=== PATIENT | male | born 1980 | race American Indian/Alaskan Native ===

== ENCOUNTER 2016-07-22 09:22 | Outpatient (CLI) | payer MEDICARE ==
[2016-07-22 11:03] LABS: Hematocrit 40.4 % (35.5-45.6); Hemoglobin 12.9 gm/dl (11.8-15.2); Mean Corpuscular HGB Conc 32 % (32-34); Mean Corpuscular Volume 80 fl (84-94); Platelet Count 317 K/mm3 (140-440); Red Blood Count 5.02 M/mm3 (3.65-5.03); Red Cell Distribution Width 14.5 % (13.2-15.2); White Blood Count 6.4 K/mm3 (4.5-11.0)
[2016-07-22 11:06] LABS: Mean Corpuscular Hemoglobin 26 pg (28-32)
[2016-07-22 11:24] LABS: Alanine Aminotransferase 27 units/L (7-56); Albumin 3.8 g/dL (3.9-5); Alkaline Phosphatase 92 units/L (35-129); Anion Gap 16 mmol/L; Bilirubin,Total 0.3 mg/dL (0.1-1.2); Blood Urea Nitrogen 14 mg/dL (9-20); Calcium 8.9 mg/dL (8.4-10.2); Carbon Dioxide 25 mmol/L (22-30); Chloride 98.5 mmol/L (98-107); Glucose 94 mg/dL (75-100); Potassium 4.3 mmol/L (3.6-5.0); Sodium 135 mmol/L (137-145); Total Protein 7.7 g/dL (6.3-8.2)
== END 2016-07-22 09:23 | disposition home or self-care (01) ==
LOC: LAB 09:22
PROVIDERS: ATTEND Nurse Practitioner Psychiatric/Mental Health
DX: B20 Human immunodeficiency virus [HIV] disease (principal); F33.9 Major depressive disorder, recurrent, unspecified
CPT/HCPCS: 36415; 80053; 84443; 85027

== ENCOUNTER 2016-07-30 06:44 | Emergency (ER) | payer MEDICARE | END 2016-07-30 07:10 | disposition left against medical advice (07) | LOC: ED 06:44 | DX: R00.2 Palpitations (principal); Z53.21 Procedure and treatment not carried out due to patient leaving prior to being seen by health care provider ==

== ENCOUNTER 2016-08-13 19:22 | Inpatient (IN) | payer MEDICARE ==
--- NOTE | 2016-08-13 19:54 | Emergency Department Report ---
ED Altered Mental Status HPI - General Stated Complaint: POSS OD Time Seen by Provider: 08/13/16 19:38 Source: EMS, old records reviewed ([facility]) Mode of arrival: Stretcher Limitations: Altered Mental Status, Physical Limitation - History of Present Illness Initial Comments: 36-year-old male with a past medical history of HIV and avascular necrosis of the hip presents to the hospital with altered mental status. EMS reports they received a call from the god sister who found patient unresponsive. Per patient was a normal mental status. He apparently use her phone to google a medication. Patient's phone and she does not know the medications that he looked up on line. She left then returned to find her unresponsive and gurgling. Patient had Narcan 2 mg prior to arrival without improvement. Patient has a history of meth abuse. Patient also has an empty bottle of amitriptyline 50mg 30 tabs prescribed Jul 11. Daylin reports that bottle was full before she stepped out and when she returned it was empty. Per mother pt was at [facility] earlier and sounded normal. Patient is currently altered and unable to provide any history of present illness at this time. Mother states to her knowledge his HIV is "in remission" - Related Data Home Medications Medication Instructions Recorded Confirmed Last Taken Emtricitabin/Tenofovir [TRUVADA 1 tab PO QDAY 04/11/13 04/25/13 04/25/13 08:00 200-300 mg] Lopinavir/Ritonavir [Kaletra 1 each PO QDAY 04/11/13 04/25/13 04/25/13 08:00 200-50 mg Tablet] Dronabinol [Marinol] 5 mg PO PRN 04/25/13 04/25/13 04/25/13 11:00 Promethazine [Phenergan] 25 mg PO PRN 04/25/13 04/25/13 04/24/13 20:00 Ritonavir [Norvir] 400 mg PO QDAY 04/25/13 04/25/13 04/25/13 08:00 Previous Rx's Medication Instructions Recorded Last Taken Type Emmett Childress [Chapin Childress] 75 mg PO Q12H #30 tablet 04/25/13 Unknown Rx Hydrocodone Bit/Acetaminophen 1 tab PO Q6H PRN #20 tablet 04/25/13 Unknown Rx [Lortab 10-500 mg] Allergies Allergy/AdvReac Type Severity Reaction Status Date / Time No Known Allergies Allergy Verified 04/25/13 12:08 ED Review of Systems ROS: Stated complaint: POSS OD Other details as noted in HPI Comment: Unobtainable due to pts medical conditions ED Past Medical Hx - Past Medical History Hx HIV: Yes Additional medical history: avascular necrosis left hip, peripheral neuropathy, HIV+ - Surgical History Additional Surgical History: right hip replacement - Social History Smoking Status: Current Every Day Smoker Substance Use Type: Alcohol, Marijuana, Prescribed - Medications Home Medications: Home Medications Medication Instructions Recorded Confirmed Last Taken Type Emtricitabin/Tenofovir [TRUVADA 1 tab PO QDAY 04/11/13 04/25/13 04/25/13 08:00 History 200-300 mg] Lopinavir/Ritonavir [Kaletra 1 each PO QDAY 04/11/13 04/25/13 04/25/13 08:00 History 200-50 mg Tablet] Diclofenac Dr [Voltaren Dr] 75 mg PO Q12H #30 tablet 04/25/13 Unknown Rx Dronabinol [Marinol] 5 mg PO PRN 04/25/13 04/25/13 04/25/13 11:00 History Hydrocodone Bit/Acetaminophen 1 tab PO Q6H PRN #20 tablet 04/25/13 Unknown Rx [Lortab 10-500 mg] Promethazine [Phenergan] 25 mg PO PRN 04/25/13 04/25/13 04/24/13 20:00 History Ritonavir [Norvir] 400 mg PO QDAY 04/25/13 04/25/13 04/25/13 08:00 History ED Physical Exam - General Limitations: Altered Mental Status, Physical Limitation - Other Other exam information: General: No limitations Head exam: Atraumatic, normocephalic Eyes exam: Normal appearance ENT: Moist mucous membrane Neck exam: Normal inspection, full range of motion Respiratory exam: Clear to auscultation bilateral, no wheezes, rales, crackles Cardiovascular: Normal rate and rhythm, normal heart sounds Abdomen: Soft, nondistended, and nontender, with normal bowel sounds, no rebound, or guarding Extremity: Full range of motion normal inspection no deformity : ulcer to penile head Back: Normal Inspection, full range of motion, no tenderness Neurologic: Unresponsive, localizes times, will not open eyes spontaneously over spine to voice. Moves all extremities spontaneously but prefers to have his upper extremities flexed Psychiatric: normal affect, normal mood Skin: Warm, dry, intact ED Course Vital Signs 08/13/16 08/13/16 19:30 19:39 Temperature 96.3 F L 97.4 F L Pulse Rate 92 H 102 H Respiratory 16 20 Rate Blood Pressure 137/87 Blood Pressure 142/92 [Left] O2 Sat by Pulse 100 100 Oximetry - Consultations Consultation #1: 08/13/16 20:30 Case is discussed with Alena with poison control. With TCA antidepressive overdose expect anticholinergic symptoms such as tachycardia, hypotension, seizures, coma, respiratory depression. QRS is greater 100 patient may need a bicarbonate drip. Ativan as needed for agitation and seizures. Recommend to avoid Haldol and Geodon - Lab Data Result diagrams: 08/13/16 20:09 08/13/16 20:09 Lab Results 08/13/16 08/13/16 08/13/16 Range/Units 19:35 19:40 20:09 WBC 7.2 (4.5-11.0) K/mm3 RBC 4.61 (3.65-5.03) M/mm3 Hgb 11.6 L (11.8-15.2) gm/dl Hct 36.5 (35.5-45.6) % MCV 79 L (84-94) fl MCH 25 L (28-32) pg MCHC 32 (32-34) % RDW 15.5 H (13.2-15.2) % Plt Count 291 (140-440) K/mm3 Lymph % (Auto) 13.6 (13.4-35.0) % [place] % (Auto) 10.0 H (0.0-7.3) % Eos % (Auto) 1.8 (0.0-4.3) % Baso % (Auto) 0.6 (0.0-1.8) % Lymph # 1.0 L (1.2-5.4) K/mm3 [place] # 0.7 (0.0-0.8) K/mm3 Eos # 0.1 (0.0-0.4) K/mm3 Baso # 0.0 (0.0-0.1) K/mm3 Seg Neutrophils % 74.0 H (40.0-70.0) % Seg Neutrophils # 5.3 (1.8-7.7) K/mm3 PT (12.2-14.9) Sec. INR (0.87-1.13) APTT (24.2-36.6) Sec. POC ABG pH (7.35-7.45) POC ABG pCO2 (35-45) POC ABG pO2 (80-105) POC ABG HCO3 POC ABG Total CO2 POC ABG O2 Sat POC ABG Base Excess FiO2 % Sodium (137-145) mmol/L Potassium (3.6-5.0) mmol/L Chloride (98-107) mmol/L Carbon Dioxide (22-30) mmol/L Anion Gap mmol/L BUN (9-20) mg/dL Creatinine (0.8-1.5) mg/dL Estimated GFR ml/min BUN/Creatinine Ratio % Glucose (75-100) mg/dL Lactic Acid (0.7-2.0) mmol/L Calcium (8.4-10.2) mg/dL Magnesium (1.7-2.3) mg/dL Total Bilirubin (0.1-1.2) mg/dL AST (5-40) units/L ALT (7-56) units/L Alkaline Phosphatase (35-129) units/L Ammonia (25-60) umol/L Total Creatine Kinase (55-170) units/L CK-MB (CK-2) (0.0-4.0) ng/mL CK-MB (CK-2) Rel Index (0-4) Troponin T (0.00-0.029) ng/mL Total Protein (6.3-8.2) g/dL Albumin (3.9-5) g/dL Albumin/Globulin Ratio % TSH (0.270-4.200) mlU/mL Urine Color Lib[place] (Yellow) Urine Turbidity Clear (Clear) Urine pH 6.0 (5.0-7.0) Ur Specific Howell 1.027 (1.003-1.030) Urine Protein 100 mg/dl (Negative) mg/dL Urine Glucose (UA) Neg (Negative) mg/dL Urine Ketones Tr (Negative) mg/dL Urine Blood Neg (Negative) Urine Nitrite Pos (Negative) Urine Bilirubin Neg (Negative) Urine Urobilinogen 4.0 (<2.0) mg/dL Ur Leukocyte Esterase Tr (Negative) Urine WBC (Auto) 1.0 (0.0-6.0) /HPF Urine RBC (Auto) 3.0 (0.0-6.0) /HPF Urine Bacteria (Auto) 3+ (Negative) /HPF Urine Mucus 3+ /HPF Salicylates (2.8-20.0) mg/dL Urine Opiates Screen Presumptive negative Urine Methadone Screen Presumptive negative Acetaminophen (10.0-30.0) ug/mL Ur Barbiturates Screen Presumptive negative Ur Phencyclidine Scrn Presumptive negative Ur Amphetamines Screen Presumptive positive U Benzodiazepines Scrn Presumptive negative Urine Cocaine Screen Presumptive negative U Marijuana (THC) Screen Presumptive positive Drugs of Abuse Note Disclamer Plasma/Serum Alcohol (0-0.07) gm% 08/13/16 08/13/16 08/13/16 Range/Units 20:09 20:09 20:09 WBC (4.5-11.0) K/mm3 RBC (3.65-5.03) M/mm3 Hgb (11.8-15.2) gm/dl Hct (35.5-45.6) % MCV (84-94) fl MCH (28-32) pg MCHC (32-34) % RDW (13.2-15.2) % Plt Count (140-440) K/mm3 Lymph % (Auto) (13.4-35.0) % [place] % (Auto) (0.0-7.3) % Eos % (Auto) (0.0-4.3) % Baso % (Auto) (0.0-1.8) % Lymph # (1.2-5.4) K/mm3 [place] # (0.0-0.8) K/mm3 Eos # (0.0-0.4) K/mm3 Baso # (0.0-0.1) K/mm3 Seg Neutrophils % (40.0-70.0) % Seg Neutrophils # (1.8-7.7) K/mm3 PT 13.4 (12.2-14.9) Sec. INR 1.03 (0.87-1.13) APTT 25.4 (24.2-36.6) Sec. POC ABG pH (7.35-7.45) POC ABG pCO2 (35-45) POC ABG pO2 (80-105) POC ABG HCO3 POC ABG Total CO2 POC ABG O2 Sat POC ABG Base Excess FiO2 % Sodium 138 (137-145) mmol/L Potassium 3.6 (3.6-5.0) mmol/L Chloride 99.1 (98-107) mmol/L Carbon Dioxide 28 (22-30) mmol/L Anion Gap 15 mmol/L BUN 17 (9-20) mg/dL Creatinine 0.7 L (0.8-1.5) mg/dL Estimated GFR > 60 ml/min BUN/Creatinine Ratio 24.28 % Glucose 80 (75-100) mg/dL Lactic Acid 1.0 (0.7-2.0) mmol/L Calcium 8.0 L (8.4-10.2) mg/dL Magnesium (1.7-2.3) mg/dL Total Bilirubin 0.8 (0.1-1.2) mg/dL AST 33 (5-40) units/L ALT 38 (7-56) units/L Alkaline Phosphatase 74 (35-129) units/L Ammonia (25-60) umol/L Total Creatine Kinase (55-170) units/L CK-MB (CK-2) (0.0-4.0) ng/mL CK-MB (CK-2) Rel Index (0-4) Troponin T < 0.010 (0.00-0.029) ng/mL Total Protein 6.9 (6.3-8.2) g/dL Albumin 3.5 L (3.9-5) g/dL Albumin/Globulin Ratio 1.0 % TSH (0.270-4.200) mlU/mL Urine Color (Yellow) Urine Turbidity (Clear) Urine pH (5.0-7.0) Ur Specific Howell (1.003-1.030) Urine Protein (Negative) mg/dL Urine Glucose (UA) (Negative) mg/dL Urine Ketones (Negative) mg/dL Urine Blood (Negative) Urine Nitrite (Negative) Urine Bilirubin (Negative) Urine Urobilinogen (<2.0) mg/dL Ur Leukocyte Esterase (Negative) Urine WBC (Auto) (0.0-6.0) /HPF Urine RBC (Auto) (0.0-6.0) /HPF Urine Bacteria (Auto) (Negative) /HPF Urine Mucus /HPF Salicylates (2.8-20.0) mg/dL Urine Opiates Screen Urine Methadone Screen Acetaminophen (10.0-30.0) ug/mL Ur Barbiturates Screen Ur Phencyclidine Scrn Ur Amphetamines Screen U Benzodiazepines Scrn Urine Cocaine Screen U Marijuana (THC) Screen Drugs of Abuse Note Plasma/Serum Alcohol (0-0.07) gm% 08/13/16 08/13/16 08/13/16 Range/Units 20:09 20:09 20:09 WBC (4.5-11.0) K/mm3 RBC (3.65-5.03) M/mm3 Hgb (11.8-15.2) gm/dl Hct (35.5-45.6) % MCV (84-94) fl MCH (28-32) pg MCHC (32-34) % RDW (13.2-15.2) % Plt Count (140-440) K/mm3 Lymph % (Auto) (13.4-35.0) % [place] % (Auto) (0.0-7.3) % Eos % (Auto) (0.0-4.3) % Baso % (Auto) (0.0-1.8) % Lymph # (1.2-5.4) K/mm3 [place] # (0.0-0.8) K/mm3 Eos # (0.0-0.4) K/mm3 Baso # (0.0-0.1) K/mm3 Seg Neutrophils % (40.0-70.0) % Seg Neutrophils # (1.8-7.7) K/mm3 PT (12.2-14.9) Sec. INR (0.87-1.13) APTT (24.2-36.6) Sec. POC ABG pH (7.35-7.45) POC ABG pCO2 (35-45) POC ABG pO2 (80-105) POC ABG HCO3 POC ABG Total CO2 POC ABG O2 Sat POC ABG Base Excess FiO2 % Sodium (137-145) mmol/L Potassium (3.6-5.0) mmol/L Chloride (98-107) mmol/L Carbon Dioxide (22-30) mmol/L Anion Gap mmol/L BUN (9-20) mg/dL Creatinine (0.8-1.5) mg/dL Estimated GFR ml/min BUN/Creatinine Ratio % Glucose (75-100) mg/dL Lactic Acid (0.7-2.0) mmol/L Calcium (8.4-10.2) mg/dL Magnesium (1.7-2.3) mg/dL Total Bilirubin (0.1-1.2) mg/dL AST (5-40) units/L ALT (7-56) units/L Alkaline Phosphatase (35-129) units/L Ammonia 44.0 (25-60) umol/L Total Creatine Kinase (55-170) units/L CK-MB (CK-2) (0.0-4.0) ng/mL CK-MB (CK-2) Rel Index (0-4) Troponin T (0.00-0.029) ng/mL Total Protein (6.3-8.2) g/dL Albumin (3.9-5) g/dL Albumin/Globulin Ratio % TSH 0.451 (0.270-4.200) mlU/mL Urine Color (Yellow) Urine Turbidity (Clear) Urine pH (5.0-7.0) Ur Specific [place] (1.003-1.030) Urine Protein (Negative) mg/dL Urine Glucose (UA) (Negative) mg/dL Urine Ketones (Negative) mg/dL Urine Blood (Negative) Urine Nitrite (Negative) Urine Bilirubin (Negative) Urine Urobilinogen (<2.0) mg/dL Ur Leukocyte Esterase (Negative) Urine WBC (Auto) (0.0-6.0) /HPF Urine RBC (Auto) (0.0-6.0) /HPF Urine Bacteria (Auto) (Negative) /HPF Urine Mucus /HPF Salicylates < 0.3 L (2.8-20.0) mg/dL Urine Opiates Screen Urine Methadone Screen Acetaminophen (10.0-30.0) ug/mL Ur Barbiturates Screen Ur Phencyclidine Scrn Ur Amphetamines Screen U Benzodiazepines Scrn Urine Cocaine Screen U Marijuana (THC) Screen Drugs of Abuse Note Plasma/Serum Alcohol (0-0.07) gm% 08/13/16 08/13/16 08/13/16 Range/Units 20:09 20:09 20:09 WBC (4.5-11.0) K/mm3 RBC (3.65-5.03) M/mm3 Hgb (11.8-15.2) gm/dl Hct (35.5-45.6) % MCV (84-94) fl MCH (28-32) pg MCHC (32-34) % RDW (13.2-15.2) % Plt Count (140-440) K/mm3 Lymph % (Auto) (13.4-35.0) % [place] % (Auto) (0.0-7.3) % Eos % (Auto) (0.0-4.3) % Baso % (Auto) (0.0-1.8) % Lymph # (1.2-5.4) K/mm3 [place] # (0.0-0.8) K/mm3 Eos # (0.0-0.4) K/mm3 Baso # (0.0-0.1) K/mm3 Seg Neutrophils % (40.0-70.0) % Seg Neutrophils # (1.8-7.7) K/mm3 PT (12.2-14.9) Sec. INR (0.87-1.13) APTT (24.2-36.6) Sec. POC ABG pH (7.35-7.45) POC ABG pCO2 (35-45) POC ABG pO2 (80-105) POC ABG HCO3 POC ABG Total CO2 POC ABG O2 Sat POC ABG Base Excess FiO2 % Sodium (137-145) mmol/L Potassium (3.6-5.0) mmol/L Chloride (98-107) mmol/L Carbon Dioxide (22-30) mmol/L Anion Gap mmol/L BUN (9-20) mg/dL Creatinine (0.8-1.5) mg/dL Estimated GFR ml/min BUN/Creatinine Ratio % Glucose (75-100) mg/dL Lactic Acid (0.7-2.0) mmol/L Calcium (8.4-10.2) mg/dL Magnesium (1.7-2.3) mg/dL Total Bilirubin (0.1-1.2) mg/dL AST (5-40) units/L ALT (7-56) units/L Alkaline Phosphatase (35-129) units/L Ammonia (25-60) umol/L Total Creatine Kinase 600 H (55-170) units/L CK-MB (CK-2) 5.9 H (0.0-4.0) ng/mL CK-MB (CK-2) Rel Index 0.9 (0-4) Troponin T (0.00-0.029) ng/mL Total Protein (6.3-8.2) g/dL Albumin (3.9-5) g/dL Albumin/Globulin Ratio % TSH (0.270-4.200) mlU/mL Urine Color (Yellow) Urine Turbidity (Clear) Urine pH (5.0-7.0) Ur Specific [place] (1.003-1.030) Urine Protein (Negative) mg/dL Urine Glucose (UA) (Negative) mg/dL Urine Ketones (Negative) mg/dL Urine Blood (Negative) Urine Nitrite (Negative) Urine Bilirubin (Negative) Urine Urobilinogen (<2.0) mg/dL Ur Leukocyte Esterase (Negative) Urine WBC (Auto) (0.0-6.0) /HPF Urine RBC (Auto) (0.0-6.0) /HPF Urine Bacteria (Auto) (Negative) /HPF Urine Mucus /HPF Salicylates (2.8-20.0) mg/dL Urine Opiates Screen Urine Methadone Screen Acetaminophen < 15.0 (10.0-30.0) ug/mL Ur Barbiturates Screen Ur Phencyclidine Scrn Ur Amphetamines Screen U Benzodiazepines Scrn Urine Cocaine Screen U Marijuana (THC) Screen Drugs of Abuse Note Plasma/Serum Alcohol < 0.01 (0-0.07) gm% 08/13/16 08/13/16 Range/Units 20:09 21:05 WBC (4.5-11.0) K/mm3 RBC (3.65-5.03) M/mm3 Hgb (11.8-15.2) gm/dl Hct (35.5-45.6) % MCV (84-94) fl MCH (28-32) pg MCHC (32-34) % RDW (13.2-15.2) % Plt Count (140-440) K/mm3 Lymph % (Auto) (13.4-35.0) % [place] % (Auto) (0.0-7.3) % Eos % (Auto) (0.0-4.3) % Baso % (Auto) (0.0-1.8) % Lymph # (1.2-5.4) K/mm3 [place] # (0.0-0.8) K/mm3 Eos # (0.0-0.4) K/mm3 Baso # (0.0-0.1) K/mm3 Seg Neutrophils % (40.0-70.0) % Seg Neutrophils # (1.8-7.7) K/mm3 PT (12.2-14.9) Sec. INR (0.87-1.13) APTT (24.2-36.6) Sec. POC ABG pH 7.350 (7.35-7.45) POC ABG pCO2 52.3 H (35-45) POC ABG pO2 175 H (80-105) POC ABG HCO3 28.9 POC ABG Total CO2 30 POC ABG O2 Sat 99 POC ABG Base Excess 3 FiO2 28 % Sodium (137-145) mmol/L Potassium (3.6-5.0) mmol/L Chloride (98-107) mmol/L Carbon Dioxide (22-30) mmol/L Anion Gap mmol/L BUN (9-20) mg/dL Creatinine (0.8-1.5) mg/dL Estimated GFR ml/min BUN/Creatinine Ratio % Glucose (75-100) mg/dL Lactic Acid (0.7-2.0) mmol/L Calcium (8.4-10.2) mg/dL Magnesium 1.9 (1.7-2.3) mg/dL Total Bilirubin (0.1-1.2) mg/dL AST (5-40) units/L ALT (7-56) units/L Alkaline Phosphatase (35-129) units/L Ammonia (25-60) umol/L Total Creatine Kinase (55-170) units/L CK-MB (CK-2) (0.0-4.0) ng/mL CK-MB (CK-2) Rel Index (0-4) Troponin T (0.00-0.029) ng/mL Total Protein (6.3-8.2) g/dL Albumin (3.9-5) g/dL Albumin/Globulin Ratio % TSH (0.270-4.200) mlU/mL Urine Color (Yellow) Urine Turbidity (Clear) Urine pH (5.0-7.0) Ur Specific [place]ell (1.003-1.030) Urine Protein (Negative) mg/dL Urine Glucose (UA) (Negative) mg/dL Urine Ketones (Negative) mg/dL Urine Blood (Negative) Urine Nitrite (Negative) Urine Bilirubin (Negative) Urine Urobilinogen (<2.0) mg/dL Ur Leukocyte Esterase (Negative) Urine WBC (Auto) (0.0-6.0) /HPF Urine RBC (Auto) (0.0-6.0) /HPF Urine Bacteria (Auto) (Negative) /HPF Urine Mucus /HPF Salicylates (2.8-20.0) mg/dL Urine Opiates Screen Urine Methadone Screen Acetaminophen (10.0-30.0) ug/mL Ur Barbiturates Screen Ur Phencyclidine Scrn Ur Amphetamines Screen U Benzodiazepines Scrn Urine Cocaine Screen U Marijuana (THC) Screen Drugs of Abuse Note Plasma/Serum Alcohol (0-0.07) gm% - EKG Data -: EKG Interpreted by Me (sinus 106, early repol QRS 98, QTC 475) - Radiology Data Radiology results: report reviewed (CT head: No acute findings mild paranasal sinus disease) - Medical Decision Making Plan to admit patient to the hospital for probable overdose as well as history of polysubstance abuse. Patient will require further monitoring and treatment of symptoms - Differential Diagnosis drug overdose, infection, hemorrhage, encephalopathy Critical Care Time: No Critical care attestation.: If time is entered above; I have spent that time in minutes in the direct care of this critically ill patient, excluding procedure time. ED Disposition Clinical Impression: Altered mental status, TCA (tricyclic antidepressant) overdose of undetermined intent, HIV (human immunodeficiency virus infection), Elevated CK Disposition: OP ADMITTED IP TO THIS HOSP Is pt being admited?: Yes Condition: Stable Time of Disposition: 21:54 (Dr Arias/hosp)
[2016-08-13 20:04] LABS: Bacteria,Urine 3+ /HPF (Negative); Bilirubin,Urine NEG (Negative); Blood,Urine NEG (Negative); Ketones,Urine TR mg/dL (Negative); Leukocyte Esterase,Urine TR (Negative); Mucus,Urine 3+ /HPF; Nitrite,Urine POS (Negative)
--- NOTE | 2016-08-13 20:13 | Cat Scan Report ---
FINAL REPORT PROCEDURE: CT HEAD/BRAIN WO CON TECHNIQUE: Computerized tomography of the head was performed without contrast material. HISTORY: Altered Mental Status COMPARISON: No prior studies are available for comparison. FINDINGS: Brain: Brain density appears normal. No evidence of intracranial hemorrhage. No parenchymal hemorrhage, mass lesions or mass effect are seen. No abnormal extraxial fluid collects or masses are seen. Ventricles: Ventricles are normal size and are midline. Bone Windows: No evidence of skull fracture. Paranasal sinuses: There is opacification of 1 of the ethmoid air cells on the right. There is scattered mild mucosal thickening. There is mild mucosal thickening anteriorly in both maxillary sinuses and small nodular density posteriorly in the right maxillary sinus. Mastoid air cells: Clear IMPRESSION: Negative unenhanced CT of the brain. If symptoms persist or worsen consider follow-up exam or MRI for further evaluation. Mild paranasal sinus disease as described.
--- NOTE | 2016-08-13 20:16 | Admit Criteria Form ---
Admission Criteria Documentation: MENTAL STATUS CHANGE Clinical Indications for Inpatient Care (Place 'X' for any and all applicable criteria): Ongoing inpatient care may be needed for ANY ONE of the following(1)(2)(3)(5)(6) : [ ]I. Suspected serious etiology (eg, medical disorder, TOY MAKER event) of mental status change [X]II. Danger to self or others not manageable at lower level of care [ ]III. Grave disability (eg, inability to perform self care necessary at lower level of care) [ ]IV. Agitation or inappropriate behavior interfering with care for primary condition (eg, attempting to discontinue lines or drains prematurely, unable to cooperate with respiratory care) [ ]V. Delirium [A] [D][E] as described by ANY ONE of the following(26): [ ]a) Delirium due to alcohol or sedative [F] withdrawal [ ]b) Delirium of uncertain etiology that has not responded to appropriate empiric treatment [ ]c) Delirium that prevents performance of a life-sustaining function (eg, feeding or hydrating oneself) [ ]. General contraindications and/or Inappropriate clinical situations for Observational Care in patients with Mental Status Change, when ANY ONE of the following is required: [ ]a) Prediction of prolongation of LOS based on ANY ONE of the following may be considered as a contraindication for observational care 2, 3, 4, 5, 6, 7, 8, 9, 10, 11 [ ]i) Age > 65 yrs. [ ]ii) Patient arriving by ambulance [ ]iii) Patient with high acuity [ ]iv) Patient requiring vital sign monitoring [ ]v) Patient on IV medication [ ]b) Systolic blood pressures 180mmHg 3,12 [ ]c) Patient with altered mental status including delirium and other alteration of consciousness, (3) [ ]d) Patient whose discharge disposition will be to a halfway home or rehabilitation home should not be managed in Emergency Department Observation Unit. CMS rule requires 3 days hospital stay before such placement.3,13 [ ]e) Patient with failure to thrive due to broad array of etiologies 3,16,17 [ ]f) Inability to ambulate 3,14 Extended stay beyond goal length of stay for the primary condition may be needed until ALL of the following are present(3)(5): [ ]a) Underlying medical etiology of mental status change is absent, or has been established and adequately treated [ ]b) Danger to self or others is absent or manageable at lower level of care. [ ]c) Behavior crisis management, including physical or chemical restraints, is not required or available at lower level of car [ ]d) Substance or alcohol withdrawal is absent or manageable at lower level of care. [ ]e) Behavioral symptoms (eg, agitation, somnolence, inappropriate behavior) are absent, or are manageable at lower level of care. The original [facility] content created by [facility] has been revised. The portions of the content which have been revised are identified through the use of italic text or in bold, and [facility] has neither reviewed nor approved the modified material. All other unmodified content is copyright [facility]. Please see references footnoted in the original [facility] edition 2016 Admission Criteria Met: Yes
[2016-08-13 20:24] LABS: Urine Drugs of Abuse Note Disclamer
[2016-08-13] MEDS ORDERED: ATIVAN IV ONE (20:36)
[2016-08-13 21:07] LABS: Alanine Aminotransferase 38 units/L (7-56); Albumin 3.5 g/dL (3.9-5); Alkaline Phosphatase 74 units/L (35-129); Anion Gap 15 mmol/L; BUN/Creatinine Ratio 24.28; Bilirubin,Total 0.8 mg/dL (0.1-1.2); Blood Urea Nitrogen 17 mg/dL (9-20); Carbon Dioxide 28 mmol/L (22-30); Chloride 99.1 mmol/L (98-107); Glucose 80 mg/dL (75-100); Potassium 3.6 mmol/L (3.6-5.0); Sodium 138 mmol/L (137-145); Total Protein 6.9 g/dL (6.3-8.2)
[2016-08-13 21:13] LABS: ISTAT Base Excess 3; ISTAT HCO3 28.9; ISTAT PCO2 52.3 (35-45); ISTAT PO2 175 (80-105); ISTAT SO2 99; ISTAT TCO2 30
[2016-08-13 21:14] LABS: Basophils % (Auto) 0.6 % (0.0-1.8); Creatine Kinase MB 5.9 ng/mL (0.0-4.0); Eosinophils % (Auto) 1.8 % (0.0-4.3); Hematocrit 36.5 % (35.5-45.6); Hemoglobin 11.6 gm/dl (11.8-15.2); Mean Corpuscular HGB Conc 32 % (32-34); Mean Corpuscular Volume 79 fl (84-94); Platelet Count 291 K/mm3 (140-440); Red Blood Count 4.61 M/mm3 (3.65-5.03); Red Cell Distribution Width 15.5 % (13.2-15.2); White Blood Count 7.2 K/mm3 (4.5-11.0)
[2016-08-13 21:15] LABS: Mean Corpuscular Hemoglobin 25 pg (28-32)
[2016-08-13 21:26] LABS: INR 1.03 (0.87-1.13); Partial Thromboplastin Time 25.4 Sec. (24.2-36.6)
[2016-08-13] MEDS ORDERED: TYLENOL PR PRN (23:33)
[2016-08-13] MEDS ORDERED: ZOFRAN IV PRN (23:33)
[2016-08-13] MEDS ORDERED: TYLENOL PO PRN (23:33)
--- NOTE | 2016-08-13 23:44 | History and Physical Report ---
History of Present Illness Date of examination: 08/13/16 History of present illness: 36-year-old man with HIV,substance abuse was brought to the emergency room for unresponsiveness. Unable to reach family, the patient is unable to give a history. Per the emergency room physician family reports that he took amitriptyline, unclear how many. The patient was given Narcan and brought to the hospital without any significant effect. His urine is positive for cocaine , amphetamines and marijuana. Review of system is unobtainable PAST SURGICAL HISTORY: Unknown SOCIAL HISTORY unknown: FAMILY HISTORY: Unknown Medications and Allergies Allergies Allergy/AdvReac Type Severity Reaction Status Date / Time No Known Allergies Allergy Verified 04/25/13 12:08 Home Medications Medication Instructions Recorded Confirmed Last Taken Type Emtricitabin/Tenofovir [TRUVADA 1 tab PO QDAY 04/11/13 04/25/13 04/25/13 08:00 History 200-300 mg] Lopinavir/Ritonavir [Kaletra 1 each PO QDAY 04/11/13 04/25/13 04/25/13 08:00 History 200-50 mg Tablet] Diclofenac Dr [Voltaren Dr] 75 mg PO Q12H #30 tablet 04/25/13 Unknown Rx Dronabinol [Marinol] 5 mg PO PRN 04/25/13 04/25/13 04/25/13 11:00 History Hydrocodone Bit/Acetaminophen 1 tab PO Q6H PRN #20 tablet 04/25/13 Unknown Rx [Lortab 10-500 mg] Promethazine [Phenergan] 25 mg PO PRN 04/25/13 04/25/13 04/24/13 20:00 History Ritonavir [Norvir] 400 mg PO QDAY 04/25/13 04/25/13 04/25/13 08:00 History Active Meds: Active Medications Acetaminophen (Tylenol) 650 mg PO Q4H PRN PRN Reason: Pain MILD(1-3)/Fever >100.5/GOLDMAN Acetaminophen (Tylenol) 650 mg [place] Q4H PRN PRN Reason: Pain MILD(1-3)/Fever >100.5/GOLDMAN Enoxaparin Sodium (Lovenox) 30 mg SUB-Q QDAY FARAZ Sodium Chloride (Nacl 0.9% 1000 Ml) 1,000 mls @ 150 mls/hr IV DIRECT FARAZ Ondansetron HCl (Zofran) 4 mg IV Q8H PRN PRN Reason: N/V unrelieved by Reglan Exam - Physical Exam Narrative exam: Gen. appearance: Patient lying in bed, no apparent distress HEENT: Normocephalic, atraumatic, pupils equally round and reactive to light, unable to do extraocular movement, and no sclericterus,. No JVD or thyromegaly or nodule,neck supple, no carotid bruit ,mucous membranes moist, unable to examine oral cavity Heart: S1, S2, regular rate and rhythm Lungs: Clear to auscultation bilaterally, breathing comfortable Abdomen: Positive bowel sounds, nontender, nondistended, no organomegaly Extremity: No edema, cyanosis, clubbing Skin: No rash, nodules, warm, dry Neuro: LETHARGIC - Constitutional Vitals: Temp Pulse Resp BP Pulse Ox 97.4 F L 102 H 20 137/87 100 08/13/16 19:39 08/13/16 19:39 08/13/16 19:39 08/13/16 19:39 08/13/16 19:39 Results - Labs CBC & Chem 7: 08/14/16 07:42 08/14/16 07:42 Labs: Abnormal lab results 08/13/16 08/13/16 08/13/16 Range/Units 20:09 20:09 20:09 Hgb 11.6 L (11.8-15.2) gm/dl MCV 79 L (84-94) fl MCH 25 L (28-32) pg RDW 15.5 H (13.2-15.2) % [place] % (Auto) 10.0 H (0.0-7.3) % Lymph # 1.0 L (1.2-5.4) K/mm3 Seg Neutrophils % 74.0 H (40.0-70.0) % POC ABG pCO2 (35-45) POC ABG pO2 (80-105) Creatinine 0.7 L (0.8-1.5) mg/dL Calcium 8.0 L (8.4-10.2) mg/dL Total Creatine Kinase (55-170) units/L CK-MB (CK-2) (0.0-4.0) ng/mL Albumin 3.5 L (3.9-5) g/dL Salicylates < 0.3 L (2.8-20.0) mg/dL 08/13/16 08/13/16 Range/Units 20:09 21:05 Hgb (11.8-15.2) gm/dl MCV (84-94) fl MCH (28-32) pg RDW (13.2-15.2) % [place] % (Auto) (0.0-7.3) % Lymph # (1.2-5.4) K/mm3 Seg Neutrophils % (40.0-70.0) % POC ABG pCO2 52.3 H (35-45) POC ABG pO2 175 H (80-105) Creatinine (0.8-1.5) mg/dL Calcium (8.4-10.2) mg/dL Total Creatine Kinase 600 H (55-170) units/L CK-MB (CK-2) 5.9 H (0.0-4.0) ng/mL Albumin (3.9-5) g/dL Salicylates (2.8-20.0) mg/dL - Imaging and Cardiology CT Scan - head: report reviewed Assessment and Plan Altered mental status most like secondary to drug use Possible overdose Possible suicide attempt Rhabdomyolysis Substance abuse HIV Admits medicine Start bicarbonate drip, monitor EKG Place with a sitter, start DVT prophylaxis
[2016-08-13] MEDS ORDERED: NACL 0.9% 1000 ML 1,000 ML IV SCH (23:45)
[2016-08-14] MEDS: NACL 0.45% 1000 ML 1,000 ML with SODIUM BICARBONATE 50 MEQ IV SCH ×3 (01:36→17:22)
[2016-08-14 08:06] LABS: Basophils % (Auto) 0.9 % (0.0-1.8); Hematocrit 36.9 % (35.5-45.6); Hemoglobin 11.8 gm/dl (11.8-15.2); Mean Corpuscular HGB Conc 32 % (32-34); Mean Corpuscular Hemoglobin 25 pg (28-32); Mean Corpuscular Volume 79 fl (84-94); Platelet Count 272 K/mm3 (140-440); Red Blood Count 4.66 M/mm3 (3.65-5.03); Red Cell Distribution Width 15.3 % (13.2-15.2); White Blood Count 5.1 K/mm3 (4.5-11.0)
[2016-08-14 08:21] LABS: Anion Gap 17 mmol/L; Blood Urea Nitrogen 14 mg/dL (9-20); Calcium 8.1 mg/dL (8.4-10.2); Carbon Dioxide 27 mmol/L (22-30); Chloride 101.1 mmol/L (98-107); Glucose 79 mg/dL (75-100); Potassium 3.8 mmol/L (3.6-5.0); Sodium 141 mmol/L (137-145)
[2016-08-14] MEDS ORDERED: LOVENOX SUB-Q SCH (10:00)
[2016-08-14] MEDS: LOVENOX SUB-Q SCH (10:21)
--- NOTE | 2016-08-14 15:50 | Progress Note ---
Assessment and Plan Assessment and plan: Acute toxic encephalopathy secondary to drug Possible Suicide attempt Rhabdomyolysis Substance abuse History of HIV Plan: Continue to monitor him clinically Continue bicarbonate drip, monitor EKG Placed with a sitter, consult psychiatry Continue DVT prophylaxis, resume diet Trend CPK History Interval history: Patient seen and examined. Medical records and medication list reviewed. No acute event overnight noted by the RN. Patient denies any chest pain or difficulty breathing. Patient still express suicidal ideation, he states that he tried to overdose as an suicidal attempt Discussed plan of care at bedside with patient. Hospitalist Physical - Physical exam Narrative exam: GENERAL: well-developed and well-nourished -[place] male lying on bed appeared to be in no discomfort. HEENT: Normocephalic. Atraumatic. No conjunctival congestion or icterus. Patient has moist mucous membranes. NECK: Supple. Trachea midline. CHEST/LUNGS: Clear to auscultated bilaterally, breathing nonlabored. No wheezes crackles or rhonchi. HEART/CARDIOVASCULAR: Regular in rate and rhythm. S1 and S2 positive. ABDOMEN: Abdomen is soft, nontender. Patient has normal bowel sounds. SKIN: There is no rash. Warm and dry. NEURO: No focal motor deficit. Follows command. MUSCULOSKELETAL: No joint effusion or tenderness. EXTRIMITY: No edema, no cyanosis or clubbing. PSYCH: Cooperative. - Constitutional Vitals: Temp Pulse Resp BP Pulse Ox 98.0 F 78 20 126/82 99 08/14/16 07:38 08/14/16 09:00 08/14/16 07:38 08/14/16 07:38 08/14/16 10:14 Results - Labs CBC & Chem 7: 08/14/16 07:42 08/14/16 07:42 Labs: Laboratory Last Values WBC 5.1 K/mm3 (4.5-11.0) 08/14/16 07:42 RBC 4.66 M/mm3 (3.65-5.03) 08/14/16 07:42 Hgb 11.8 gm/dl (11.8-15.2) 08/14/16 07:42 Hct 36.9 % (35.5-45.6) 08/14/16 07:42 MCV 79 fl (84-94) L 08/14/16 07:42 MCH 25 pg (28-32) L 08/14/16 07:42 MCHC 32 % (32-34) 08/14/16 07:42 RDW 15.3 % (13.2-15.2) H 08/14/16 07:42 Plt Count 272 K/mm3 (140-440) 08/14/16 07:42 Lymph % (Auto) 24.0 % (13.4-35.0) 08/14/16 07:42 [place] % (Auto) 11.8 % (0.0-7.3) H 08/14/16 07:42 Eos % (Auto) 4.0 % (0.0-4.3) 08/14/16 07:42 Baso % (Auto) 0.9 % (0.0-1.8) 08/14/16 07:42 Lymph # 1.2 K/mm3 (1.2-5.4) 08/14/16 07:42 [place] # 0.6 K/mm3 (0.0-0.8) 08/14/16 07:42 Eos # 0.2 K/mm3 (0.0-0.4) 08/14/16 07:42 Baso # 0.0 K/mm3 (0.0-0.1) 08/14/16 07:42 Seg Neutrophils % 59.3 % (40.0-70.0) 08/14/16 07:42 Seg Neutrophils # 3.0 K/mm3 (1.8-7.7) 08/14/16 07:42 PT 13.4 Sec. (12.2-14.9) 08/13/16 20:09 INR 1.03 (0.87-1.13) 08/13/16 20:09 APTT 25.4 Sec. (24.2-36.6) 08/13/16 20:09 POC ABG pH 7.350 (7.35-7.45) 08/13/16 21:05 POC ABG pCO2 52.3 (35-45) H 08/13/16 21:05 POC ABG pO2 175 (80-105) H 08/13/16 21:05 POC ABG HCO3 28.9 08/13/16 21:05 POC ABG Total CO2 30 08/13/16 21:05 POC ABG O2 Sat 99 08/13/16 21:05 POC ABG Base Excess 3 08/13/16 21:05 FiO2 28 % 08/13/16 21:05 Sodium 141 mmol/L (137-145) 08/14/16 07:42 Potassium 3.8 mmol/L (3.6-5.0) 08/14/16 07:42 Chloride 101.1 mmol/L (98-107) 08/14/16 07:42 Carbon Dioxide 27 mmol/L (22-30) 08/14/16 07:42 Anion Gap 17 mmol/L 08/14/16 07:42 BUN 14 mg/dL (9-20) 08/14/16 07:42 Creatinine 0.7 mg/dL (0.8-1.5) L 08/14/16 07:42 Estimated GFR > 60 ml/min 08/14/16 07:42 BUN/Creatinine Ratio 20.00 % 08/14/16 07:42 Glucose 79 mg/dL (75-100) 08/14/16 07:42 Lactic Acid 1.0 mmol/L (0.7-2.0) 08/13/16 20:09 Calcium 8.1 mg/dL (8.4-10.2) L 08/14/16 07:42 Magnesium 1.9 mg/dL (1.7-2.3) 08/13/16 20:09 Total Bilirubin 0.8 mg/dL (0.1-1.2) 08/13/16 20:09 AST 33 units/L (5-40) 08/13/16 20:09 ALT 38 units/L (7-56) 08/13/16 20:09 Alkaline Phosphatase 74 units/L (35-129) 08/13/16 20:09 Ammonia 44.0 umol/L (25-60) 08/13/16 20:09 Total Creatine Kinase 600 units/L (55-170) H 08/13/16 20:09 CK-MB (CK-2) 5.9 ng/mL (0.0-4.0) H 08/13/16 20:09 CK-MB (CK-2) Rel Index 0.9 (0-4) 08/13/16 20:09 Troponin T < 0.010 ng/mL (0.00-0.029) 08/13/16 20:09 Total Protein 6.9 g/dL (6.3-8.2) 08/13/16 20:09 Albumin 3.5 g/dL (3.9-5) L 08/13/16 20:09 Albumin/Globulin Ratio 1.0 % 08/13/16 20:09 TSH 0.451 mlU/mL (0.270-4.200) 08/13/16 20:09 Urine Color [place] (Yellow) 08/13/16 19:35 Urine Turbidity Clear (Clear) 08/13/16 19:35 Urine pH 6.0 (5.0-7.0) 08/13/16 19:35 Ur Specific [place] 1.027 (1.003-1.030) 08/13/16 19:35 Urine Protein 100 mg/dl mg/dL (Negative) 08/13/16 19:35 Urine Glucose (UA) Neg mg/dL (Negative) 08/13/16 19:35 Urine Ketones Tr mg/dL (Negative) 08/13/16 19:35 Urine Blood Neg (Negative) 08/13/16 19:35 Urine Nitrite Pos (Negative) 08/13/16 19:35 Urine Bilirubin Neg (Negative) 08/13/16 19:35 Urine Urobilinogen 4.0 mg/dL (<2.0) 08/13/16 19:35 Ur Leukocyte Esterase Tr (Negative) 08/13/16 19:35 Urine WBC (Auto) 1.0 /HPF (0.0-6.0) 08/13/16 19:35 Urine RBC (Auto) 3.0 /HPF (0.0-6.0) 08/13/16 19:35 Urine Bacteria (Auto) 3+ /HPF (Negative) 08/13/16 19:35 Urine Mucus 3+ /HPF 08/13/16 19:35 Salicylates < 0.3 mg/dL (2.8-20.0) L 08/13/16 20:09 Urine Opiates Screen Presumptive negative 08/13/16 19:40 Urine Methadone Screen Presumptive negative 08/13/16 19:40 Acetaminophen < 15.0 ug/mL (10.0-30.0) 08/13/16 20:09 Ur Barbiturates Screen Presumptive negative 08/13/16 19:40 Ur Phencyclidine Scrn Presumptive negative 08/13/16 19:40 Ur Amphetamines Screen Presumptive positive 08/13/16 19:40 U Benzodiazepines Scrn Presumptive negative 08/13/16 19:40 Urine Cocaine Screen Presumptive negative 08/13/16 19:40 U Marijuana (THC) Screen Presumptive positive 08/13/16 19:40 Drugs of Abuse Note Disclamer 08/13/16 19:40 Plasma/Serum Alcohol < 0.01 gm% (0-0.07) 08/13/16 20:09
[2016-08-15] MEDS: NACL 0.45% 1000 ML 1,000 ML with SODIUM BICARBONATE 50 MEQ IV SCH (00:30)
[2016-08-15] MEDS: LOVENOX SUB-Q SCH (09:31)
[2016-08-15] MEDS ORDERED: FLUARIX QUAD 2016-2017(36 MOS+) IM ONE (12:00)
--- NOTE | 2016-08-15 15:45 | Progress Note ---
Assessment and Plan Assessment and plan: Acute toxic encephalopathy secondary to drug Possible Suicide attempt Rhabdomyolysis, CPK trended down Substance abuse History of HIV Plan: Continue to monitor him clinically Continue bicarbonate drip, monitor EKG Placed with a sitter, psychiatry consult pending d/c bicarbonate drip Continue DVT prophylaxis, regular diet wait for psychiatry recommendation History Interval history: Patient seen and examined. Medical records and medication list reviewed. No acute event overnight noted by the RN. Patient denies any chest pain or difficulty breathing. Patient still express suicidal ideation, he states that he tried to overdose as an suicidal attempt psych eval pending Discussed plan of care at bedside with patient. Hospitalist Physical - Physical exam Narrative exam: GENERAL: well-developed and well-nourished -[place] male lying on bed appeared to be in no discomfort. HEENT: Normocephalic. Atraumatic. No conjunctival congestion or icterus. Patient has moist mucous membranes. NECK: Supple. Trachea midline. CHEST/LUNGS: Clear to auscultated bilaterally, breathing nonlabored. No wheezes crackles or rhonchi. HEART/CARDIOVASCULAR: Regular in rate and rhythm. S1 and S2 positive. ABDOMEN: Abdomen is soft, nontender. Patient has normal bowel sounds. SKIN: There is no rash. Warm and dry. NEURO: No focal motor deficit. Follows command. MUSCULOSKELETAL: No joint effusion or tenderness. EXTRIMITY: No edema, no cyanosis or clubbing. PSYCH: Cooperative. - Constitutional Vitals: Temp Pulse Resp BP Pulse Ox 98.0 F 75 18 124/76 100 08/15/16 07:00 08/15/16 07:00 08/15/16 07:00 08/15/16 07:00 08/15/16 07:17 Results - Labs CBC & Chem 7: 08/14/16 07:42 08/14/16 07:42 Labs: Laboratory Last Values WBC 5.1 K/mm3 (4.5-11.0) 08/14/16 07:42 RBC 4.66 M/mm3 (3.65-5.03) 08/14/16 07:42 Hgb 11.8 gm/dl (11.8-15.2) 08/14/16 07:42 Hct 36.9 % (35.5-45.6) 08/14/16 07:42 MCV 79 fl (84-94) L 08/14/16 07:42 MCH 25 pg (28-32) L 08/14/16 07:42 MCHC 32 % (32-34) 08/14/16 07:42 RDW 15.3 % (13.2-15.2) H 08/14/16 07:42 Plt Count 272 K/mm3 (140-440) 08/14/16 07:42 Lymph % (Auto) 24.0 % (13.4-35.0) 08/14/16 07:42 [place] % (Auto) 11.8 % (0.0-7.3) H 08/14/16 07:42 Eos % (Auto) 4.0 % (0.0-4.3) 08/14/16 07:42 Baso % (Auto) 0.9 % (0.0-1.8) 08/14/16 07:42 Lymph # 1.2 K/mm3 (1.2-5.4) 08/14/16 07:42 [place] # 0.6 K/mm3 (0.0-0.8) 08/14/16 07:42 Eos # 0.2 K/mm3 (0.0-0.4) 08/14/16 07:42 Baso # 0.0 K/mm3 (0.0-0.1) 08/14/16 07:42 Seg Neutrophils % 59.3 % (40.0-70.0) 08/14/16 07:42 Seg Neutrophils # 3.0 K/mm3 (1.8-7.7) 08/14/16 07:42 PT 13.4 Sec. (12.2-14.9) 08/13/16 20:09 INR 1.03 (0.87-1.13) 08/13/16 20:09 APTT 25.4 Sec. (24.2-36.6) 08/13/16 20:09 POC ABG pH 7.350 (7.35-7.45) 08/13/16 21:05 POC ABG pCO2 52.3 (35-45) H 08/13/16 21:05 POC ABG pO2 175 (80-105) H 08/13/16 21:05 POC ABG HCO3 28.9 08/13/16 21:05 POC ABG Total CO2 30 08/13/16 21:05 POC ABG O2 Sat 99 08/13/16 21:05 POC ABG Base Excess 3 08/13/16 21:05 FiO2 28 % 08/13/16 21:05 Sodium 141 mmol/L (137-145) 08/14/16 07:42 Potassium 3.8 mmol/L (3.6-5.0) 08/14/16 07:42 Chloride 101.1 mmol/L (98-107) 08/14/16 07:42 Carbon Dioxide 27 mmol/L (22-30) 08/14/16 07:42 Anion Gap 17 mmol/L 08/14/16 07:42 BUN 14 mg/dL (9-20) 08/14/16 07:42 Creatinine 0.7 mg/dL (0.8-1.5) L 08/14/16 07:42 Estimated GFR > 60 ml/min 08/14/16 07:42 BUN/Creatinine Ratio 20.00 % 08/14/16 07:42 Glucose 79 mg/dL (75-100) 08/14/16 07:42 Lactic Acid 1.0 mmol/L (0.7-2.0) 08/13/16 20:09 Calcium 8.1 mg/dL (8.4-10.2) L 08/14/16 07:42 Magnesium 1.9 mg/dL (1.7-2.3) 08/13/16 20:09 Total Bilirubin 0.8 mg/dL (0.1-1.2) 08/13/16 20:09 AST 33 units/L (5-40) 08/13/16 20:09 ALT 38 units/L (7-56) 08/13/16 20:09 Alkaline Phosphatase 74 units/L (35-129) 08/13/16 20:09 Ammonia 44.0 umol/L (25-60) 08/13/16 20:09 Total Creatine Kinase 264 units/L (55-170) H 08/15/16 08:27 CK-MB (CK-2) 5.9 ng/mL (0.0-4.0) H 08/13/16 20:09 CK-MB (CK-2) Rel Index 0.9 (0-4) 08/13/16 20:09 Troponin T < 0.010 ng/mL (0.00-0.029) 08/13/16 20:09 Total Protein 6.9 g/dL (6.3-8.2) 08/13/16 20:09 Albumin 3.5 g/dL (3.9-5) L 08/13/16 20:09 Albumin/Globulin Ratio 1.0 % 08/13/16 20:09 TSH 0.451 mlU/mL (0.270-4.200) 08/13/16 20:09 Urine Color [place] (Yellow) 08/13/16 19:35 Urine Turbidity Clear (Clear) 08/13/16 19:35 Urine pH 6.0 (5.0-7.0) 08/13/16 19:35 Ur Specific [place] 1.027 (1.003-1.030) 08/13/16 19:35 Urine Protein 100 mg/dl mg/dL (Negative) 08/13/16 19:35 Urine Glucose (UA) Neg mg/dL (Negative) 08/13/16 19:35 Urine Ketones Tr mg/dL (Negative) 08/13/16 19:35 Urine Blood Neg (Negative) 08/13/16 19:35 Urine Nitrite Pos (Negative) 08/13/16 19:35 Urine Bilirubin Neg (Negative) 08/13/16 19:35 Urine Urobilinogen 4.0 mg/dL (<2.0) 08/13/16 19:35 Ur Leukocyte Esterase Tr (Negative) 08/13/16 19:35 Urine WBC (Auto) 1.0 /HPF (0.0-6.0) 08/13/16 19:35 Urine RBC (Auto) 3.0 /HPF (0.0-6.0) 08/13/16 19:35 Urine Bacteria (Auto) 3+ /HPF (Negative) 08/13/16 19:35 Urine Mucus 3+ /HPF 08/13/16 19:35 Salicylates < 0.3 mg/dL (2.8-20.0) L 08/13/16 20:09 Urine Opiates Screen Presumptive negative 08/13/16 19:40 Urine Methadone Screen Presumptive negative 08/13/16 19:40 Acetaminophen < 15.0 ug/mL (10.0-30.0) 08/13/16 20:09 Ur Barbiturates Screen Presumptive negative 08/13/16 19:40 Ur Phencyclidine Scrn Presumptive negative 08/13/16 19:40 Ur Amphetamines Screen Presumptive positive 08/13/16 19:40 U Benzodiazepines Scrn Presumptive negative 08/13/16 19:40 Urine Cocaine Screen Presumptive negative 08/13/16 19:40 U Marijuana (THC) Screen Presumptive positive 08/13/16 19:40 Drugs of Abuse Note Disclamer 08/13/16 19:40 Plasma/Serum Alcohol < 0.01 gm% (0-0.07) 08/13/16 20:09
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
[2016-08-16] MEDS: LOVENOX SUB-Q SCH (10:39)
--- NOTE | 2016-08-16 16:10 | Progress Note ---
Assessment and Plan Assessment and plan: Acute toxic encephalopathy secondary to drug Possible Suicide attempt Rhabdomyolysis, CPK trended down Substance abuse History of HIV Plan: Continue to monitor him clinically Placed with a sitter, psychiatry following d/tulio bicarbonate drip Continue DVT prophylaxis, regular diet he is medically stable for inpt psych History Interval history: Patient seen and examined. Medical records and medication list reviewed. No acute event overnight noted by the RN. Patient denies any chest pain or difficulty breathing. Patient still express suicidal ideation, he states that he tried to overdose as an suicidal attempt psych eval pending Discussed plan of care at bedside with patient. Hospitalist Physical - Physical exam Narrative exam: GENERAL: well-developed and well-nourished -[place]ian male lying on bed appeared to be in no discomfort. HEENT: Normocephalic. Atraumatic. No conjunctival congestion or icterus. Patient has moist mucous membranes. NECK: Supple. Trachea midline. CHEST/LUNGS: Clear to auscultated bilaterally, breathing nonlabored. No wheezes crackles or rhonchi. HEART/CARDIOVASCULAR: Regular in rate and rhythm. S1 and S2 positive. ABDOMEN: Abdomen is soft, nontender. Patient has normal bowel sounds. SKIN: There is no rash. Warm and dry. NEURO: No focal motor deficit. Follows command. MUSCULOSKELETAL: No joint effusion or tenderness. EXTRIMITY: No edema, no cyanosis or clubbing. PSYCH: Cooperative. - Constitutional Vitals: Temp Pulse Resp BP Pulse Ox 98.6 F 84 18 120/76 100 08/16/16 15:17 08/16/16 15:17 08/16/16 15:17 08/16/16 15:17 08/16/16 15:17 Results - Labs CBC & Chem 7: 08/14/16 07:42 08/14/16 07:42 Labs: Laboratory Last Values WBC 5.1 K/mm3 (4.5-11.0) 08/14/16 07:42 RBC 4.66 M/mm3 (3.65-5.03) 08/14/16 07:42 Hgb 11.8 gm/dl (11.8-15.2) 08/14/16 07:42 Hct 36.9 % (35.5-45.6) 08/14/16 07:42 MCV 79 fl (84-94) L 08/14/16 07:42 MCH 25 pg (28-32) L 08/14/16 07:42 MCHC 32 % (32-34) 08/14/16 07:42 RDW 15.3 % (13.2-15.2) H 08/14/16 07:42 Plt Count 272 K/mm3 (140-440) 08/14/16 07:42 Lymph % (Auto) 24.0 % (13.4-35.0) 08/14/16 07:42 [place] % (Auto) 11.8 % (0.0-7.3) H 08/14/16 07:42 Eos % (Auto) 4.0 % (0.0-4.3) 08/14/16 07:42 Baso % (Auto) 0.9 % (0.0-1.8) 08/14/16 07:42 Lymph # 1.2 K/mm3 (1.2-5.4) 08/14/16 07:42 [place] # 0.6 K/mm3 (0.0-0.8) 08/14/16 07:42 Eos # 0.2 K/mm3 (0.0-0.4) 08/14/16 07:42 Baso # 0.0 K/mm3 (0.0-0.1) 08/14/16 07:42 Seg Neutrophils % 59.3 % (40.0-70.0) 08/14/16 07:42 Seg Neutrophils # 3.0 K/mm3 (1.8-7.7) 08/14/16 07:42 PT 13.4 Sec. (12.2-14.9) 08/13/16 20:09 INR 1.03 (0.87-1.13) 08/13/16 20:09 APTT 25.4 Sec. (24.2-36.6) 08/13/16 20:09 POC ABG pH 7.350 (7.35-7.45) 08/13/16 21:05 POC ABG pCO2 52.3 (35-45) H 08/13/16 21:05 POC ABG pO2 175 (80-105) H 08/13/16 21:05 POC ABG HCO3 28.9 08/13/16 21:05 POC ABG Total CO2 30 08/13/16 21:05 POC ABG O2 Sat 99 08/13/16 21:05 POC ABG Base Excess 3 08/13/16 21:05 FiO2 28 % 08/13/16 21:05 Sodium 141 mmol/L (137-145) 08/14/16 07:42 Potassium 3.8 mmol/L (3.6-5.0) 08/14/16 07:42 Chloride 101.1 mmol/L (98-107) 08/14/16 07:42 Carbon Dioxide 27 mmol/L (22-30) 08/14/16 07:42 Anion Gap 17 mmol/L 08/14/16 07:42 BUN 14 mg/dL (9-20) 08/14/16 07:42 Creatinine 0.7 mg/dL (0.8-1.5) L 08/14/16 07:42 Estimated GFR > 60 ml/min 08/14/16 07:42 BUN/Creatinine Ratio 20.00 % 08/14/16 07:42 Glucose 79 mg/dL (75-100) 08/14/16 07:42 Lactic Acid 1.0 mmol/L (0.7-2.0) 08/13/16 20:09 Calcium 8.1 mg/dL (8.4-10.2) L 08/14/16 07:42 Magnesium 1.9 mg/dL (1.7-2.3) 08/13/16 20:09 Total Bilirubin 0.8 mg/dL (0.1-1.2) 08/13/16 20:09 AST 33 units/L (5-40) 08/13/16 20:09 ALT 38 units/L (7-56) 08/13/16 20:09 Alkaline Phosphatase 74 units/L (35-129) 08/13/16 20:09 Ammonia 44.0 umol/L (25-60) 08/13/16 20:09 Total Creatine Kinase 264 units/L (55-170) H 08/15/16 08:27 CK-MB (CK-2) 5.9 ng/mL (0.0-4.0) H 08/13/16 20:09 CK-MB (CK-2) Rel Index 0.9 (0-4) 08/13/16 20:09 Troponin T < 0.010 ng/mL (0.00-0.029) 08/13/16 20:09 Total Protein 6.9 g/dL (6.3-8.2) 08/13/16 20:09 Albumin 3.5 g/dL (3.9-5) L 08/13/16 20:09 Albumin/Globulin Ratio 1.0 % 08/13/16 20:09 TSH 0.451 mlU/mL (0.270-4.200) 08/13/16 20:09 Urine Color Libby (Yellow) 08/13/16 19:35 Urine Turbidity Clear (Clear) 08/13/16 19:35 Urine pH 6.0 (5.0-7.0) 08/13/16 19:35 Ur Specific Kendall 1.027 (1.003-1.030) 08/13/16 19:35 Urine Protein 100 mg/dl mg/dL (Negative) 08/13/16 19:35 Urine Glucose (UA) Neg mg/dL (Negative) 08/13/16 19:35 Urine Ketones Tr mg/dL (Negative) 08/13/16 19:35 Urine Blood Neg (Negative) 08/13/16 19:35 Urine Nitrite Pos (Negative) 08/13/16 19:35 Urine Bilirubin Neg (Negative) 08/13/16 19:35 Urine Urobilinogen 4.0 mg/dL (<2.0) 08/13/16 19:35 Ur Leukocyte Esterase Tr (Negative) 08/13/16 19:35 Urine WBC (Auto) 1.0 /HPF (0.0-6.0) 08/13/16 19:35 Urine RBC (Auto) 3.0 /HPF (0.0-6.0) 08/13/16 19:35 Urine Bacteria (Auto) 3+ /HPF (Negative) 08/13/16 19:35 Urine Mucus 3+ /HPF 08/13/16 19:35 Salicylates < 0.3 mg/dL (2.8-20.0) L 08/13/16 20:09 Urine Opiates Screen Presumptive negative 08/13/16 19:40 Urine Methadone Screen Presumptive negative 08/13/16 19:40 Acetaminophen < 15.0 ug/mL (10.0-30.0) 08/13/16 20:09 Ur Barbiturates Screen Presumptive negative 08/13/16 19:40 Ur Phencyclidine Scrn Presumptive negative 08/13/16 19:40 Ur Amphetamines Screen Presumptive positive 08/13/16 19:40 U Benzodiazepines Scrn Presumptive negative 08/13/16 19:40 Urine Cocaine Screen Presumptive negative 08/13/16 19:40 U Marijuana (THC) Screen Presumptive positive 08/13/16 19:40 Drugs of Abuse Note Disclamer 08/13/16 19:40 Plasma/Serum Alcohol < 0.01 gm% (0-0.07) 08/13/16 20:09
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
--- NOTE | 2016-08-16 16:37 | Discharge Summary ---
Providers - Providers Date of Admission: 08/13/16 23:33 Date of discharge: 08/16/16 Attending physician: JESSICA SEWELL 08/14/16 15:49 Consult to Mental Health [CONS] Routine Reason For Exam: suicidal attempt Place consult to:: mental health Notified:: tommie Phone number called:: [phone] Was contact made?: Yes If yes, spoke with:: tommie Time called:: 16:02 08/16/16 08:48 Consult to Case Management [CONS] Routine Services Needed at Discharge: Other Notified:: Joanna-Case management Phone number called:: [phone] Was contact made?: Yes Time called:: 11:30 Additional Physician Instructions: inpt psych Primary care physician: SUPPLY CHAIN ASSISTANT Hospitalization Condition: Stable Hospital course: 36-year-old man with HIV, substance abuse was brought to the emergency room for unresponsiveness. The ER he was given Narcan and he did respond to it. His UDS was positive for amphetamine and marijuana. He was admitted to the hospital and continued with supportive care and clinical monitoring. Psych was consulted. He admitted that he was trying to make an suicidal attempt. Patient also noted to have elevated CPK which trended down with IV fluid hydration. Psychiatry recommended to transfer him to inpatient psych. Patient was medically optimized and discharged to inpatient psych facility. Discharge diagnosis: Acute toxic encephalopathy secondary to drug Suicide attempt with drug abuse Bipolar disorder 1 Rhabdomyolysis, CPK trended down Substance abuse History of HIV Disposition: DC/TX ANOTHER TYPE HEALTHCARE Time spent for discharge: 32 minutes Core Measure Documentation - Palliative Care Palliative Care/ Comfort Measures: Not Applicable - Core Measures Any of the following diagnoses?: none Exam - Physical Exam Narrative exam: GENERAL: well-developed and well-nourished -Greek male lying on bed appeared to be in no discomfort. HEENT: Normocephalic. Atraumatic. No conjunctival congestion or icterus. Patient has moist mucous membranes. NECK: Supple. Trachea midline. CHEST/LUNGS: Clear to auscultated bilaterally, breathing nonlabored. No wheezes crackles or rhonchi. HEART/CARDIOVASCULAR: Regular in rate and rhythm. S1 and S2 positive. ABDOMEN: Abdomen is soft, nontender. Patient has normal bowel sounds. SKIN: There is no rash. Warm and dry. NEURO: No focal motor deficit. Follows command. MUSCULOSKELETAL: No joint effusion or tenderness. EXTRIMITY: No edema, no cyanosis or clubbing. PSYCH: Cooperative. - Constitutional Vitals: Temp Pulse Resp BP Pulse Ox 98.6 F 84 18 120/76 100 08/16/16 15:17 08/16/16 15:17 08/16/16 15:17 08/16/16 15:17 08/16/16 15:17 Plan Activity: advance as tolerated Weight Bearing Status: Non-Weight Bearing Diet: regular Follow up with: PRIMARY CAREMD [Primary Care Provider] - 7 Days
[2016-08-17 01:07] VITALS: BP 113/53
== END 2016-08-17 01:09 | DRG 917 ==
LOC: ED 19:22 → 4A 23:33
PROVIDERS: ADMIT Internal Medicine; ATTEND Internal Medicine
PROC: 4A033R1 Measurement of Arterial Saturation, Peripheral, Percutaneous Approach (ICD-10-PCS; principal; 2016-08-13)
DX: T43.012A Poisoning by tricyclic antidepressants, intentional self-harm, initial encounter (principal); G92 Toxic encephalopathy; M62.82 Rhabdomyolysis; F17.200 Nicotine dependence, unspecified, uncomplicated; F12.90 Cannabis use, unspecified, uncomplicated; F19.10 Other psychoactive substance abuse, uncomplicated; F31.9 Bipolar disorder, unspecified; Z21 Asymptomatic human immunodeficiency virus [HIV] infection status; F43.10 Post-traumatic stress disorder, unspecified; Y92.89 Other specified places as the place of occurrence of the external cause
CPT/HCPCS: 36415; 51701; 70450; 80048; 80053; 80307; 80320; 81001; 82140; 82550; 82553; 82803; 83735; 84443; 84484; 85025; 85610; 85730; 87040; 90686; 93005; 93010; 94760; G0480; J1650

== ENCOUNTER 2017-04-02 15:45 | Emergency (ER) | payer MEDICARE ==
[2017-04-02] MEDS ORDERED: NACL 0.9% 1000 ML 1,000 ML IV ONE ×2 (16:03→23:48)
[2017-04-02 17:22] LABS: Basophils % (Auto) 0.7 % (0.0-1.8); Eosinophils % (Auto) 13.4 % (0.0-4.3); Hematocrit 38.4 % (35.5-45.6); Hemoglobin 12.3 gm/dl (11.8-15.2); Mean Corpuscular HGB Conc 32 % (32-34); Mean Corpuscular Hemoglobin 27 pg (28-32); Mean Corpuscular Volume 84 fl (84-94); Red Blood Count 4.58 M/mm3 (3.65-5.03); Red Cell Distribution Width 14.7 % (13.2-15.2); White Blood Count 9.4 K/mm3 (4.5-11.0)
[2017-04-02 17:26] LABS: Platelet Count 365 K/mm3 (140-440)
[2017-04-02 17:35] LABS: INR 0.94 (0.87-1.13)
[2017-04-02 17:36] LABS: Partial Thromboplastin Time < 20.0 Sec. (24.2-36.6)
[2017-04-02 18:04] LABS: Alanine Aminotransferase 34 units/L (7-56); Albumin 4.4 g/dL (3.9-5); Albumin/Globulin Ratio 1.5 %; Alkaline Phosphatase 67 units/L (35-129); Anion Gap 18 mmol/L; BUN/Creatinine Ratio 23; Blood Urea Nitrogen 16 mg/dL (9-20); Calcium 9.6 mg/dL (8.4-10.2); Carbon Dioxide 23 mmol/L (22-30); Chloride 102.8 mmol/L (98-107); Glucose 108 mg/dL (75-100); Lipase 34 units/L (13-60); Potassium 4.6 mmol/L (3.6-5.0); Sodium 139 mmol/L (137-145); Total Protein 7.3 g/dL (6.3-8.2)
[2017-04-02] MEDS ORDERED: TYLENOL ONE (18:52)
--- NOTE | 2017-04-02 23:49 | Emergency Department Report ---
ED GI Bleed HPI - General Chief complaint: GI Bleed Stated complaint: RECTAL BLEEDING, COUGHING UP BLOOD Time Seen by Provider: 04/02/17 23:26 Source: patient Mode of arrival: Ambulatory Limitations: No Limitations - History of Present Illness Initial comments: A 36-year-old male with history of HIV, bipolar disorder, substance abuse. Presents here complaining of vomiting blood. Patient claims he vomited blood in the ER. No report indicating that this happened. Patient says he is having suicidal ideation and wanting to kill himself. MD complaint: other (bloody emesis, mixed with food debris ) -: Gradual Radiation: none Improves with: none Worsens with: none Associated Symptoms: nausea, vomiting, other bleeding (he informed me that he has had rectal bleeding in the past). denies: abdominal pain, epistaxis, fever/ chills, headaches, loss of appetite, malaise, easy bruising, rash - Related Data Home Medications Medication Instructions Recorded Confirmed Last Taken Emtricitabin/Tenofovir [TRUVADA 1 tab PO QDAY 04/11/13 08/15/16 04/25/13 08:00 200-300 mg] Lopinavir/Ritonavir [Kaletra 1 each PO QDAY 04/11/13 08/15/16 04/25/13 08:00 200-50 mg Tablet] Dronabinol [Marinol] 5 mg PO BID PRN 04/25/13 08/15/16 04/25/13 11:00 Promethazine [Phenergan TAB] 25 mg PO Q6H PRN 04/25/13 08/15/16 04/24/13 20:00 Ritonavir [Norvir] 400 mg PO QDAY 04/25/13 08/15/16 04/25/13 08:00 Previous Rx's Medication Instructions Recorded Last Taken Type Diclofenac Dr [[place]in Childress] 75 mg PO Q12H #30 tablet 04/25/13 Unknown Rx Allergies Allergy/AdvReac Type Severity Reaction Status Date / Time oxcarbazepine Allergy Swelling Verified 04/02/17 15:56 [From Trileptal] ED Review of Systems ROS: Stated complaint: RECTAL BLEEDING, COUGHING UP BLOOD Other details as noted in HPI Comment: All other systems reviewed and negative Constitutional: denies: chills, diaphoresis, fever, malaise, weakness Eyes: denies: eye pain, eye discharge, vision change ENT: denies: throat pain, dental pain, hearing loss, epistaxis Respiratory: denies: cough, shortness of breath, SOB with exertion Cardiovascular: denies: chest pain, palpitations, dyspnea on exertion, edema, syncope, paroxysmal nocturnal dyspnea Endocrine: no symptoms reported Gastrointestinal: nausea, vomiting, hematemesis, hematochezia. denies: diarrhea , constipation Genitourinary: denies: urgency, dysuria, frequency, hematuria, discharge Skin: denies: lesions, change in color, change in hair/nails, pruritus Neurological: weakness. denies: numbness, paresthesias, confusion Psychiatric: as per HPI, depression, suicidal thoughts (patient has plans of overdosing on his lithium medication). denies: auditory hallucinations, visual hallucinations ED Past Medical Hx - Past Medical History Hx HIV: Yes (HIV+) Additional medical history: avascular necrosis left hip, peripheral neuropathy, HIV+ - Surgical History Additional Surgical History: right hip replacement - Social History Smoking Status: Current Every Day Smoker - Medications Home Medications: Home Medications Medication Instructions Recorded Confirmed Last Taken Type Emtricitabin/Tenofovir [TRUVADA 1 tab PO QDAY 04/11/13 08/15/16 04/25/13 08:00 History 200-300 mg] Lopinavir/Ritonavir [Kaletra 1 each PO QDAY 04/11/13 08/15/16 04/25/13 08:00 History 200-50 mg Tablet] Diclofenac Dr [Voltaren Dr] 75 mg PO Q12H #30 tablet 04/25/13 08/15/16 Unknown Rx Dronabinol [Marinol] 5 mg PO BID PRN 04/25/13 08/15/16 04/25/13 11:00 History Promethazine [Phenergan TAB] 25 mg PO Q6H PRN 04/25/13 08/15/16 04/24/13 20:00 History Ritonavir [Norvir] 400 mg PO QDAY 04/25/13 08/15/16 04/25/13 08:00 History ED Physical Exam - General Limitations: No Limitations General appearance: anxious, other (patient appears to be ruminating) - Head Head exam: Present: atraumatic, normocephalic - Eye Eye exam: Present: normal appearance, PERRL, EOMI. Absent: scleral icterus, conjunctival injection, nystagmus - ENT ENT exam: Present: normal exam, normal orophraynx, mucous membranes moist - Neck Neck exam: Present: normal inspection, full ROM. Absent: tenderness, meningismus, lymphadenopathy - Respiratory Respiratory exam: Present: normal lung sounds bilaterally. Absent: respiratory distress, wheezes, rales, rhonchi, stridor, chest wall tenderness, accessory muscle use, decreased breath sounds, prolonged expiratory - Cardiovascular Cardiovascular Exam: Present: regular rate, normal rhythm, normal heart sounds. Absent: bradycardia, tachycardia, irregular rhythm, systolic murmur, diastolic murmur - GI/Abdominal GI/Abdominal exam: Present: soft, normal bowel sounds. Absent: tenderness, guarding, rebound, hyperactive bowel sounds, hypoactive bowel sounds, organomegaly, mass, bruit, pulsatile mass - Extremities Exam Extremities exam: Present: normal inspection, full ROM, normal capillary refill. Absent: tenderness, pedal edema - Back Exam Back exam: Present: normal inspection, full ROM. Absent: tenderness, CVA tenderness (L), muscle spasm, paraspinal tenderness - Neurological Exam Neurological exam: Present: alert, oriented X3, CN II-XII intact, motor sensory deficit - Psychiatric Psychiatric exam: Present: anxious, suicidal ideation. Absent: normal mood, agitated, flat affect, manic, homicidal ideation ED Course Vital Signs 04/02/17 15:58 Temperature 98.9 F Pulse Rate 94 H Respiratory 18 Rate Blood Pressure 124/79 O2 Sat by Pulse 100 Oximetry - Reevaluation(s) Reevaluation #1: 04/03/17 07:01 Patient is medically cleared for psych Placement ED Medical Decision Making - Lab Data Result diagrams: 04/02/17 16:03 04/02/17 17:05 Critical Care Time: No Critical care attestation.: If time is entered above; I have spent that time in minutes in the direct care of this critically ill patient, excluding procedure time. ED Disposition Clinical Impression: Suicidal ideation Disposition: DC/TX-65 PSY HOSP/PSY UNIT Is pt being admited?: No Does the pt Need Aspirin: No Condition: Stable Referrals: PRIMARY CARE, [Primary Care Provider] - 3-5 Days Forms: Accompanied Note Time of Disposition: 07:03
[2017-04-03 00:18] LABS: INR 1.03 (0.87-1.13); Partial Thromboplastin Time 29.7 Sec. (24.2-36.6)
[2017-04-03 14:05] LABS: Urine Drugs of Abuse Note Disclamer
[2017-04-03 14:23] LABS: Bilirubin,Urine NEG (Negative); Blood,Urine NEG (Negative); Ketones,Urine NEG (Negative); Leukocyte Esterase,Urine NEG (Negative); Mucus,Urine 1+ /HPF; Nitrite,Urine NEG (Negative); Protein,Urine <15 mg/dL mg/dL (Negative)
--- NOTE | 2017-04-03 22:42 | Consultation ---
History of Present Illness - Reason for Consult Reason for consult: SI due to chronic illness Medications and Allergies Allergies Allergy/AdvReac Type Severity Reaction Status Date / Time oxcarbazepine Allergy Swelling Verified 04/02/17 15:56 [From Trileptal] Home Medications Medication Instructions Recorded Confirmed Last Taken Type Emtricitabin/Tenofovir [TRUVADA 1 tab PO QDAY 04/11/13 04/03/17 04/25/13 08:00 History 200-300 mg] Lopinavir/Ritonavir [Kaletra 1 each PO QDAY 04/11/13 04/03/17 04/25/13 08:00 History 200-50 mg Tablet] Diclofenac Dr [Voltaren Dr] 75 mg PO Q12H #30 tablet 04/25/13 04/03/17 Unknown Rx Dronabinol [Marinol] 5 mg PO BID PRN 04/25/13 04/03/17 04/25/13 11:00 History Promethazine [Phenergan TAB] 25 mg PO Q6H PRN 04/25/13 04/03/17 04/24/13 20:00 History Ritonavir [Norvir] 400 mg PO QDAY 04/25/13 04/03/17 04/25/13 08:00 History Mental Status Exam - Vital signs Last Vital Signs Temp 98.7 F 04/03/17 10:02 Pulse 91 H 04/03/17 10:02 Resp 18 04/03/17 14:57 BP 128/68 04/03/17 10:02 Pulse Ox 100 04/03/17 14:57 Results Result Diagrams: 04/02/17 16:03 04/02/17 17:05 Abnormal lab results 04/02/17 04/02/17 04/02/17 Range/Units 16:03 16:03 17:05 MCH 27 L (28-32) pg Eos % (Auto) 13.4 H (0.0-4.3) % Eos # 1.3 H (0.0-0.4) K/mm3 APTT < 20.0 L (24.2-36.6) Sec. Creatinine 0.7 L (0.8-1.5) mg/dL Glucose 108 H (75-100) mg/dL All other labs normal. Assessment and Plan Assessment and plan: CHIEF COMPLAINT IN PATIENTS WORDS: HISTORY OF PRESENT ILLNESS: This is a 36-year-old male with a formal PPH of Bipolar disorder and PMH of HIV who now presents secondary to recent expression of SI. Patient has recent bloody emesis and consequently became increasingly concerned about his illness and associated chronic pain syndrome. Once he expressed SI, his therapist at the [facility] referred him to the ER. PSYCHIATRIC REVIEW OF SYSTEMS: Substance: UDS - Detoxification/Withdrawal: none noted Depression: Withdrawn, isolated, low moods. Jessica: no labile moods, not hyperverbal, no flight of ideas Psychosis: no AV, no VH, no paranoia, no grandiosity/erotomania Anxiety/ OCD/ PTSD: +anxiety Suicidality: current SI Other Self-Injurious Behavior: none currently, no recent SIB noted Violent/ Aggressive Behavior: none noted CURRENT MEDICATIONS: Praesel, Depakote, Wellbutrin, Ativan, Zyprexa ALLERGIES: oxcarbazepine PAST PSYCHIATRIC HISTORY: Inpatient: multiple Outpatient: in the [facility] Prior Suicide Attempts: previous SA noted Prior Self-Injurious Behaviors: denies PAST PSYCHIATRIC MEDICATION TRIALS: MEDICAL HISTORY: HIV + MENTAL STATUS EXAM: General Appearance: Dressed in hospital gown, in acute distress, malnourished/ cachectic Sensorium/Consciousness: alert and responding to external stimuli Eye Contact: limited Attitude / Behavior: cooperative, but guarded Psychomotor & Musculoskeletal Activity: WNL Mood: anxious Affect: constricted Speech / Language: normal Thought Processes: organized Thought Content: passive SI, no HI Perception: no AV, no VH Orientation: person, place, time, situation Judgment What would you do if you smelled smoke in a crowded movie theater?: fair Insight: fair Intelligence Vocabulary, general fund of knowledge, educational level: Average Capacity of ADLs: Independent STRENGTHS: PSYCHOSOCIAL AND ENVIRONMENTAL STRESSORS: ASSESSMENT: Bipolar Disorder HIV+ Chronic Pain Syndrome PLAN OF CARE: Reconcile psychotropic medication by contacting the [facility] Refer to inpatient hospitalization for further care
[2017-04-03 23:11] VITALS: BP 115/70
== END 2017-04-04 07:56 ==
LOC: EEVIPCON 15:45 → ED 15:45
DX: R45.851 Suicidal ideations (principal); R04.2 Hemoptysis; F17.210 Nicotine dependence, cigarettes, uncomplicated; G62.9 Polyneuropathy, unspecified; R11.2 Nausea with vomiting, unspecified; Z88.8 Allergy status to other drugs, medicaments and biological substances
CPT/HCPCS: 36415; 80053; 80178; 80307; 81001; 83690; 85025; 85610; 85730; 86850; 86900; 86901; 93005; 93010; 96360; 96361; 99285; J7030

== ENCOUNTER 2017-05-21 19:34 | Emergency (ER) | payer MEDICARE ==
[2017-05-21 20:50] VITALS: BP 151/95
== END 2017-05-21 21:17 | disposition left against medical advice (07) ==
LOC: ED 19:34
DX: Z53.21 Procedure and treatment not carried out due to patient leaving prior to being seen by health care provider (principal)

== ENCOUNTER 2017-05-22 00:03 | Emergency (ER) | payer MEDICARE ==
[2017-05-22 01:08] VITALS: BP 124/78
== END 2017-05-22 01:08 | disposition left against medical advice (07) ==
LOC: ED 00:03 → EEVIPCON 00:03 → ED 01:08
DX: R44.1 Visual hallucinations (principal); Z53.21 Procedure and treatment not carried out due to patient leaving prior to being seen by health care provider

== ENCOUNTER 2018-01-09 09:12 | Inpatient (IN) | payer MEDICARE ==
[2018-01-09] MEDS ORDERED: NACL 0.9% 1000 ML 1,000 ML IV ONE ×2 (09:22→12:04)
--- NOTE | 2018-01-09 09:41 | Emergency Department Report ---
ED GI Bleed HPI - General Chief complaint: GI Bleed Stated complaint: BLOOD IN RECTUM Time Seen by Provider: 01/09/18 09:40 Source: patient Mode of arrival: Wheelchair Limitations: No Limitations - History of Present Illness MD complaint: gross hematochezia -: Sudden, This morning Radiation: none Severity scale (0 -10): 5 Quality: painless Consistency: constant Improves with: none Worsens with: none Context: other (Anal Herpes) Associated Symptoms: denies other symptoms Treatments Prior to Arrival: none - Related Data Home Medications Medication Instructions Recorded Confirmed Last Taken Emtricitabin/Tenofovir [TRUVADA 1 tab PO QDAY 04/11/13 04/03/17 04/25/13 08:00 200-300 mg] Lopinavir/Ritonavir [Kaletra 1 each PO QDAY 04/11/13 04/03/17 04/25/13 08:00 200-50 mg Tablet] Dronabinol [Marinol] 5 mg PO BID PRN 04/25/13 04/03/17 04/25/13 11:00 Promethazine [Phenergan TAB] 25 mg PO Q6H PRN 04/25/13 04/03/17 04/24/13 20:00 Ritonavir [Norvir] 400 mg PO QDAY 04/25/13 04/03/17 04/25/13 08:00 [place] Carbonate 300 mg PO BID 04/03/17 04/03/17 Unknown Previous Rx's Medication Instructions Recorded Last Taken Type Diclofenac Dr [Voltaren Dr] 75 mg PO Q12H #30 tablet 04/25/13 Unknown Rx Allergies Allergy/AdvReac Type Severity Reaction Status Date / Time oxcarbazepine Allergy Swelling Verified 04/02/17 15:56 [From Trileptal] ED Review of Systems ROS: Stated complaint: BLOOD IN RECTUM Other details as noted in HPI Comment: All other systems reviewed and negative Constitutional: denies: chills, fever Eyes: denies: eye pain ENT: denies: ear pain Respiratory: no symptoms reported Cardiovascular: denies: chest pain, palpitations Endocrine: no symptoms reported Gastrointestinal: hematochezia. denies: abdominal pain, nausea, vomiting, diarrhea Genitourinary: denies: urgency, dysuria Musculoskeletal: denies: back pain Skin: denies: rash, lesions Neurological: denies: headache, weakness, numbness Psychiatric: denies: anxiety, depression Hematological/Lymphatic: denies: easy bleeding, easy bruising ED Past Medical Hx - Past Medical History Hx HIV: Yes (HIV+) Additional medical history: avascular necrosis left hip, peripheral neuropathy, HIV+,muscle weakness. Hep C - Surgical History Past Surgical History?: Yes Additional Surgical History: right hip replacement - Social History Smoking Status: Current Every Day Smoker Substance Use Type: Methamphetamines - Medications Home Medications: Home Medications Medication Instructions Recorded Confirmed Last Taken Type Emtricitabin/Tenofovir [TRUVADA 1 tab PO QDAY 04/11/13 04/03/17 04/25/13 08:00 History 200-300 mg] Lopinavir/Ritonavir [Kaletra 1 each PO QDAY 04/11/13 04/03/17 04/25/13 08:00 History 200-50 mg Tablet] Diclofenac Dr [Voltaren Dr] 75 mg PO Q12H #30 tablet 04/25/13 04/03/17 Unknown Rx Dronabinol [Marinol] 5 mg PO BID PRN 04/25/13 04/03/17 04/25/13 11:00 History Promethazine [Phenergan TAB] 25 mg PO Q6H PRN 04/25/13 04/03/17 04/24/13 20:00 History Ritonavir [Norvir] 400 mg PO QDAY 04/25/13 04/03/17 04/25/13 08:00 History [place] Carbonate 300 mg PO BID 04/03/17 04/03/17 Unknown History ED Physical Exam - General Limitations: No Limitations General appearance: alert, in no apparent distress - Head Head exam: Present: atraumatic, normocephalic, normal inspection - Eye Eye exam: Present: normal appearance, PERRL, EOMI Pupils: Present: normal accommodation - ENT ENT exam: Present: normal exam, normal orophraynx, mucous membranes moist - Neck Neck exam: Present: normal inspection, full ROM. Absent: tenderness - Respiratory Respiratory exam: Present: normal lung sounds bilaterally. Absent: respiratory distress, wheezes, rales, rhonchi - Cardiovascular Cardiovascular Exam: Present: normal rhythm, tachycardia, normal heart sounds - GI/Abdominal GI/Abdominal exam: Present: soft, normal bowel sounds. Absent: distended, tenderness, guarding, rebound - Rectal Rectal exam: Present: heme (+) stool, bloody stool, tenderness, other ( [place] was Ms. Wendy RN.) - Extremities Exam Extremities exam: Present: normal inspection, full ROM, normal capillary refill. Absent: tenderness - Back Exam Back exam: Present: normal inspection, full ROM. Absent: tenderness - Neurological Exam Neurological exam: Present: alert, oriented X3, CN II-XII intact - Psychiatric Psychiatric exam: Present: normal affect, normal mood - Skin Skin exam: Present: warm, dry, intact, normal color. Absent: rash ED Course Vital Signs 01/09/18 09:15 Temperature 99.6 F Pulse Rate 118 H Respiratory 18 Rate Blood Pressure 156/87 O2 Sat by Pulse 97 Oximetry - Reevaluation(s) Reevaluation #1: 01/09/18 11:33 I consulted the [employer] disease education specialist Dr. Gaurav Valdez. He recommended admitting the patient to the hospitalist and he will consult on the patient later. Patient care was discussed with the hospitalist on-call doctor. He will admit patient to the hospital for further evaluation and management. ED Medical Decision Making - Lab Data Result diagrams: 01/09/18 09:29 01/09/18 09:29 - Radiology Data Radiology results: report reviewed, image reviewed - Medical Decision Making Lower gastrointestinal bleeding. Critical Care Time: Yes Critical care time in (mins) excluding proc time.: 45 Critical care attestation.: If time is entered above; I have spent that time in minutes in the direct care of this critically ill patient, excluding procedure time. ED Disposition Clinical Impression: Rectal bleeding, Lower gastrointestinal bleeding Disposition: OP ADMIT IP TO THIS HOSP Is pt being admited?: Yes Does the pt Need Aspirin: No Condition: Stable Referrals: PRIMARY CARE, [Primary Care Provider] - 3-5 Days Forms: Accompanied Note Time of Disposition: 11:33
[2018-01-09 09:52] LABS: Basophils # (Auto) 0.1 K/mm3 (0.0-0.1); Basophils % (Auto) 1.2 % (0.0-1.8); Eosinophils % (Auto) 0.2 % (0.0-4.3); Hematocrit 37.8 % (35.5-45.6); Hemoglobin 13.2 gm/dl (11.8-15.2); Lymphocytes # (Auto) 1.4 K/mm3 (1.2-5.4); Lymphocytes % (Auto) 17.7 % (13.4-35.0); Mean Corpuscular HGB Conc 35 % (32-34); Mean Corpuscular Hemoglobin 28 pg (28-32); Mean Corpuscular Volume 79 fl (84-94); Monocytes # (Auto) 0.9 K/mm3 (0.0-0.8); Monocytes % (Auto) 11.2 % (0.0-7.3); Platelet Count 368 K/mm3 (140-440); Red Blood Count 4.76 M/mm3 (3.65-5.03); Red Cell Distribution Width 16.9 % (13.2-15.2)
[2018-01-09 10:06] LABS: INR 0.95 (0.87-1.13)
[2018-01-09 10:07] LABS: Partial Thromboplastin Time 26.4 Sec. (24.2-36.6)
[2018-01-09 10:15] LABS: Alanine Aminotransferase 29 units/L (7-56); Albumin 4.2 g/dL (3.9-5); BUN/Creatinine Ratio 17; Blood Urea Nitrogen 10 mg/dL (9-20); Calcium 8.9 mg/dL (8.4-10.2); Hemolysis Index 8; Lipase 23 units/L (13-60)
[2018-01-09] MEDS ORDERED: K-DUR PO ONE (10:24)
[2018-01-09 11:24] LABS: Amorphous Crystals,Urine Few; Bacteria,Urine 1+ /HPF (Negative); Bilirubin,Urine NEG (Negative); Blood,Urine NEG (Negative); Color,Urine Yellow (Yellow); Hyaline Casts,Urine 1 /LPF; Mucus,Urine 2+ /HPF; Protein,Urine <15 mg/dL mg/dL (Negative); Urobilinogen,Urine < 2.0 mg/dL (<2.0)
[2018-01-09 11:44] LABS: Benzodiazepines Screen,Urine PRESUMPTIVE NEGATIVE; Cocaine Screen,Urine PRESUMPTIVE NEGATIVE; Methadone Screen,Urine PRESUMPTIVE NEGATIVE; Opiate Screen,Urine PRESUMPTIVE NEGATIVE
[2018-01-09 12:03] LABS: Amphetamine Screen,Urine PRESUMPTIVE POSITIVE; Cannabinoid Screen,Urine PRESUMPTIVE POSITIVE
[2018-01-09] MEDS ORDERED: ZOFRAN IV PRN (12:12)
[2018-01-09] MEDS ORDERED: PROVENTIL IH PRN (12:12)
[2018-01-09] MEDS ORDERED: SODIUM CHLORIDE FLUSH SYRINGE 10 ML IV PRN (12:12)
[2018-01-09] MEDS ORDERED: TYLENOL PO PRN (12:12)
--- NOTE | 2018-01-09 12:14 | History and Physical Report ---
History of Present Illness Chief complaint: I woke up lying in a pool of blood History of present illness: 37 YO Male resident at [facility] currently undergoing treatment for Substance Abuse with HIV, PSA, Suicide Attempt, PTSD, Depression, Bipolar Disorder, Nicotine Dependence presents to ED for evaluation. Pt states that he awoke from sleep this morning and discovered that he was lying in a "pool of blood" that came from his rectum. Pt denies Abdominal pain, Trauma, NVD, ingestion of food/water from new or different sources, skin rash, use of blood thinners, herbal medication, OTC supplements. Pt instructed to seek further care at [facility]. Pt transported to [facility]. Pt seen and evaluated in ED and found to have evidence of GI Bleed. No active bleeding at time of exam. Pt admitted to medical floor. GI consulted in ED. Past History Past Medical History: hepatitis, HIV/AIDS, other (PSA, Suicide Attempt, PTSD, Depression, ) Past Surgical History: No surgical history (reviewed) Social history: smoking Family history: no significant family history (reviewed) Medications and Allergies Allergies Allergy/AdvReac Type Severity Reaction Status Date / Time oxcarbazepine Allergy Swelling Verified 04/02/17 15:56 [From Trileptal] Home Medications Medication Instructions Recorded Confirmed Last Taken Type Emtricitabin/Tenofovir [TRUVADA 1 tab PO QDAY 04/11/13 04/03/17 04/25/13 08:00 History 200-300 mg] Lopinavir/Ritonavir [Kaletra 1 each PO QDAY 04/11/13 04/03/17 04/25/13 08:00 History 200-50 mg Tablet] Emmett Childress [Chapin Childress] 75 mg PO Q12H #30 tablet 04/25/13 04/03/17 Unknown Rx Dronabinol [Marinol] 5 mg PO BID PRN 04/25/13 04/03/17 04/25/13 11:00 History Promethazine [Phenergan TAB] 25 mg PO Q6H PRN 04/25/13 04/03/17 04/24/13 20:00 History Ritonavir [Norvir] 400 mg PO QDAY 04/25/13 04/03/17 04/25/13 08:00 History [place] Carbonate 300 mg PO BID 04/03/17 04/03/17 Unknown History Active Meds: Active Medications Acetaminophen (Tylenol) 650 mg PO Q4H PRN PRN Reason: Pain MILD(1-3)/Fever >100.5/GOLDMAN Albuterol (Proventil) 2.5 mg IH Q4HRT PRN PRN Reason: Shortness Of Breath Sodium Chloride (Nacl 0.9% 1000 Ml) 1,000 mls @ 250 mls/hr IV ONCE ONE Stop: 01/09/18 13:21 Sodium Chloride (Nacl 0.9% 1000 Ml) 1,000 mls @ 999 mls/hr IV BOLUS ONE Stop: 01/09/18 13:04 Sodium Chloride (Nacl 0.45% 1000 Ml) 1,000 mls @ 75 mls/hr IV DIRECT FARAZ Ondansetron HCl (Zofran) 4 mg IV Q8H PRN PRN Reason: Nausea And Vomiting Pantoprazole Sodium (Protonix) 40 mg IV BID FARAZ Sodium Chloride (Sodium Chloride Flush Syringe 10 Ml) 10 ml IV BID FARAZ Sodium Chloride (Sodium Chloride Flush Syringe 10 Ml) 10 ml IV PRN PRN PRN Reason: LINE FLUSH Review of Systems Constitutional: no weight loss, no weight gain, no fever, no chills Ears, nose, mouth and throat: no ear pain, no ear discharge, no tinnitis, no decreased hearing, no nose pain, no nasal congestion, no nasal discharge Cardiovascular: no chest pain, no orthopnea, no palpitations, no rapid/ irregular heart beat, no edema, no syncope, no lightheadedness, no shortness of breath Respiratory: no cough, no cough with sputum, no excessive sputum, no hemoptysis , no shortness of breath, no dyspnea on exertion Gastrointestinal: BRBPR, no abdominal pain, no nausea, no vomiting, no diarrhea , no constipation, no change in bowel habits, no melena, no hematochezia, no indigestion, no excessive gas Genitourinary Male: no hematuria, no flank pain, no discharge, no urinary frequency, no urinary hesitancy Rectal: bleeding, no pain, no incontinence, no itching, no flatulence Musculoskeletal: no neck stiffness, no neck pain, no shooting arm pain, no arm numbness/tingling, no low back pain, no shooting leg pain Integumentary: no rash, no pruritis, no redness, no sores, no wounds Neurological: no head injury, no transient paralysis, no paralysis, no weakness , no parathesias, no numbness, no tingling Psychiatric: no anxiety, no memory loss, no change in sleep habits, no sleep disturbances, no insomnia, no hypersomnia, no change in appetite, no change in libido Endocrine: no cold intolerance, no heat intolerance, no polyphagia, no excessive thirst, no polydipsia, no polyuria, no nocturia, no excessive sweating , no flushing, no weight change Hematologic/Lymphatic: no easy bruising, no easy bleeding, no lymphadenopathy, no lymphedema Allergic/Immunologic: no urticaria, no allergic rhinitis, no wheezing, no persistent infections, no anaphylaxis, no angioedema Exam - Constitutional Vitals: Temp Pulse Resp BP Pulse Ox 99.6 F 118 H 18 156/87 97 01/09/18 09:15 01/09/18 09:15 01/09/18 09:15 01/09/18 09:15 01/09/18 09:15 General appearance: Present: mild distress - EENT Eyes: Present: PERRL ENT: hearing intact, clear oral mucosa - Neck Neck: Present: supple, normal ROM - Respiratory Respiratory effort: normal Respiratory: bilateral: CTA - Cardiovascular Heart Sounds: Present: S1 & S2. Absent: rub, click - Extremities Extremities: pulses symmetrical, No edema Peripheral Pulses: within normal limits - Abdominal General gastrointestinal: Present: soft, non-tender, non-distended, normal bowel sounds Male genitourinary: Present: normal - Integumentary Integumentary: Present: clear, warm, dry - Musculoskeletal Musculoskeletal: gait normal, strength equal bilaterally - Psychiatric Psychiatric: appropriate mood/affect, intact judgment & insight - Neurologic Neurologic: CNII-XII intact, moves all extremities Results - Labs CBC & Chem 7: 01/09/18 09:29 01/09/18 09:29 Labs: Abnormal lab results 01/09/18 01/09/18 01/09/18 Range/Units 09:29 09:29 11:04 MCV 79 L (84-94) fl MCHC 35 H (32-34) % RDW 16.9 H (13.2-15.2) % [place] % (Auto) 11.2 H (0.0-7.3) % [place] # 0.9 H (0.0-0.8) K/mm3 Potassium 3.3 L (3.6-5.0) mmol/L Creatinine 0.6 L (0.8-1.5) mg/dL Urine pH 8.0 H (5.0-7.0) Assessment and Plan - Patient Problems (1) Lower gastrointestinal bleeding Current Visit: Yes Status: Acute Plan to address problem: PPI therapy, CTA Abdomen/Pelvis, GI consulted in ED, serial abdominal exam, CBC (2) Bipolar 1 disorder Current Visit: No Status: Acute Plan to address problem: Continue current therapy, psychiatry consulted. (3) HIV (human immunodeficiency virus infection) Current Visit: No Status: Acute Plan to address problem: continue Antiretroviral therapy, outpatient ID f/u care (4) Nicotine dependence with withdrawal Current Visit: Yes Status: Acute Qualifiers: Nicotine product type: cigarettes Qualified Code(s): F17.213 - Nicotine dependence, cigarettes, with withdrawal Plan to address problem: smoking cessation counseling, supportive care. (5) DVT prophylaxis Current Visit: Yes Status: Acute Plan to address problem: SCD to BLE while in bed.
[2018-01-09] MEDS ORDERED: NACL 0.45% 1000 ML 1,000 ML IV SCH (13:00)
[2018-01-09] MEDS ORDERED: GOLYTELY PO ONE (17:00)
[2018-01-09] MEDS: PROTONIX IV SCH ×2 (21:53→23:39)
[2018-01-09] MEDS ORDERED: SODIUM CHLORIDE FLUSH SYRINGE 10 ML IV SCH (22:00)
[2018-01-09 23:14] VITALS: BP 148/85
[2018-01-10] MEDS ORDERED: FLEET MINERAL OIL PR ONE (06:37)
[2018-01-10] MEDS ORDERED: NACL 0.9% 1000 ML 1,000 ML IV SCH (09:00)
[2018-01-10] MEDS ORDERED: WATER FOR IRRIG STERILE ONE (09:02)
[2018-01-10] MEDS ORDERED: WATER FOR IRRIG STERILE IR ONE (09:02)
[2018-01-10] MEDS ORDERED: NACL 0.9% 1000 ML 0 ML ONE (09:05)
--- NOTE | 2018-01-10 09:37 | Event Note ---
Date: 01/10/18 - pt seen and examine, chart reviewed - pt refuses any GI eval including scope - ok to /dc, will sign off
--- NOTE | 2018-01-10 13:58 | Discharge Summary ---
Providers - Providers Date of Admission: 01/09/18 12:12 Date of discharge: 01/10/18 Attending physician: ANG MACIAS MD 01/09/18 11:34 Consult to Physician [CONS] Urgent Comment: Consulting Provider: YOGESH ROWELL Physician Instructions: Reason For Exam: Rectal bleeding, Lower G.I. Bleeding 01/09/18 13:20 Consult to Physician [CONS] Routine Comment: Consulting Provider: ALEJANDRO HOPKINS Physician Instructions: Reason For Exam: bipolar/Depression Primary care physician: EVENT DESIGNER Hospitalization Reason for admission: rectal bleeding Condition: Stable Hospital course: 37-year-old -[place] Citizen male was presented to the emergency department with complaints of rectal bleeding. Patient H&H was stable. GI was consulted and recommended colonoscopy which the patient refused. Patient said he had anal sex and that is the cause of the bleeding. patient left AMA. He was alert and oriented risk benefits were explained to him. Disposition: DC-07 LEFT AGAINST MED ADVICE Time spent for discharge: 32 minutes - Discharge Diagnoses (1) HIV (human immunodeficiency virus infection) Status: Acute (2) Lower gastrointestinal bleeding Status: Acute (3) Rectal bleeding Status: Acute Core Measure Documentation - Palliative Care Palliative Care/ Comfort Measures: Not Applicable - Core Measures Any of the following diagnoses?: none Exam - Physical Exam Narrative exam: Physical exam was not done because the patient refused. - Constitutional Vitals: Temp Pulse Resp BP Pulse Ox 99.1 F 89 18 148/85 96 01/09/18 22:22 01/09/18 22:22 01/09/18 22:22 01/09/18 22:22 01/09/18 22:22 Plan Activity: no restrictions Weight Bearing Status: Full Weight Bearing Diet: advance as tolerated Additional Instructions: Follow at [facility] in 1-2 weeks. Follow up with: LENNY CALDERÓN MD [Primary Care Provider] - 3-5 Days Forms: AMA Form, Accompanied Note
== END 2018-01-10 11:10 | disposition left against medical advice (07) | DRG 377 ==
LOC: ED 09:12 → 3A 12:12
PROVIDERS: ADMIT Internal Medicine; ATTEND Internal Medicine
DX: K92.2 Gastrointestinal hemorrhage, unspecified (principal); B20 Human immunodeficiency virus [HIV] disease; F17.213 Nicotine dependence, cigarettes, with withdrawal; F31.9 Bipolar disorder, unspecified; Z96.641 Presence of right artificial hip joint; F15.90 Other stimulant use, unspecified, uncomplicated; K75.9 Inflammatory liver disease, unspecified; F43.10 Post-traumatic stress disorder, unspecified; Z53.29 Procedure and treatment not carried out because of patient's decision for other reasons; Z79.899 Other long term (current) drug therapy; Z71.6 Tobacco abuse counseling
CPT/HCPCS: 36415; 80053; 80307; 81001; 83690; 85025; 85610; 85730; 86850; 86900; 86901; 93005; 93010; 96360; 99291; 99406; C9113; J7030

== ENCOUNTER 2018-01-10 13:32 | Emergency (ER) | payer MEDICARE ==
[2018-01-10 13:42] VITALS: BP 103/52
--- NOTE | 2018-01-10 21:11 | Consultation ---
Referring Physician: Chung Nelson MD INDICATION: Rectal bleeding. HISTORY OF PRESENT ILLNESS: The patient is a 37-year-old black male with a history of substance abuse, HIV, PTSD, depression, bipolar disorder, and nicotine dependence. The patient reports recent rectal bleeding with pools of blood and came to the Emergency Room. The patient does report that he has been having anal sex. He reports no nausea, vomiting. Denies any other lower GI symptoms. The patient was subsequently admitted and GI consulted. PAST MEDICAL HISTORY: 1. Hepatitis. 2. HIV/AIDS. 3. PTSD. 4. Depression. MEDICATIONS: 1. Truvada. 2. Kaletra. 3. Marinol. ALLERGIES: TRILEPTAL. SOCIAL HISTORY: Denies alcohol. FAMILY HISTORY: Negative for colon cancer. REVIEW OF SYSTEMS: GENERAL: Reports weakness. HEENT: No visual complaints. PULMONARY: No short of breath. No cough. No chest pain. GASTROINTESTINAL: Reports rectal bleeding. All points of the 13-point review of systems is otherwise negative. PHYSICAL EXAMINATION: VITAL SIGNS: Temperature of 99.1, pulse 89, respirations 18, blood pressure 148/85. GENERAL: Fairly thin black male, very anxious, in no acute distress. HEENT: Pupils equal, round, reactive. PULMONARY: No rhonchi. CARDIOVASCULAR: Regular rhythm. Normal S1, S2. ABDOMEN: Soft. SKIN: No obvious rashes. LABORATORY DATA: Pertinent for white count of 8, hemoglobin and hematocrit of 13.2 and 37.8, platelet count of 368. Coags are within normal limits. Chem-7 is within normal limits. LFTs are within normal limits. ASSESSMENT: A 37-year-old HIV positive black male who presents with rectal bleeding. The patient does report anal sex. Possibility of hemorrhoids versus other anal fissure versus ulcers or other pathology. I have discussed the patient's options at length. The patient, at this time, refuses any GI for further evaluation. MANAGEMENT PLAN: 1. The patient defers colonoscopy or any GI intervention. The patient even refuses an IV at this time. 2. Follow hematocrit. 3. No further GI intervention. PLAN: We will sign off, call if needed. JOB# [id number] [facility]
== END 2018-01-10 16:46 | disposition left against medical advice (07) ==
LOC: ED 13:32
DX: Z00.00 Encounter for general adult medical examination without abnormal findings (principal); Z53.21 Procedure and treatment not carried out due to patient leaving prior to being seen by health care provider

== ENCOUNTER 2018-01-11 20:20 | Emergency (ER) | payer MEDICARE | END 2018-01-11 20:21 | disposition left against medical advice (07) | LOC: ED 20:20 | DX: Z00.8 Encounter for other general examination (principal); Z53.21 Procedure and treatment not carried out due to patient leaving prior to being seen by health care provider ==

== ENCOUNTER 2018-06-26 13:21 | Emergency (ER) | payer MEDICARE ==
[2018-06-26 14:14] LABS: Basophils # (Auto) 0.1 K/mm3 (0.0-0.1); Basophils % (Auto) 0.7 % (0.0-1.8); Eosinophils % (Auto) 0.4 % (0.0-4.3); Hematocrit 38.8 % (35.5-45.6); Hemoglobin 12.7 gm/dl (11.8-15.2); Lymphocytes # (Auto) 1.4 K/mm3 (1.2-5.4); Lymphocytes % (Auto) 13.8 % (13.4-35.0); Mean Corpuscular HGB Conc 33 % (32-34); Mean Corpuscular Volume 86 fl (84-94); Monocytes # (Auto) 0.6 K/mm3 (0.0-0.8); Monocytes % (Auto) 6.1 % (0.0-7.3); Platelet Count 382 K/mm3 (140-440); Red Blood Count 4.53 M/mm3 (3.65-5.03); Red Cell Distribution Width 14.8 % (13.2-15.2)
[2018-06-26 14:23] LABS: BUN/Creatinine Ratio 23; Blood Urea Nitrogen 16 mg/dL (9-20); Calcium 8.9 mg/dL (8.4-10.2); Hemolysis Index 2
--- NOTE | 2018-06-26 15:06 | Emergency Department Report ---
HPI - General Chief Complaint: Psych Time Seen by Provider: 06/26/18 14:49 - HPI HPI: Room 14 The patient is a 38-year-old male presented with a chief complaint of suicidal ideation. The patient states he has a history of bipolar disorder but his medication has not been helping. The patient states over the past 2 days he's had suicidal ideation. The patient states his plan was to overdose on medication but he has not made any attempts. The patient admits to a suicide attempt in the past (2016) when he overdosed on medication. Location: Mental state Duration: 2 days Quality: Suicidal Severity: Severe Modifying factors: [see above] Context: [see above] Mode of transportation: [not driving] ED Past Medical Hx - Past Medical History Hx HIV: Yes Additional medical history: avascular necrosis left hip, peripheral neuropathy. Hep C - Surgical History Additional Surgical History: right hip replacement - Family History Family history: no significant - Social History Smoking Status: Current Every Day Smoker (1/3 pack per day) Substance Use Type: None (denies illicit drug use) - Medications Home Medications: Home Medications Medication Instructions Recorded Confirmed Last Taken Type Promethazine [Phenergan TAB] 25 mg PO Q6H PRN 04/25/13 06/26/18 04/24/13 20:00 History Abacavir/Dolutegravir/Lamivudi 1 each PO DAILY 06/26/18 06/26/18 1 Day Ago History [Triumeq Tablet] ~06/25/18 Gabapentin [Neurontin] 300 mg PO TID 06/26/18 06/26/18 Unknown History OLANZapine [Zyprexa] 20 mg PO QHS 06/26/18 06/26/18 Unknown History Sertraline HCl [Zoloft] 50 mg PO DAILY 06/26/18 06/26/18 Unknown History hydrOXYzine PAMOATE [Vistaril] 50 mg PO TID PRN 06/26/18 06/26/18 Unknown History oxyCODONE [Roxicodone] 10 mg PO TID 06/26/18 06/26/18 Unknown History traMADol [Ultram] 50 mg PO BID PRN 06/26/18 06/26/18 Unknown History traZODone [Desyrel] 150 mg PO QHS 06/26/18 06/26/18 Unknown History ED Review of Systems ROS: Stated complaint: MENTAL HEALTH Other details as noted in HPI Constitutional: no symptoms reported Eyes: denies: eye pain ENT: denies: throat pain Respiratory: no symptoms reported Cardiovascular: denies: chest pain Endocrine: no symptoms reported Gastrointestinal: denies: abdominal pain Genitourinary: denies: dysuria Musculoskeletal: denies: back pain Neurological: denies: headache Psychiatric: suicidal thoughts Physical Exam - Physical Exam Vital Signs: Vital Signs 06/26/18 13:25 Temperature 97.7 F Pulse Rate 93 H Respiratory 18 Rate Blood Pressure 159/94 O2 Sat by Pulse 99 Oximetry Physical Exam: GENERAL: The patient is well-developed well-nourished male lying on stretcher not appearing to be in acute distress. [] HEENT: Normocephalic. Atraumatic. Extraocular motions are intact. Patient has moist mucous membranes. NECK: Supple. Trachea midline CHEST/LUNGS: Clear to auscultation. There is no respiratory distress noted. HEART/CARDIOVASCULAR: Regular. There is no tachycardia. There is no gallop rub or murmur. ABDOMEN: Abdomen is soft, nontender. Patient has normal bowel sounds. There is no abdominal distention. SKIN: There is no rash. There is no edema. There is no diaphoresis. NEURO: The patient is awake, alert, and oriented. The patient is cooperative. The patient has normal speech MUSCULOSKELETAL: There is no evidence of acute injury. ED Course Vital Signs 06/26/18 13:25 Temperature 97.7 F Pulse Rate 93 H Respiratory 18 Rate Blood Pressure 159/94 O2 Sat by Pulse 99 Oximetry ED Medical Decision Making - Lab Data Result diagrams: 06/26/18 13:55 06/26/18 13:55 Laboratory Tests 06/26/18 06/26/18 06/26/18 13:55 13:55 13:55 WBC RBC Hgb Hct MCV MCH MCHC RDW Plt Count Lymph % (Auto) [place] % (Auto) Eos % (Auto) Baso % (Auto) Lymph # Mower # Eos # Baso # Seg Neutrophils % Seg Neutrophils # Sodium 139 Potassium 4.3 Chloride 101.2 Carbon Dioxide 27 Anion Gap 15 BUN 16 Creatinine 0.7 L Estimated GFR > 60 BUN/Creatinine Ratio 23 Glucose 138 H Calcium 8.9 Urine Color Urine Turbidity Urine pH Ur Specific [place] Urine Protein Urine Glucose (UA) Urine Ketones Urine Blood Urine Nitrite Urine Bilirubin Urine Urobilinogen Ur Leukocyte Esterase Urine WBC (Auto) Urine RBC (Auto) Salicylates < 0.3 L Urine Opiates Screen Urine Methadone Screen Acetaminophen < 5.0 L Ur Barbiturates Screen Ur Phencyclidine Scrn Ur Amphetamines Screen U Benzodiazepines Scrn Urine Cocaine Screen U Marijuana (THC) Screen Drugs of Abuse Note Plasma/Serum Alcohol 06/26/18 06/26/18 06/26/18 13:55 13:55 14:59 WBC 9.8 RBC 4.53 Hgb 12.7 Hct 38.8 MCV 86 MCH 28 MCHC 33 RDW 14.8 Plt Count 382 Lymph % (Auto) 13.8 [place] % (Auto) 6.1 Eos % (Auto) 0.4 Baso % (Auto) 0.7 Lymph # 1.4 [place] # 0.6 Eos # 0.0 Baso # 0.1 Seg Neutrophils % 79.0 H Seg Neutrophils # 7.7 Sodium Potassium Chloride Carbon Dioxide Anion Gap BUN Creatinine Estimated GFR BUN/Creatinine Ratio Glucose Calcium Urine Color Yellow Urine Turbidity Clear Urine pH 7.0 Ur Specific [place] 1.013 Urine Protein <15 mg/dl Urine Glucose (UA) Neg Urine Ketones Neg Urine Blood Neg Urine Nitrite Neg Urine Bilirubin Neg Urine Urobilinogen < 2.0 Ur Leukocyte Esterase Neg Urine WBC (Auto) < 1.0 Urine RBC (Auto) 1.0 Salicylates Urine Opiates Screen Urine Methadone Screen Acetaminophen Ur Barbiturates Screen Ur Phencyclidine Scrn Ur Amphetamines Screen U Benzodiazepines Scrn Urine Cocaine Screen U Marijuana (THC) Screen Drugs of Abuse Note Plasma/Serum Alcohol < 0.01 06/26/18 14:59 WBC RBC Hgb Hct MCV MCH MCHC RDW Plt Count Lymph % (Auto) [place] % (Auto) Eos % (Auto) Baso % (Auto) Lymph # [place]ower # Eos # Baso # Seg Neutrophils % Seg Neutrophils # Sodium Potassium Chloride Carbon Dioxide Anion Gap BUN Creatinine Estimated GFR BUN/Creatinine Ratio Glucose Calcium Urine Color Urine Turbidity Urine pH Ur Specific [place] Urine Protein Urine Glucose (UA) Urine Ketones Urine Blood Urine Nitrite Urine Bilirubin Urine Urobilinogen Ur Leukocyte Esterase Urine WBC (Auto) Urine RBC (Auto) Salicylates Urine Opiates Screen Presumptive negative Urine Methadone Screen Presumptive negative Acetaminophen Ur Barbiturates Screen Presumptive negative Ur Phencyclidine Scrn Presumptive negative Ur Amphetamines Screen Presumptive negative U Benzodiazepines Scrn Presumptive negative Urine Cocaine Screen Presumptive negative U Marijuana (THC) Screen Presumptive negative Drugs of Abuse Note Disclamer Plasma/Serum Alcohol - Differential Diagnosis suicidal ideation Critical care attestation.: If time is entered above; I have spent that time in minutes in the direct care of this critically ill patient, excluding procedure time. ED Disposition Clinical Impression: Suicidal ideation Disposition: DC/TX-65 PSY HOSP/PSY UNIT Is pt being admited?: No Does the pt Need Aspirin: No Condition: Serious Time of Disposition: 15:07 (awaiting acceptance)
[2018-06-26 15:13] LABS: Bilirubin,Urine NEG (Negative); Blood,Urine NEG (Negative); Color,Urine Yellow (Yellow); Protein,Urine <15 mg/dL mg/dL (Negative); Urobilinogen,Urine < 2.0 mg/dL (<2.0); WBC,Urine < 1.0 /HPF (0.0-6.0)
[2018-06-26] MEDS ORDERED: PHENERGAN PO PRN (15:23)
[2018-06-26] MEDS ORDERED: VISTARIL PO PRN (15:23)
[2018-06-26 15:25] LABS: Amphetamine Screen,Urine PRESUMPTIVE NEGATIVE; Benzodiazepines Screen,Urine PRESUMPTIVE NEGATIVE; Cannabinoid Screen,Urine PRESUMPTIVE NEGATIVE; Cocaine Screen,Urine PRESUMPTIVE NEGATIVE; Methadone Screen,Urine PRESUMPTIVE NEGATIVE; Opiate Screen,Urine PRESUMPTIVE NEGATIVE
[2018-06-26] MEDS: ROXICODONE PO PRN (17:13)
[2018-06-26] MEDS ORDERED: NON-FORMULARY (Olanzapine [Zyprexa] 20 MG) PO SCH (22:00)
[2018-06-26] MEDS ORDERED: VISTARIL ONE (22:15)
[2018-06-27] MEDS ORDERED: ZOLOFT PO SCH (10:00)
[2018-06-27] MEDS: NON-FORMULARY (Abacavir/Dolutegravir/Lamivudi [Triumeq 600-50-300 Mg Tablet] 1 EACH) PO SCH (10:40)
[2018-06-27] MEDS: ROXICODONE PO PRN ×2 (11:50→17:03)
--- NOTE | 2018-06-27 17:35 | Consultation ---
History of Present Illness - Reason for Consult Consult date: 06/27/18 Reason for consult: Initial Psychiatric Evaluation - Chief Complaint Chief complaint: " I'm having suicidal ideations" - History of Present Psychiatric Illness Patient is a 38-year-old male who presents to [facility] with a plan to overdose on prescription medication. The patient states his plan was to overdose on medication but he has not made any attempts. Patient has a PPHx of Bipolar Disorder II. Patient is known to provider. Currently, patient medication is ineffective. Patient was at [facility] program when he continued to have suicidal ideations, therefore he presented to the [facility] emergency room. Patient reports worsening depressive symptoms related to the year anniversary of being diagnosed with HIV. Today the patient is calm and cooperative during the assessment. He reports poor energy and appetite but excessive sleep with Trazodone. Patient denies HI's and VH's. He endorses AH's " mumbling" and paranoid delusions. Patient believes that his previous drug regimen was more effective. Per patient he was taking [place], Wellbutrin, and Zyprexa. Current Psychiatric Medications: Zoloft 50mg po QAM, Zyprexa 20mg po QHS , and Vistaril 50mg po TID PRN Past Psychiatric History: Bipolar II ( 2014); Approximately 8 inpatient psychiatric hospitalizations; [facility]- outpatient psychiatrist/ REFUGIO Dhillon; 5 previous suicide attempts ( overdosing and cutting). Past Psychiatric Medication Trials: [place], Wellbutrin, Depakote. " I can't remember the others" Drug/Alcohol Abuse History: Last used methamphetamine in . UDS negative. Social History: High School Diploma; lives with mother in [facility]; limited support system; income- $ 997.00; no children. Family History of Psychiatric Illness/Substance Abuse: Patient denies. Medications and Allergies Allergies Allergy/AdvReac Type Severity Reaction Status Date / Time oxcarbazepine Allergy Swelling Verified 06/26/18 13:25 [From Trileptal] Home Medications Medication Instructions Recorded Confirmed Last Taken Type Promethazine [Phenergan TAB] 25 mg PO Q6H PRN 04/25/13 06/26/18 04/24/13 20:00 History Abacavir/Dolutegravir/Lamivudi 1 each PO DAILY 06/26/18 06/26/18 1 Day Ago History [Triumeq Tablet] ~06/25/18 Gabapentin [Neurontin] 300 mg PO TID 06/26/18 06/26/18 Unknown History OLANZapine [Zyprexa] 20 mg PO QHS 06/26/18 06/26/18 Unknown History Sertraline HCl [Zoloft] 50 mg PO DAILY 06/26/18 06/26/18 Unknown History hydrOXYzine PAMOATE [Vistaril] 50 mg PO TID PRN 06/26/18 06/26/18 Unknown History oxyCODONE [Roxicodone] 10 mg PO TID 06/26/18 06/26/18 Unknown History traMADol [Ultram] 50 mg PO BID PRN 06/26/18 06/26/18 Unknown History traZODone [Desyrel] 150 mg PO QHS 06/26/18 06/26/18 Unknown History Active Meds: Active Medications Hydroxyzine Pamoate (Vistaril) 50 mg PO TID PRN PRN Reason: Anxiety Miscellaneous Medication (Abacavir/Dolutegravir/Lamivudi [Triumeq 600-50-300 Mg Tablet]) 1 each PO DAILY [facility] Last Admin: 06/27/18 10:40 Dose: Not Given Documented by: Olanzapine (Zyprexa) 20 mg PO QHS [facility] Last Admin: 06/26/18 22:01 Dose: 20 mg Documented by: Oxycodone HCl (Roxicodone) 10 mg PO TID PRN PRN Reason: Pain , Severe (7-10) Last Admin: 06/27/18 17:03 Dose: 10 mg Documented by: Promethazine HCl (Phenergan) 25 mg PO Q6H PRN PRN Reason: Nausea Sertraline HCl (Zoloft) 50 mg PO DAILY [facility] Last Admin: 06/27/18 10:00 Dose: 50 mg Documented by: Mental Status Exam - Vital signs Last Vital Signs Temp 98.4 F 06/27/18 13:47 Pulse 74 06/27/18 13:47 Resp 18 06/27/18 00:00 BP 126/68 06/27/18 13:47 Pulse Ox 99 06/27/18 13:47 - Exam Narrative exam: Mental Status Exam: Appearance: in a hospital gown; poorly groomed Behavior: regular eye contact Speech: regular rate and tone Mood: "sad"; depressed/anxious/hopeless Affect: congruent to mood Thought Process: circumstantial Thought Content: +suicidal ideation with plan to overdose on prescription pills ; denies HI's/ VH's; + AH's " mumbling" Motor Activity: sitting up in bed Cognition: A/O x 3 Insight: poor Judgment: poor Results Result Diagrams: 06/26/18 13:55 06/26/18 13:55 All other labs normal. Assessment and Plan Assessment and plan: Impression: PPHx Bipolar Disorder II. Mood Disorder Unspecified. Today the patient is calm and cooperative during the assessment. He endorses SI's with plan to overdose. UDS negative. Recommendation/Plan: 1. Continue 1013. 2. Gather collateral information. 3. Increase Zoloft 100 mg PO daily for depression. Discussed possible sam cidality/medication induced sagar with the patient reference Zoloft. 4. Continue Zyprexa 20mg po QHS mood/psychosis and Vistaril 50mg po TID PRN anxiety. Discussed metabolic side effects. Disposition: Patient referred to medicaid facilities. Will staff with Dr. Angelito Castro.
[2018-06-27] MEDS ORDERED: ZOLOFT PO ONE (22:00)
[2018-06-28] MEDS ORDERED: VISTARIL ONE (09:46)
[2018-06-28] MEDS ORDERED: ZOLOFT PO SCH (10:00)
[2018-06-28] MEDS: ROXICODONE PO PRN ×2 (10:24→16:38)
--- NOTE | 2018-06-28 11:11 | Progress Note ---
Subjective - Reason for Consult Consult date: 06/28/18 Reason for consult: Psychiatry Follow-up - Chief Complaint Chief complaint: "Life isn't good" 8-year-old male who presents to [facility] with a plan to overdose on prescription medication. Today the patient calm and cooperative during the assessment. He continues to endorse SI's with a plan to overdose on pills. He stated that his life is "messed up." He stated that he is dealing with a lot right now. He denies HI's AVH's. He denies any side effects of his medications. Mental Status Exam - Vital signs Last Vital Signs Temp 98.8 F 06/28/18 03:27 Pulse 87 06/28/18 07:38 Resp 18 06/28/18 03:27 BP 114/81 06/28/18 07:38 Pulse Ox 97 06/28/18 07:38 - Exam Narrative exam: MSE: Appearance: calm, cooperative Behavior: regular eye contact Speech: regular rate and tone Mood: withdrawn Affect: flat Thought Process: circumstantial Thought Content: denies HI's and AVH's Motor Activity: lying in bed Cognition: A/O x3 Insight: variable Judgment: poor Assessment and Plan Impression: Unspecified Mood DO. Today the patient is calm and cooperative during the assessment. UDS negative. The patient still endorsing SI's with a plan to overdose. DDx: Bipolar Do, R/O MDD Recommendation/Plan: Continue 1013 and home medicatuons Zoloft 100 mg PO daily, Zyprexa 20 mg PO HS for mood, and Vistaril 50 mg PO TID PRN. Discussed possible suicidality/medication induced sagar with the patient reference Zoloft. Di scussed possible metabolic side effects of Zyprexa with the patient. Dispo: The patient was referred to inpatient psy services. Will staff with Dr. Angelito Castro.
[2018-06-28] MEDS: NON-FORMULARY (Abacavir/Dolutegravir/Lamivudi [Triumeq 600-50-300 Mg Tablet] 1 EACH) PO SCH (15:10)
[2018-06-29 01:59] VITALS: BP 98/58
[2018-06-29] MEDS: ROXICODONE PO PRN (02:05)
[2018-06-29] MEDS ORDERED: ZIAGEN PO SCH (10:00)
[2018-06-29] MEDS ORDERED: EPIVIR PO SCH (10:00)
[2018-06-29] MEDS ORDERED: TIVICAY PO SCH (10:00)
== END 2018-06-29 04:06 ==
LOC: ED 13:21 → EEVIPCON 13:21 → ED 06-29 04:06
DX: F31.9 Bipolar disorder, unspecified (principal); G62.9 Polyneuropathy, unspecified; F17.210 Nicotine dependence, cigarettes, uncomplicated; Z88.8 Allergy status to other drugs, medicaments and biological substances
CPT/HCPCS: 36415; 80048; 80307; 81001; 85025; 99285; G0480; 80320; Q0169; Q0177

== ENCOUNTER 2018-08-24 14:29 | Emergency (ER) | payer MEDICARE ==
[2018-08-24] MEDS ORDERED: ATIVAN IM PRN (15:51)
[2018-08-24] MEDS ORDERED: HALDOL IM PRN (15:51)
[2018-08-24] MEDS ORDERED: DILAUDID IM ONE (15:51)
--- NOTE | 2018-08-24 15:52 | Emergency Department Report ---
ED General Adult HPI - General Chief complaint: Urogenital-Male Stated complaint: GROIN PAIN/POSSIBLE PSYCH Time Seen by Provider: 08/24/18 15:39 Source: patient, RN notes reviewed, old records reviewed Mode of arrival: Ambulatory Limitations: No Limitations - History of Present Illness Initial comments: This is a 38-year-old gentleman. The patient comes to the emergency room after recreational methamphetamine ingestion. He reports no homicidality or suicidality. He reports the ingestion was last night and this morning. He denies headache, neck pain, chest pain, abdominal pain, shortness of breath. He denies irritative, obstructive urinary symptoms. He also endorses left groin, left testicular pain. This is present for one day. The pain is sharp, increases with palpation, decreases with rest, and does not radiate anywhere. He denies urinary symptoms. -: Gradual Location: genitals Radiation: non-radiation Quality: aching Consistency: constant Improves with: rest Worsens with: movement - Related Data Home Medications Medication Instructions Recorded Confirmed Last Taken Promethazine [Phenergan TAB] 25 mg PO Q6H PRN 04/25/13 08/25/18 04/24/13 20:00 Gabapentin [Neurontin] 300 mg PO TID 06/26/18 08/25/18 Unknown OLANZapine [Zyprexa] 20 mg PO QHS 06/26/18 08/25/18 Unknown oxyCODONE [Roxicodone] 10 mg PO TID 06/26/18 08/25/18 Unknown traZODone [Desyrel] 150 mg PO QHS 06/26/18 08/25/18 Unknown Allergies Allergy/AdvReac Type Severity Reaction Status Date / Time oxcarbazepine Allergy Swelling Verified 08/24/18 14:43 [From Trileptal] ED Review of Systems ROS: Stated complaint: GROIN PAIN/POSSIBLE PSYCH Other details as noted in HPI Constitutional: weakness. denies: fever, malaise Eyes: denies: eye discharge ENT: denies: epistaxis Respiratory: denies: cough Cardiovascular: denies: chest pain Gastrointestinal: denies: abdominal pain Genitourinary: testicular pain. denies: urgency, dysuria Musculoskeletal: denies: back pain, arthralgia, myalgia Skin: denies: lesions Neurological: denies: weakness Psychiatric: anxiety. denies: visual hallucinations, homicidal thoughts, suicidal thoughts ED Past Medical Hx - Past Medical History Hx HIV: Yes Additional medical history: avascular necrosis left hip, peripheral neuropathy. Hep C - Surgical History Additional Surgical History: right hip replacement - Social History Smoking Status: Current Every Day Smoker Substance Use Type: Alcohol, Methamphetamines - Medications Home Medications: Home Medications Medication Instructions Recorded Confirmed Last Taken Type Promethazine [Phenergan TAB] 25 mg PO Q6H PRN 04/25/13 08/25/18 04/24/13 20:00 History Gabapentin [Neurontin] 300 mg PO TID 06/26/18 08/25/18 Unknown History OLANZapine [Zyprexa] 20 mg PO QHS 06/26/18 08/25/18 Unknown History oxyCODONE [Roxicodone] 10 mg PO TID 06/26/18 08/25/18 Unknown History traZODone [Desyrel] 150 mg PO QHS 06/26/18 08/25/18 Unknown History ED Physical Exam - General Limitations: Other (patient agitated, appears to be responding to internal stimuli, anxious, fidgeting) General appearance: alert, in no apparent distress, appears intoxicated, anxious - Head Head exam: Present: atraumatic, normocephalic - Eye Eye exam: Present: normal appearance, EOMI, other (visual acuity intact to finger counting, color perception, reading at a close distance). Absent: nystagmus - ENT ENT exam: Present: normal exam, normal orophraynx, mucous membranes moist, normal external ear exam - Neck Neck exam: Present: normal inspection, full ROM. Absent: tenderness, meningismus - Respiratory Respiratory exam: Present: normal lung sounds bilaterally. Absent: respiratory distress - Cardiovascular Cardiovascular Exam: Present: regular rate, normal rhythm, normal heart sounds. Absent: bradycardia, tachycardia, irregular rhythm, systolic murmur, diastolic murmur, rubs, gallop - GI/Abdominal GI/Abdominal exam: Present: soft. Absent: distended, tenderness, guarding, rebound, rigid, pulsatile mass - Rectal Rectal exam: Present: deferred - exam: Present: normal inspection, testicular tenderness (his left-sided testicular tenderness.), other (cremasteric reflex intact to the bilateral testicles) External exam: Present: normal external exam - Extremities Exam Extremities exam: Present: normal inspection, full ROM, other (2+ pulses noted in the bilateral upper, lower extremities. Compartments soft. No long bony tenderness. The pelvis is stable.). Absent: pedal edema, joint swelling, calf tenderness - Back Exam Back exam: Present: normal inspection, full ROM. Absent: paraspinal tenderness, vertebral tenderness - Neurological Exam Neurological exam: Present: alert, other (Extraocular movements intact. Tongue midline. No facial droop. Facial sensation intact to light touch in the V1, V2, V3 distribution bilaterally. 5 and 5 strength in 4 extremities.. Sensation is intact to light touch in 4 extremities.). Absent: motor sensory deficit - Psychiatric Psychiatric exam: Present: agitated, anxious. Absent: homicidal ideation, suicidal ideation - Skin Skin exam: Present: warm, dry, intact, normal color. Absent: rash ED Course Vital Signs 08/24/18 08/24/18 08/24/18 14:43 15:00 20:00 Temperature 99.3 F 97.5 F L Pulse Rate 72 112 H 116 H Respiratory 18 18 18 Rate Blood Pressure 163/99 128/111 Blood Pressure 107/81 [Left] O2 Sat by Pulse 100 98 100 Oximetry 08/25/18 08/25/18 02:00 07:30 Temperature 98.4 F 97.3 F L Pulse Rate 98 H 117 H Respiratory 18 18 Rate Blood Pressure Blood Pressure 108/71 103/69 [Left] O2 Sat by Pulse 100 100 Oximetry - Reevaluation(s) Reevaluation #1: 08/24/18 19:27 Differential diagnosis, including not limited to: Methamphetamine intoxication, mood disorder, suicidality, orchitis, epididymitis, testicular torsion Assessment and plan: 38-year-old gentleman with 2 complaints. His first complaint is methamphetamine intoxication. He is clearly under the influence of methamphetamines, twitchy, hyperverbal, and agitated. All he is not homicidal or suicidal, he does not have decision-making capacity, and he does not demonstrate the ability to demonstrate rational decisions. He is initially placed on the 2013 for methamphetamine intoxication. Screening laboratory studies were recommended, in addition to an ultrasound of his testicle to exclude testicular torsion. Patient then declined and refused all these studies, without appropriate understanding or insight as to the importance of the studies. The patient was then placed on a 1013 for methamphetamine intoxication, inability to care for self, and inability to demonstrate rational decision making thought process. Screening laboratory studies were unremarkable with the exception of elevated creatinine kinase at 900, with normal renal function, does not meet the definition criteria for rhabdomyolysis. This will decrease on its own with oral hydration, and with his young age and soft muscular compartments, does not represent rhabdomyolysis, and will decrease on its own, and does not require IV fluids or an additional check at this point in time. Complaint #2 is testicular pain. Ultrasound was reviewed, the mechanical engineering technologist felt that she thought that the ultrasound demonstrated epididymal hyperemia, and appropriate arterial flow to the scrotum, testicle. We are currently awaiting formal ultrasound interpretation. 08/24/18 19:42 08/24/18 19:53 ultrasound is interpreted as negative for torsion. No comment is made about epididymitis. However, we will cover the patient empirically for presumed epididymitis clinically. EKG is pending at this time. Reevaluation #2: 08/25/18 12:22 Patient is reassessed by me today. He is alert and oriented 3, clinically sober, walks with a steady gait, his methamphetamine intoxication appears to have resolved, and he now exhibits decision-making capacity, and the ability to care for himself. He was seen by psychiatry mental health liaison, . Herman Hoang, who also indicated that the patient did not be 1013 criteria at this time. The patient's 1013 will be discontinued. The patient reports no testicular pain at this time. He denies physical complaints at this time. He is medically and psychiatrically suitable for discharge at this point in time. ED Medical Decision Making - Lab Data Result diagrams: 08/24/18 17:32 08/24/18 17:32 Vital Signs 08/24/18 08/24/18 14:43 15:00 Temperature 99.3 F Pulse Rate 72 112 H Respiratory 18 18 Rate Blood Pressure 163/99 128/111 O2 Sat by Pulse 100 98 Oximetry Lab Results 08/24/18 08/24/18 08/24/18 Range/Units 17:32 17:32 17:32 WBC 6.4 (4.5-11.0) K/mm3 RBC 4.72 (3.65-5.03) M/mm3 Hgb 12.5 (11.8-15.2) gm/dl Hct 38.5 (35.5-45.6) % MCV 82 L (84-94) fl MCH 26 L (28-32) pg MCHC 32 (32-34) % RDW 16.6 H (13.2-15.2) % Plt Count 413 (140-440) K/mm3 Sodium 139 (137-145) mmol/L Potassium 3.9 (3.6-5.0) mmol/L Chloride 97.2 L (98-107) mmol/L Carbon Dioxide 29 (22-30) mmol/L Anion Gap 17 mmol/L BUN 24 H (9-20) mg/dL Creatinine 1.3 (0.8-1.5) mg/dL Estimated GFR > 60 ml/min BUN/Creatinine Ratio 18 % Glucose 107 H (75-100) mg/dL Calcium 8.9 (8.4-10.2) mg/dL Magnesium 2.10 (1.7-2.3) mg/dL Total Bilirubin 0.70 (0.1-1.2) mg/dL AST 58 H (5-40) units/L ALT 56 (7-56) units/L Alkaline Phosphatase 80 (35-129) units/L Total Creatine Kinase 985 H (55-170) units/L Total Protein 8.1 (6.3-8.2) g/dL Albumin 4.5 (3.9-5) g/dL Albumin/Globulin Ratio 1.3 % Urine Color (Yellow) Urine Turbidity (Clear) Urine pH (5.0-7.0) Ur Specific [place] (1.003-1.030) Urine Protein (Negative) mg/dL Urine Glucose (UA) (Negative) mg/dL Urine Ketones (Negative) mg/dL Urine Blood (Negative) Urine Nitrite (Negative) Urine Bilirubin (Negative) Urine Urobilinogen (<2.0) mg/dL Ur Leukocyte Esterase (Negative) Urine WBC (Auto) (0.0-6.0) /HPF Urine RBC (Auto) (0.0-6.0) /HPF Urine Mucus /HPF Salicylates < 0.3 L (2.8-20.0) mg/dL Urine Opiates Screen Urine Methadone Screen Acetaminophen (10.0-30.0) ug/mL Ur Barbiturates Screen Ur Phencyclidine Scrn Ur Amphetamines Screen U Benzodiazepines Scrn Urine Cocaine Screen U Marijuana (THC) Screen Drugs of Abuse Note Plasma/Serum Alcohol (0-0.07) % 08/24/18 08/24/18 08/24/18 Range/Units 17:32 17:32 17:34 WBC (4.5-11.0) K/mm3 RBC (3.65-5.03) M/mm3 Hgb (11.8-15.2) gm/dl Hct (35.5-45.6) % MCV (84-94) fl MCH (28-32) pg MCHC (32-34) % RDW (13.2-15.2) % Plt Count (140-440) K/mm3 Sodium (137-145) mmol/L Potassium (3.6-5.0) mmol/L Chloride (98-107) mmol/L Carbon Dioxide (22-30) mmol/L Anion Gap mmol/L BUN (9-20) mg/dL Creatinine (0.8-1.5) mg/dL Estimated GFR ml/min BUN/Creatinine Ratio % Glucose (75-100) mg/dL Calcium (8.4-10.2) mg/dL Magnesium (1.7-2.3) mg/dL Total Bilirubin (0.1-1.2) mg/dL AST (5-40) units/L ALT (7-56) units/L Alkaline Phosphatase (35-129) units/L Total Creatine Kinase (55-170) units/L Total Protein (6.3-8.2) g/dL Albumin (3.9-5) g/dL Albumin/Globulin Ratio % Urine Color [place] (Yellow) Urine Turbidity Clear (Clear) Urine pH 5.0 (5.0-7.0) Ur Specific [place] 1.033 H (1.003-1.030) Urine Protein 100 mg/dl (Negative) mg/dL Urine Glucose (UA) Neg (Negative) mg/dL Urine Ketones Neg (Negative) mg/dL Urine Blood Neg (Negative) Urine Nitrite Neg (Negative) Urine Bilirubin Neg (Negative) Urine Urobilinogen < 2.0 (<2.0) mg/dL Ur Leukocyte Esterase Neg (Negative) Urine WBC (Auto) 1.0 (0.0-6.0) /HPF Urine RBC (Auto) 1.0 (0.0-6.0) /HPF Urine Mucus 2+ /HPF Salicylates (2.8-20.0) mg/dL Urine Opiates Screen Urine Methadone Screen Acetaminophen < 5.0 L (10.0-30.0) ug/mL Ur Barbiturates Screen Ur Phencyclidine Scrn Ur Amphetamines Screen U Benzodiazepines Scrn Urine Cocaine Screen U Marijuana (THC) Screen Drugs of Abuse Note Plasma/Serum Alcohol 0.03 (0-0.07) % 08/24/18 Range/Units 17:34 WBC (4.5-11.0) K/mm3 RBC (3.65-5.03) M/mm3 Hgb (11.8-15.2) gm/dl Hct (35.5-45.6) % MCV (84-94) fl MCH (28-32) pg MCHC (32-34) % RDW (13.2-15.2) % Plt Count (140-440) K/mm3 Sodium (137-145) mmol/L Potassium (3.6-5.0) mmol/L Chloride (98-107) mmol/L Carbon Dioxide (22-30) mmol/L Anion Gap mmol/L BUN (9-20) mg/dL Creatinine (0.8-1.5) mg/dL Estimated GFR ml/min BUN/Creatinine Ratio % Glucose (75-100) mg/dL Calcium (8.4-10.2) mg/dL Magnesium (1.7-2.3) mg/dL Total Bilirubin (0.1-1.2) mg/dL AST (5-40) units/L ALT (7-56) units/L Alkaline Phosphatase (35-129) units/L Total Creatine Kinase (55-170) units/L Total Protein (6.3-8.2) g/dL Albumin (3.9-5) g/dL Albumin/Globulin Ratio % Urine Color (Yellow) Urine Turbidity (Clear) Urine pH (5.0-7.0) Ur Specific [place] (1.003-1.030) Urine Protein (Negative) mg/dL Urine Glucose (UA) (Negative) mg/dL Urine Ketones (Negative) mg/dL Urine Blood (Negative) Urine Nitrite (Negative) Urine Bilirubin (Negative) Urine Urobilinogen (<2.0) mg/dL Ur Leukocyte Esterase (Negative) Urine WBC (Auto) (0.0-6.0) /HPF Urine RBC (Auto) (0.0-6.0) /HPF Urine Mucus /HPF Salicylates (2.8-20.0) mg/dL Urine Opiates Screen Presumptive negative Urine Methadone Screen Presumptive negative Acetaminophen (10.0-30.0) ug/mL Ur Barbiturates Screen Presumptive negative Ur Phencyclidine Scrn Presumptive negative Ur Amphetamines Screen Presumptive positive U Benzodiazepines Scrn Presumptive negative Urine Cocaine Screen Presumptive negative U Marijuana (THC) Screen Presumptive negative Drugs of Abuse Note Disclamer Plasma/Serum Alcohol (0-0.07) % - EKG Data -: EKG Interpreted by Me EKG shows normal: sinus rhythm Rate: normal - EKG Data 08/24/18 19:57 Sinus, 98 bpm, normal axis, QTC prolonged, motion artifact, high left ventricular voltage, abnormal EKG, not having chest pain, unchanged from prior EKG from January 2018, not consistent with ST elevation myocardial infarction. - Radiology Data Radiology results: pending, report reviewed, image reviewed Critical care attestation.: If time is entered above; I have spent that time in minutes in the direct care of this critically ill patient, excluding procedure time. ED Disposition Clinical Impression: Testicular pain, Methamphetamine abuse Disposition: - TO HOME OR SELFCARE Is pt being admited?: No Does the pt Need Aspirin: No Condition: Good Instructions: Testicle Pain (ED), Epididymitis (ED), Methamphetamine Abuse (ED) Additional Instructions: Cultures were sent today, and results will be available next 3-5 days. Please have your primary care doctor call the medical records department to obtain your culture results. Take the nausea medication and pain medication as directed. I recommend outpatient testing for sexually transmitted diseases, including hepatitis, syphilis and HIV. I also recommend that you abstain from sexual activity until you have completed your antibiotic therapy, a physician states that it is safe for you to resume sexual activity, and any partners that you have been sexually active with have been tested/treated/evaluated for sexual transmitted diseases. Please refrain from methamphetamine consumption in the future. Long-term consumption of methamphetamine may cause addiction, disability, , loss of quality of life. Please follow up with the primary care doctor or urology specialist for testicular pain within the next 7-10 days. I recommend that you return to the ER right away with worsening pain, migration of pain, intractable nausea/vomiting, inability tolerate liquid feeds. Referrals: [facility] [Provider Group] - 7-10 days [facility] [Provider Group] - 7-10 days
[2018-08-24] MEDS ORDERED: GEODON IM ONE (17:01)
[2018-08-24] MEDS ORDERED: WATER FOR INJ (PF) ONE (17:06)
[2018-08-24 17:59] LABS: Hematocrit 38.5 % (35.5-45.6); Hemoglobin 12.5 gm/dl (11.8-15.2); Mean Corpuscular HGB Conc 32 % (32-34); Mean Corpuscular Volume 82 fl (84-94); Platelet Count 413 K/mm3 (140-440); Red Blood Count 4.72 M/mm3 (3.65-5.03); Red Cell Distribution Width 16.6 % (13.2-15.2)
[2018-08-24 18:18] LABS: Alanine Aminotransferase 56 units/L (7-56); Albumin 4.5 g/dL (3.9-5); BUN/Creatinine Ratio 18; Blood Urea Nitrogen 24 mg/dL (9-20); Calcium 8.9 mg/dL (8.4-10.2); Hemolysis Index 1
[2018-08-24 18:54] LABS: Bilirubin,Urine NEG (Negative); Blood,Urine NEG (Negative); Color,Urine Amber (Yellow); Mucus,Urine 2+ /HPF; Urobilinogen,Urine < 2.0 mg/dL (<2.0)
[2018-08-24 19:00] LABS: Benzodiazepines Screen,Urine PRESUMPTIVE NEGATIVE; Cannabinoid Screen,Urine PRESUMPTIVE NEGATIVE; Cocaine Screen,Urine PRESUMPTIVE NEGATIVE; Methadone Screen,Urine PRESUMPTIVE NEGATIVE; Opiate Screen,Urine PRESUMPTIVE NEGATIVE
[2018-08-24 19:20] LABS: Amphetamine Screen,Urine PRESUMPTIVE POSITIVE
--- NOTE | 2018-08-24 19:44 | Ultrasound Report ---
PROCEDURE: US TESTICULAR DOPPLER COMP TECHNIQUE: 2-D imaging of the testicles was obtained as well as pulsed and color flow Doppler imaging . HISTORY: SCROTAL PAIN COMPARISONS: None FINDINGS: The signal intensity from the testicles is homogeneous and normal in appearance. No masses are seen. No hydroceles are visualized. Epididymis bilaterally are unremarkable. Right testicle measures 3.1 x 1.4 x 2.4 cm. The left testicle measures 2.9 x 1.6 x 2.5 cm. Arterial and venous flow visualized with in the right and left testicle. No evidence of varicocele. IMPRESSION: Negative exam.. This document is electronically signed by Nasir Mitchell MD., August 24 2018 07:42:06 PM ET
[2018-08-24] MEDS ORDERED: ZITHROMAX PO ONE (19:51)
[2018-08-24] MEDS ORDERED: ROCEPHIN IM ONE (19:52)
[2018-08-24] MEDS ORDERED: XYLOCAINE 1% MPF 5 mL INFILTRATI ONE (19:52)
[2018-08-25 07:57] VITALS: BP 103/69
== END 2018-08-25 13:30 | disposition home or self-care (01) ==
LOC: EEVIPCON 14:29 → ED 14:29
DX: N50.819 Testicular pain, unspecified (principal); F15.129 Other stimulant abuse with intoxication, unspecified; F17.200 Nicotine dependence, unspecified, uncomplicated
CPT/HCPCS: 36415; 80053; 80307; 81001; 82550; 83735; 85027; 87086; 93005; 93010; 93975; 96372; 99284; G0480; J0696; J1630; J2060; J3486; 80320

== ENCOUNTER 2018-10-02 06:49 | Emergency (ER) | payer MEDICARE ==
[2018-10-02 07:02] VITALS: BP 118/70
[2018-10-02 07:33] LABS: Basophils # (Auto) 0.1 K/mm3 (0.0-0.1); Basophils % (Auto) 1.7 % (0.0-1.8); Eosinophils # (Auto) 0.2 K/mm3 (0.0-0.4); Eosinophils % (Auto) 4.7 % (0.0-4.3); Hematocrit 39.1 % (35.5-45.6); Hemoglobin 12.3 gm/dl (11.8-15.2); Lymphocytes # (Auto) 1.8 K/mm3 (1.2-5.4); Lymphocytes % (Auto) 38.7 % (13.4-35.0); Mean Corpuscular HGB Conc 32 % (32-34); Mean Corpuscular Volume 85 fl (84-94); Monocytes # (Auto) 0.7 K/mm3 (0.0-0.8); Monocytes % (Auto) 14.4 % (0.0-7.3); Platelet Count 400 K/mm3 (140-440); Red Blood Count 4.58 M/mm3 (3.65-5.03)
--- NOTE | 2018-10-02 07:37 | Emergency Department Report ---
ED General Adult HPI - General Chief complaint: Psych Stated complaint: MAJOR DEPRESSION Time Seen by Provider: 10/02/18 07:32 Source: patient Mode of arrival: Ambulatory Limitations: No Limitations - History of Present Illness Initial comments: Shaheed is a 38-year-old male who states that he is depressed but not yet suicidal. He states this is because he wanted to "get that bad". He admits homelessness. He admits noncompliance with his HIV medicine. He admits his last methamphetamine use was yesterday and that he is eventually user. States that he needs to get back on his psychiatric medication and be stabilized. He is requesting placement in a psychiatric facility. -: Gradual, week(s), month(s) Associated Symptoms: denies other symptoms - Related Data Home Medications Medication Instructions Recorded Confirmed Last Taken Promethazine [Phenergan] 25 mg PO Q6H PRN 04/25/13 08/25/18 04/24/13 20:00 Gabapentin [Neurontin] 300 mg PO TID 06/26/18 08/25/18 Unknown OLANZapine [Zyprexa] 20 mg PO QHS 06/26/18 08/25/18 Unknown oxyCODONE [Roxicodone] 10 mg PO TID 06/26/18 08/25/18 Unknown traZODone [Desyrel] 150 mg PO QHS 06/26/18 08/25/18 Unknown Allergies Allergy/AdvReac Type Severity Reaction Status Date / Time oxcarbazepine Allergy Swelling Verified 08/24/18 14:43 [From Trileptal] ED Review of Systems ROS: Stated complaint: MAJOR DEPRESSION Other details as noted in HPI Constitutional: denies: chills, fever Eyes: denies: eye pain, eye discharge, vision change ENT: denies: ear pain, throat pain Respiratory: denies: cough, shortness of breath, wheezing Cardiovascular: denies: chest pain, palpitations Endocrine: no symptoms reported Gastrointestinal: denies: abdominal pain, nausea, diarrhea Genitourinary: denies: urgency, dysuria Musculoskeletal: denies: back pain, joint swelling, arthralgia Skin: denies: rash, lesions Neurological: denies: headache, weakness, paresthesias Psychiatric: depression. denies: anxiety, auditory hallucinations, visual luke ucinations, homicidal thoughts, suicidal thoughts Hematological/Lymphatic: denies: easy bleeding, easy bruising ED Past Medical Hx - Past Medical History Hx HIV: Yes Additional medical history: avascular necrosis left hip, peripheral neuropathy. Hep C. HIV+ - Surgical History Additional Surgical History: right hip replacement - Social History Smoking Status: Current Every Day Smoker Substance Use Type: Methamphetamines - Medications Home Medications: Home Medications Medication Instructions Recorded Confirmed Last Taken Type Promethazine [Phenergan] 25 mg PO Q6H PRN 04/25/13 08/25/18 04/24/13 20:00 History Gabapentin [Neurontin] 300 mg PO TID 06/26/18 08/25/18 Unknown History OLANZapine [Zyprexa] 20 mg PO QHS 06/26/18 08/25/18 Unknown History oxyCODONE [Roxicodone] 10 mg PO TID 06/26/18 08/25/18 Unknown History traZODone [Desyrel] 150 mg PO QHS 06/26/18 08/25/18 Unknown History ED Physical Exam - General Limitations: No Limitations General appearance: alert, in no apparent distress - Head Head exam: Present: atraumatic, normocephalic - Eye Eye exam: Present: normal appearance. Absent: scleral icterus - ENT ENT exam: Present: mucous membranes moist - Neck Neck exam: Present: normal inspection - Respiratory Respiratory exam: Present: normal lung sounds bilaterally. Absent: respiratory distress - Cardiovascular Cardiovascular Exam: Present: regular rate, normal rhythm. Absent: systolic murmur, diastolic murmur, rubs, gallop - GI/Abdominal GI/Abdominal exam: Present: soft, normal bowel sounds. Absent: distended, tenderness, guarding, rebound, rigid - Rectal Rectal exam: Present: deferred - Extremities Exam Extremities exam: Present: normal inspection - Back Exam Back exam: Present: normal inspection - Neurological Exam Neurological exam: Present: alert, oriented X3, CN II-XII intact, normal gait. Absent: motor sensory deficit - Psychiatric Psychiatric exam: Present: flat affect, other (figidty) - Skin Skin exam: Present: warm, dry, intact, normal color. Absent: rash ED Course Vital Signs 10/02/18 07:01 Temperature 98.2 F Pulse Rate 64 Respiratory 16 Rate Blood Pressure 118/70 O2 Sat by Pulse 96 Oximetry - Reevaluation(s) Reevaluation #1: Patient was evaluated by Herman [facility]ellan mental health counselor. He told me that he was ineligible for involuntary confinement placement. Stated that he would attempt placement of this patient in the [facility]. Otherwise he may be discharged to outpatient services. 10/02/18 09:29 ED Medical Decision Making - Lab Data Result diagrams: 10/02/18 07:18 10/02/18 07:18 Laboratory Results - last 24 hr 10/02/18 10/02/18 10/02/18 07:18 07:18 07:18 WBC RBC Hgb Hct MCV MCH MCHC RDW Plt Count Lymph % (Auto) [place] % (Auto) Eos % (Auto) Baso % (Auto) Lymph # [place] # Eos # Baso # Seg Neutrophils % Seg Neutrophils # Sodium 137 Potassium 3.5 L Chloride 102.1 Carbon Dioxide 23 Anion Gap 15 BUN 14 Creatinine 0.8 Estimated GFR > 60 BUN/Creatinine Ratio 18 Glucose 136 H Calcium 8.5 Magnesium Total Bilirubin Direct Bilirubin Indirect Bilirubin AST ALT Alkaline Phosphatase Total Creatine Kinase CK-MB (CK-2) CK-MB (CK-2) Rel Index Total Protein Albumin Albumin/Globulin Ratio Salicylates < 0.3 L Acetaminophen < 5.0 L Maury Plasma/Serum Alcohol 10/02/18 10/02/18 10/02/18 07:18 07:18 07:32 WBC 4.6 RBC 4.58 Hgb 12.3 Hct 39.1 MCV 85 MCH 27 L MCHC 32 RDW 17.0 H Plt Count 400 Lymph % (Auto) 38.7 H [place] % (Auto) 14.4 H Eos % (Auto) 4.7 H Baso % (Auto) 1.7 Lymph # 1.8 [place] # 0.7 Eos # 0.2 Baso # 0.1 Seg Neutrophils % 40.5 Seg Neutrophils # 1.9 Sodium Potassium Chloride Carbon Dioxide Anion Gap BUN Creatinine Estimated GFR BUN/Creatinine Ratio Glucose Calcium Magnesium 1.90 Total Bilirubin 0.60 Direct Bilirubin < 0.2 Indirect Bilirubin 0.4 AST 39 ALT 40 Alkaline Phosphatase 58 Total Creatine Kinase 413 H CK-MB (CK-2) 4.6 H CK-MB (CK-2) Rel Index 1.1 Total Protein 6.7 Albumin 3.9 Albumin/Globulin Ratio 1.4 Salicylates Acetaminophen Maury Plasma/Serum Alcohol < 0.01 10/02/18 07:33 WBC RBC Hgb Hct MCV MCH MCHC RDW Plt Count Lymph % (Auto) [place] % (Auto) Eos % (Auto) Baso % (Auto) Lymph # [place] # Eos # Baso # Seg Neutrophils % Seg Neutrophils # Sodium Potassium Chloride Carbon Dioxide Anion Gap BUN Creatinine Estimated GFR BUN/Creatinine Ratio Glucose Calcium Magnesium Total Bilirubin Direct Bilirubin Indirect Bilirubin AST ALT Alkaline Phosphatase Total Creatine Kinase CK-MB (CK-2) CK-MB (CK-2) Rel Index Total Protein Albumin Albumin/Globulin Ratio Salicylates Acetaminophen Maury 0.1 Plasma/Serum Alcohol Critical care attestation.: If time is entered above; I have spent that time in minutes in the direct care of this critically ill patient, excluding procedure time. ED Disposition Clinical Impression: Methamphetamine abuse, HIV positive, Noncompliance with medication regimen Depression Qualifiers: Depression Type: other depression Qualified Code(s): F32.89 - Other specified depressive episodes Disposition: DC- TO HOME OR SELFCARE Is pt being admited?: No Does the pt Need Aspirin: No Condition: Stable Instructions: Suicide Prevention for Adults (ED), Depression (ED) Referrals: [facility] [Provider Group] - 3-5 Days [facility] [Outside] - 3-5 Days Time of Disposition: 09:32
[2018-10-02 07:51] LABS: BUN/Creatinine Ratio 18; Blood Urea Nitrogen 14 mg/dL (9-20); Calcium 8.5 mg/dL (8.4-10.2); Hemolysis Index 8
[2018-10-02 08:14] LABS: Alanine Aminotransferase 40 units/L (7-56); Albumin 3.9 g/dL (3.9-5)
[2018-10-02 08:28] LABS: Bilirubin,Direct < 0.2 mg/dL (0-0.2)
[2018-10-02 08:55] LABS: Creatine Kinase MB 4.6 ng/mL (0.0-4.0)
== END 2018-10-02 12:53 | disposition home or self-care (01) ==
LOC: ED 06:49
DX: F32.9 Major depressive disorder, single episode, unspecified (principal); F15.10 Other stimulant abuse, uncomplicated; F17.200 Nicotine dependence, unspecified, uncomplicated; G62.9 Polyneuropathy, unspecified; Z79.899 Other long term (current) drug therapy; Z88.8 Allergy status to other drugs, medicaments and biological substances
CPT/HCPCS: 36415; 80048; 80076; 80178; 82550; 82553; 83735; 85025; 99283; G0480; 80320

== ENCOUNTER 2019-01-09 16:38 | Emergency (ER) | payer MEDICARE ==
--- NOTE | 2019-01-09 16:46 | Event Note ---
ED Screening Note Date of service: 01/09/19 Time: 16:42 ED Screening Note: This is a 38 y.o. M. that presents to the ER for detox. Patient states he is going to the [facility] tomorrow. He reports a drug binge on methamphetamines. PMH of Hepatitis C, HIV, and polysubstance abuse This initial assessment/diagnostic orders/clinical plan/treatment(s) is/are subject to change based on patients health status, clinical progression and re- assessment by fellow clinical providers in the ED. Further treatment and workup at subsequent clinical providers discretion. Patient/guardian urged not to elope from the ED as their condition may be serious if not clinically assessed and managed. Initial orders include: Labs
[2019-01-09 17:27] LABS: BUN/Creatinine Ratio 23; Blood Urea Nitrogen 18 mg/dL (9-20); Calcium 9.3 mg/dL (8.4-10.2); Hemolysis Index 25
[2019-01-09 18:00] LABS: Hematocrit 43.9 % (35.5-45.6); Hemoglobin 14.6 gm/dl (11.8-15.2); Mean Corpuscular HGB Conc 33 % (32-34); Mean Corpuscular Volume 82 fl (84-94); Platelet Count 377 K/mm3 (140-440); Red Blood Count 5.33 M/mm3 (3.65-5.03); Red Cell Distribution Width 15.2 % (13.2-15.2)
[2019-01-09 18:40] LABS: Total Cells Counted 100
[2019-01-09 18:41] LABS: Ovalocytes Few; Platelet Estimate Consistent w Auto
--- NOTE | 2019-01-09 19:08 | Emergency Department Report ---
ED Medical Clearance HPI - General Chief complaint: Overdose Stated complaint: OVERDOSE Time Seen by Provider: 01/09/19 16:41 Source: patient Mode of arrival: Ambulatory - History of Present Illness Initial comments: Patient is 38 years old male with history of HIV, right hip replacement secondary to avascular necrosis and chronic drug abuse. Patient presented to the ER asking for medical clearance. Patient stated that he worried that he took too much methamphetamine last night and this morning. Patient denied any chest pain or shortness of breath. Patient also denied suicidal or homicidal ideation. No visual or detail the sedation. MD Complaint: medical clearance request Reason for Medical Clearance: intoxication Traumatic Symptoms: denies traumatic injury Home medications: Home Medications Medication Instructions Recorded Confirmed Last Taken Promethazine [Phenergan] 25 mg PO Q6H PRN 04/25/13 08/25/18 04/24/13 20:00 Gabapentin [Neurontin] 300 mg PO TID 06/26/18 08/25/18 Unknown OLANZapine [Zyprexa] 20 mg PO QHS 06/26/18 08/25/18 Unknown oxyCODONE [Roxicodone] 10 mg PO TID 06/26/18 08/25/18 Unknown traZODone [Desyrel] 150 mg PO QHS 06/26/18 08/25/18 Unknown Allergies/Adverse reactions: Allergies Allergy/AdvReac Type Severity Reaction Status Date / Time oxcarbazepine Allergy Swelling Verified 08/24/18 14:43 [From Trileptal] ED Review of Systems ROS: Stated complaint: OVERDOSE Other details as noted in HPI Comment: All other systems reviewed and negative Constitutional: denies: chills, fever Respiratory: denies: cough, orthopnea, shortness of breath, SOB with exertion, SOB at rest, wheezing Cardiovascular: denies: chest pain, palpitations, dyspnea on exertion Gastrointestinal: denies: abdominal pain, nausea, vomiting, diarrhea, constipation, hematemesis, melena, hematochezia Genitourinary: denies: urgency, dysuria, frequency, hematuria, discharge Musculoskeletal: denies: back pain Neurological: denies: headache, weakness, numbness, paresthesias, confusion, abnormal gait Psychiatric: anxiety. denies: depression, auditory hallucinations, visual hallucinations, homicidal thoughts, suicidal thoughts ED Past Medical Hx - Past Medical History Hx HIV: Yes (anti-virals) Additional medical history: avascular necrosis left hip, peripheral neuropathy. Hep C-? HIV+ - Surgical History Additional Surgical History: right hip replacement - Social History Smoking Status: Never Smoker Substance Use Type: None - Medications Home Medications: Home Medications Medication Instructions Recorded Confirmed Last Taken Type Promethazine [Phenergan] 25 mg PO Q6H PRN 04/25/13 08/25/18 04/24/13 20:00 History Gabapentin [Neurontin] 300 mg PO TID 06/26/18 08/25/18 Unknown History OLANZapine [Zyprexa] 20 mg PO QHS 06/26/18 08/25/18 Unknown History oxyCODONE [Roxicodone] 10 mg PO TID 06/26/18 08/25/18 Unknown History traZODone [Desyrel] 150 mg PO QHS 06/26/18 08/25/18 Unknown History ED Physical Exam - General Limitations: No Limitations General appearance: alert, in no apparent distress, anxious - Head Head exam: Present: atraumatic, normocephalic, normal inspection - Eye Eye exam: Present: normal appearance, PERRL - ENT ENT exam: Present: normal exam, normal orophraynx, mucous membranes moist - Neck Neck exam: Present: normal inspection. Absent: tenderness, meningismus, lymphadenopathy, thyromegaly - Respiratory Respiratory exam: Present: normal lung sounds bilaterally - Cardiovascular Cardiovascular Exam: Present: tachycardia. Absent: systolic murmur, diastolic murmur - GI/Abdominal GI/Abdominal exam: Present: soft, normal bowel sounds. Absent: distended, tenderness, guarding, rebound, rigid, organomegaly, mass, bruit, pulsatile mass, hernia - Extremities Exam Extremities exam: Present: normal inspection, full ROM, normal capillary refill. Absent: tenderness, pedal edema, calf tenderness - Back Exam Back exam: Present: normal inspection, full ROM. Absent: CVA tenderness (R), CVA tenderness (L), muscle spasm, paraspinal tenderness, vertebral tenderness - Neurological Exam Neurological exam: Present: alert, oriented X3, CN II-XII intact - Psychiatric Psychiatric exam: Present: normal mood, anxious. Absent: depressed, agitated, flat affect, manic, homicidal ideation, suicidal ideation - Skin Skin exam: Present: warm, intact, normal color ED Course Vital Signs 01/09/19 01/09/19 01/09/19 16:44 18:54 19:03 Temperature 98 F Pulse Rate 112 H Respiratory 18 Rate Blood Pressure 158/94 Blood Pressure [Right] O2 Sat by Pulse 98 90 100 Oximetry 01/09/19 01/09/19 01/09/19 19:15 19:31 19:45 Temperature Pulse Rate 102 H 110 H 105 H Respiratory 23 25 H 19 Rate Blood Pressure Blood Pressure [Right] O2 Sat by Pulse 100 97 100 Oximetry 01/09/19 01/09/19 01/09/19 20:01 20:15 20:30 Temperature Pulse Rate 104 H 107 H 107 H Respiratory 23 21 24 Rate Blood Pressure 160/88 152/95 Blood Pressure [Right] O2 Sat by Pulse 97 100 96 Oximetry 01/09/19 01/09/19 01/09/19 20:45 21:00 23:00 Temperature 98.3 F Pulse Rate 100 H 108 H 111 H Respiratory 23 22 19 Rate Blood Pressure 152/96 141/93 Blood Pressure 142/82 [Right] O2 Sat by Pulse 97 100 Oximetry 01/09/19 01/09/19 01/09/19 23:28 23:30 23:43 Temperature Pulse Rate 107 H 110 H 111 H Respiratory 16 24 17 Rate Blood Pressure 144/84 133/91 133/91 Blood Pressure [Right] O2 Sat by Pulse Oximetry 01/10/19 01/10/19 01/10/19 00:00 00:15 00:30 Temperature Pulse Rate 104 H 106 H 113 H Respiratory 18 21 13 Rate Blood Pressure 137/96 136/89 144/91 Blood Pressure [Right] O2 Sat by Pulse Oximetry - Reevaluation(s) Reevaluation #1: 01/10/19 01:18 Patient stated that he went to leave AGAINST MEDICAL ADVICE. Patient is alert, oriented 3 in no acute distress. Patient has a capacity to make a sound decision. Patient signed AGAINST MEDICAL ADVICE form. I explained to the patient regarding the need to finish his treatment and get evaluated by mental health, he still wanted to leave. Patient advised to return to the ER or go to another ER if not feeling better. ED Medical Decision Making - Lab Data Result diagrams: 01/09/19 16:53 01/09/19 16:53 - Medical Decision Making Patient is 38 years old male with history of HIV, right hip replacement secondary to avascular necrosis and chronic drug abuse. Patient presented to the ER asking for medical clearance. Patient stated that he worried that he took too much methamphetamine last night and this morning. Patient denied any chest pain or shortness of breath. Patient also denied suicidal or homicidal ideation. No visual or detail the sedation. Patient is waiting for mental health assessment. ED Disposition Clinical Impression: Methamphetamine abuse Disposition: DC-07 LEFT AGAINST MED ADVICE Is pt being admited?: No Condition: Stable Referrals: PRIMARY CARE, [Primary Care Provider] - 3-5 Days
[2019-01-09 19:31] LABS: Bilirubin,Urine NEG (Negative); Blood,Urine NEG (Negative); Color,Urine Amber (Yellow); Mucus,Urine FEW /HPF
[2019-01-09 19:44] LABS: Benzodiazepines Screen,Urine PRESUMPTIVE NEGATIVE; Cannabinoid Screen,Urine PRESUMPTIVE NEGATIVE; Cocaine Screen,Urine PRESUMPTIVE NEGATIVE; Methadone Screen,Urine PRESUMPTIVE NEGATIVE; Opiate Screen,Urine PRESUMPTIVE NEGATIVE
[2019-01-09 19:59] LABS: Amphetamine Screen,Urine PRESUMPTIVE POSITIVE
[2019-01-10 01:08] VITALS: BP 144/91
== END 2019-01-10 01:26 | disposition left against medical advice (07) ==
LOC: ED 16:38
DX: F15.10 Other stimulant abuse, uncomplicated (principal); G62.9 Polyneuropathy, unspecified; Z21 Asymptomatic human immunodeficiency virus [HIV] infection status; Z96.641 Presence of right artificial hip joint; Z79.899 Other long term (current) drug therapy; Z88.8 Allergy status to other drugs, medicaments and biological substances
CPT/HCPCS: 36415; 80048; 80307; 80320; 81001; 85007; 85025; G0480

== ENCOUNTER 2019-02-18 14:43 | Emergency (ER) | payer MEDICARE ==
--- NOTE | 2019-02-18 14:51 | Event Note ---
ED Screening Note Date of service: 02/18/19 Time: 14:49 ED Screening Note: This is a 38 y.o. M. that presents to the ER with SI/HI. Patient states he is hearing voices that are telling him to harm others. This initial assessment/diagnostic orders/clinical plan/treatment(s) is/are subject to change based on patients health status, clinical progression and re- assessment by fellow clinical providers in the ED. Further treatment and workup at subsequent clinical providers discretion. Patient/guardian urged not to elope from the ED as their condition may be serious if not clinically assessed and managed. Initial orders include: Labs
[2019-02-18 15:17] LABS: Basophils # (Auto) 0.2 K/mm3 (0.0-0.1); Basophils % (Auto) 2.1 % (0.0-1.8); Eosinophils # (Auto) 0.5 K/mm3 (0.0-0.4); Eosinophils % (Auto) 5.1 % (0.0-4.3); Hematocrit 43.7 % (35.5-45.6); Hemoglobin 14.1 gm/dl (11.8-15.2); Lymphocytes # (Auto) 2.3 K/mm3 (1.2-5.4); Lymphocytes % (Auto) 25.5 % (13.4-35.0); Mean Corpuscular HGB Conc 32 % (32-34); Mean Corpuscular Volume 85 fl (84-94); Monocytes # (Auto) 0.8 K/mm3 (0.0-0.8); Monocytes % (Auto) 8.3 % (0.0-7.3); Platelet Count 465 K/mm3 (140-440); Red Blood Count 5.13 M/mm3 (3.65-5.03)
--- NOTE | 2019-02-18 15:17 | Emergency Department Report ---
HPI - General Chief Complaint: Psych Time Seen by Provider: 02/18/19 14:49 - HPI HPI: 38-year-old -[place] male presents to the emergency department for a mental health evaluation. The patient has been hearing some voices over the past 2 days that are telling him to harm himself and other people. He says that he has the plan that he would stab someone. He has a past medical history of schizophrenia and bipolar disorder, as well as HIV. The patient has not been compliant with his medications recently secondary to being unable to afford the m. He recently started seeing a psychiatrist at [facility] and he says that he called them regarding his hallucinations, suicidal and homicidal ideations, and was told to come to the emergency department. ED Past Medical Hx - Past Medical History Previous Medical History?: Yes Hx Psychiatric Treatment: Yes (schizophrenia, bipolar) Hx HIV: Yes (anti-virals) Additional medical history: avascular necrosis left hip, peripheral neuropathy. Hep C-? HIV+ - Surgical History Past Surgical History?: Yes Additional Surgical History: right hip replacement - Social History Smoking Status: Current Every Day Smoker Substance Use Type: None - Medications Home Medications: Home Medications Medication Instructions Recorded Confirmed Last Taken Type OLANZapine [Zyprexa] 10 mg PO QHS 06/26/18 02/18/19 Unknown History traZODone [Desyrel] 200 mg PO QHS 06/26/18 02/18/19 Unknown History Abacavir/Dolutegravir/Lamivudi 1 each PO QAM 02/18/19 02/18/19 Unknown History [Triumeq 600-50-300 mg Tablet] Pregabalin [Lyrica] 200 mg PO DAILY 02/18/19 02/18/19 Unknown History diphenhydrAMINE [Benadryl CAP] 50 mg PO Q6HR PRN 02/18/19 02/18/19 Unknown History ED Review of Systems ROS: Stated complaint: HEARING VOICES Other details as noted in HPI Comment: All other systems reviewed and negative Constitutional: denies: chills, fever Eyes: denies: eye pain, vision change ENT: denies: ear pain, throat pain Respiratory: denies: cough, shortness of breath Cardiovascular: denies: chest pain, palpitations Gastrointestinal: denies: abdominal pain, vomiting Genitourinary: denies: dysuria, discharge Musculoskeletal: denies: back pain, arthralgia Neurological: denies: headache, weakness Psychiatric: auditory hallucinations, homicidal thoughts, suicidal thoughts Physical Exam - Physical Exam Vital Signs: Vital Signs 02/18/19 14:49 Temperature 98.2 F Pulse Rate 87 Respiratory 16 Rate Blood Pressure 132/85 O2 Sat by Pulse 99 Oximetry Physical Exam: GENERAL: The patient is well-developed well-nourished. HENT: Normocephalic. Atraumatic. Patient has moist mucous membranes. EYES: Extraocular motions are intact. NECK: Supple. Trachea is midline. CHEST/LUNGS: Clear to auscultation. There is no respiratory distress noted. HEART/CARDIOVASCULAR: Regular. There is no tachycardia. There is no murmur. ABDOMEN: Abdomen is soft, nontender. Patient has normal bowel sounds. There is no abdominal distention. SKIN: Skin is warm and dry. NEURO: The patient is awake, alert, and oriented. The patient is cooperative. The patient has no focal neurologic deficits. Normal speech. MUSCULOSKELETAL: There is no tenderness or deformity. There is no evidence of acute injury. ED Course Vital Signs 02/18/19 14:49 Temperature 98.2 F Pulse Rate 87 Respiratory 16 Rate Blood Pressure 132/85 O2 Sat by Pulse 99 Oximetry ED Medical Decision Making - Lab Data Result diagrams: 02/18/19 14:56 02/18/19 14:56 - Medical Decision Making This patient, with a history of schizophrenia and medication noncompliance, presents with the complaint of auditory hallucinations causing him to have suicidal and homicidal ideations. He does have the plan that he would stab someone and possibly himself. For these reasons, the patient has been made a 1013. Patient's labs are mostly unremarkable except for positive for amphetamines on urine drug screen. Vital signs stable throughout his ED course. He appears medically cleared for psychiatric placement. - Differential Diagnosis Schizophrenia, Bipolar Disorder, Schizoaffective, Substance abuse. Critical Care Time: No Critical care attestation.: If time is entered above; I have spent that time in minutes in the direct care of this critically ill patient, excluding procedure time. ED Disposition Clinical Impression: Auditory hallucinations, Suicidal ideations, Homicidal ideations Disposition: DC/TX-65 PSY HOSP/PSY UNIT Is pt being admited?: No Condition: Stable Referrals: [facility], [place] [Primary Care Provider] - 3-5 Days Time of Disposition: 17:25
[2019-02-18 15:34] LABS: BUN/Creatinine Ratio 28; Blood Urea Nitrogen 28 mg/dL (9-20); Calcium 9.1 mg/dL (8.4-10.2); Hemolysis Index 14
[2019-02-18 15:42] LABS: Bilirubin,Urine NEG (Negative); Blood,Urine NEG (Negative); Color,Urine Yellow (Yellow); Mucus,Urine FEW /HPF; Protein,Urine <15 mg/dL mg/dL (Negative)
[2019-02-18 15:53] LABS: Benzodiazepines Screen,Urine PRESUMPTIVE NEGATIVE; Cannabinoid Screen,Urine PRESUMPTIVE NEGATIVE; Cocaine Screen,Urine PRESUMPTIVE NEGATIVE; Methadone Screen,Urine PRESUMPTIVE NEGATIVE; Opiate Screen,Urine PRESUMPTIVE NEGATIVE
[2019-02-18 16:16] LABS: Amphetamine Screen,Urine PRESUMPTIVE POSITIVE
--- NOTE | 2019-02-19 10:29 | Consultation ---
History of Present Illness - Reason for Consult Consult date: 02/19/19 Reason for consult: Mental Health Evaluation Requesting physician: ESTEFANÍA FONSECA - Chief Complaint Chief complaint: "I'm all over the place" - History of Present Psychiatric Illness 38 y.o. AA male who presented to the ER for SI's and AH's. Today the patient was calm during the assessment. He stated that he is hearing voices telling him to hurt people and kill himself. He was asked several times about possible triggers that's causing his crisis, he could not elaborate. He was fidgety throughout the assessment. He stated that he haven't been compliant with his psy medication which he named several. He stated that he have attempted suicide by overdosing on pills in the past. He stated that the voices he hear are "very active." He denies HI's and VH's. He denies erratic sleep and a poor appetite. He denies recreation drug use and alcohol consumption (etoh). The patient was positive for amphetamines, he stated that he was prescribed Adderall by a physician. Medications and Allergies Allergies Allergy/AdvReac Type Severity Reaction Status Date / Time oxcarbazepine Allergy Swelling Verified 08/24/18 14:43 [From Trileptal] Home Medications Medication Instructions Recorded Confirmed Last Taken Type OLANZapine [Zyprexa] 10 mg PO QHS 06/26/18 02/18/19 Unknown History traZODone [Desyrel] 200 mg PO QHS 06/26/18 02/18/19 Unknown History Abacavir/Dolutegravir/Lamivudi 1 each PO QAM 02/18/19 02/18/19 Unknown History [Triumeq 600-50-300 mg Tablet] Pregabalin [Lyrica] 200 mg PO DAILY 02/18/19 02/18/19 Unknown History diphenhydrAMINE [Benadryl CAP] 50 mg PO Q6HR PRN 02/18/19 02/18/19 Unknown History Past psychiatric history - Past Medical History Past Medical History: HIV/AIDS Past Surgical History: No surgical history - past Psychiatric treatment and history psychiatric treatment history: Hx of mood do per the patient. Denies a fam psy hx. - Social History Social history: other (Reside at a hotel) Mental Status Exam - Vital signs Last Vital Signs Temp 98.6 F 02/19/19 09:32 Pulse 73 02/19/19 09:32 Resp 16 02/19/19 01:00 BP 119/56 02/19/19 09:32 Pulse Ox 99 02/19/19 09:32 - Exam Narrative exam: MSE: Appearance: calm Behavior: regular eye contact Speech: regular rate and tone Mood: "depressed" Affect: congruent to mood Thought Process: circumstantial Thought Content: denies HI's and VH's Motor Activity: laying in bed Cognition: A/O x3 Insight: variable Judgment: poor Results Result Diagrams: 02/18/19 14:56 02/18/19 14:56 Abnormal lab results 02/18/19 02/18/19 02/18/19 Range/Units 14:56 14:56 14:56 RBC (3.65-5.03) M/mm3 MCH (28-32) pg RDW (13.2-15.2) % Plt Count (140-440) K/mm3 [place] % (Auto) (0.0-7.3) % Eos % (Auto) (0.0-4.3) % Baso % (Auto) (0.0-1.8) % Eos # (0.0-0.4) K/mm3 Baso # (0.0-0.1) K/mm3 BUN 28 H (9-20) mg/dL Ur Specific [place] (1.003-1.030) Salicylates < 0.3 L (2.8-20.0) mg/dL Acetaminophen < 5.0 L (10.0-30.0) ug/mL 02/18/19 02/18/19 Range/Units 14:56 15:10 RBC 5.13 H (3.65-5.03) M/mm3 MCH 27 L (28-32) pg RDW 16.0 H (13.2-15.2) % Plt Count 465 H (140-440) K/mm3 [place] % (Auto) 8.3 H (0.0-7.3) % Eos % (Auto) 5.1 H (0.0-4.3) % Baso % (Auto) 2.1 H (0.0-1.8) % Eos # 0.5 H (0.0-0.4) K/mm3 Baso # 0.2 H (0.0-0.1) K/mm3 BUN (9-20) mg/dL Ur Specific [place] 1.031 H (1.003-1.030) Salicylates (2.8-20.0) mg/dL Acetaminophen (10.0-30.0) ug/mL All other labs normal. Assessment and Plan Assessment and plan: Impression: Unspecified Mood DO with psy features. Today the patient was calm during the assessment. The patient was positive for amphetamines. DDx: MDD with psychosis, Bipolar DO with psychosis, SCAD, Substance Induced Psychosis/Mood DO Recommendation/Plan: Continue 1013 and start Seroquel 100 mg PO HS for mood/psychosis. Discussed possible metabolic side effects of Seroquel with the patient, he verbalized understanding. Baseline A1c/Lipid Panel ordered for the AM. Dispo: The patient was referred to inpatient psy services. Will staff with Dr Angelito Castro.
[2019-02-20 05:54] LABS: Chol/HDL Ratio 3.38 %
--- NOTE | 2019-02-20 09:01 | Progress Note ---
Subjective - Reason for Consult Consult date: 02/20/19 Reason for consult: Psychiatry Follow-up - Chief Complaint Chief complaint: "I'm not good" 38 y.o. AA male who presented to the ER for SI's and AH's. Today the patient was calm, but guarded during the assessment. He stated that the voices are still active at this time. He would not confirm or deny AH's and SI's. Overall, the patient was vague with his answers. No indications of side effects from his medication. Mental Status Exam - Vital signs Last Vital Signs Temp 97.8 F 02/20/19 08:18 Pulse 80 02/20/19 08:18 Resp 18 02/20/19 08:18 BP 107/73 02/20/19 08:18 Pulse Ox 100 02/20/19 08:18 - Exam Narrative exam: MSE: Appearance: calm Behavior: regular eye contact Speech: regular rate and tone Mood: guarded Affect: congruent to mood Thought Process: circumstantial Thought Content: denies HI's and VH's Motor Activity: laying in bed Cognition: A/O x3 Insight: variable Judgment: poor Assessment and Plan Impression: Unspecified Mood DO with psy features. Today the patient was calm, but guarded during the assessment. The patient was positive for amphetamines. DDx: MDD with psychosis, Bipolar DO with psychosis, SCAD, Substance Induced Psychosis/Mood DO Recommendation/Plan: Continue 1013 and and increase Seroquel to 200 mg PO HS for mood/psychosis. Discussed possible metabolic side effects of Seroquel with the patient, he verbalized understanding. Dispo: The patient was referred to inpatient psy services. Will staff with Dr Angelito Castro.
[2019-02-21] MEDS ORDERED: NON-FORMULARY (Pregabalin [Lyrica] 200 MG) PO SCH (13:15)
[2019-02-21] MEDS ORDERED: PREGABALIN ONE ×3 (13:47)
[2019-02-21] MEDS: PREGABALIN PO SCH ×2 (14:07)
--- NOTE | 2019-02-22 07:52 | Progress Note ---
Subjective - Reason for Consult Consult date: 02/22/19 Reason for consult: Psychiatry Follow-up - Chief Complaint Chief complaint: "Alonso want to " 38 y.o. AA male who presented to the ER for SI's and AH's. Today the patient was calm during the assessment. He stated that he still want to kill himself, but denies a suicide plan. He denies HI's and AVH's. No indications of side effects from his medication. Mental Status Exam - Vital signs Last Vital Signs Temp 98.8 F 02/22/19 02:48 Pulse 82 02/22/19 02:48 Resp 18 02/22/19 02:48 BP 102/62 02/22/19 02:48 Pulse Ox 100 02/22/19 02:48 - Exam Narrative exam: MSE: Appearance: calm Behavior: regular eye contact Speech: regular rate and tone Mood: "depressed" Affect: congruent to mood Thought Process: circumstantial Thought Content: denies HI's and AVH's Motor Activity: laying in bed Cognition: A/O x3 Insight: variable Judgment: poor Assessment and Plan Impression: Unspecified Mood DO with psy features. Today the patient was calm during the assessment. The patient was positive for amphetamines. DDx: MDD with psychosis, Bipolar DO with psychosis, SCAD, Substance Induced Psychosis/Mood DO Recommendation/Plan: Continue 1013 and Seroquel 200 mg PO HS for mood/psychosis. Discussed possible metabolic side effects of Seroquel with the patient, he verbalized understanding. Dispo: The patient was referred to inpatient psy services. Will staff with Dr Angelito Castro.
[2019-02-22] MEDS ORDERED: EPIVIR PO SCH (10:00)
[2019-02-22] MEDS ORDERED: TIVICAY PO SCH (10:00)
[2019-02-22] MEDS ORDERED: ZIAGEN PO SCH (10:00)
[2019-02-22] MEDS ORDERED: NON-FORMULARY (Abacavir/Dolutegravir/Lamivudi [Triumeq 600-50-300 Mg Tablet] 1 EACH) PO SCH (10:00)
[2019-02-22] MEDS: PREGABALIN PO SCH ×2 (11:33)
[2019-02-22 16:05] VITALS: BP 110/65
== END 2019-02-22 20:01 ==
LOC: EEVIPCON 14:43 → ED 14:43
DX: F39 Unspecified mood [affective] disorder (principal); F17.200 Nicotine dependence, unspecified, uncomplicated; F31.9 Bipolar disorder, unspecified; F20.9 Schizophrenia, unspecified; Z79.899 Other long term (current) drug therapy; Z88.8 Allergy status to other drugs, medicaments and biological substances; Z98.890 Other specified postprocedural states
CPT/HCPCS: 36415; 80048; 80061; 80307; 80320; 81001; 83036; 85025; G0480

== ENCOUNTER 2019-03-18 21:36 | Emergency (ER) | payer MEDICARE ==
[2019-03-18 23:20] VITALS: BP 140/86
--- NOTE | 2019-03-19 00:37 | Event Note ---
Date: 03/19/19 Patient reportedly eloped prior to my personal evaluation. Nursing team to contact local police department. Vital Signs 03/18/19 23:13 Temperature 98.4 F Pulse Rate 122 H Respiratory 16 Rate Blood Pressure 140/86 O2 Sat by Pulse 100 Oximetry
== END 2019-03-19 01:00 | disposition left against medical advice (07) ==
LOC: ED 21:36
DX: R45.851 Suicidal ideations (principal); Z53.21 Procedure and treatment not carried out due to patient leaving prior to being seen by health care provider

== ENCOUNTER 2019-03-20 22:34 | Emergency (ER) | payer MEDICARE ==
[2019-03-21 00:06] LABS: Basophils # (Auto) 0.1 K/mm3 (0.0-0.1); Basophils % (Auto) 1.3 % (0.0-1.8); Eosinophils # (Auto) 0.3 K/mm3 (0.0-0.4); Eosinophils % (Auto) 6.2 % (0.0-4.3); Hemoglobin 13.9 gm/dl (11.8-15.2); Lymphocytes # (Auto) 1.5 K/mm3 (1.2-5.4); Lymphocytes % (Auto) 29.3 % (13.4-35.0); Mean Corpuscular HGB Conc 33 % (32-34); Mean Corpuscular Volume 84 fl (84-94); Monocytes # (Auto) 0.7 K/mm3 (0.0-0.8); Monocytes % (Auto) 14.9 % (0.0-7.3); Platelet Count 353 K/mm3 (140-440); Red Blood Count 5.01 M/mm3 (3.65-5.03); Red Cell Distribution Width 15.6 % (13.2-15.2)
[2019-03-21 00:18] LABS: BUN/Creatinine Ratio 27; Blood Urea Nitrogen 19 mg/dL (9-20); Calcium 9.7 mg/dL (8.4-10.2); Hemolysis Index 13
[2019-03-21 01:22] LABS: Bilirubin,Urine NEG (Negative); Blood,Urine NEG (Negative); Color,Urine Amber (Yellow); Mucus,Urine 1+ /HPF; WBC,Urine < 1.0 /HPF (0.0-6.0)
[2019-03-21 01:26] LABS: Albumin 4.6 g/dL (3.9-5); Bilirubin,Direct 0.2 mg/dL (0-0.2)
[2019-03-21 01:30] LABS: Benzodiazepines Screen,Urine PRESUMPTIVE NEGATIVE; Cannabinoid Screen,Urine PRESUMPTIVE NEGATIVE; Cocaine Screen,Urine PRESUMPTIVE NEGATIVE; Methadone Screen,Urine PRESUMPTIVE NEGATIVE; Opiate Screen,Urine PRESUMPTIVE NEGATIVE
[2019-03-21 01:42] LABS: Amphetamine Screen,Urine PRESUMPTIVE POSITIVE
--- NOTE | 2019-03-21 02:03 | Emergency Department Report ---
ED Psych HPI - General Chief Complaint: Psych Stated Complaint: HOMICIDAL/RT SIDE WEAKNESS Source: patient Mode of arrival: Wheelchair - History of Present Illness Initial Comments: Patient is a 28-year-old -[place] male with a history of chronic schizophrenia, bipolar disorder, anxiety and depression and was noncompliant with his medications and who presents to the ED with persistent suicidal and homicidal ideation and hallucinations for the last 3 days. Patient states that he is supposed to be on medications but does not take any medications because in his words "my mother who has my money refuses to buy the medications". Patient states that the voices have been louder in the last 2 days telling him to jump over the bridge oriented atrophic and I or take a knife and kill people and site. Patient denies chest pain, shortness of breath, cough, fever, abdominal pain, nausea and vomiting, diarrhea, dysuria, testicular pain, dizziness or headache, traumatic injury or change in vision. MD Complaint: suicidal ideation, feels depressed, other (hearing voices telling him to kill himself) -: Sudden, days(s) (3) Associated Psychiatric Symptoms: depression, suicidal ideation, homicidal ideation, racing thoughts, auditory hallucinations, delusions History of same: Yes (chronic schizophrenia, Bipolar d/o and depression) Quality: constant Improves With: none Worsens With: none Context: recent alcohol abuse, recent drug abuse, not taking psychiatric Associated Symptoms: denies other symptoms. denies: confusion, headache, shortness of breath, nausea, vomiting, syncope, insomnia Treatments Prior to Arrival: none If Self Harm: admits thoughts of, has plan - Related Data Home Medications Medication Instructions Recorded Confirmed Last Taken OLANZapine [Zyprexa] 10 mg PO QHS 06/26/18 02/18/19 Unknown traZODone [Desyrel] 200 mg PO QHS 06/26/18 02/18/19 Unknown Abacavir/Dolutegravir/Lamivudi 1 each PO QAM 02/18/19 02/18/19 Unknown [Triumeq 600-50-300 mg Tablet] Pregabalin [Lyrica] 200 mg PO DAILY 02/18/19 02/18/19 Unknown diphenhydrAMINE [Benadryl CAP] 50 mg PO Q6HR PRN 02/18/19 02/18/19 Unknown Allergies Allergy/AdvReac Type Severity Reaction Status Date / Time oxcarbazepine Allergy Swelling Verified 08/24/18 14:43 [From Trileptal] ED Review of Systems ROS: Stated complaint: HOMICIDAL/RT SIDE WEAKNESS Other details as noted in HPI Constitutional: denies: chills, fever Eyes: denies: eye pain, eye discharge, vision change ENT: denies: ear pain, throat pain Respiratory: denies: cough, shortness of breath, wheezing Cardiovascular: denies: chest pain, palpitations Endocrine: no symptoms reported Gastrointestinal: denies: abdominal pain, nausea, vomiting, diarrhea Genitourinary: denies: urgency, dysuria Musculoskeletal: denies: back pain, joint swelling, arthralgia Skin: denies: rash, lesions Neurological: denies: headache, weakness, paresthesias Psychiatric: anxiety, depression, auditory hallucinations, homicidal thoughts, suicidal thoughts Hematological/Lymphatic: denies: easy bleeding, easy bruising ED Past Medical Hx - Past Medical History Previous Medical History?: Yes Hx Psychiatric Treatment: Yes (schizophrenia, bipolar) Hx HIV: Yes (anti-virals) Additional medical history: avascular necrosis left hip, peripheral neuropathy. Hep C-? HIV+ - Surgical History Past Surgical History?: Yes Additional Surgical History: right hip replacement - Social History Smoking Status: Current Every Day Smoker Substance Use Type: None - Medications Home Medications: Home Medications Medication Instructions Recorded Confirmed Last Taken Type OLANZapine [Zyprexa] 10 mg PO QHS 06/26/18 02/18/19 Unknown History traZODone [Desyrel] 200 mg PO QHS 06/26/18 02/18/19 Unknown History Abacavir/Dolutegravir/Lamivudi 1 each PO QAM 02/18/19 02/18/19 Unknown History [Triumeq 600-50-300 mg Tablet] Pregabalin [Lyrica] 200 mg PO DAILY 02/18/19 02/18/19 Unknown History diphenhydrAMINE [Benadryl CAP] 50 mg PO Q6HR PRN 02/18/19 02/18/19 Unknown History ED Physical Exam - General Limitations: No Limitations General appearance: alert, in no apparent distress, anxious - Head Head exam: Present: atraumatic, normocephalic, normal inspection - Eye Eye exam: Present: normal appearance, PERRL, EOMI Pupils: Present: normal accommodation - ENT ENT exam: Present: normal exam, normal orophraynx, mucous membranes moist, TM's normal bilaterally, normal external ear exam - Neck Neck exam: Present: normal inspection, full ROM - Respiratory Respiratory exam: Present: normal lung sounds bilaterally. Absent: respiratory distress, wheezes, chest wall tenderness, accessory muscle use, decreased breath sounds - Cardiovascular Cardiovascular Exam: Present: regular rate, normal rhythm, normal heart sounds. Absent: systolic murmur, diastolic murmur, rubs, gallop - GI/Abdominal GI/Abdominal exam: Present: soft, normal bowel sounds. Absent: tenderness, hyperactive bowel sounds - Extremities Exam Extremities exam: Present: normal inspection, full ROM, normal capillary refill - Back Exam Back exam: Present: normal inspection, full ROM - Neurological Exam Neurological exam: Present: alert, oriented X3, CN II-XII intact, normal gait, reflexes normal - Psychiatric Psychiatric exam: Present: depressed, anxious, flat affect, homicidal ideation, suicidal ideation - Skin Skin exam: Present: warm, dry, intact, normal color. Absent: rash ED Course Vital Signs 03/20/19 03/21/19 03/21/19 22:37 00:00 01:00 Temperature 98.6 F 98.6 F Pulse Rate 96 H 90 Respiratory 18 20 20 Rate Blood Pressure 130/87 Blood Pressure 128/77 [Left] O2 Sat by Pulse 97 98 97 Oximetry - Reevaluation(s) Reevaluation #1: 03/21/19 02:05 This is a 38-year-old male with a history of chronic schizophrenia, bipolar disorder presented to the ED with suicidal and homicidal ideation with auditory hallucinations for the last 3 days. Patient admittedly is noncompliant with his psychiatric medications and states that the last time he took his medication was more than a month ago. In the ED, patient is alert and oriented 3, appears anxious with suicidal and homicidal ideations but in no acute distress. Patient very cooperative during the physical exam. Lab test results were reviewed and are all nonactionable. Patient placed on 1013 orders. Patient medically cleared for psychiatric evaluation and possible transfer to a ychiatric facility. Reevaluation #2: 03/21/19 03:47 Patient has been evaluated by mental health and is currently awaiting transfer to psychiatric facility. Patient is currently resting comfortably in the room in no distress. ED Medical Decision Making - Lab Data Result diagrams: 03/20/19 23:43 03/20/19 23:43 - Medical Decision Making This is a 38-year-old male with a history of chronic schizophrenia, bipolar disorder presented to the ED with suicidal and homicidal ideation with auditory hallucinations for the last 3 days. Patient admittedly is noncompliant with his psychiatric medications and states that the last time he took his medication was more than a month ago. In the ED, patient is alert and oriented 3, appears anxious with suicidal and homicidal ideations but in no acute distress. Patient very cooperative during the physical exam. Lab test results were reviewed and are all nonactionable. Patient placed on 1013 orders. Patient medically cleared for psychiatric evaluation and possible transfer to a psychiatric facility. - Differential Diagnosis suicidal and homicidal ideations; Chronic schizophrenia, hallucinations Critical care attestation.: If time is entered above; I have spent that time in minutes in the direct care of this critically ill patient, excluding procedure time. ED Disposition Clinical Impression: Chronic schizophrenia, Suicidal ideations, Homicidal ideations Disposition: [id number]/TX-70 ANOTHER TYPE HLTHCARE Is pt being admited?: No Does the pt Need Aspirin: No Condition: Stable Instructions: Schizophrenia (ED), Suicide Prevention for Adults (ED) Referrals: PRIMARY CARE, [Primary Care Provider] - 3-5 Days Time of Disposition: 02:11 (Awaiting acceptance by psychiatric facility) Print Language: SAMI
--- NOTE | 2019-03-21 08:59 | Consultation ---
History of Present Illness - Reason for Consult Consult date: 03/21/19 Reason for consult: Mental Health Evaluation Requesting physician: JAEL MCKNIGHT - Chief Complaint Chief complaint: "I don't like my life" - History of Present Psychiatric Illness 28 y.o. AA male who presented to the ER for mental health eval. This patient is known to me. Today the patient was anxious and somewhat disorganized during the assessment. He stated that he is hearing voices, but cannot make out what they are saying. Throughout the interview, the patient had to be redirected to keep him on topic. He would not confirm or deny SI's. he denies HI's and VH's. Overall, the patient's insight is vague. The patient was recently transferred to a inpatient psy facility from [facility]. Medications and Allergies Allergies Allergy/AdvReac Type Severity Reaction Status Date / Time oxcarbazepine Allergy Swelling Verified 08/24/18 14:43 [From Trileptal] Home Medications Medication Instructions Recorded Confirmed Last Taken Type OLANZapine [Zyprexa] 10 mg PO QHS 06/26/18 03/21/19 Unknown History traZODone [Desyrel] 200 mg PO QHS 06/26/18 03/21/19 Unknown History Abacavir/Dolutegravir/Lamivudi 1 each PO QAM 02/18/19 03/21/19 Unknown History [Triumeq 600-50-300 mg Tablet] Pregabalin [Lyrica] 200 mg PO DAILY 02/18/19 03/21/19 Unknown History diphenhydrAMINE [Benadryl CAP] 50 mg PO Q6HR PRN 02/18/19 03/21/19 Unknown History Past psychiatric history - Past Medical History Past Medical History: HIV/AIDS Past Surgical History: No surgical history - past Psychiatric treatment and history psychiatric treatment history: Several inpatient psy settings/. Denies a fam psy hx. - Social History Social history: other (Homeless) Mental Status Exam - Vital signs Last Vital Signs Temp 98.0 F 03/21/19 03:58 Pulse 69 03/21/19 03:58 Resp 16 03/21/19 03:58 BP 99/55 03/21/19 03:58 Pulse Ox 100 03/21/19 03:58 - Exam Narrative exam: MSE: Appearance: disheveled, malodorous Behavior: poor eye contact Speech: regular rate and tone Mood: anxious Affect: congruent to mood Thought Process somewhat disorganized Thought Content: denies HI's and VH's Motor Activity: fidgety Cognition: A/O x3 Insight: poor Judgment: poor Results Result Diagrams: 03/20/19 23:43 03/20/19 23:43 Abnormal lab results 03/20/19 03/20/19 03/20/19 Range/Units 23:43 23:43 23:43 RDW (13.2-15.2) % Ray % (Auto) (0.0-7.3) % Eos % (Auto) (0.0-4.3) % Creatinine 0.7 L (0.8-1.5) mg/dL Glucose 131 H (75-100) mg/dL Ur Specific [place] (1.003-1.030) Salicylates < 0.3 L (2.8-20.0) mg/dL Acetaminophen < 5.0 L (10.0-30.0) ug/mL 03/20/19 03/21/19 Range/Units 23:43 00:52 RDW 15.6 H (13.2-15.2) % Ray % (Auto) 14.9 H (0.0-7.3) % Eos % (Auto) 6.2 H (0.0-4.3) % Creatinine (0.8-1.5) mg/dL Glucose (75-100) mg/dL Ur Specific [place] 1.033 H (1.003-1.030) Salicylates (2.8-20.0) mg/dL Acetaminophen (10.0-30.0) ug/mL All other labs normal. Assessment and Plan Assessment and plan: Impression: Unspecified Mood DO with psy features. Substance Use Do (amphetamines). Today the patient was calm, but somewhat disorganized during the assessment. DDx: MDD with psychosis, Bipolar DO with psychosis, SCAD, Substance Induced Psychosis/Mood DO Recommendation/Plan: Continue 1013 and start Seroquel 200 mg PO HS for mood/psychosis and Buspar 7.5 mg PO BID for anxiety. Discussed possible metabolic side effects of Seroquel with the patient, he verbalized understanding. Dispo: The patient was referred to inpatient psy services. Will staff with Dr Angelito Castro.
[2019-03-21] MEDS ORDERED: BUSPAR PO SCH (10:00)
[2019-03-21 15:35] VITALS: BP 134/70
== END 2019-03-21 15:41 | disposition other institution (70) ==
LOC: ED 22:34 → EEVIPCON 22:34 → ED 03-21 15:41
DX: F39 Unspecified mood [affective] disorder (principal); F15.10 Other stimulant abuse, uncomplicated; F20.9 Schizophrenia, unspecified; F31.9 Bipolar disorder, unspecified; F17.200 Nicotine dependence, unspecified, uncomplicated; Z98.890 Other specified postprocedural states; Z79.899 Other long term (current) drug therapy; Z88.8 Allergy status to other drugs, medicaments and biological substances
CPT/HCPCS: 36415; 80048; 80076; 80307; 80320; 81001; 85025; G0480

== ENCOUNTER 2020-03-18 13:08 | Emergency (ER) | payer MEDICARE ==
--- NOTE | 2020-03-18 13:09 | Emergency Department Report ---
Blank Doc - Documentation Documentation: This is a 39-year-old male that presents with SI. This initial assessment/diagnostic orders/clinical plan/treatment(s) is/are subject to change based on patient's health status, clinical progression and re- assessment by fellow clinical providers in the ED. Further treatment and workup at subsequent clinical providers discretion. Patient/guardians urged not to elope from the ED as their condition may be serious if not clinically assessed and managed. Initial orders include: 1- Patient sent to MAIN ED for further evaluation and treatment 2- collections analyst was notified to have patient be brought back Y[facility]. 3- RN was notified to keep patient as close range and observation until room available 4- Patient presents with substantial risk of imminent harm to self, appears to be so unable to care for his/her own physical health and safety as to create an imminently life-endangering crisis, and has committed/expressed life endangering crisis to self. Due to this and other complaints, patient is put on psych hold.
--- NOTE | 2020-03-18 13:56 | Emergency Department Report ---
HPI - General Chief Complaint: Psych Time Seen by Provider: 03/18/20 13:09 - HPI HPI: Room 11 The patient is a 39-year-old male present with a chief complaint of suicidal ideation. Patient states he has a history of schizophrenia and bipolar disorder and since last week he has had suicidal ideation. Patient states he attempted to overdose on his Biktarvy last week but he threw the medications up. Patient states for the past 4 days he has had auditory hallucinations telling him to harm other people ED Past Medical Hx - Past Medical History Previous Medical History?: Yes Hx Psychiatric Treatment: Yes (schizophrenia, bipolar) Hx HIV: Yes (anti-virals) Additional medical history: avascular necrosis left hip, peripheral neuropathy. Hep C-? HIV+ - Surgical History Past Surgical History?: Yes Additional Surgical History: right hip replacement - Family History Family history: no significant - Social History Smoking Status: Former Smoker (None x6 months) Substance Use Type: None (Denies illicit drug use), Prescribed - Medications Home Medications: Home Medications Medication Instructions Recorded Confirmed Last Taken Type OLANZapine [Zyprexa] 10 mg PO QHS 06/26/18 03/18/20 1 Day Ago History ~03/17/20 traZODone [Desyrel] 200 mg PO QHS 06/26/18 03/18/20 1 Day Ago History ~03/17/20 Abacavir/Dolutegravir/Lamivudi 1 each PO QAM 02/18/19 03/18/20 1 Day Ago History [Triumeq 600-50-300 mg Tablet] ~03/17/20 Pregabalin [Lyrica] 200 mg PO DAILY 02/18/19 03/18/20 Unknown History diphenhydrAMINE [Benadryl CAP] 50 mg PO Q6HR PRN 02/18/19 03/18/20 Unknown Histo ry ED Review of Systems ROS: Stated complaint: SI Other details as noted in HPI Constitutional: no symptoms reported Respiratory: no symptoms reported Endocrine: no symptoms reported Skin: lesions Psychiatric: auditory hallucinations, suicidal thoughts Physical Exam - Physical Exam Vital Signs: Vital Signs 03/18/20 13:10 Temperature 98.6 F Pulse Rate 117 H Respiratory 16 Rate Blood Pressure 122/71 O2 Sat by Pulse 99 Oximetry Physical Exam: GENERAL: The patient is well-developed well-nourished male lying on stretcher not appearing to be in acute distress. [] HEENT: Normocephalic. Atraumatic. Extraocular motions are intact. Patient has moist mucous membranes. NECK: Supple. Trachea midline CHEST/LUNGS: Clear to auscultation. There is no respiratory distress noted. HEART/CARDIOVASCULAR: Regular. There is no tachycardia. There is no gallop rub or murmur. ABDOMEN: Abdomen is soft, nontender. Patient has normal bowel sounds. There is no abdominal distention. SKIN: There is a chronic appearing sore in the gluteal cleft. No active drainage seen. There is no diaphoresis. NEURO: The patient is awake, alert, and oriented. The patient is cooperative. The patient has normal speech MUSCULOSKELETAL: There is no evidence of acute injury. ED Course Vital Signs 03/18/20 13:10 Temperature 98.6 F Pulse Rate 117 H Respiratory 16 Rate Blood Pressure 122/71 O2 Sat by Pulse 99 Oximetry ED Medical Decision Making - Lab Data Result diagrams: 03/18/20 13:45 03/18/20 13:45 Laboratory Tests 03/18/20 03/18/20 03/18/20 13:36 13:36 13:45 WBC 9.1 RBC 4.59 Hgb 12.8 Hct 39.7 MCV 86 MCH 28 MCHC 32 RDW 15.8 H Plt Count 445 H Lymph % (Auto) 16.6 [place] % (Auto) 5.9 Eos % (Auto) 4.3 Baso % (Auto) 1.3 Lymph # (Auto) 1.5 [place] # (Auto) 0.5 Eos # (Auto) 0.4 Baso # (Auto) 0.1 Seg Neutrophils % 71.9 H Seg Neutrophils # 6.6 Sodium Potassium Chloride Carbon Dioxide Anion Gap BUN Creatinine Estimated GFR BUN/Creatinine Ratio Glucose Calcium Urine Color Yellow Urine Turbidity Clear Urine pH 5.0 Ur Specific [place] 1.024 Urine Protein <15 mg/dl Urine Glucose (UA) Neg Urine Ketones Neg Urine Blood Neg Urine Nitrite Neg Urine Bilirubin Neg Urine Urobilinogen < 2.0 Ur Leukocyte Esterase Neg Urine WBC (Auto) 1.0 Urine RBC (Auto) 3.0 U Epithel Cells (Auto) 1.0 Hyaline Casts 1 Salicylates Urine Opiates Screen Negative Urine Methadone Screen Negative Acetaminophen Ur Barbiturates Screen Negative Ur Phencyclidine Scrn Negative Ur Amphetamines Screen Positive U Benzodiazepines Scrn Negative Urine Cocaine Screen Negative U Marijuana (THC) Screen Negative Drugs of Abuse Note Disclamer Plasma/Serum Alcohol 03/18/20 03/18/20 03/18/20 13:45 13:45 13:45 WBC RBC Hgb Hct MCV MCH MCHC RDW Plt Count Lymph % (Auto) [place] % (Auto) Eos % (Auto) Baso % (Auto) Lymph # (Auto) [place] # (Auto) Eos # (Auto) Baso # (Auto) Seg Neutrophils % Seg Neutrophils # Sodium 138 Potassium 4.4 Chloride 103.2 Carbon Dioxide 21 L Anion Gap 18 BUN 31 H Creatinine 1.0 Estimated GFR > 60 BUN/Creatinine Ratio 31 Glucose 97 Calcium 9.3 Urine Color Urine Turbidity Urine pH Ur Specific [place] Urine Protein Urine Glucose (UA) Urine Ketones Urine Blood Urine Nitrite Urine Bilirubin Urine Urobilinogen Ur Leukocyte Esterase Urine WBC (Auto) Urine RBC (Auto) U Epithel Cells (Auto) Hyaline Casts Salicylates < 0.3 L Urine Opiates Screen Urine Methadone Screen Acetaminophen 5.0 L Ur Barbiturates Screen Ur Phencyclidine Scrn Ur Amphetamines Screen U Benzodiazepines Scrn Urine Cocaine Screen U Marijuana (THC) Screen Drugs of Abuse Note Plasma/Serum Alcohol 03/18/20 13:45 WBC RBC Hgb Hct MCV MCH MCHC RDW Plt Count Lymph % (Auto) [place] % (Auto) Eos % (Auto) Baso % (Auto) Lymph # (Auto) [place] # (Auto) Eos # (Auto) Baso # (Auto) Seg Neutrophils % Seg Neutrophils # Sodium Potassium Chloride Carbon Dioxide Anion Gap BUN Creatinine Estimated GFR BUN/Creatinine Ratio Glucose Calcium Urine Color Urine Turbidity Urine pH Ur Specific [place] Urine Protein Urine Glucose (UA) Urine Ketones Urine Blood Urine Nitrite Urine Bilirubin Urine Urobilinogen Ur Leukocyte Esterase Urine WBC (Auto) Urine RBC (Auto) U Epithel Cells (Auto) Hyaline Casts Salicylates Urine Opiates Screen Urine Methadone Screen Acetaminophen Ur Barbiturates Screen Ur Phencyclidine Scrn Ur Amphetamines Screen U Benzodiazepines Scrn Urine Cocaine Screen U Marijuana (THC) Screen Drugs of Abuse Note Plasma/Serum Alcohol < 0.01 - Differential Diagnosis Suicidal ideation, schizophrenia Critical care attestation.: If time is entered above; I have spent that time in minutes in the direct care of this critically ill patient, excluding procedure time. ED Disposition Clinical Impression: Suicidal ideation Disposition: [id number]/TX-[id number] PSY HOSP/PSY UNIT Is pt being admited?: No Does the pt Need Aspirin: No Condition: Stable Time of Disposition: 19:01 (Awaiting acceptance)
[2020-03-18 14:05] LABS: Benzodiazepines Screen,Urine Negative; Cannabinoid Screen,Urine Negative; Cocaine Screen,Urine Negative; Methadone Screen,Urine Negative; Opiate Screen,Urine Negative
[2020-03-18 14:10] LABS: Bilirubin,Urine NEG (Negative); Blood,Urine NEG (Negative); Color,Urine Yellow (Yellow); Hyaline Casts,Urine 1 /LPF; Protein,Urine <15 mg/dL mg/dL (Negative); Urobilinogen,Urine < 2.0 mg/dL (<2.0)
[2020-03-18 14:22] LABS: BUN/Creatinine Ratio 31; Blood Urea Nitrogen 31 mg/dL (9-20); Calcium 9.3 mg/dL (8.4-10.2); Hemolysis Index 14
[2020-03-18 14:27] LABS: Basophils # (Auto) 0.1 K/mm3 (0.0-0.1); Basophils % (Auto) 1.3 % (0.0-1.8); Eosinophils # (Auto) 0.4 K/mm3 (0.0-0.4); Eosinophils % (Auto) 4.3 % (0.0-4.3); Hematocrit 39.7 % (35.5-45.6); Hemoglobin 12.8 gm/dl (11.8-15.2); Lymphocytes # (Auto) 1.5 K/mm3 (1.2-5.4); Lymphocytes % (Auto) 16.6 % (13.4-35.0); Mean Corpuscular HGB Conc 32 % (32-34); Mean Corpuscular Volume 86 fl (84-94); Monocytes # (Auto) 0.5 K/mm3 (0.0-0.8); Monocytes % (Auto) 5.9 % (0.0-7.3); Platelet Count 445 K/mm3 (140-440); Red Blood Count 4.59 M/mm3 (3.65-5.03); Red Cell Distribution Width 15.8 % (13.2-15.2)
[2020-03-18 14:31] LABS: Amphetamine Screen,Urine Positive
[2020-03-18] MEDS ORDERED: BACITRACIN/POLYMYXIN B OINT 28.35 GM TP ONE (16:22)
[2020-03-19] MEDS ORDERED: ACETAMINOPHEN 325 MG TAB ONE (02:38)
[2020-03-19] MEDS ORDERED: ACETAMINOPHEN 325 MG TAB PO ONE (02:40)
--- NOTE | 2020-03-19 09:48 | Consultation ---
History of Present Illness - Reason for Consult Consult date: 03/19/20 Reason for consult: suicidal with plan - History of Present Psychiatric Illness The patient's medical record was reviewed and the patient's progress was discussed with the nursing staff. The nurse note states the patient claims SI by overdosing himself, HI to family, denies h/v Juan Caldwell is a 39y/o male patient who presented to the ER with suicidal thoughts and auditory hallucinations. During my interview with the patient today, he is lying down. He is taken to a place to speak with him privately. The patient is a/o x 3. He makes fair eye contact. He appears anxious. He is fidgety and squirming around. He says he is hearing voices telling him to "hurt myself." The patient says he feels suicidal and plans to "overdose of my HIV medication." The patient denies any illicit drug use, although he was positive for methamphetamines. He says he has a history of "schizophrenia and bipolar." PAST PSYCHIATRIC HISTORY Diagnoses: schizophrenia and bipolar Suicide attempts or Self-harm behavior: "five" Prior psychiatric hospitalizations: "yes" Substance Abuse history: Denies, + for meth Previous psychiatric medications tried: seroquel, trazodone, latuda Outpatient treatment: yes PAST MEDICAL HISTORY: HIV Family Psychiatric History: None reported or documented SOCIAL HISTORY Marital Status: Single Living Arrangements: with mom Employment Status: Disabled Access to guns/weapons: Denies Education: high school grad History of Abuse: Denies Legal History: Denies EVIEW OF SYSTEMS Constitutional: Negative for weight loss ENT: Negative for stridor Respiratory: Negative for cough or hemoptysis All other systems reviewed and are negative MENTAL STATUS EXAMINATION General Appearance and Behavior: Age appropriate, wearing appropriate clothes, malodorous, fidgety, squirming Mood: "depressed" Affect and affective range: congruent with mood Thought Process: logical Thought Content: hallucinations Speech: Normal volume, Regular rate and rhythm Suicidal Ideation: Yes Homicidal Ideation: Denies Homicidal Hallucinations: Auditory Delusions: None elicited Impulse Control: fidgety, squirming Insight and Judgment: Limited Memory/Cognition: Normal Attention: Normal Orientation: Alert, oriented Assessment (1) Schizoaffective Disorder, Bipolar Type (2) Methamphetamine Use Disorder (2) Substance Induced Mood Disorder Plan Start Depemani WHITLEY 125mg po BID Restart Olanzapine 10mg po daily Restart Trazodone 200mg po qhs Sitter: Defer to primary Medical: Per primary Disposition: Recommend acute inpatient treatment Will follow. Thank you for this consult. Medications and Allergies Allergies Allergy/AdvReac Type Severity Reaction Status Date / Time oxcarbazepine Allergy Swelling Verified 08/24/18 14:43 [From Trileptal] Home Medications Medication Instructions Recorded Confirmed Last Taken Type OLANZapine [Zyprexa] 10 mg PO QHS 06/26/18 03/18/20 1 Day Ago History ~03/17/20 traZODone [Desyrel] 200 mg PO QHS 06/26/18 03/18/20 1 Day Ago History ~03/17/20 Abacavir/Dolutegravir/Lamivudi 1 each PO QAM 02/18/19 03/18/20 1 Day Ago History [Triumeq 600-50-300 mg Tablet] ~03/17/20 Pregabalin [Lyrica] 200 mg PO DAILY 02/18/19 03/18/20 Unknown History diphenhydrAMINE [Benadryl CAP] 50 mg PO Q6HR PRN 02/18/19 03/18/20 Unknown History Mental Status Exam - Vital signs Last Vital Signs Temp 97.5 F L 03/19/20 08:34 Pulse 96 H 03/19/20 08:34 Resp 18 03/19/20 08:34 BP 117/77 03/19/20 08:34 Pulse Ox 98 03/19/20 08:34 Results Result Diagrams: 03/18/20 13:45 03/18/20 13:45 Abnormal lab results 03/18/20 03/18/20 03/18/20 Range/Units 13:45 13:45 13:45 RDW 15.8 H (13.2-15.2) % Plt Count 445 H (140-440) K/mm3 Seg Neutrophils % 71.9 H (40.0-70.0) % Carbon Dioxide 21 L (22-30) mmol/L BUN 31 H (9-20) mg/dL Salicylates < 0.3 L (2.8-20.0) mg/dL Acetaminophen (10.0-30.0) ug/mL 03/18/20 Range/Units 13:45 RDW (13.2-15.2) % Plt Count (140-440) K/mm3 Seg Neutrophils % (40.0-70.0) % Carbon Dioxide (22-30) mmol/L BUN (9-20) mg/dL Salicylates (2.8-20.0) mg/dL Acetaminophen 5.0 L (10.0-30.0) ug/mL All other labs normal.
[2020-03-19] MEDS: DIVALPROEX DR 125 MG TAB PO SCH ×2 (12:16→21:57)
[2020-03-19] MEDS: traZODone 100 MG TAB PO SCH (21:57)
[2020-03-19] MEDS ORDERED: OLANZAPINE 10 MG PO SCH (22:00)
--- NOTE | 2020-03-20 09:22 | Progress Note ---
Subjective - Reason for Consult Consult date: 03/20/20 Reason for consult: SI - Chief Complaint Chief complaint: During my interview with the patient, he is lying down awake. The patient states he feels "depressed." He verbalizes "still hearing voices that I can't make out." The patient also expresses suicidal thoughts. He denies having a plan. REVIEW OF SYSTEMS Constitutional: Negative for weight loss ENT: Negative for stridor Respiratory: Negative for cough or hemoptysis All other systems reviewed and are negative MENTAL STATUS EXAMINATION General Appearance and Behavior: Age appropriate, wearing appropriate clothes, malodorous, fidgety, squirming Mood: "depressed" Affect and affective range: congruent with mood Thought Process: logical Thought Content: hallucinations Speech: Normal volume, Regular rate and rhythm Suicidal Ideation: Yes Homicidal Ideation: Denies Homicidal Hallucinations: Auditory Delusions: None elicited Impulse Control: fidgety, squirming Insight and Judgment: Limited Memory/Cognition: Normal Attention: Normal Orientation: Alert, oriented Assessment (1) Schizoaffective Disorder, Bipolar Type (2) Methamphetamine Use Disorder (2) Substance Induced Mood Disorder Plan Increased Depakote DR 250mg po BID Increased Olanzapine 15mg po daily Sitter: Defer to primary Medical: Per primary Disposition: Recommend acute inpatient treatment Will follow. Thank you for this consult. Mental Status Exam - Vital signs Last Vital Signs Temp 98.1 F 03/20/20 02:31 Pulse 111 H 03/20/20 02:31 Resp 16 03/20/20 02:31 BP 135/82 03/20/20 02:31 Pulse Ox 100 03/20/20 02:31
[2020-03-20] MEDS: DIVALPROEX DR 250 MG TAB PO SCH ×2 (11:11→21:38)
[2020-03-20] MEDS: traZODone 100 MG TAB PO SCH (21:38)
[2020-03-21] MEDS: DIVALPROEX DR 250 MG TAB PO SCH (10:30)
--- NOTE | 2020-03-21 14:09 | Progress Note ---
Subjective - Reason for Consult Consult date: 03/21/20 Reason for consult: suicidal - Chief Complaint Chief complaint: During my interview with the patient, he is lying down awake. He is a/o x 3. The patient is calm and cooperative. He denies depression today, but states "I feel okay, but I get worried about my mom." The patient says "I see a therapist and a counselor but sometimes it still feels like I don't have anybody to talk to." He denies SI/HI when asked, stating, "not really, but I get worried about my mom a lot. She's in the hospital." The patient denies hallucinations of any kind. He also denies any fear of endangerment. REVIEW OF SYSTEMS Constitutional: Negative for weight loss ENT: Negative for stridor Respiratory: Negative for cough or hemoptysis All other systems reviewed and are negative MENTAL STATUS EXAMINATION General Appearance and Behavior: Age appropriate, wearing appropriate clothes, malodorous, fidgety, squirming Mood: "okay" Affect and affective range: congruent with mood Thought Process: logical Thought Content: None Speech: Normal volume, Regular rate and rhythm Suicidal Ideation: Denies Homicidal Ideation: Denies Homicidal Hallucinations: Denies Delusions: None elicited Impulse Control: Normal Insight and Judgment: Limited Memory/Cognition: Normal Attention: Normal Orientation: Alert, oriented Assessment (1) Schizoaffective Disorder, Bipolar Type (2) Methamphetamine Use Disorder (2) Substance Induced Mood Disorder Plan D/c [address] 250mg po BID Olanzapine 15mg po daily Trazodone 200mg po qhs Sitter: Defer to primary Medical: Per primary Disposition: Do not Recommend acute inpatient treatment. The patient understands that if suicide thoughts or tendencies are to arise she is to seek immediate assistance, including but not limited to the crisis hotline, 911/ER The patient is to abstain from all illicit drug use. The nursing project coordinator is to further discuss safety plan, give resources for outpatient psych, cognitive behavioral therapy, and drug rehabilitation programs. Will sign off. Thank you for this consult. Mental Status Exam - Vital signs Last Vital Signs Temp 98.7 F 03/21/20 02:00 Pulse 98 H 03/21/20 02:00 Resp 14 03/21/20 02:00 BP 129/64 03/21/20 02:00 Pulse Ox 98 03/21/20 02:00
[2020-03-21 17:12] VITALS: BP 118/88
== END 2020-03-21 17:10 | disposition home or self-care (01) ==
LOC: ED 13:08
DX: R45.851 Suicidal ideations (principal); F25.0 Schizoaffective disorder, bipolar type; Z79.899 Other long term (current) drug therapy; Z88.8 Allergy status to other drugs, medicaments and biological substances; Z98.890 Other specified postprocedural states; Z87.891 Personal history of nicotine dependence; Z21 Asymptomatic human immunodeficiency virus [HIV] infection status; Z20.828 Contact with and (suspected) exposure to other viral communicable diseases
CPT/HCPCS: 36415; 80048; 80307; 81001; 85025; 99284; U0003; 80320; G0480

== ENCOUNTER 2020-03-28 13:04 | Emergency (ER) | payer MEDICARE ==
[2020-03-28 13:53] VITALS: BP 135/36
--- NOTE | 2020-03-28 15:23 | Emergency Department Report ---
- General Chief complaint: Skin/Abscess/Foreign Body Stated complaint: RECTAL PAIN Time Seen by Provider: 03/28/20 15:17 Source: patient Mode of arrival: Ambulatory Limitations: No Limitations - History of Present Illness Initial comments: Patient is a 39-year-old male presents emergency room with complaints of bumps and irritation present to the rectum and buttocks that began 4 days ago. He states he sees a small amount of clear drainage. He states occasionally whenever he wipes he sees a small amount of bright red blood but not every time. he denies any purulent drainage. He denies any heavy bleeding. He denies any hematochezia or melena. He states that he has a history of HPV and has had surgical procedures in the area in the past. He denies any history of perire ctal abscess. He denies any abdominal pain, vomiting, diarrhea, fever. He has a past medical history of HIV, neuropathy, AVN. Allergy to Toradol and Trileptal. He states his CD4 count is 935 and he is on his antivirals. He states that he has upcoming appointments with his primary care physician and with his infectious disease doctor. - Related Data Home Medications Medication Instructions Recorded Confirmed Last Taken OLANZapine [Zyprexa] 10 mg PO QHS 06/26/18 03/18/20 1 Day Ago ~03/17/20 traZODone [Desyrel] 200 mg PO QHS 06/26/18 03/18/20 1 Day Ago ~03/17/20 Abacavir/Dolutegravir/Lamivudi 1 each PO QAM 02/18/19 03/18/20 1 Day Ago [Triumeq 600-50-300 mg Tablet] ~03/17/20 Pregabalin [Lyrica] 200 mg PO DAILY 02/18/19 03/18/20 Unknown diphenhydrAMINE [Benadryl CAP] 50 mg PO Q6HR PRN 02/18/19 03/18/20 Unknown Previous Rx's Medication Instructions Recorded Last Taken Type Divalproex Dr [DepaKOTE DR] 250 mg PO BID #60 tablet 03/21/20 Unknown Rx OLANZapine [Zyprexa] 15 mg PO DAILY #30 tablet 03/21/20 Unknown Rx traZODone [Desyrel] 200 mg PO QHS #30 tablet 03/21/20 Unknown Rx Hydrocortisone 0.5% (Nf) 1 applicatio TP TID #1 tube 03/28/20 Unknown Rx [Hydrocortisone 0.5% OINT] Lidocaine [Lidocaine GEL] 1 applicatio TP BID PRN #1 03/28/20 Unknown Rx gel..gram. Neomycin/Bacitracin/Polymyxinb 1 applicatio TP BID #1 oint...g. 03/28/20 Unknown Rx [Triple Antibiotic Ointment] Sulfamethoxazole/Trimethoprim 1 each PO BID 7 Days #14 tablet 03/28/20 Unknown Rx [Bactrim DS TAB] Allergies Allergy/AdvReac Type Severity Reaction Status Date / Time oxcarbazepine Allergy Swelling Verified 08/24/18 14:43 [From Trileptal] Abscess Boil HPI - HPI Chief Complaint: Skin/Abscess/Foreign Body Stated Complaint: RECTAL PAIN Time Seen by Provider: 03/28/20 15:17 Home Medications: Home Medications Medication Instructions Recorded Confirmed Last Taken OLANZapine [Zyprexa] 10 mg PO QHS 06/26/18 03/18/20 1 Day Ago ~03/17/20 traZODone [Desyrel] 200 mg PO QHS 06/26/18 03/18/20 1 Day Ago ~03/17/20 Abacavir/Dolutegravir/Lamivudi 1 each PO QAM 02/18/19 03/18/20 1 Day Ago [Triumeq 600-50-300 mg Tablet] ~03/17/20 Pregabalin [Lyrica] 200 mg PO DAILY 02/18/19 03/18/20 Unknown diphenhydrAMINE [Benadryl CAP] 50 mg PO Q6HR PRN 02/18/19 03/18/20 Unknown Previous Rx's Medication Instructions Recorded Last Taken Type Divalproex Dr [DepaKOTE DR] 250 mg PO BID #60 tablet 03/21/20 Unknown Rx OLANZapine [Zyprexa] 15 mg PO DAILY #30 tablet 03/21/20 Unknown Rx traZODone [Desyrel] 200 mg PO QHS #30 tablet 03/21/20 Unknown Rx Hydrocortisone 0.5% (Nf) 1 applicatio TP TID #1 tube 03/28/20 Unknown Rx [Hydrocortisone 0.5% OINT] Lidocaine [Lidocaine GEL] 1 applicatio TP BID PRN #1 03/28/20 Unknown Rx gel..gram. Neomycin/Bacitracin/Polymyxinb 1 applicatio TP BID #1 oint...g. 03/28/20 Unknown Rx [Triple Antibiotic Ointment] Sulfamethoxazole/Trimethoprim 1 each PO BID 7 Days #14 tablet 03/28/20 Unknown Rx [Bactrim DS TAB] Allergies/Adverse Reactions: Allergies Allergy/AdvReac Type Severity Reaction Status Date / Time oxcarbazepine Allergy Swelling Verified 08/24/18 14:43 [From Trileptal] ED Review of Systems ROS: Stated complaint: RECTAL PAIN Other details as noted in HPI Comment: All other systems reviewed and negative ED Past Medical Hx - Past Medical History Previous Medical History?: Yes Hx Psychiatric Treatment: Yes (schizophrenia, bipolar) Hx HIV: Yes (anti-virals) Additional medical history: avascular necrosis left hip, peripheral neuropathy. Hep C-? HIV+ - Surgical History Past Surgical History?: Yes Additional Surgical History: right hip replacement - Social History Smoking Status: Former Smoker (None x6 months) Substance Use Type: None (Denies illicit drug use), Prescribed - Medications Home Medications: Home Medications Medication Instructions Recorded Confirmed Last Taken Type OLANZapine [Zyprexa] 10 mg PO QHS 06/26/18 03/18/20 1 Day Ago History ~03/17/20 traZODone [Desyrel] 200 mg PO QHS 06/26/18 03/18/20 1 Day Ago History ~03/17/20 Abacavir/Dolutegravir/Lamivudi 1 each PO QAM 02/18/19 03/18/20 1 Day Ago History [Triumeq 600-50-300 mg Tablet] ~03/17/20 Pregabalin [Lyrica] 200 mg PO DAILY 02/18/19 03/18/20 Unknown History diphenhydrAMINE [Benadryl CAP] 50 mg PO Q6HR PRN 02/18/19 03/18/20 Unknown History Divalproex [Viviane WHITLEY] 250 mg PO BID #60 tablet 03/21/20 Unknown Rx OLANZapine [Zyprexa] 15 mg PO DAILY #30 tablet 03/21/20 Unknown Rx traZODone [Desyrel] 200 mg PO QHS #30 tablet 03/21/20 Unknown Rx Hydrocortisone 0.5% (Nf) 1 applicatio TP TID #1 tube 03/28/20 Unknown Rx [Hydrocortisone 0.5% OINT] Lidocaine [Lidocaine GEL] 1 applicatio TP BID PRN #1 03/28/20 Unknown Rx gel..gram. Neomycin/Bacitracin/Polymyxinb 1 applicatio TP BID #1 oint...g. 03/28/20 Unkno wn Rx [Triple Antibiotic Ointment] Sulfamethoxazole/Trimethoprim 1 each PO BID 7 Days #14 tablet 03/28/20 Unknown Rx [Bactrim DS TAB] ED Physical Exam - General Limitations: No Limitations General appearance: alert, in no apparent distress - Head Head exam: Present: atraumatic, normocephalic - Eye Eye exam: Present: normal appearance - ENT ENT exam: Present: mucous membranes moist - Respiratory Respiratory exam: Absent: respiratory distress, accessory muscle use - GI/Abdominal GI/Abdominal exam: Present: soft. Absent: distended, tenderness, guarding, rebound, rigid - Rectal Rectal exam: Present: other (multiple areas of scar tissue and hypopigmentation present surrouding the anal opening on the buttocks, there are a few small areas of inudration but no flutuance, skin appears irritated, no drainage or bleeding, no edema in the anal region or rectum, nurse advisor: indio barboza) - Neurological Exam Neurological exam: Present: alert, oriented X3 - Psychiatric Psychiatric exam: Present: normal affect, normal mood - Skin Skin exam: Present: warm, dry ED Course Vital Signs 03/28/20 03/28/20 13:49 13:52 Temperature 98 F 98 F Pulse Rate 93 H 88 Respiratory 16 16 Rate Blood Pressure 135/36 [Right] O2 Sat by Pulse 98 98 Oximetry ED Medical Decision Making - Lab Data Vital Signs 03/28/20 03/28/20 13:49 13:52 Temperature 98 F 98 F Pulse Rate 93 H 88 Respiratory 16 16 Rate Blood Pressure 135/36 [Right] O2 Sat by Pulse 98 98 Oximetry - Medical Decision Making Patient is a 39-year-old male presents emergency room with complaints of bumps and irritation present to the rectum and buttocks that began 4 days ago. He states he sees a small amount of clear drainage. He states occasionally whenever he wipes he sees a small amount of bright red blood but not every time. he denies any purulent drainage. He denies any heavy bleeding. He denies any hematochezia or melena. He states that he has a history of HPV and has had surgical procedures in the area in the past. He denies any history of perirectal abscess. He denies any abdominal pain, vomiting, diarrhea, fever. He has a past medical history of HIV, neuropathy, AVN. Allergy to Toradol and Trileptal. He states his CD4 count is 935 and he is on his antivirals. He states that he has upcoming appointments with his primary care physician and with his infectious disease doctor. Vitals are stable. On exam: multiple areas of scar tissue and hypopigmentation present surrouding the anal opening on the buttocks, there are a few small areas of inudration but no flutuance, skin appears irritated, no drainage or bleeding, no edema in the anal region or rectum, nurse advisor: indio barboza. Examination appears consistent with mild cellulitis, no obvious area of abscess, appears to have multiple areas of scar tissue/hypopigmentation/superficial skin tears. Patient given prescription for Bactrim, triple antibiotic ointment, hydrocortisone ointment, lidocaine gel. Advised patient to please use medication as prescribed. Please have the area reexamined within the next 2 days. Discussed very strict return precautions with patient. Follow-up with a primary care doctor. Follow-up with your factious disease doctor. Return to emergency room immediately for any new or worsening symptoms including but not limited to worsening swelling, worsening pain, drainage, increased bleeding, fever, vomiting, chills, etc. Critical care attestation.: If time is entered above; I have spent that time in minutes in the direct care of this critically ill patient, excluding procedure time. ED Disposition Clinical Impression: Scar tissue Cellulitis Qualifiers: Site of cellulitis: buttock Qualified Code(s): L03.317 - Cellulitis of buttock Clinical Impression: (Ruled Out): Admission for repair of scarred tissue Disposition: - TO HOME OR SELFCARE Is pt being admited?: No Does the pt Need Aspirin: No Condition: Stable Instructions: Cellulitis (ED) Prescriptions: Sulfamethoxazole/Trimethoprim [Bactrim DS TAB] 1 each PO BID 7 Days #14 tablet Hydrocortisone 0.5% (Nf) [Hydrocortisone 0.5% OINT] 1 applicatio TP TID #1 tube Lidocaine [Lidocaine GEL] 1 applicatio TP BID PRN #1 gel..gram. PRN Reason: pain Neomycin/Bacitracin/Polymyxinb [Triple Antibiotic Ointment] 1 applicatio TP BID #1 oint...g. Referrals: your, primary care doctor [Other] - 2-3 Days your, infectious disease doctor [Other] - 2-3 Days Time of Disposition: 15:21 Print Language: KAZAKH
== END 2020-03-28 16:00 | disposition home or self-care (01) ==
LOC: ED 13:04
DX: L03.317 Cellulitis of buttock (principal); L90.5 Scar conditions and fibrosis of skin; F31.9 Bipolar disorder, unspecified; F20.9 Schizophrenia, unspecified; Z87.891 Personal history of nicotine dependence; Z98.890 Other specified postprocedural states; Z21 Asymptomatic human immunodeficiency virus [HIV] infection status; Z79.899 Other long term (current) drug therapy; Z88.8 Allergy status to other drugs, medicaments and biological substances
CPT/HCPCS: 99282

== ENCOUNTER 2020-06-22 18:00 | Emergency (ER) | payer MEDICARE ==
[2020-06-22 18:26] LABS: Basophils # (Auto) 0.1 K/mm3 (0.0-0.1); Eosinophils # (Auto) 0.3 K/mm3 (0.0-0.4); Eosinophils % (Auto) 2.8 % (0.0-4.3); Hematocrit 41.5 % (35.5-45.6); Hemoglobin 13.5 gm/dl (11.8-15.2); Lymphocytes # (Auto) 1.8 K/mm3 (1.2-5.4); Lymphocytes % (Auto) 16.5 % (13.4-35.0); Mean Corpuscular HGB Conc 33 % (32-34); Mean Corpuscular Volume 86 fl (84-94); Monocytes % (Auto) 9.5 % (0.0-7.3); Platelet Count 450 K/mm3 (140-440); Red Blood Count 4.83 M/mm3 (3.65-5.03); Red Cell Distribution Width 14.8 % (13.2-15.2)
[2020-06-22 18:46] LABS: BUN/Creatinine Ratio 23; Blood Urea Nitrogen 21 mg/dL (9-20); Calcium 9.9 mg/dL (8.4-10.2); Hemolysis Index 26
[2020-06-22 22:40] LABS: Bilirubin,Urine NEG (Negative); Blood,Urine NEG (Negative); Color,Urine Yellow (Yellow); Mucus,Urine 2+ /HPF
[2020-06-22 22:43] LABS: Benzodiazepines Screen,Urine PRESUMPTIVE NEGATIVE; Cannabinoid Screen,Urine PRESUMPTIVE NEGATIVE; Cocaine Screen,Urine PRESUMPTIVE NEGATIVE; Methadone Screen,Urine PRESUMPTIVE NEGATIVE; Opiate Screen,Urine PRESUMPTIVE NEGATIVE
[2020-06-22 23:04] LABS: Amphetamine Screen,Urine PRESUMPTIVE NEGATIVE
[2020-06-22] MEDS ORDERED: ACETAMINOPHEN 325 MG TAB PO PRN (23:57)
[2020-06-22] MEDS ORDERED: LORazepam 2 MG/ML VIAL IM PRN (23:57)
[2020-06-22] MEDS ORDERED: ONDANSETRON 4 MG ODT TAB PO PRN (23:57)
--- NOTE | 2020-06-22 23:59 | Emergency Department Report ---
ED General Adult HPI - General Chief complaint: Psych Stated complaint: RECTAL PAIN PUI?: No Time Seen by Provider: 06/22/20 23:41 Source: patient, RN notes reviewed, old records reviewed Mode of arrival: Ambulatory Limitations: No Limitations - History of Present Illness Initial comments: The patient was evaluated in the emergency department for symptoms described in the history of present illness. He/she was evaluated in the context of the global COVID-19 pandemic, which necessitated consideration that the patient might be at risk for infection with the virus that causes COVID-19. Institutional protocols and algorithms that pertain to the evaluation of patients at risk for COVID-19 are in a state of rapid change based on information released by regulatory bodies including the CDC and federal and state organizations. These policies and algorithms were followed during the patient's care in the emergency department. Please note that these policies, procedures and recommendations changed on a rapid basis. Patient is a 40-year-old gentleman. He presents to the ER today with a primary complaint of feeling suicidal. He does not have a place to live. He states he wants to overdose on his HIV medicines. He denies physical pain. He has chronic rectal/gluteal discomfort. He denies headache, neck pain, chest pain, abdominal pain, shortness of breath, loss of taste, loss of smell. He denies cough, vomiting, and urinary symptoms. He has no hallucinations, and states he is considering overdose, but has not attempted overdose. He states he is currently living on the streets, and does not have a place to go, which is a significant contributing factor to his presentation today. He is asking to eat and drink and states that he is hungry and thirsty -: Gradual Consistency: constant Improves with: none Worsens with: none Associated Symptoms: denies other symptoms, other (Gluteal lesions) - Related Data Home Medications Medication Instructions Recorded Confirmed Last Taken OLANZapine [Zyprexa] 10 mg PO QHS 06/26/18 03/18/20 1 Day Ago ~03/17/20 traZODone [Desyrel] 200 mg PO QHS 06/26/18 03/18/20 1 Day Ago ~03/17/20 Abacavir/Dolutegravir/Lamivudi 1 each PO QAM 02/18/19 03/18/20 1 Day Ago [Triumeq 600-50-300 mg Tablet] ~03/17/20 Pregabalin [Lyrica] 200 mg PO DAILY 02/18/19 03/18/20 Unknown diphenhydrAMINE [Benadryl CAP] 50 mg PO Q6HR PRN 02/18/19 03/18/20 Unknown Previous Rx's Medication Instructions Recorded Last Taken Type Divalproex Dr [DepaKOTE DR] 250 mg PO BID #60 tablet 03/21/20 Unknown Rx OLANZapine [Zyprexa] 15 mg PO DAILY #30 tablet 03/21/20 Unknown Rx traZODone [Desyrel] 200 mg PO QHS #30 tablet 03/21/20 Unknown Rx Hydrocortisone 0.5% (Nf) 1 applicatio TP TID #1 tube 03/28/20 Unknown Rx [Hydrocortisone 0.5% OINT] Lidocaine [Lidocaine GEL] 1 applicatio TP BID PRN #1 03/28/20 Unknown Rx gel..gram. Neomycin/Bacitracin/Polymyxinb 1 applicatio TP BID #1 oint...g. 03/28/20 Unknown Rx [Triple Antibiotic Ointment] Sulfamethoxazole/Trimethoprim 1 each PO BID 7 Days #14 tablet 03/28/20 Unknown Rx [Bactrim DS TAB] Allergies Allergy/AdvReac Type Severity Reaction Status Date / Time oxcarbazepine Allergy Swelling Verified 08/24/18 14:43 [From Trileptal] ED Review of Systems ROS: Stated complaint: RECTAL PAIN Other details as noted in HPI Constitutional: denies: fever Eyes: denies: eye discharge ENT: denies: congestion Respiratory: denies: cough Cardiovascular: denies: chest pain Gastrointestinal: denies: abdominal pain Genitourinary: denies: dysuria Musculoskeletal: denies: myalgia Skin: lesions Neurological: weakness Psychiatric: depression, suicidal thoughts ED Past Medical Hx - Past Medical History Hx Psychiatric Treatment: Yes (schizophrenia, bipolar) Hx HIV: Yes (anti-virals) Additional medical history: avascular necrosis left hip, peripheral neuropathy. Hep C-? HIV+ - Surgical History Additional Surgical History: right hip replacement - Social History Smoking Status: Former Smoker (None x6 months) Substance Use Type: None (Denies illicit drug use), Prescribed - Medications Home Medications: Home Medications Medication Instructions Recorded Confirmed Last Taken Type OLANZapine [Zyprexa] 10 mg PO QHS 06/26/18 03/18/20 1 Day Ago History ~03/17/20 traZODone [Desyrel] 200 mg PO QHS 06/26/18 03/18/20 1 Day Ago History ~03/17/20 Abacavir/Dolutegravir/Lamivudi 1 each PO QAM 02/18/19 03/18/20 1 Day Ago History [Triumeq 600-50-300 mg Tablet] ~03/17/20 Pregabalin [Lyrica] 200 mg PO DAILY 02/18/19 03/18/20 Unknown History diphenhydrAMINE [Benadryl CAP] 50 mg PO Q6HR PRN 02/18/19 03/18/[address] [Viviane WHITLEY] 250 mg PO BID #60 tablet 03/21/20 Unknown Rx OLANZapine [Zyprexa] 15 mg PO DAILY #30 tablet 03/21/20 Unknown Rx traZODone [Desyrel] 200 mg PO QHS #30 tablet 03/21/20 Unknown Rx Hydrocortisone 0.5% (Nf) 1 applicatio TP TID #1 tube 03/28/20 Unknown Rx [Hydrocortisone 0.5% OINT] Lidocaine [Lidocaine GEL] 1 applicatio TP BID PRN #1 03/28/20 Unknown Rx gel..gram. Neomycin/Bacitracin/Polymyxinb 1 applicatio TP BID #1 oint...g. 03/28/20 Unknown Rx [Triple Antibiotic Ointment] Sulfamethoxazole/Trimethoprim 1 each PO BID 7 Days #14 tablet 03/28/20 Unknown Rx [Bactrim DS TAB] ED Physical Exam - General Limitations: No Limitations General appearance: alert, in no apparent distress - Head Head exam: Present: atraumatic, normocephalic - Eye Eye exam: Present: normal appearance, EOMI. Absent: nystagmus - ENT ENT exam: Present: normal exam, normal orophraynx, mucous membranes moist, normal external ear exam - Neck Neck exam: Present: normal inspection, full ROM. Absent: tenderness, meningismus - Respiratory Respiratory exam: Present: normal lung sounds bilaterally. Absent: respiratory distress, wheezes, rales, rhonchi, stridor, decreased breath sounds - Cardiovascular Cardiovascular Exam: Present: regular rate, normal rhythm, normal heart sounds. Absent: bradycardia, tachycardia, irregular rhythm, systolic murmur, diastolic murmur, rubs, gallop - GI/Abdominal GI/Abdominal exam: Present: soft, normal bowel sounds. Absent: distended, tenderness, guarding, rebound, rigid, pulsatile mass - Rectal Rectal exam: Present: other (No external redness, pus or streaking. Chronic hyperpigmentation and scar tissue noted) - Extremities Exam Extremities exam: Present: normal inspection, full ROM, other (2+ pulses noted in the bilateral upper and lower extremities. There is no palpable cord. negative Homans sign. Muscular compartments are soft. The pelvis is stable.). Absent: pedal edema, calf tenderness - Back Exam Back exam: Present: normal inspection, full ROM. Absent: tenderness, CVA tenderness (R), CVA tenderness (L), paraspinal tenderness, vertebral tenderness - Neurological Exam Neurological exam: Present: alert, oriented X3, normal gait, other (No facial droop. Tongue midline. Extraocular movements intact bilaterally. Facial sensation intact to light touch in V1, V2, V3 distribution bilaterally. 5 and a 5 strength in 4 extremities. Sensation intact to light touch in 4 extremities.) - Psychiatric Psychiatric exam: Present: anxious, suicidal ideation - Skin Skin exam: Present: warm, dry, intact, normal color. Absent: rash ED Course Vital Signs 06/22/20 06/22/20 18:04 23:58 Temperature 98.9 F 98.1 F Pulse Rate 100 H 92 H Respiratory 16 19 Rate Blood Pressure 126/91 Blood Pressure 122/67 [Left] O2 Sat by Pulse 97 98 Oximetry ED Medical Decision Making - Lab Data Result diagrams: 06/22/20 18:06 06/22/20 18:06 Vital Signs 06/22/20 06/22/20 18:04 23:58 Temperature 98.9 F 98.1 F Pulse Rate 100 H 92 H Respiratory 16 19 Rate Blood Pressure 126/91 Blood Pressure 122/67 [Left] O2 Sat by Pulse 97 98 Oximetry Lab Results 06/22/20 06/22/20 06/22/20 Range/Units 18:06 18:06 18:06 WBC (4.5-11.0) K/mm3 RBC (3.65-5.03) M/mm3 Hgb (11.8-15.2) gm/dl Hct (35.5-45.6) % MCV (84-94) fl MCH (28-32) pg MCHC (32-34) % RDW (13.2-15.2) % Plt Count (140-440) K/mm3 Lymph % (Auto) (13.4-35.0) % King % (Auto) (0.0-7.3) % Eos % (Auto) (0.0-4.3) % Baso % (Auto) (0.0-1.8) % Lymph # (Auto) (1.2-5.4) K/mm3 King # (Auto) (0.0-0.8) K/mm3 Eos # (Auto) (0.0-0.4) K/mm3 Baso # (Auto) (0.0-0.1) K/mm3 Seg Neutrophils % (40.0-70.0) % Seg Neutrophils # (1.8-7.7) K/mm3 Sodium 136 L (137-145) mmol/L Potassium 4.1 (3.6-5.0) mmol/L Chloride 97.5 L (98-107) mmol/L Carbon Dioxide 23 (22-30) mmol/L Anion Gap 20 mmol/L BUN 21 H (9-20) mg/dL Creatinine 0.9 (0.8-1.3) mg/dL Estimated GFR > 60 ml/min BUN/Creatinine Ratio 23 % Glucose 70 L (75-100) mg/dL POC Glucose (70-105) mg/dL Calcium 9.9 (8.4-10.2) mg/dL Urine Color (Yellow) Urine Turbidity (Clear) Urine pH (5.0-7.0) Ur Specific [place] (1.003-1.030) Urine Protein (Negative) mg/dL Urine Glucose (UA) (Negative) mg/dL Urine Ketones (Negative) mg/dL Urine Blood (Negative) Urine Nitrite (Negative) Urine Bilirubin (Negative) Urine Urobilinogen (<2.0) mg/dL Ur Leukocyte Esterase (Negative) Urine WBC (Auto) (0.0-6.0) /HPF Urine RBC (Auto) (0.0-6.0) /HPF Urine Mucus /HPF Salicylates < 0.3 L (2.8-20.0) mg/dL Urine Opiates Screen Urine Methadone Screen Acetaminophen 5.0 L (10.0-30.0) ug/mL Ur Barbiturates Screen Ur Phencyclidine Scrn Ur Amphetamines Screen U Benzodiazepines Scrn Urine Cocaine Screen U Marijuana (THC) Screen Drugs of Abuse Note Plasma/Serum Alcohol (0-0.07) % 06/22/20 06/22/20 06/22/20 Range/Units 18:06 18:06 23:54 WBC 10.8 (4.5-11.0) K/mm3 RBC 4.83 (3.65-5.03) M/mm3 Hgb 13.5 (11.8-15.2) gm/dl Hct 41.5 (35.5-45.6) % MCV 86 (84-94) fl MCH 28 (28-32) pg MCHC 33 (32-34) % RDW 14.8 (13.2-15.2) % Plt Count 450 H (140-440) K/mm3 Lymph % (Auto) 16.5 (13.4-35.0) % King % (Auto) 9.5 H (0.0-7.3) % Eos % (Auto) 2.8 (0.0-4.3) % Baso % (Auto) 1.0 (0.0-1.8) % Lymph # (Auto) 1.8 (1.2-5.4) K/mm3 King # (Auto) 1.0 H (0.0-0.8) K/mm3 Eos # (Auto) 0.3 (0.0-0.4) K/mm3 Baso # (Auto) 0.1 (0.0-0.1) K/mm3 Seg Neutrophils % 70.2 H (40.0-70.0) % Seg Neutrophils # 7.6 (1.8-7.7) K/mm3 Sodium (137-145) mmol/L Potassium (3.6-5.0) mmol/L Chloride (98-107) mmol/L Carbon Dioxide (22-30) mmol/L Anion Gap mmol/L BUN (9-20) mg/dL Creatinine (0.8-1.3) mg/dL Estimated GFR ml/min BUN/Creatinine Ratio % Glucose (75-100) mg/dL POC Glucose 116 H (70-105) mg/dL Calcium (8.4-10.2) mg/dL Urine Color (Yellow) Urine Turbidity (Clear) Urine pH (5.0-7.0) Ur Specific [place] (1.003-1.030) Urine Protein (Negative) mg/dL Urine Glucose (UA) (Negative) mg/dL Urine Ketones (Negative) mg/dL Urine Blood (Negative) Urine Nitrite (Negative) Urine Bilirubin (Negative) Urine Urobilinogen (<2.0) mg/dL Ur Leukocyte Esterase (Negative) Urine WBC (Auto) (0.0-6.0) /HPF Urine RBC (Auto) (0.0-6.0) /HPF Urine Mucus /HPF Salicylates (2.8-20.0) mg/dL Urine Opiates Screen Urine Methadone Screen Acetaminophen (10.0-30.0) ug/mL Ur Barbiturates Screen Ur Phencyclidine Scrn Ur Amphetamines Screen U Benzodiazepines Scrn Urine Cocaine Screen U Marijuana (THC) Screen Drugs of Abuse Note Plasma/Serum Alcohol < 0.01 (0-0.07) % 06/22/20 06/22/20 Range/Units Unknown Unknown WBC (4.5-11.0) K/mm3 RBC (3.65-5.03) M/mm3 Hgb (11.8-15.2) gm/dl Hct (35.5-45.6) % MCV (84-94) fl MCH (28-32) pg MCHC (32-34) % RDW (13.2-15.2) % Plt Count (140-440) K/mm3 Lymph % (Auto) (13.4-35.0) % King % (Auto) (0.0-7.3) % Eos % (Auto) (0.0-4.3) % Baso % (Auto) (0.0-1.8) % Lymph # (Auto) (1.2-5.4) K/mm3 King # (Auto) (0.0-0.8) K/mm3 Eos # (Auto) (0.0-0.4) K/mm3 Baso # (Auto) (0.0-0.1) K/mm3 Seg Neutrophils % (40.0-70.0) % Seg Neutrophils # (1.8-7.7) K/mm3 Sodium (137-145) mmol/L Potassium (3.6-5.0) mmol/L Chloride (98-107) mmol/L Carbon Dioxide (22-30) mmol/L Anion Gap mmol/L BUN (9-20) mg/dL Creatinine (0.8-1.3) mg/dL Estimated GFR ml/min BUN/Creatinine Ratio % Glucose (75-100) mg/dL POC Glucose (70-105) mg/dL Calcium (8.4-10.2) mg/dL Urine Color Yellow (Yellow) Urine Turbidity Clear (Clear) Urine pH 5.0 (5.0-7.0) Ur Specific [place] 1.034 H (1.003-1.030) Urine Protein 30 mg/dl (Negative) mg/dL Urine Glucose (UA) Neg (Negative) mg/dL Urine Ketones 80 (Negative) mg/dL Urine Blood Neg (Negative) Urine Nitrite Neg (Negative) Urine Bilirubin Neg (Negative) Urine Urobilinogen 2.0 (<2.0) mg/dL Ur Leukocyte Esterase Neg (Negative) Urine WBC (Auto) 2.0 (0.0-6.0) /HPF Urine RBC (Auto) 4.0 (0.0-6.0) /HPF Urine Mucus 2+ /HPF Salicylates (2.8-20.0) mg/dL Urine Opiates Screen Presumptive negative Urine Methadone Screen Presumptive negative Acetaminophen (10.0-30.0) ug/mL Ur Barbiturates Screen Presumptive negative Ur Phencyclidine Scrn Presumptive negative Ur Amphetamines Screen Presumptive negative U Benzodiazepines Scrn Presumptive negative Urine Cocaine Screen Presumptive negative U Marijuana (THC) Screen Presumptive negative Drugs of Abuse Note Disclamer Plasma/Serum Alcohol (0-0.07) % - Medical Decision Making Differential diagnosis, including but not limited to: General medical exam, medical clearance for psychiatric placement, chronic skin lesion Assessment and plan: A 40-year-old gentleman, who was afebrile, with reassuring vital signs, alert to name, month, location, who was able to list all of his outpatient medications (Remeron, trazodone, Biktarvy), who reports compliance with his medications, who states he is not currently taking Depakote or valproic acid, who presented to the ER today with complaint of suicidality after being instructed to come here by his outpatient psychiatric program. He appears to be very lucid, and is minimally disorganized. I suspect that there may be a component of presenting for secondary gain, i.e. food/nursing home. Placing this patient on a 1013 may serve to reinforce maladaptive behaviors, such as presenting to the ER with psychiatric complaints, when the patient requires food and/or nursing home. However, we will place him on hold status, and obtain a formal psychiatric evaluation. I have requested that nursing team reconcile his medications. His cutaneous skin examination is unremarkable for acute pathology. Patient is eating food while I interviewed him, and his initial Accu-Chek is improved. His physical exam is otherwise unremarkable. At this point in time, he does not appear to have an immediate medical contraindication to psychiatric admission, evaluation, consultation and placement Critical care attestation.: If time is entered above; I have spent that time in minutes in the direct care of this critically ill patient, excluding procedure time. ED Disposition Clinical Impression: General medical examination, Medical clearance for psychiatric admission Disposition: [id number] PSY HOSP/PSY UNIT Is pt being admited?: No Does the pt Need Aspirin: No Condition: Good Referrals: PRIMARY CARE, [Primary Care Provider] - 3-5 Days
[2020-06-23 07:54] VITALS: BP 104/77
--- NOTE | 2020-06-23 08:27 | Consultation ---
History of Present Illness - Reason for Consult Consult date: 06/23/20 Reason for consult: SI/hallucinations - History of Present Psychiatric Illness Per ER note, "Patient is a 40-year-old gentleman. He presents to the ER today with a primary complaint of feeling suicidal. He does not have a place to live. He states he wants to overdose on his HIV medicines. He denies physical pain. He has chronic rectal/gluteal discomfort. He denies headache, neck pain, chest pain, abdominal pain, shortness of breath, loss of taste, loss of smell. He denies cough, vomiting, and urinary symptoms. He has no hallucinations, and states he is considering overdose, but has not attempted overdose. He states he is currently living on the streets, and does not have a place to go, which is a significant contributing factor to his presentation today. He is asking to eat and drink and states that he is hungry and thirsty." Juan Caldwell is a 40y/o male patient who is known to me. The patient ozuna a history of schizophrenia, bipolar and methamphetamine use. He says he's been off his medications and hearing voices. When asked why was he not taking his medications, the patient didn't really have a response. He says he's been hearing the voices for awhile, although it is noted that he denied any hallucinations upon presenting to the ER. When asking the patient about any SI/HI, the patient says "at times." The sitter caring for the patient states he has been fine with no complaints of anything. States he slept. PAST PSYCHIATRIC HISTORY Diagnoses: schizophrenia and bipolar Suicide attempts or Self-harm behavior: about 7 times Prior psychiatric hospitalizations: "yes" Substance Abuse history: meth Previous psychiatric medications tried: seroquel, trazodone, latuda Outpatient treatment: yes PAST MEDICAL HISTORY: HIV Family Psychiatric History: None reported or documented SOCIAL HISTORY Marital Status: Single Living Arrangements: homeless Employment Status: Disabled Access to guns/weapons: Denies Education: high school grad History of Abuse: Denies Legal History: Denies EVIEW OF SYSTEMS Constitutional: Negative for weight loss ENT: Negative for stridor Respiratory: Negative for cough or hemoptysis All other systems reviewed and are negative MENTAL STATUS EXAMINATION General Appearance and Behavior: Age appropriate, wearing appropriate clothes, malodorous, fidgety, squirming Mood: "not good" Affect and affective range: congruent with mood Thought Process: logical Thought Content: hallucinations Speech: Normal volume, Regular rate and rhythm Suicidal Ideation: Yes Homicidal Ideation: Denies Homicidal Hallucinations: Auditory Delusions: None elicited Impulse Control: fidgety, squirming Insight and Judgment: Limited Memory/Cognition: Normal Attention: Normal Orientation: Alert, oriented Assessment (1) Noncompliance with other medical treatments and regimen (z91.10) (2) History of Schizophrenia and Bipolar Plan Continue previously prescribed meds. Sitter: Defer to primary Medical: Per primary Disposition: Do not recommend acute inpatient treatment. The patient is noncompliant, and is looking for secondary gain. Explained to the patient that if suicidal thoughts reoccur he should seek immediate assistance including but not limited to 911/ER and the crisis hotline. The patient should comply with all medical regimens, including outpatient psychiatry, CBT, medication adherence, drug rehab, and continued cessation from all illicit drug use and alcohol. The systems tester to give the patient outpatient resources to help the patient comply with above mentioned. The systems tester is to further discuss with the patient the safety plan. Will sign off. Thank you for this consult. Case staffed with Dr. Godfrey Medications and Allergies Allergies Allergy/AdvReac Type Severity Reaction Status Date / Time oxcarbazepine Allergy Swelling Verified 08/24/18 14:43 [From Trileptal] Home Medications Medication Instructions Recorded Confirmed Last Taken Type OLANZapine [Zyprexa] 10 mg PO QHS 06/26/18 03/18/20 1 Day Ago History ~03/17/20 traZODone [Desyrel] 200 mg PO QHS 06/26/18 03/18/20 1 Day Ago History ~03/17/20 Abacavir/Dolutegravir/Lamivudi 1 each PO QAM 02/18/19 03/18/20 1 Day Ago History [Triumeq 600-50-300 mg Tablet] ~03/17/20 Pregabalin [Lyrica] 200 mg PO DAILY 02/18/19 03/18/20 Unknown History diphenhydrAMINE [Benadryl CAP] 50 mg PO Q6HR PRN 02/18/19 03/18/20 Unknown Hist austen Divalproex [DepaKOTE DR] 250 mg PO BID #60 tablet 03/21/20 Unknown Rx OLANZapine [Zyprexa] 15 mg PO DAILY #30 tablet 03/21/20 Unknown Rx traZODone [Desyrel] 200 mg PO QHS #30 tablet 03/21/20 Unknown Rx Hydrocortisone 0.5% (Nf) 1 applicatio TP TID #1 tube 03/28/20 Unknown Rx [Hydrocortisone 0.5% OINT] Lidocaine [Lidocaine GEL] 1 applicatio TP BID PRN #1 03/28/20 Unknown Rx gel..gram. Neomycin/Bacitracin/Polymyxinb 1 applicatio TP BID #1 oint...g. 03/28/20 Unkn own Rx [Triple Antibiotic Ointment] Sulfamethoxazole/Trimethoprim 1 each PO BID 7 Days #14 tablet 03/28/20 Unknown Rx [Bactrim DS TAB] Active Meds: Active Medications Acetaminophen (Acetaminophen 325 Mg Tab) 650 mg PO Q6HR PRN PRN Reason: PAIN Lorazepam (Lorazepam 2 Mg/Ml Vial) 2 mg IM Q4HR PRN PRN Reason: Agitation Ondansetron HCl (Ondansetron 4 Mg Odt Tab) 4 mg PO Q6HR PRN PRN Reason: Nausea Mental Status Exam - Vital signs Last Vital Signs Temp 98.7 F 06/23/20 07:53 Pulse 78 06/23/20 07:53 Resp 18 06/23/20 07:53 BP 104/77 06/23/20 07:53 Pulse Ox 96 06/23/20 07:53 Results Result Diagrams: 06/22/20 18:06 06/22/20 18:06 Abnormal lab results 06/22/20 06/22/20 06/22/20 Range/Units 18:06 18:06 18:06 Plt Count (140-440) K/mm3 [place] % (Auto) (0.0-7.3) % [place] # (Auto) (0.0-0.8) K/mm3 Seg Neutrophils % (40.0-70.0) % Sodium 136 L (137-145) mmol/L Chloride 97.5 L (98-107) mmol/L BUN 21 H (9-20) mg/dL Glucose 70 L (75-100) mg/dL POC Glucose (70-105) mg/dL Ur Specific [place] (1.003-1.030) Salicylates < 0.3 L (2.8-20.0) mg/dL Acetaminophen 5.0 L (10.0-30.0) ug/mL 06/22/20 06/22/20 06/22/20 Range/Units 18:06 23:54 Unknown Plt Count 450 H (140-440) K/mm3 [place] % (Auto) 9.5 H (0.0-7.3) % [place] # (Auto) 1.0 H (0.0-0.8) K/mm3 Seg Neutrophils % 70.2 H (40.0-70.0) % Sodium (137-145) mmol/L Chloride (98-107) mmol/L BUN (9-20) mg/dL Glucose (75-100) mg/dL POC Glucose 116 H (70-105) mg/dL Ur Specific [place] 1.034 H (1.003-1.030) Salicylates (2.8-20.0) mg/dL Acetaminophen (10.0-30.0) ug/mL All other labs normal.
== END 2020-06-23 13:00 | disposition home or self-care (01) ==
LOC: ED 18:00
DX: F25.0 Schizoaffective disorder, bipolar type (principal); F21 Schizotypal disorder; Z79.899 Other long term (current) drug therapy; Z98.890 Other specified postprocedural states; Z87.891 Personal history of nicotine dependence; Z88.8 Allergy status to other drugs, medicaments and biological substances
CPT/HCPCS: 36415; 80048; 80307; 80320; 81001; 82962; 85025; G0480

== ENCOUNTER 2020-06-27 00:56 | Emergency (ER) | payer MEDICARE ==
[2020-06-27 01:30] VITALS: BP 101/84
[2020-06-27 02:58] LABS: Basophils % (Auto) 0.3 % (0.0-1.8); Eosinophils # (Auto) 0.4 K/mm3 (0.0-0.4); Eosinophils % (Auto) 3.8 % (0.0-4.3); Hematocrit 42.2 % (35.5-45.6); Hemoglobin 13.6 gm/dl (11.8-15.2); Lymphocytes # (Auto) 1.9 K/mm3 (1.2-5.4); Lymphocytes % (Auto) 17.9 % (13.4-35.0); Mean Corpuscular HGB Conc 32 % (32-34); Mean Corpuscular Volume 87 fl (84-94); Monocytes # (Auto) 0.7 K/mm3 (0.0-0.8); Monocytes % (Auto) 6.7 % (0.0-7.3); Red Blood Count 4.87 M/mm3 (3.65-5.03); Red Cell Distribution Width 14.2 % (13.2-15.2)
[2020-06-27 02:59] LABS: BUN/Creatinine Ratio 28; Blood Urea Nitrogen 28 mg/dL (9-20); Calcium 9.3 mg/dL (8.4-10.2); Hemolysis Index 53
--- NOTE | 2020-06-27 03:03 | XRay Report ---
CHEST 1 VIEW 0222 INDICATION / CLINICAL INFORMATION: Medical Clearance Psych COMPARISON: 06/02/2007 FINDINGS: SUPPORT DEVICES: None HEART / MEDIASTINUM: No significant abnormality. LUNGS / PLEURA: No significant pulmonary or pleural abnormality. No pneumothorax. ADDITIONAL FINDINGS: No significant additional findings. IMPRESSION: No significant acute abnormality Signer Name: Robert Bass MD Signed: 06/27/2020 2:58 AM Workstation Name: [id number]
[2020-06-27 03:07] LABS: Platelet Count 452 K/mm3 (140-440)
--- NOTE | 2020-06-27 03:07 | Cat Scan Report ---
CT HEAD WITHOUT CONTRAST INDICATION: Medical Clearance Psych TECHNIQUE: All CT scans at this location are performed using CT dose reduction for ALARA by means of automated exposure control. COMPARISON: 08/13/2016 FINDINGS: BRAIN: No hemorrhage or mass effect are seen. No evidence of acute infarction is noted. ORBITS: Normal as visualized. SOFT TISSUES OF HEAD: Normal. CALVARIUM: Normal. VISUALIZED PARANASAL SINUSES AND MASTOID AIR CELLS: Clear. ADDITIONAL FINDINGS: None. IMPRESSION: No acute intracranial abnormality. Signer Name: Robert Bass MD Signed: 06/27/2020 3:03 AM Workstation Name: [id number]
--- NOTE | 2020-06-27 06:51 | Emergency Department Report ---
Tiki Doc - Documentation Documentation: 40-year-old -Romanian male presents emergency department complaining of needing medical clearance for admission and to [facility] program however states that he feels unusual with a balance which is more of than normal and dull headache with dizziness of an unknown etiology which is new as well. Reports no illicit drug use no head trauma no falls and been taking his medication for the most part as prescribed. Gait is jostled and unstable. (Gait is never stable due to his myopathy but states it is worse than usual) This initial assessment/diagnostic orders/clinical plan/treatment(s) is/are subject to change based on patients health status, clinical progression and re- assessment by fellow clinical providers in the ED. Further treatment and workup at subsequent clinical providers discretion. Patient/guardian urged not to elope from the ED as their condition may be serious if not clinically assessed and managed. Initial orders include: Clearance labs and CT scan of the head due to new onset dizziness and headache
--- NOTE | 2020-06-27 07:22 | Emergency Department Report ---
ED Medical Clearance HPI - General Chief complaint: Medical Clearance Stated complaint: LIGHT HEADED, DIZZY, NAUSEA AND VOMITING Time Seen by Provider: 06/27/20 01:27 Source: patient, EMS Mode of arrival: Ambulatory - History of Present Illness Initial comments: 40 yo AA male comes to ER for med clearance for [facility]. He is in tx for meth abuse. No cp no sob Has been in [facility] all night being monitored. Ambulatory to triage area. 0700 He checked in co dizziness but denied any symptoms this AM on exam. no cp no sob ambulatory -pt does have limp- chronic disability taking PO; no n/v/d VS rechecked Pt states they [facility] a bed [facility] last used meth 2 days ago Complaint: medical clearance request -: days(s) Alledged Intoxication: No Compliant with Home Medications: No Traumatic Symptoms: denies traumatic injury Treatments Prior to Arrival: none Home medications: Home Medications Medication Instructions Recorded Confirmed Last Taken OLANZapine [Zyprexa] 10 mg PO QHS 06/26/18 03/18/20 1 Day Ago ~03/17/20 traZODone [Desyrel] 200 mg PO QHS 06/26/18 03/18/20 1 Day Ago ~03/17/20 Abacavir/Dolutegravir/Lamivudi 1 each PO QAM 02/18/19 03/18/20 1 Day Ago [Triumeq 600-50-300 mg Tablet] ~03/17/20 Pregabalin [Lyrica] 200 mg PO DAILY 02/18/19 03/18/20 Unknown diphenhydrAMINE [Benadryl CAP] 50 mg PO Q6HR PRN 02/18/19 03/18/20 Unknown Previous Rx's Medication Instructions Recorded Last Taken Type Divalproex [Viviane WHITLEY] 250 mg PO BID #60 tablet 03/21/20 Unknown Rx OLANZapine [Zyprexa] 15 mg PO DAILY #30 tablet 03/21/20 Unknown Rx traZODone [Desyrel] 200 mg PO QHS #30 tablet 03/21/20 Unknown Rx Hydrocortisone 0.5% (Nf) 1 applicatio TP TID #1 tube 03/28/20 Unknown Rx [Hydrocortisone 0.5% OINT] Lidocaine [Lidocaine GEL] 1 applicatio TP BID PRN #1 03/28/20 Unknown Rx gel..gram. Neomycin/Bacitracin/Polymyxinb 1 applicatio TP BID #1 oint...g. 03/28/20 Unknown Rx [Triple Antibiotic Ointment] Sulfamethoxazole/Trimethoprim 1 each PO BID 7 Days #14 tablet 03/28/20 Unknown Rx [Bactrim DS TAB] Allergies/Adverse reactions: Allergies Allergy/AdvReac Type Severity Reaction Status Date / Time oxcarbazepine Allergy Swelling Verified 08/24/18 14:43 [From Trileptal] ED Review of Systems ROS: Stated complaint: LIGHT HEADED, DIZZY, NAUSEA AND VOMITING Other details as noted in HPI Comment: All other systems reviewed and negative ED Past Medical Hx - Past Medical History Previous Medical History?: Yes Hx Psychiatric Treatment: Yes (schizophrenia, bipolar) Hx HIV: Yes (anti-virals) Additional medical history: avascular necrosis left hip, peripheral neuropathy. Hep C-? HIV+ - Surgical History Past Surgical History?: Yes Additional Surgical History: right hip replacement - Family History Family history: no significant - Social History Smoking Status: Current Every Day Smoker Substance Use Type: Alcohol, Methamphetamines - Medications Home Medications: Home Medications Medication Instructions Recorded Confirmed Last Taken Type OLANZapine [Zyprexa] 10 mg PO QHS 06/26/18 03/18/20 1 Day Ago History ~03/17/20 traZODone [Desyrel] 200 mg PO QHS 06/26/18 03/18/20 1 Day Ago History ~03/17/20 Abacavir/Dolutegravir/Lamivudi 1 each PO QAM 02/18/19 03/18/20 1 Day Ago History [Triumeq 600-50-300 mg Tablet] ~03/17/20 Pregabalin [Lyrica] 200 mg PO DAILY 02/18/19 03/18/20 Unknown History diphenhydrAMINE [Benadryl CAP] 50 mg PO Q6HR PRN 02/18/19 03/18/20 Unknown History Divalproex [Viviane WHITLEY] 250 mg PO BID #60 tablet 03/21/20 Unknown Rx OLANZapine [Zyprexa] 15 mg PO DAILY #30 tablet 03/21/20 Unknown Rx traZODone [Desyrel] 200 mg PO QHS #30 tablet 03/21/20 Unknown Rx Hydrocortisone 0.5% (Nf) 1 applicatio TP TID #1 tube 03/28/20 Unknown Rx [Hydrocortisone 0.5% OINT] Lidocaine [Lidocaine GEL] 1 applicatio TP BID PRN #1 03/28/20 Unknown Rx gel..gram. Neomycin/Bacitracin/Polymyxinb 1 applicatio TP BID #1 oint...g. 03/28/20 Unknown Rx [Triple Antibiotic Ointment] Sulfamethoxazole/Trimethoprim 1 each PO BID 7 Days #14 tablet 03/28/20 Unknown Rx [Bactrim DS TAB] ED Physical Exam - General Limitations: Physical Limitation General appearance: alert, in no apparent distress - Head Head exam: Present: atraumatic, normocephalic - Eye Eye exam: Present: normal appearance - ENT ENT exam: Present: mucous membranes moist - Neck Neck exam: Present: normal inspection - Respiratory Respiratory exam: Present: normal lung sounds bilaterally. Absent: respiratory distress - Cardiovascular Cardiovascular Exam: Present: regular rate, normal rhythm. Absent: systolic murmur, diastolic murmur, rubs, gallop - GI/Abdominal GI/Abdominal exam: Present: soft, normal bowel sounds - Rectal Rectal exam: Present: deferred - Extremities Exam Extremities exam: Present: normal inspection - Back Exam Back exam: Present: normal inspection - Neurological Exam Neurological exam: Present: alert, oriented X3 - Psychiatric Psychiatric exam: Present: anxious - Skin Skin exam: Present: warm, dry, intact, normal color. Absent: rash ED Course Vital Signs 06/27/20 06/27/20 01:21 01:30 Temperature 98.2 F Pulse Rate 80 Respiratory 16 Rate Blood Pressure 101/84 O2 Sat by Pulse 94 Oximetry ED Medical Decision Making - Lab Data Result diagrams: 06/27/20 01:44 06/27/20 01:44 - Radiology Data Radiology results: report reviewed, image reviewed [facility] - Medical Decision Making Vital Signs 06/27/20 06/27/20 01:21 01:30 Temperature 98.2 F Pulse Rate 80 Respiratory 16 Rate Blood Pressure 101/84 O2 Sat by Pulse 94 Oximetry Lab Results 06/27/20 06/27/20 06/27/20 Range/Units 01:44 01:44 01:44 WBC 10.6 (4.5-11.0) K/mm3 RBC 4.87 (3.65-5.03) M/mm3 Hgb 13.6 (11.8-15.2) gm/dl Hct 42.2 (35.5-45.6) % MCV 87 (84-94) fl MCH 28 (28-32) pg MCHC 32 (32-34) % RDW 14.2 (13.2-15.2) % Plt Count 452 H (140-440) K/mm3 Lymph % (Auto) 17.9 (13.4-35.0) % Cataño % (Auto) 6.7 (0.0-7.3) % Eos % (Auto) 3.8 (0.0-4.3) % Baso % (Auto) 0.3 (0.0-1.8) % Lymph # (Auto) 1.9 (1.2-5.4) K/mm3 Cataño # (Auto) 0.7 (0.0-0.8) K/mm3 Eos # (Auto) 0.4 (0.0-0.4) K/mm3 Baso # (Auto) 0.0 (0.0-0.1) K/mm3 Seg Neutrophils % 71.3 H (40.0-70.0) % Seg Neutrophils # 7.6 (1.8-7.7) K/mm3 Sodium 140 (137-145) mmol/L Potassium 4.5 (3.6-5.0) mmol/L Chloride 101.8 (98-107) mmol/L Carbon Dioxide 23 (22-30) mmol/L Anion Gap 20 mmol/L BUN 28 H (9-20) mg/dL Creatinine 1.0 (0.8-1.3) mg/dL Estimated GFR > 60 ml/min BUN/Creatinine Ratio 28 % Glucose 86 (75-100) mg/dL Calcium 9.3 (8.4-10.2) mg/dL Salicylates < 0.3 L (2.8-20.0) mg/dL Acetaminophen (10.0-30.0) ug/mL 06/27/20 Range/Units 01:44 WBC (4.5-11.0) K/mm3 RBC (3.65-5.03) M/mm3 Hgb (11.8-15.2) gm/dl Hct (35.5-45.6) % MCV (84-94) fl MCH (28-32) pg MCHC (32-34) % RDW (13.2-15.2) % Plt Count (140-440) K/mm3 Lymph % (Auto) (13.4-35.0) % Cataño % (Auto) (0.0-7.3) % Eos % (Auto) (0.0-4.3) % Baso % (Auto) (0.0-1.8) % Lymph # (Auto) (1.2-5.4) K/mm3 Cataño # (Auto) (0.0-0.8) K/mm3 Eos # (Auto) (0.0-0.4) K/mm3 Baso # (Auto) (0.0-0.1) K/mm3 Seg Neutrophils % (40.0-70.0) % Seg Neutrophils # (1.8-7.7) K/mm3 Sodium (137-145) mmol/L Potassium (3.6-5.0) mmol/L Chloride (98-107) mmol/L Carbon Dioxide (22-30) mmol/L Anion Gap mmol/L BUN (9-20) mg/dL Creatinine (0.8-1.3) mg/dL Estimated GFR ml/min BUN/Creatinine Ratio % Glucose (75-100) mg/dL Calcium (8.4-10.2) mg/dL Salicylates (2.8-20.0) mg/dL Acetaminophen 5.0 L (10.0-30.0) ug/mL no HI no SI cooperative no focal neuro def VSS labs noted head CT noted chest xray noted 0700 reexam as noted in H/P tab pt being dc to [facility] for ongoing treatment of his substance abuse. - Differential Diagnosis med clearance ED Disposition Clinical Impression: Medical clearance for psychiatric admission, HIV (human immunodeficiency virus infection), Substance abuse Disposition: DC-01 TO HOME OR SELFCARE Is pt being admited?: No Does the pt Need Aspirin: No Condition: Stable Additional Instructions: follow up with your ID MD you are medically cleared for treatment at [facility] avoid drugs and alcohol Referrals: MEREDITH DUNCAN MD [Staff Physician] - 3-5 Days Time of Disposition: 07:33
== END 2020-06-27 07:49 | disposition home or self-care (01) ==
LOC: ED 00:56
DX: F19.10 Other psychoactive substance abuse, uncomplicated (principal); Z21 Asymptomatic human immunodeficiency virus [HIV] infection status; Z04.6 Encounter for general psychiatric examination, requested by authority; F25.0 Schizoaffective disorder, bipolar type; F17.200 Nicotine dependence, unspecified, uncomplicated; Z79.899 Other long term (current) drug therapy; Z98.890 Other specified postprocedural states; Z88.8 Allergy status to other drugs, medicaments and biological substances
CPT/HCPCS: 36415; 70450; 71045; 80048; 80320; 85025; G0480

== ENCOUNTER 2020-07-23 10:53 | Emergency (ER) | payer MEDICARE ==
--- NOTE | 2020-07-23 11:23 | Event Note ---
ED Screening Note Date of service: 07/23/20 Time: 11:21 ED Screening Note: 40-year-old male presents to the ER today with complaints of rectal pain and constipation for 2 weeks. He also reports rectal swelling, and bright red blood per rectum mainly when he wipes after bowel movement. He also reports discomfort with urination. He denies any hematuria. He denies any abdominal pain. He states that he did have some sort of abdominal surgery when he was an . Denies any history of bowel obstruction. He sexual preference is homosexual and he reports sexual intercourse 2 weeks ago. He denies any mucus discharge from his rectum. This initial assessment/diagnostic orders/clinical plan/treatment(s) is/are subject to change based on patients health status, clinical progression and re- assessment by fellow clinical providers in the ED. Further treatment and workup at subsequent clinical providers discretion. Patient/guardian urged not to elope from the ED as their condition may be serious if not clinically assessed and managed. Initial orders include: KUB; UA
[2020-07-23] MEDS ORDERED: LACTULOSE 20 GM/30 ML ORAL LIQD PO ONE (12:36)
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
--- NOTE | 2020-07-23 12:52 | XRay Report ---
XR abdomen 1V ap INDICATION / CLINICAL INFORMATION: constipation, rectal pain. COMPARISON: None available. FINDINGS: TUBES / LINES: None. BOWEL GAS PATTERN: Nonobstructive bowel gas pattern. FREE AIR / EXTRALUMINAL GAS: None seen. ADDITIONAL FINDINGS: No significant additional findings. IMPRESSION: 1. Large quantity of stool with nonobstructive bowel gas pattern. Signer Name: Ranjith Flood MD Signed: 07/23/2020 12:47 PM Workstation Name: [facility] Directions-[facility]
[2020-07-23] MEDS ORDERED: traMADol 50 MG TAB ONE (13:46)
[2020-07-23] MEDS ORDERED: traMADol 50 MG TAB PO ONE (13:46)
[2020-07-23 13:52] VITALS: BP 145/88
== END 2020-07-23 13:51 | disposition home or self-care (01) ==
LOC: ED 10:53
DX: K59.00 Constipation, unspecified (principal); F17.200 Nicotine dependence, unspecified, uncomplicated; Z21 Asymptomatic human immunodeficiency virus [HIV] infection status; Z98.890 Other specified postprocedural states; Z79.899 Other long term (current) drug therapy; Z88.8 Allergy status to other drugs, medicaments and biological substances
CPT/HCPCS: 74018

== ENCOUNTER 2020-09-07 13:07 | Emergency (ER) | payer MEDICARE ==
--- NOTE | 2020-09-07 14:28 | Event Note ---
ED Screening Note Date of service: 09/07/20 Time: 14:26 ED Screening Note: 40-year-old immunosuppressed male patient with history of HIV, hepatitis C, HPV, and chronic liver disease presents to the emergency department with complaints of painful rectal bleeding starting 2 days ago. Patient has noted 2 episodes of bloody stools, once yesterday and once today. No prior colonoscopies. No fever. No nausea/vomiting. No anticoagulation. Mildly tachycardic in triage. General: Awake, appropriately interactive, no acute distress. Neck: Supple. Full range of motion intact. Cardiovascular: Normal peripheral perfusion. Pulmonary: No respiratory distress. Patient is speaking normally without use of accessory muscles. Skin: No apparent rashes or lesions. Neurological: No facial asymmetry. Speech is clear. Follows commands. Patient is alert and oriented. Musculoskeletal: Moves all four extremities spontaneously with normal range of motion. Psych: Cooperative. Appropriate mood and affect. This initial assessment/diagnostic orders/clinical plan/treatment(s) is/are subject to change based on patients health status, clinical progression and re- assessment by fellow clinical providers in the ED. Further treatment and workup at subsequent clinical providers discretion. Patient/guardian urged not to elope from the ED as their condition may be serious if not clinically assessed and managed.
[2020-09-07 14:53] LABS: Basophils # (Auto) 0.1 K/mm3 (0.0-0.1); Basophils % (Auto) 1.5 % (0.0-1.8); Eosinophils # (Auto) 0.1 K/mm3 (0.0-0.4); Eosinophils % (Auto) 1.9 % (0.0-4.3); Hemoglobin 13.2 gm/dl (11.8-15.2); Lymphocytes # (Auto) 1.8 K/mm3 (1.2-5.4); Lymphocytes % (Auto) 23.3 % (13.4-35.0); Mean Corpuscular HGB Conc 33 % (32-34); Mean Corpuscular Volume 87 fl (84-94); Monocytes # (Auto) 0.5 K/mm3 (0.0-0.8); Monocytes % (Auto) 7.2 % (0.0-7.3); Platelet Count 411 K/mm3 (140-440); Red Blood Count 4.58 M/mm3 (3.65-5.03); Red Cell Distribution Width 16.4 % (13.2-15.2)
[2020-09-07 15:04] LABS: INR 0.98 (0.87-1.13)
[2020-09-07 15:05] LABS: Partial Thromboplastin Time 29.3 Sec. (24.2-36.6)
[2020-09-07 15:09] LABS: Alanine Aminotransferase 63 units/L (7-56); Albumin 4.5 g/dL (3.9-5); BUN/Creatinine Ratio 22; Blood Urea Nitrogen 20 mg/dL (9-20); Calcium 9.4 mg/dL (8.4-10.2); Hemolysis Index 22
[2020-09-07 16:30] VITALS: BP 143/84
[2020-09-07] MEDS ORDERED: ONDANSETRON 4 MG/2 ML INJ IV ONE ×2 (16:49→19:01)
[2020-09-07] MEDS ORDERED: MORPHINE 4 MG/1 ML INJ IV ONE (16:49)
--- NOTE | 2020-09-07 16:56 | Emergency Department Report ---
ED General Adult HPI - General Chief complaint: GI Bleed Stated complaint: RECTAL BLEEDING Time Seen by Provider: 09/07/20 16:30 Source: patient Mode of arrival: Ambulatory Limitations: No Limitations - History of Present Illness Initial comments: 40-year-old -[place] Citizen male patient with history of HIV, hepatitis C, chronic liver disease, and HPV presents with complaints of painful rectal bleeding x2 days. Patient has noted 2 episodes of bloody stools, once yesterday and once today. No prior colonoscopies. No fever. No nausea/vomiting. No a nticoagulation. He reports recurrent history of rectal pain and bleeding and states he is currently following with infectious disease for this. Patient also states he had an ultrasound performed of his rectum 1 week ago, however he is unsure of the results. No recent CT scans per patient. He also denies any dysuria/hematuria, penile discharge, penile/scrotal pain/swelling, or or recent anal intercourse. Patient rates his pain as a 10/10 in severity and states pain worsens with defecation. - Related Data Home Medications Medication Instructions Recorded Confirmed Last Taken OLANZapine [Zyprexa] 10 mg PO QHS 06/26/18 03/18/20 1 Day Ago ~03/17/20 traZODone [Desyrel] 200 mg PO QHS 06/26/18 03/18/20 1 Day Ago ~03/17/20 Abacavir/Dolutegravir/Lamivudi 1 each PO QAM 02/18/19 03/18/20 1 Day Ago [Triumeq 600-50-300 mg Tablet] ~03/17/20 Pregabalin [Lyrica] 200 mg PO DAILY 02/18/19 03/18/20 Unknown diphenhydrAMINE [Benadryl CAP] 50 mg PO Q6HR PRN 02/18/19 03/18/20 Unknown Previous Rx's Medication Instructions Recorded Last Taken Type Divalproex [Viviane WHITLEY] 250 mg PO BID #60 tablet 03/21/20 Unknown Rx OLANZapine [Zyprexa] 15 mg PO DAILY #30 tablet 03/21/20 Unknown Rx traZODone [Desyrel] 200 mg PO QHS #30 tablet 03/21/20 Unknown Rx Hydrocortisone 0.5% (Nf) 1 applicatio TP TID #1 tube 03/28/20 Unknown Rx [Hydrocortisone 0.5% OINT] Lidocaine [Lidocaine GEL] 1 applicatio TP BID PRN #1 03/28/20 Unknown Rx gel..gram. Neomycin/Bacitracin/Polymyxinb 1 applicatio TP BID #1 oint...g. 03/28/20 Unknown Rx [Triple Antibiotic Ointment] Sulfamethoxazole/Trimethoprim 1 each PO BID 7 Days #14 tablet 03/28/20 Unknown Rx [Bactrim DS TAB] Docusate Sodium [Colace] 100 mg PO BID PRN #60 capsule 07/23/20 Unknown Rx Lactulose [Cephulac] 20 gm PO QDAY PRN #90 ml 07/23/20 Unknown Rx Acetaminophen/Codeine [Tylenol 1 tab PO Q6H PRN #8 tab 09/07/20 Unknown Rx /Codeine # 3 tab] Valacyclovir HCl [Valacyclovir] 1,000 mg PO BID #20 tablet 09/07/20 Unknown Rx Allergies Allergy/AdvReac Type Severity Reaction Status Date / Time ketorolac [From Toradol] Allergy Hives Verified 07/23/20 11:09 oxcarbazepine Allergy Swelling Verified 07/23/20 11:09 [From Trileptal] ED Review of Systems ROS: Stated complaint: RECTAL BLEEDING Other details as noted in HPI ED Past Medical Hx - Past Medical History Previous Medical History?: Yes Hx Psychiatric Treatment: No Hx HIV: Yes (anti-virals last CD4 count 100s winter 2019) Additional medical history: avascular necrosis left hip, peripheral neuropathy. Hep C-? HIV+ - Surgical History Past Surgical History?: Yes Additional Surgical History: right hip replacement - Social History Smoking Status: Current Every Day Smoker Substance Use Type: None - Medications Home Medications: Home Medications Medication Instructions Recorded Confirmed Last Taken Type OLANZapine [Zyprexa] 10 mg PO QHS 06/26/18 03/18/20 1 Day Ago History ~03/17/20 traZODone [Desyrel] 200 mg PO QHS 06/26/18 03/18/20 1 Day Ago History ~03/17/20 Abacavir/Dolutegravir/Lamivudi 1 each PO QAM 02/18/19 03/18/20 1 Day Ago History [Triumeq 600-50-300 mg Tablet] ~03/17/20 Pregabalin [Lyrica] 200 mg PO DAILY 02/18/19 03/18/20 Unknown History diphenhydrAMINE [Benadryl CAP] 50 mg PO Q6HR PRN 02/18/19 03/18/[address] [DepaKOTE DR] 250 mg PO BID #60 tablet 03/21/20 Unknown Rx OLANZapine [Zyprexa] 15 mg PO DAILY #30 tablet 03/21/20 Unknown Rx traZODone [Desyrel] 200 mg PO QHS #30 tablet 03/21/20 Unknown Rx Hydrocortisone 0.5% (Nf) 1 applicatio TP TID #1 tube 03/28/20 Unknown Rx [Hydrocortisone 0.5% OINT] Lidocaine [Lidocaine GEL] 1 applicatio TP BID PRN #1 03/28/20 Unknown Rx gel..gram. Neomycin/Bacitracin/Polymyxinb 1 applicatio TP BID #1 oint...g. 03/28/20 Unknown Rx [Triple Antibiotic Ointment] Sulfamethoxazole/Trimethoprim 1 each PO BID 7 Days #14 tablet 03/28/20 Unknown Rx [Bactrim DS TAB] Docusate Sodium [Colace] 100 mg PO BID PRN #60 capsule 07/23/20 Unknown Rx Lactulose [Cephulac] 20 gm PO QDAY PRN #90 ml 07/23/20 Unknown Rx Acetaminophen/Codeine [Tylenol 1 tab PO Q6H PRN #8 tab 09/07/20 Unknown Rx /Codeine # 3 tab] Valacyclovir HCl [Valacyclovir] 1,000 mg PO BID #20 tablet 09/07/20 Unknown Rx ED Physical Exam - General Limitations: No Limitations General appearance: alert, in no apparent distress - Head Head exam: Present: atraumatic, normocephalic - Eye Eye exam: Present: normal appearance - ENT ENT exam: Present: normal exam - Neck Neck exam: Present: normal inspection - Respiratory Respiratory exam: Present: normal lung sounds bilaterally. Absent: respiratory distress - Cardiovascular Cardiovascular Exam: Present: regular rate, normal rhythm - GI/Abdominal GI/Abdominal exam: Present: soft, tenderness (moderate suprapubic/LLQ/RLQ pain ). Absent: distended, guarding, rebound - Rectal Rectal exam: Present: normal rectal tone, heme (+) stool, tenderness, prostate tenderness, other (Multiple open small ulcerations noted around the perianal region with a few small warts noted). Absent: fecal impaction - Extremities Exam Extremities exam: Present: full ROM - Back Exam Back exam: Present: normal inspection, full ROM - Neurological Exam Neurological exam: Present: alert, oriented X3, normal gait - Psychiatric Psychiatric exam: Present: normal affect, normal mood ED Course Vital Signs 09/07/20 09/07/20 09/07/20 13:09 16:29 18:56 Temperature 98.2 F 98.2 F Pulse Rate 105 H 84 Respiratory 18 20 18 Rate Blood Pressure 141/87 Blood Pressure 143/84 [left arm] O2 Sat by Pulse 98 100 Oximetry ED Medical Decision Making - Lab Data Result diagrams: 09/07/20 14:31 09/07/20 14:31 Lab Results 09/07/20 09/07/20 09/07/20 Range/Units 14:31 14:31 14:31 WBC 7.6 (4.5-11.0) K/mm3 RBC 4.58 (3.65-5.03) M/mm3 Hgb 13.2 (11.8-15.2) gm/dl Hct 40.0 (35.5-45.6) % MCV 87 (84-94) fl MCH 29 (28-32) pg MCHC 33 (32-34) % RDW 16.4 H (13.2-15.2) % Plt Count 411 (140-440) K/mm3 Lymph % (Auto) 23.3 (13.4-35.0) % [place] % (Auto) 7.2 (0.0-7.3) % Eos % (Auto) 1.9 (0.0-4.3) % Baso % (Auto) 1.5 (0.0-1.8) % Lymph # (Auto) 1.8 (1.2-5.4) K/mm3 [place] # (Auto) 0.5 (0.0-0.8) K/mm3 Eos # (Auto) 0.1 (0.0-0.4) K/mm3 Baso # (Auto) 0.1 (0.0-0.1) K/mm3 Seg Neutrophils % 66.1 (40.0-70.0) % Seg Neutrophils # 5.1 (1.8-7.7) K/mm3 PT 12.9 (12.2-14.9) Sec. INR 0.98 (0.87-1.13) APTT 29.3 (24.2-36.6) Sec. Sodium 137 (137-145) mmol/L Potassium 4.2 (3.6-5.0) mmol/L Chloride 100.8 (98-107) mmol/L Carbon Dioxide 26 (22-30) mmol/L Anion Gap 14 mmol/L BUN 20 (9-20) mg/dL Creatinine 0.9 (0.8-1.3) mg/dL Estimated GFR > 60 ml/min BUN/Creatinine Ratio 22 % Glucose 100 (75-100) mg/dL Calcium 9.4 (8.4-10.2) mg/dL Magnesium 1.70 (1.7-2.3) mg/dL Total Bilirubin 0.20 (0.1-1.2) mg/dL AST 37 (5-40) units/L ALT 63 H (7-56) units/L Alkaline Phosphatase 97 (35-129) units/L Total Protein 7.4 (6.3-8.2) g/dL Albumin 4.5 (3.9-5) g/dL Albumin/Globulin Ratio 1.6 % Urine Color (Yellow) Urine Turbidity (Clear) Urine pH (5.0-7.0) Ur Specific [place] (1.003-1.030) Urine Protein (Negative) mg/dL Urine Glucose (UA) (Negative) mg/dL Urine Ketones (Negative) mg/dL Urine Blood (Negative) Urine Nitrite (Negative) Urine Bilirubin (Negative) Urine Urobilinogen (<2.0) mg/dL Ur Leukocyte Esterase (Negative) Urine WBC (Auto) (0.0-6.0) /HPF Urine RBC (Auto) (0.0-6.0) /HPF Blood Type Antibody Screen 09/07/20 09/07/20 Range/Units 14:31 17:25 WBC (4.5-11.0) K/mm3 RBC (3.65-5.03) M/mm3 Hgb (11.8-15.2) gm/dl Hct (35.5-45.6) % MCV (84-94) fl MCH (28-32) pg MCHC (32-34) % RDW (13.2-15.2) % Plt Count (140-440) K/mm3 Lymph % (Auto) (13.4-35.0) % [place] % (Auto) (0.0-7.3) % Eos % (Auto) (0.0-4.3) % Baso % (Auto) (0.0-1.8) % Lymph # (Auto) (1.2-5.4) K/mm3 [place] # (Auto) (0.0-0.8) K/mm3 Eos # (Auto) (0.0-0.4) K/mm3 Baso # (Auto) (0.0-0.1) K/mm3 Seg Neutrophils % (40.0-70.0) % Seg Neutrophils # (1.8-7.7) K/mm3 PT (12.2-14.9) Sec. INR (0.87-1.13) APTT (24.2-36.6) Sec. Sodium (137-145) mmol/L Potassium (3.6-5.0) mmol/L Chloride (98-107) mmol/L Carbon Dioxide (22-30) mmol/L Anion Gap mmol/L BUN (9-20) mg/dL Creatinine (0.8-1.3) mg/dL Estimated GFR ml/min BUN/Creatinine Ratio % Glucose (75-100) mg/dL Calcium (8.4-10.2) mg/dL Magnesium (1.7-2.3) mg/dL Total Bilirubin (0.1-1.2) mg/dL AST (5-40) units/L ALT (7-56) units/L Alkaline Phosphatase (35-129) units/L Total Protein (6.3-8.2) g/dL Albumin (3.9-5) g/dL Albumin/Globulin Ratio % Urine Color Yellow (Yellow) Urine Turbidity Clear (Clear) Urine pH 7.0 (5.0-7.0) Ur Specific [place] 1.014 (1.003-1.030) Urine Protein <15 mg/dl (Negative) mg/dL Urine Glucose (UA) Neg (Negative) mg/dL Urine Ketones Neg (Negative) mg/dL Urine Blood Neg (Negative) Urine Nitrite Neg (Negative) Urine Bilirubin Neg (Negative) Urine Urobilinogen < 2.0 (<2.0) mg/dL Ur Leukocyte Esterase Neg (Negative) Urine WBC (Auto) < 1.0 (0.0-6.0) /HPF Urine RBC (Auto) 2.0 (0.0-6.0) /HPF Blood Type O POSITIVE Antibody Screen Negative - Radiology Data Radiology results: report reviewed CT ABDOMEN AND PELVIS WITH IV CONTRAST INDICATION: Lower abdominal pain and rectal bleeding. TECHNIQUE: Following the administration of intravenous contrast, multiple axial CT images of the abdomen and pelvis were acquired. Sagittal and coronal reformats were obtained. All CT performed at this facility utilize dose reduction techniques including automated exposure control, iterative reconstruction and weight based dosing when appropriate to reduce patient radiation dose to as low as reasonably achievable. COMPARISON: No relevant prior studies are available for comparison. FINDINGS: Limited imaging of the bilateral lung bases demonstrates no acute abnormality. ABDOMEN: The liver, gallbladder, spleen, pancreas, bilateral adrenal glands and bi lateral kidneys show no evidence of acute abnormality. The abdominal aorta is normal in caliber. There is no evidence of bowel obstruction or free fluid. The appendix is identified and appears normal. PELVIS: There is moderate concentric wall thickening and enhancement of the urinary jesus dder. No free fluid is identified. Evaluation of the pelvis is somewhat limited due to metallic art ifact from patient's right hip prosthesis. BONES AND SOFT TISSUES: No significant abnormality. IMPRESSION: 1. Concentric wall thickening and enhancement of the urinary bladder that is burton ggestive of cystitis. Please correlate with patient's clinical circumstances. - Medical Decision Making 40-year-old -[place] Citizen male patient with history of HIV, hepatitis C, chronic liver disease, and HPV presents with complaints of painful rectal bleeding x2 days. Patient has noted 2 episodes of bloody stools, once yesterday and once today. No prior colonoscopies. No fever. No nausea/vomiting. No anticoagulation. He reports recurrent history of rectal pain and bleeding and states he is currently following with infectious disease for this. Patient also states he had an ultrasound performed of his rectum 1 week ago, however he is unsure of the results. No recent CT scans per patient. He also denies any dysuria/hematuria, penile discharge, penile/scrotal pain/swelling, or or recent anal intercourse. Patient rates his pain as a 10/10 in severity and states pain worsens with defecation. Prostate tender on exam with positive stool guaiac. CBC and CMP are normal. Given patient's immunosuppressive state and physical exam findings, CT abdomen performed and shows concentric wall thickening of the bladder-possibly due to cystitis. UA is clean. Vitals remain normal and patient is afebrile and nontachycardic. perirectal ulcerations appear to be consistent with HSV. Recommend continued follow-up with infectious disease within 2 days. Also recommend follow-up with GI-referral provided. He is well-appearing, his vitals are normal, he is stable for discharge home. Discussed signs and symptoms that should prompt immediate return to the emergency department in detail with patient who verbalizes understanding. Critical care attestation.: If time is entered above; I have spent that time in minutes in the direct care of this critically ill patient, excluding procedure time. ED Disposition Clinical Impression: Rectal pain, Rectal bleeding Disposition: DC- TO HOME OR SELFCARE Is pt being admited?: No Condition: Stable Instructions: Rectal Bleeding Prescriptions: Acetaminophen/Codeine [Tylenol /Codeine # 3 tab] 1 tab PO Q6H PRN #8 tab PRN Reason: Pain , Severe (7-10) Valacyclovir HCl [Valacyclovir] 1,000 mg PO BID #20 tablet Referrals: PRIMARY CARE, [Primary Care Provider] - 3-5 Days Forms: Accompanied Note
[2020-09-07 17:35] LABS: Bilirubin,Urine NEG (Negative); Blood,Urine NEG (Negative); Color,Urine Yellow (Yellow); Protein,Urine <15 mg/dL mg/dL (Negative); Urobilinogen,Urine < 2.0 mg/dL (<2.0); WBC,Urine < 1.0 /HPF (0.0-6.0)
--- NOTE | 2020-09-07 19:35 | Cat Scan Report ---
CT ABDOMEN AND PELVIS WITH IV CONTRAST INDICATION: Lower abdominal pain and rectal bleeding. TECHNIQUE: Following the administration of intravenous contrast, multiple axial CT images of the abdo men and pelvis were acquired. Sagittal and coronal reformats were obtained. All CT performed at this facility utilize dose reduction techniques including automated exposure control, iterative reconstru ction and weight based dosing when appropriate to reduce patient radiation dose to as low as reasonab ly achievable. COMPARISON: No relevant prior studies are available for comparison. FINDINGS: Limited imaging of the bilateral lung bases demonstrates no acute abnormality. ABDOMEN: The liver, gallbladder, spleen, pancreas, bilateral adrenal glands and bilateral kidneys show no evid ence of acute abnormality. The abdominal aorta is normal in caliber. There is no evidence of bowel ob struction or free fluid. The appendix is identified and appears normal. PELVIS: There is moderate concentric wall thickening and enhancement of the urinary bladder. No free fluid is identified. Evaluation of the pelvis is somewhat limited due to metallic artifact from patient's rig ht hip prosthesis. BONES AND SOFT TISSUES: No significant abnormality. IMPRESSION: 1. Concentric wall thickening and enhancement of the urinary bladder that is suggestive of cystitis. Please correlate with patient's clinical circumstances. Signer Name: Megan Taylor MD Signed: 09/07/2020 7:30 PM Workstation Name: [id number]
== END 2020-09-07 19:35 | disposition left against medical advice (07) ==
LOC: ED 13:07
DX: K62.5 Hemorrhage of anus and rectum (principal); R10.30 Lower abdominal pain, unspecified; F17.200 Nicotine dependence, unspecified, uncomplicated; Z98.890 Other specified postprocedural states; Z21 Asymptomatic human immunodeficiency virus [HIV] infection status; Z79.899 Other long term (current) drug therapy; Z88.8 Allergy status to other drugs, medicaments and biological substances
CPT/HCPCS: 36415; 74177; 80053; 81001; 83735; 85025; 85610; 85730; 86850; 86900; 86901; 96374; 96375; 99284; J2270; J2405; Q9967

== ENCOUNTER 2020-09-10 19:22 | Emergency (ER) | payer MEDICARE ==
[2020-09-10 21:03] VITALS: BP 142/94
[2020-09-10 21:28] LABS: Basophils # (Auto) 0.1 K/mm3 (0.0-0.1); Eosinophils # (Auto) 0.1 K/mm3 (0.0-0.4); Eosinophils % (Auto) 1.9 % (0.0-4.3); Hematocrit 39.2 % (35.5-45.6); Lymphocytes % (Auto) 32.7 % (13.4-35.0); Mean Corpuscular HGB Conc 33 % (32-34); Mean Corpuscular Volume 87 fl (84-94); Monocytes # (Auto) 0.8 K/mm3 (0.0-0.8); Monocytes % (Auto) 12.8 % (0.0-7.3); Platelet Count 387 K/mm3 (140-440); Red Blood Count 4.52 M/mm3 (3.65-5.03); Red Cell Distribution Width 15.9 % (13.2-15.2)
[2020-09-10 21:45] LABS: BUN/Creatinine Ratio 23; Blood Urea Nitrogen 28 mg/dL (9-20); Calcium 9.9 mg/dL (8.4-10.2); Hemolysis Index 11
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
== END 2020-09-10 23:45 | disposition home or self-care (01) ==
LOC: ED 19:22
DX: K64.4 Residual hemorrhoidal skin tags (principal); F17.200 Nicotine dependence, unspecified, uncomplicated; Z98.890 Other specified postprocedural states; Z21 Asymptomatic human immunodeficiency virus [HIV] infection status; Z79.899 Other long term (current) drug therapy; Z88.8 Allergy status to other drugs, medicaments and biological substances
CPT/HCPCS: 36415; 80048; 85025; 99283

== ENCOUNTER 2020-10-10 12:00 | Emergency (ER) | payer MEDICARE ==
--- NOTE | 2020-10-10 12:18 | Event Note ---
ED Screening Note ED Screening Note: MED CLEARANCE FOR AMPHETAMINE RECOVERY AT [facility] initial assessment/diagnostic orders/clinical plan/treatment(s) is/are subject to change based on patients health status, clinical progression and re- assessment by fellow clinical providers in the ED. Further treatment and workup at subsequent clinical providers discretion. Patient/guardian urged not to elope from the ED as their condition may be serious if not clinically assessed and managed. Initial orders include: LABS UA
[2020-10-10 12:21] VITALS: BP 141/101
[2020-10-10 13:15] LABS: Basophils # (Auto) 0.1 K/mm3 (0.0-0.1); Basophils % (Auto) 0.6 % (0.0-1.8); Eosinophils % (Auto) 0.1 % (0.0-4.3); Hematocrit 43.6 % (35.5-45.6); Lymphocytes # (Auto) 2.2 K/mm3 (1.2-5.4); Lymphocytes % (Auto) 18.9 % (13.4-35.0); Mean Corpuscular HGB Conc 32 % (32-34); Mean Corpuscular Volume 85 fl (84-94); Monocytes # (Auto) 1.1 K/mm3 (0.0-0.8); Monocytes % (Auto) 9.3 % (0.0-7.3); Platelet Count 454 K/mm3 (140-440); Red Blood Count 5.14 M/mm3 (3.65-5.03); Red Cell Distribution Width 15.2 % (13.2-15.2)
[2020-10-10 13:17] LABS: Bilirubin,Urine NEG (Negative); Blood,Urine NEG (Negative); Color,Urine Yellow (Yellow); Mucus,Urine FEW /HPF; Sperm,Urine 2+ /HPF (NP); Urobilinogen,Urine < 2.0 mg/dL (<2.0)
[2020-10-10 13:21] LABS: Benzodiazepines Screen,Urine Negative; Cannabinoid Screen,Urine Negative; Cocaine Screen,Urine Negative; Methadone Screen,Urine Negative; Opiate Screen,Urine Negative
--- NOTE | 2020-10-10 13:28 | Emergency Department Report ---
ED Medical Clearance HPI - General Chief complaint: Medical Clearance Stated complaint: MEDICAL CLEARANCE Time Seen by Provider: 10/10/20 12:17 Source: patient Mode of arrival: Ambulatory - History of Present Illness Initial comments: Patient is a 40-year-old -[place] male that comes to the emergency room today requesting medical clearance. He states that he has spoke with [facility] and they are willing to take him for his amphetamine abuse provided he gets medical clearance. He is denying any physical complaints. He denies chest pain or shortness of breath. He is ambulatory nontoxic and [id number] on arrival to the ER. Complaint: medical clearance request -: Gradual Place: home Home medications: Home Medications Medication Instructions Recorded Confirmed Last Taken OLANZapine [Zyprexa] 10 mg PO QHS 06/26/18 03/18/20 1 Day Ago ~03/17/20 traZODone [Desyrel] 200 mg PO QHS 06/26/18 03/18/20 1 Day Ago ~03/17/20 Abacavir/Dolutegravir/Lamivudi 1 each PO QAM 02/18/19 03/18/20 1 Day Ago [Triumeq 600-50-300 mg Tablet] ~03/17/20 Pregabalin [Lyrica] 200 mg PO DAILY 02/18/19 03/18/20 Unknown diphenhydrAMINE [Benadryl CAP] 50 mg PO Q6HR PRN 02/18/19 03/18/20 Unknown Previous Rx's Medication Instructions Recorded Last Taken Type Divalproex Dr [DepaKOTE DR] 250 mg PO BID #60 tablet 03/21/20 Unknown Rx OLANZapine [Zyprexa] 15 mg PO DAILY #30 tablet 03/21/20 Unknown Rx traZODone [Desyrel] 200 mg PO QHS #30 tablet 03/21/20 Unknown Rx Hydrocortisone 0.5% (Nf) 1 applicatio TP TID #1 tube 03/28/20 Unknown Rx [Hydrocortisone 0.5% OINT] Lidocaine [Lidocaine GEL] 1 applicatio TP BID PRN #1 03/28/20 Unknown Rx gel..gram. Neomycin/Bacitracin/Polymyxinb 1 applicatio TP BID #1 oint...g. 03/28/20 Unknown Rx [Triple Antibiotic Ointment] Sulfamethoxazole/Trimethoprim 1 each PO BID 7 Days #14 tablet 03/28/20 Unknown Rx [Bactrim DS TAB] Docusate Sodium [Colace] 100 mg PO BID PRN #60 capsule 07/23/20 Unknown Rx Lactulose [Cephulac] 20 gm PO QDAY PRN #90 ml 07/23/20 Unknown Rx Acetaminophen/Codeine [Tylenol 1 tab PO Q6H PRN #8 tab 09/07/20 Unknown Rx /Codeine # 3 tab] Valacyclovir HCl [Valacyclovir] 1,000 mg PO BID #20 tablet 09/07/20 Unknown Rx Phenylephrine HCl/[place] Butter 1 each RC DAILY PRN #12 supp.rect 09/10/20 Unknown Rx [Preparation H Suppository] Allergies/Adverse reactions: Allergies Allergy/AdvReac Type Severity Reaction Status Date / Time pegfilgrastim-bmez AdvReac Hives Verified 10/10/20 12:20 [From Ziextenzo] ED Review of Systems ROS: Stated complaint: MEDICAL CLEARANCE Other details as noted in HPI Comment: All other systems reviewed and negative ED Past Medical Hx - Past Medical History Previous Medical History?: Yes Hx Psychiatric Treatment: No Hx HIV: Yes (anti-virals last CD4 count 100s winter 2019) Additional medical history: avascular necrosis left hip, peripheral neuropathy. Hep C-? HIV+ - Surgical History Past Surgical History?: Yes Additional Surgical History: right hip replacement - Family History Family history: no significant - Social History Smoking Status: Current Every Day Smoker Substance Use Type: Methamphetamines - Medications Home Medications: Home Medications Medication Instructions Recorded Confirmed Last Taken Type OLANZapine [Zyprexa] 10 mg PO QHS 06/26/18 03/18/20 1 Day Ago History ~03/17/20 traZODone [Desyrel] 200 mg PO QHS 06/26/18 03/18/20 1 Day Ago History ~03/17/20 Abacavir/Dolutegravir/Lamivudi 1 each PO QAM 02/18/19 03/18/20 1 Day Ago History [Triumeq 600-50-300 mg Tablet] ~03/17/20 Pregabalin [Lyrica] 200 mg PO DAILY 02/18/19 03/18/20 Unknown History diphenhydrAMINE [Benadryl CAP] 50 mg PO Q6HR PRN 02/18/19 03/18/[address] [DepaKOTE DR] 250 mg PO BID #60 tablet 03/21/20 Unknown Rx OLANZapine [Zyprexa] 15 mg PO DAILY #30 tablet 03/21/20 Unknown Rx traZODone [Desyrel] 200 mg PO QHS #30 tablet 03/21/20 Unknown Rx Hydrocortisone 0.5% (Nf) 1 applicatio TP TID #1 tube 03/28/20 Unknown Rx [Hydrocortisone 0.5% OINT] Lidocaine [Lidocaine GEL] 1 applicatio TP BID PRN #1 03/28/20 Unknown Rx gel..gram. Neomycin/Bacitracin/Polymyxinb 1 applicatio TP BID #1 oint...g. 03/28/20 Unknown Rx [Triple Antibiotic Ointment] Sulfamethoxazole/Trimethoprim 1 each PO BID 7 Days #14 tablet 03/28/20 Unknown Rx [Bactrim DS TAB] Docusate Sodium [Colace] 100 mg PO BID PRN #60 capsule 07/23/20 Unknown Rx Lactulose [Cephulac] 20 gm PO QDAY PRN #90 ml 07/23/20 Unknown Rx Acetaminophen/Codeine [Tylenol 1 tab PO Q6H PRN #8 tab 09/07/20 Unknown Rx /Codeine # 3 tab] Valacyclovir HCl [Valacyclovir] 1,000 mg PO BID #20 tablet 09/07/20 Unknown Rx Phenylephrine HCl/[place] Butter 1 each RC DAILY PRN #12 supp.rect 09/10/20 Unknown Rx [Preparation H Suppository] ED Physical Exam - General Limitations: No Limitations General appearance: alert, in no apparent distress - Head Head exam: Present: atraumatic, normocephalic - Eye Eye exam: Present: normal appearance - ENT ENT exam: Present: mucous membranes moist - Neck Neck exam: Present: normal inspection - Respiratory Respiratory exam: Present: normal lung sounds bilaterally. Absent: respiratory distress - Cardiovascular Cardiovascular Exam: Present: regular rate, normal rhythm. Absent: systolic murmur, diastolic murmur, rubs, gallop - GI/Abdominal GI/Abdominal exam: Present: soft, normal bowel sounds - Rectal Rectal exam: Present: deferred - Extremities Exam Extremities exam: Present: normal inspection - Back Exam Back exam: Present: normal inspection - Neurological Exam Neurological exam: Present: alert, oriented X3 - Psychiatric Psychiatric exam: Present: normal affect, normal mood - Skin Skin exam: Present: warm, dry, intact, normal color. Absent: rash ED Course Vital Signs 10/10/20 12:20 Temperature 99.8 F H Pulse Rate 124 H Respiratory 20 Rate Blood Pressure 141/101 O2 Sat by Pulse 97 Oximetry ED Medical Decision Making - Lab Data Result diagrams: 10/10/20 12:45 10/10/20 12:45 - EKG Data EKG shows normal: sinus rhythm Rate: tachycardia - EKG Data When compared to previous EKG there are: no significant change Interpretation: no acute changes - Medical Decision Making Patient is here for medical clearance for amphetamines. His heart rate is regular at 120 bpm. He denies any chest pain or shortness of breath. He last used amphetamines earlier today. Vital Signs 10/10/20 12:20 Temperature 99.8 F H Pulse Rate 124 H Respiratory 20 Rate Blood Pressure 141/101 O2 Sat by Pulse 97 Oximetry Blood pressure on reevaluation is 130/80. Lab Results 10/10/20 10/10/20 10/10/20 Range/Units 12:45 12:59 12:59 WBC 11.5 H (4.5-11.0) K/mm3 RBC 5.14 H (3.65-5.03) M/mm3 Hgb 14.0 (11.8-15.2) gm/dl Hct 43.6 (35.5-45.6) % MCV 85 (84-94) fl MCH 27 L (28-32) pg MCHC 32 (32-34) % RDW 15.2 (13.2-15.2) % Plt Count 454 H (140-440) K/mm3 Lymph % (Auto) 18.9 (13.4-35.0) % [place] % (Auto) 9.3 H (0.0-7.3) % Eos % (Auto) 0.1 (0.0-4.3) % Baso % (Auto) 0.6 (0.0-1.8) % Lymph # (Auto) 2.2 (1.2-5.4) K/mm3 [place] # (Auto) 1.1 H (0.0-0.8) K/mm3 Eos # (Auto) 0.0 (0.0-0.4) K/mm3 Baso # (Auto) 0.1 (0.0-0.1) K/mm3 Seg Neutrophils % 71.1 H (40.0-70.0) % Seg Neutrophils # 8.2 H (1.8-7.7) K/mm3 Urine Color Yellow (Yellow) Urine Turbidity Clear (Clear) Urine pH 7.0 (5.0-7.0) Ur Specific [place] 1.020 (1.003-1.030) Urine Protein 30 mg/dl (Negative) mg/dL Urine Glucose (UA) Neg (Negative) mg/dL Urine Ketones Neg (Negative) mg/dL Urine Blood Neg (Negative) Urine Nitrite Neg (Negative) Urine Bilirubin Neg (Negative) Urine Urobilinogen < 2.0 (<2.0) mg/dL Ur Leukocyte Esterase Neg (Negative) Urine WBC (Auto) 1.0 (0.0-6.0) /HPF Urine RBC (Auto) 5.0 (0.0-6.0) /HPF U Epithel Cells (Auto) < 1.0 (0-13.0) /HPF Urine Mucus Few /HPF Urine 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 UA noted. UDS noted to be clean. Patient being medically cleared for ongoing psychiatric care at [facility]. Patient being discharged for psychiatric care with medical clearance. He knows that he is supposed to call [facility] on discharge. Twelve-lead EKG shows no acute changes. Patient is abusing amphetamines. I believe this is why his heart rate and which are slightly elevated. He continues to deny chest pain or shortness of breath. On reexamination patient has no changes. He denies any complaints. Patient being discharged with medical clearance for psychiatric care. He verbalizes understanding of discharge plan of care and he should call [facility] on discharge for further evaluation and management of his substance abuse - Differential Diagnosis Medical clearance ED Disposition Clinical Impression: Medical clearance for psychiatric admission, Amphetamine abuse Disposition: TO HOME OR SELFCARE Is pt being admited?: No Does the pt Need Aspirin: No Condition: Stable Additional Instructions: MEDICALLY CLEARED FOR PSYCHIATRIC CARE Referrals: MEREDITH DUNCAN MD [Staff Physician] - 3-5 Days Time of Disposition: 13:26
[2020-10-10 14:30] LABS: Amphetamine Screen,Urine PRESUMPTIVE POSITIVE
[2020-10-10 14:35] LABS: Alanine Aminotransferase 49 units/L (7-56); Albumin 5.1 g/dL (3.9-5); BUN/Creatinine Ratio 22; Blood Urea Nitrogen 20 mg/dL (9-20); Calcium 9.8 mg/dL (8.4-10.2); Hemolysis Index 9
--- NOTE | 2020-10-11 17:50 | Electrocardiograph Report ---
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
== END 2020-10-10 14:10 | disposition home or self-care (01) ==
LOC: ED 12:00
DX: F15.10 Other stimulant abuse, uncomplicated (principal); Z04.6 Encounter for general psychiatric examination, requested by authority; F17.200 Nicotine dependence, unspecified, uncomplicated; Z98.890 Other specified postprocedural states; Z79.899 Other long term (current) drug therapy; Z21 Asymptomatic human immunodeficiency virus [HIV] infection status; Z88.8 Allergy status to other drugs, medicaments and biological substances
CPT/HCPCS: 36415; 80053; 80307; 81001; 85025; 93005

== ENCOUNTER 2020-10-13 08:03 | Emergency (ER) | payer MEDICARE ==
[2020-10-13 08:18] VITALS: BP 136/88
--- NOTE | 2020-10-13 08:42 | Event Note ---
ED Screening Note Date of service: 10/13/20 Time: 08:39 ED Screening Note: 40-year-old male presents with complaints of dizziness and dehydration. Patient is in no acute distress. Patient states he has been unable to take his medication as prescribed due for same circumstances. This initial assessment/diagnostic orders/clinical plan/treatment(s) is/are subject to change based on patients health status, clinical progression and re- assessment by fellow clinical providers in the ED. Further treatment and workup at subsequent clinical providers discretion. Patient/guardian urged not to elope from the ED as their condition may be serious if not clinically assessed and managed. Initial orders include: Medical clearance labs ordered
== END 2020-10-13 09:38 | disposition left against medical advice (07) ==
LOC: ED 08:03
DX: R42 Dizziness and giddiness (principal); E86.0 Dehydration; Z53.21 Procedure and treatment not carried out due to patient leaving prior to being seen by health care provider

== ENCOUNTER 2020-10-28 13:15 | Emergency (ER) | payer MEDICARE ==
--- NOTE | 2020-10-28 15:49 | Emergency Department Report ---
Blank Doc - Documentation Documentation: 40-year-old male SI and depression. 1- This initial assessment/diagnostic orders/clinical plan/ treatment(s) is/are subject to change based on pt's health status, clinical progression and re- assessment by fellow clinical providers in the ED. Further treatment and workup at subsequent clinical provers discretion. Patient/guardians urged not to elope from ED as their condition may be serious if not clinically assessed and managed. 2-psych protocol 3-RN notified to have the patient a close contact at all times due to SI and be brought back YARED.
[2020-10-28 16:59] LABS: Basophils # (Auto) 0.1 K/mm3 (0.0-0.1); Basophils % (Auto) 1.1 % (0.0-1.8); Eosinophils # (Auto) 0.5 K/mm3 (0.0-0.4); Eosinophils % (Auto) 5.9 % (0.0-4.3); Hematocrit 38.8 % (35.5-45.6); Hemoglobin 13.2 gm/dl (11.8-15.2); Lymphocytes # (Auto) 2.3 K/mm3 (1.2-5.4); Lymphocytes % (Auto) 29.9 % (13.4-35.0); Mean Corpuscular HGB Conc 34 % (32-34); Mean Corpuscular Volume 86 fl (84-94); Monocytes # (Auto) 0.8 K/mm3 (0.0-0.8); Monocytes % (Auto) 10.8 % (0.0-7.3); Platelet Count 425 K/mm3 (140-440); Red Blood Count 4.51 M/mm3 (3.65-5.03); Red Cell Distribution Width 14.5 % (13.2-15.2)
[2020-10-28 17:09] LABS: BUN/Creatinine Ratio 34; Blood Urea Nitrogen 27 mg/dL (9-20); Calcium 9.3 mg/dL (8.4-10.2); Hemolysis Index 3
[2020-10-28 20:00] LABS: Bilirubin,Urine NEG (Negative); Blood,Urine NEG (Negative); Color,Urine Yellow (Yellow); Mucus,Urine FEW /HPF; Protein,Urine <15 mg/dL mg/dL (Negative)
[2020-10-28 20:06] LABS: Benzodiazepines Screen,Urine Negative; Cannabinoid Screen,Urine Negative; Cocaine Screen,Urine Negative; Methadone Screen,Urine Negative; Opiate Screen,Urine Negative
[2020-10-28 20:17] LABS: Amphetamine Screen,Urine Positive
--- NOTE | 2020-10-29 05:00 | Emergency Department Report ---
HPI - General Chief Complaint: Psych Time Seen by Provider: 10/28/20 15:46 - HPI HPI: This is a 40-year-old male who presents to the emergency department with a complaint of depression, auditory hallucinations, suicidal and homicidal ideations. He has a psychiatric history of manic depression, schizophrenia and ADHD. He has a medical history of HIV, myopathy and neuropathy. The patient says that the depression has been going on for the past 6 months. The auditory hallucinations are sometimes just "chatter", but sometimes he hears voices that tell him to kill himself and kill other people. He says that if he was going to kill himself that he would do so by overdose. He says he has done suicide attempts in the past. The patient is a tobacco smoker. He denies any illicit drug use, but his urine drug screen has already come back positive for amphetamines. ED Past Medical Hx - Past Medical History Hx Psychiatric Treatment: No Hx HIV: Yes (anti-virals last CD4 count 100s winter 2019) Additional medical history: avascular necrosis left hip, peripheral neuropathy. Hep C-? HIV+ - Surgical History Additional Surgical History: right hip replacement - Social History Smoking Status: Current Every Day Smoker Substance Use Type: None - Medications Home Medications: Home Medications Medication Instructions Recorded Confirmed Last Taken Type OLANZapine [Zyprexa] 10 mg PO QHS 06/26/18 03/18/20 1 Day Ago History ~03/17/20 traZODone [Desyrel] 200 mg PO QHS 06/26/18 03/18/20 1 Day Ago History ~03/17/20 Abacavir/Dolutegravir/Lamivudi 1 each PO QAM 02/18/19 03/18/20 1 Day Ago History [Triumeq 600-50-300 mg Tablet] ~03/17/20 Pregabalin [Lyrica] 200 mg PO DAILY 02/18/19 03/18/20 Unknown History diphenhydrAMINE [Benadryl CAP] 50 mg PO Q6HR PRN 02/18/19 03/18/20 Unknown History Divalproex [Viviane WHITLEY] 250 mg PO BID #60 tablet 03/21/20 Unknown Rx OLANZapine [Zyprexa] 15 mg PO DAILY #30 tablet 03/21/20 Unknown Rx traZODone [Desyrel] 200 mg PO QHS #30 tablet 03/21/20 Unknown Rx Hydrocortisone 0.5% (Nf) 1 applicatio TP TID #1 tube 03/28/20 Unknown Rx [Hydrocortisone 0.5% OINT] Lidocaine [Lidocaine GEL] 1 applicatio TP BID PRN #1 03/28/20 Unknown Rx gel..gram. Neomycin/Bacitracin/Polymyxinb 1 applicatio TP BID #1 oint...g. 03/28/20 Unknown Rx [Triple Antibiotic Ointment] Sulfamethoxazole/Trimethoprim 1 each PO BID 7 Days #14 tablet 03/28/20 Unknown Rx [Bactrim DS TAB] Docusate Sodium [Colace] 100 mg PO BID PRN #60 capsule 07/23/20 Unknown Rx Lactulose [Cephulac] 20 gm PO QDAY PRN #90 ml 07/23/20 Unknown Rx Acetaminophen/Codeine [Tylenol 1 tab PO Q6H PRN #8 tab 09/07/20 Unknown Rx /Codeine # 3 tab] Valacyclovir HCl [Valacyclovir] 1,000 mg PO BID #20 tablet 09/07/20 Unknown Rx Phenylephrine HCl/[place] Butter 1 each RC DAILY PRN #12 supp.rect 09/10/20 Unknown Rx [Preparation H Suppository] ED Review of Systems ROS: Stated complaint: SI, DEPRESSION Other details as noted in HPI Comment: All other systems reviewed and negative Constitutional: denies: chills, fever Respiratory: denies: cough, shortness of breath Cardiovascular: denies: chest pain, palpitations Gastrointestinal: denies: abdominal pain, vomiting Musculoskeletal: denies: back pain, arthralgia Neurological: denies: headache, weakness Psychiatric: auditory hallucinations, homicidal thoughts, suicidal thoughts Physical Exam - Physical Exam Vital Signs: Vital Signs 10/28/20 16:19 Temperature 98.6 F Pulse Rate 86 Respiratory 20 Rate Blood Pressure 118/74 Blood Pressure 118/74 [Right] O2 Sat by Pulse 99 Oximetry Physical Exam: GENERAL: The patient is well-developed well-nourished. HENT: Normocephalic. Atraumatic. Patient has moist mucous membranes. EYES: Extraocular motions are intact. NECK: Supple. Trachea is midline. CHEST/LUNGS: Clear to auscultation. There is no respiratory distress noted. HEART/CARDIOVASCULAR: Regular. There is no tachycardia. There is no murmur. ABDOMEN: Abdomen is soft, nontender. Patient has normal bowel sounds. SKIN: Skin is warm and dry. NEURO: The patient is awake, alert, and oriented. The patient is cooperative. The patient has no focal neurologic deficits. Normal speech. MUSCULOSKELETAL: There is no tenderness or deformity. ED Course Vital Signs 10/28/20 16:19 Temperature 98.6 F Pulse Rate 86 Respiratory 20 Rate Blood Pressure 118/74 Blood Pressure 118/74 [Right] O2 Sat by Pulse 99 Oximetry ED Medical Decision Making - Lab Data Result diagrams: 10/28/20 15:56 10/28/20 15:56 Lab Results 10/28/20 10/28/20 10/28/20 Range/Units 15:56 15:56 15:56 WBC 7.7 (4.5-11.0) K/mm3 RBC 4.51 (3.65-5.03) M/mm3 Hgb 13.2 (11.8-15.2) gm/dl Hct 38.8 (35.5-45.6) % MCV 86 (84-94) fl MCH 29 (28-32) pg MCHC 34 (32-34) % RDW 14.5 (13.2-15.2) % Plt Count 425 (140-440) K/mm3 Lymph % (Auto) 29.9 (13.4-35.0) % [place] % (Auto) 10.8 H (0.0-7.3) % Eos % (Auto) 5.9 H (0.0-4.3) % Baso % (Auto) 1.1 (0.0-1.8) % Lymph # (Auto) 2.3 (1.2-5.4) K/mm3 [place] # (Auto) 0.8 (0.0-0.8) K/mm3 Eos # (Auto) 0.5 H (0.0-0.4) K/mm3 Baso # (Auto) 0.1 (0.0-0.1) K/mm3 Seg Neutrophils % 52.3 (40.0-70.0) % Seg Neutrophils # 4.0 (1.8-7.7) K/mm3 Sodium 139 (137-145) mmol/L Potassium 4.3 (3.6-5.0) mmol/L Chloride 100.7 (98-107) mmol/L Carbon Dioxide 27 (22-30) mmol/L Anion Gap 16 mmol/L BUN 27 H (9-20) mg/dL Creatinine 0.8 (0.8-1.3) mg/dL Estimated GFR > 60 ml/min BUN/Creatinine Ratio 34 % Glucose 85 (75-100) mg/dL Calcium 9.3 (8.4-10.2) mg/dL Urine Color (Yellow) Urine Turbidity (Clear) Urine pH (5.0-7.0) Ur Specific [place] (1.003-1.030) Urine Protein (Negative) mg/dL Urine Glucose (UA) (Negative) mg/dL Urine Ketones (Negative) mg/dL Urine Blood (Negative) Urine Nitrite (Negative) Urine Bilirubin (Negative) Urine Urobilinogen (<2.0) mg/dL Ur Leukocyte Esterase (Negative) Urine WBC (Auto) (0.0-6.0) /HPF Urine RBC (Auto) (0.0-6.0) /HPF Urine Mucus /HPF Salicylates < 0.3 L (2.8-20.0) mg/dL Urine Opiates Screen Urine Methadone Screen Acetaminophen (10.0-30.0) ug/mL Ur Barbiturates Screen Ur Phencyclidine Scrn Ur Amphetamines Screen U Benzodiazepines Scrn Urine Cocaine Screen U Marijuana (THC) Screen Drugs of Abuse Note Plasma/Serum Alcohol (0-0.07) % 10/28/20 10/28/20 10/28/20 Range/Units 15:56 15:56 19:48 WBC (4.5-11.0) K/mm3 RBC (3.65-5.03) M/mm3 Hgb (11.8-15.2) gm/dl Hct (35.5-45.6) % MCV (84-94) fl MCH (28-32) pg MCHC (32-34) % RDW (13.2-15.2) % Plt Count (140-440) K/mm3 Lymph % (Auto) (13.4-35.0) % [place] % (Auto) (0.0-7.3) % Eos % (Auto) (0.0-4.3) % Baso % (Auto) (0.0-1.8) % Lymph # (Auto) (1.2-5.4) K/mm3 [place] # (Auto) (0.0-0.8) K/mm3 Eos # (Auto) (0.0-0.4) K/mm3 Baso # (Auto) (0.0-0.1) K/mm3 Seg Neutrophils % (40.0-70.0) % Seg Neutrophils # (1.8-7.7) K/mm3 Sodium (137-145) mmol/L Potassium (3.6-5.0) mmol/L Chloride (98-107) mmol/L Carbon Dioxide (22-30) mmol/L Anion Gap mmol/L BUN (9-20) mg/dL Creatinine (0.8-1.3) mg/dL Estimated GFR ml/min BUN/Creatinine Ratio % Glucose (75-100) mg/dL Calcium (8.4-10.2) mg/dL Urine Color Yellow (Yellow) Urine Turbidity Clear (Clear) Urine pH 5.0 (5.0-7.0) Ur Specific [place] 1.031 H (1.003-1.030) Urine Protein <15 mg/dl (Negative) mg/dL Urine Glucose (UA) Neg (Negative) mg/dL Urine Ketones Neg (Negative) mg/dL Urine Blood Neg (Negative) Urine Nitrite Neg (Negative) Urine Bilirubin Neg (Negative) Urine Urobilinogen 2.0 (<2.0) mg/dL Ur Leukocyte Esterase Neg (Negative) Urine WBC (Auto) 1.0 (0.0-6.0) /HPF Urine RBC (Auto) 4.0 (0.0-6.0) /HPF Urine Mucus Few /HPF Salicylates (2.8-20.0) mg/dL Urine Opiates Screen Urine Methadone Screen Acetaminophen 5.0 L (10.0-30.0) ug/mL Ur Barbiturates Screen Ur Phencyclidine Scrn Ur Amphetamines Screen U Benzodiazepines Scrn Urine Cocaine Screen U Marijuana (THC) Screen Drugs of Abuse Note Plasma/Serum Alcohol < 0.01 (0-0.07) % 10/28/20 Range/Units 19:48 WBC (4.5-11.0) K/mm3 RBC (3.65-5.03) M/mm3 Hgb (11.8-15.2) gm/dl Hct (35.5-45.6) % MCV (84-94) fl MCH (28-32) pg MCHC (32-34) % RDW (13.2-15.2) % Plt Count (140-440) K/mm3 Lymph % (Auto) (13.4-35.0) % [place] % (Auto) (0.0-7.3) % Eos % (Auto) (0.0-4.3) % Baso % (Auto) (0.0-1.8) % Lymph # (Auto) (1.2-5.4) K/mm3 [place] # (Auto) (0.0-0.8) K/mm3 Eos # (Auto) (0.0-0.4) K/mm3 Baso # (Auto) (0.0-0.1) K/mm3 Seg Neutrophils % (40.0-70.0) % Seg Neutrophils # (1.8-7.7) K/mm3 Sodium (137-145) mmol/L Potassium (3.6-5.0) mmol/L Chloride (98-107) mmol/L Carbon Dioxide (22-30) mmol/L Anion Gap mmol/L BUN (9-20) mg/dL Creatinine (0.8-1.3) mg/dL Estimated GFR ml/min BUN/Creatinine Ratio % Glucose (75-100) mg/dL Calcium (8.4-10.2) mg/dL Urine Color (Yellow) Urine Turbidity (Clear) Urine pH (5.0-7.0) Ur Specific [place] (1.003-1.030) Urine Protein (Negative) mg/dL Urine Glucose (UA) (Negative) mg/dL Urine Ketones (Negative) mg/dL Urine Blood (Negative) Urine Nitrite (Negative) Urine Bilirubin (Negative) Urine Urobilinogen (<2.0) mg/dL Ur Leukocyte Esterase (Negative) Urine WBC (Auto) (0.0-6.0) /HPF Urine RBC (Auto) (0.0-6.0) /HPF Urine Mucus /HPF Salicylates (2.8-20.0) mg/dL Urine Opiates Screen Negative Urine Methadone Screen Negative Acetaminophen (10.0-30.0) ug/mL Ur Barbiturates Screen Negative Ur Phencyclidine Scrn Negative Ur Amphetamines Screen Positive U Benzodiazepines Scrn Negative Urine Cocaine Screen Negative U Marijuana (THC) Screen Negative Drugs of Abuse Note Disclamer Plasma/Serum Alcohol (0-0.07) % - Medical Decision Making This patient presents to the emergency department with the complaint of d epression, auditory hallucinations that are sometimes command hallucinations, suicidal and homicidal ideations. For this reason the patient has been made a 1013 and an ED hold. Patient's labs have been mostly unremarkable including CBC, metabolic panel, blood alcohol level, urinalysis, but UDS is positive for amphetamines. Vital signs reassuring throughout his ED course thus far. He will be seen by the psychiatric exerciser or the psychiatric team in the morning. He is medically cleared for psychiatric placement. Critical Care Time: No Critical care attestation.: If time is entered above; I have spent that time in minutes in the direct care of this critically ill patient, excluding procedure time. ED Disposition Clinical Impression: History of command hallucinations, Suicidal ideations, Homicidal ideations Schizophrenia Qualifiers: Schizophrenia type: unspecified Qualified Code(s): F20.9 - Schizophrenia, unspecified HIV (human immunodeficiency virus infection) Qualifiers: HIV symptom status: unspecified Qualified Code(s): B20 - Human immunodeficiency virus [HIV] disease Disposition: DC/TX-65 PSY HOSP/PSY UNIT Is pt being admited?: No Condition: Stable Time of Disposition: 05:13
[2020-10-29 08:09] VITALS: BP 128/99
--- NOTE | 2020-10-29 10:21 | Emergency Department Report ---
Blank Doc - Documentation Documentation: Patient is sleeping comfortably in no acute distress. Vital signs stable. No current medical issues. Awaiting psychiatric placement.
--- NOTE | 2020-10-29 11:08 | Consultation ---
History of Present Illness - Reason for Consult Consult date: 10/29/20 Reason for consult: SI - History of Present Psychiatric Illness Per ED Note: This is a 40-year-old male who presents to the emergency department with a complaint of depression, auditory hallucinations, suicidal and homicidal ideations. He has a psychiatric history of manic depression, schizophrenia and ADHD. He has a medical history of HIV, myopathy and neuropathy. The patient sa ys that the depression has been going on for the past 6 months. The auditory hallucinations are sometimes just "chatter", but sometimes he hears voices that tell him to kill himself and kill other people. He says that if he was going to kill himself that he would do so by overdose. He says he has done suicide attempts in the past. The patient is a tobacco smoker. He denies any illicit drug use, but his urine drug screen has already come back positive for amphetamines. Per Nurse Note: The patient came in for secondary assessment and he was only wanting to sleep. Refusing to answer triage questions. Juan Caldwell is a 40y/o male patient whom was evaluated by me. During my evaluation the patient had to be awakened several times. He was reluctant initially to answer questions. He says he came to the hospital for "depression." When asking the patient about suicidal thoughts, he initially says no, then says "yea." The patient denies any illicit drug use although he is positive for amphetamines and has history of use. He also denies any alcohol or nicotine use. The patient denies hallucinations of any kind at present, but states "at first, but they come and go." The patient says he has not been taking any of his medications. When asking the patient his reason, he says "I don't know" then goes back to sleep. PAST PSYCHIATRIC HISTORY Diagnoses: schizophrenia and bipolar Suicide attempts or Self-harm behavior: about 7 times Prior psychiatric hospitalizations: "yes" Substance Abuse history: meth Previous psychiatric medications tried: seroquel, trazodone, latuda Outpatient treatment: yes PAST MEDICAL HISTORY: HIV Family Psychiatric History: None reported or documented SOCIAL HISTORY Marital Status: Single Living Arrangements: homeless Employment Status: Disabled Access to guns/weapons: Denies Education: high school grad History of Abuse: Denies Legal History: Denies EVIEW OF SYSTEMS Constitutional: Negative for weight loss ENT: Negative for stridor Respiratory: Negative for cough or hemoptysis All other systems reviewed and are negative MENTAL STATUS EXAMINATION General Appearance and Behavior: Age appropriate, wearing appropriate clothes, sleeping, reluctant to cooperate Mood: "tired" Affect and affective range: congruent with mood Thought Process: logical Thought Content: None Speech: Normal volume, Regular rate and rhythm Suicidal Ideation: "no, yes" Homicidal Ideation: Denies Homicidal Hallucinations: Denies at present Delusions: None elicited Impulse Control: Unimpaired Insight and Judgment: Limited Memory/Cognition: Normal Attention: Normal Orientation: Alert, oriented Assessment (1) Amphtamine Dependence with Mood Disorder (2) Noncompliance with other medical treatments and regimen (z91.10) Plan Continue previously prescribed meds. Sitter: Defer to primary Medical: Per primary Disposition: Do not recommend acute inpatient treatment. Explained to the patient that if suicidal thoughts reoccur he should seek immediate assistance including but not limited to 911/ER and the crisis hotline. The patient should comply with all medical regimens, including outpatient psychiatry, CBT, medication adherence, drug rehab, and continued cessation from all illicit drug use and alcohol. The potato chip sorter to give the patient outpatient resources to help the patient comply with above mentioned. The potato chip sorter is to further discuss with the patient the safety plan. Will sign off. Thank you for this consult. Case staffed with Dr. Godfrey Medications and Allergies Allergies Allergy/AdvReac Type Severity Reaction Status Date / Time [id number] AdvReac Hives Verified 10/10/20 12:20 [From Ziextenzo] Home Medications Medication Instructions Recorded Confirmed Last Taken Type OLANZapine [Zyprexa] 10 mg PO QHS 06/26/18 03/18/20 1 Day Ago History ~03/17/20 traZODone [Desyrel] 200 mg PO QHS 06/26/18 03/18/20 1 Day Ago History ~03/17/20 Abacavir/Dolutegravir/Lamivudi 1 each PO QAM 02/18/19 03/18/20 1 Day Ago History [Triumeq 600-50-300 mg Tablet] ~03/17/20 Pregabalin [Lyrica] 200 mg PO DAILY 02/18/19 03/18/20 Unknown History diphenhydrAMINE [Benadryl CAP] 50 mg PO Q6HR PRN 02/18/19 03/18/[address] [DepAnam DR] 250 mg PO BID #60 tablet 03/21/20 Unknown Rx OLANZapine [Zyprexa] 15 mg PO DAILY #30 tablet 03/21/20 Unknown Rx traZODone [Desyrel] 200 mg PO QHS #30 tablet 03/21/20 Unknown Rx Hydrocortisone 0.5% (Nf) 1 applicatio TP TID #1 tube 03/28/20 Unknown Rx [Hydrocortisone 0.5% OINT] Lidocaine [Lidocaine GEL] 1 applicatio TP BID PRN #1 03/28/20 Unknown Rx gel..gram. Neomycin/Bacitracin/Polymyxinb 1 applicatio TP BID #1 oint...g. 03/28/20 Unknown Rx [Triple Antibiotic Ointment] Sulfamethoxazole/Trimethoprim 1 each PO BID 7 Days #14 tablet 03/28/20 Unknown Rx [Bactrim DS TAB] Docusate Sodium [Colace] 100 mg PO BID PRN #60 capsule 07/23/20 Unknown Rx Lactulose [Cephulac] 20 gm PO QDAY PRN #90 ml 07/23/20 Unknown Rx Acetaminophen/Codeine [Tylenol 1 tab PO Q6H PRN #8 tab 09/07/20 Unknown Rx /Codeine # 3 tab] Valacyclovir HCl [Valacyclovir] 1,000 mg PO BID #20 tablet 09/07/20 Unknown Rx Phenylephrine HCl/[place] Butter 1 each RC DAILY PRN #12 supp.rect 09/10/20 Un known Rx [Preparation H Suppository] Mental Status Exam - Vital signs Last Vital Signs Temp 98.0 F 10/29/20 08:08 Pulse 90 10/29/20 08:08 Resp 20 10/29/20 08:08 BP 128/99 10/29/20 08:08 Pulse Ox 100 10/29/20 08:08 Results Result Diagrams: 10/28/20 15:56 10/28/20 15:56 Abnormal lab results 10/28/20 10/28/20 10/28/20 Range/Units 15:56 15:56 15:56 [place] % (Auto) 10.8 H (0.0-7.3) % Eos % (Auto) 5.9 H (0.0-4.3) % Eos # (Auto) 0.5 H (0.0-0.4) K/mm3 BUN 27 H (9-20) mg/dL Ur Specific [place] (1.003-1.030) Salicylates < 0.3 L (2.8-20.0) mg/dL Acetaminophen (10.0-30.0) ug/mL 10/28/20 10/28/20 Range/Units 15:56 19:48 [place] % (Auto) (0.0-7.3) % Eos % (Auto) (0.0-4.3) % Eos # (Auto) (0.0-0.4) K/mm3 BUN (9-20) mg/dL Ur Specific [place] 1.031 H (1.003-1.030) Salicylates (2.8-20.0) mg/dL Acetaminophen 5.0 L (10.0-30.0) ug/mL All other labs normal.
== END 2020-10-29 13:30 ==
LOC: ED 13:15
DX: F20.9 Schizophrenia, unspecified (principal); B20 Human immunodeficiency virus [HIV] disease; R45.851 Suicidal ideations; R45.850 Homicidal ideations; F17.200 Nicotine dependence, unspecified, uncomplicated; Z20.822 Contact with and (suspected) exposure to COVID-19; Z86.59 Personal history of other mental and behavioral disorders; Z88.8 Allergy status to other drugs, medicaments and biological substances; Z98.890 Other specified postprocedural states; Z79.899 Other long term (current) drug therapy
CPT/HCPCS: 36415; 80048; 80307; 81001; 85025; 99284; U0003; 80320; G0480

== ENCOUNTER 2020-11-07 00:50 | Emergency (ER) | payer MEDICARE ==
[2020-11-07 00:58] VITALS: BP 125/78
[2020-11-07] MEDS ORDERED: traMADol 50 MG TAB PO ONE (06:00)
--- NOTE | 2020-11-07 06:07 | Emergency Department Report ---
ED General Adult HPI - General Chief complaint: Extremity Problem,Nontraumatic Stated complaint: LEG PAIN Time Seen by Provider: 11/07/20 06:01 Source: patient Mode of arrival: Ambulatory Limitations: No Limitations - History of Present Illness Initial comments: Patient is a 40-year-old -Portuguese male who presents for bilateral lower extremity pain. Patient states he is followed by [facility] Dr. ROME is prescribed Lortab for chronic pain. Patient denies new fall injury or trauma. Patient ambulated into ed with steady gait. There is no fevers chills, no numbness weakness or paralysis. Pain is described as 4/10 aching. Pain is relieved by Lortab. Pain is exacerbated by prolonged walking standing weightbearing. - Related Data Home Medications Medication Instructions Recorded Confirmed Last Taken OLANZapine [Zyprexa] 10 mg PO QHS 06/26/18 03/18/20 1 Day Ago ~03/17/20 traZODone [Desyrel] 200 mg PO QHS 06/26/18 03/18/20 1 Day Ago ~03/17/20 Abacavir/Dolutegravir/Lamivudi 1 each PO QAM 02/18/19 03/18/20 1 Day Ago [Triumeq 600-50-300 mg Tablet] ~03/17/20 Pregabalin [Lyrica] 200 mg PO DAILY 02/18/19 03/18/20 Unknown diphenhydrAMINE [Benadryl CAP] 50 mg PO Q6HR PRN 02/18/19 03/18/20 Unknown Previous Rx's Medication Instructions Recorded Last Taken Type Divalproex Dr [Viviane WHITLEY] 250 mg PO BID #60 tablet 03/21/20 Unknown Rx OLANZapine [Zyprexa] 15 mg PO DAILY #30 tablet 03/21/20 Unknown Rx traZODone [Desyrel] 200 mg PO QHS #30 tablet 03/21/20 Unknown Rx Hydrocortisone 0.5% (Nf) 1 applicatio TP TID #1 tube 03/28/20 Unknown Rx [Hydrocortisone 0.5% OINT] Lidocaine [Lidocaine GEL] 1 applicatio TP BID PRN #1 03/28/20 Unknown Rx gel..gram. Neomycin/Bacitracin/Polymyxinb 1 applicatio TP BID #1 oint...g. 03/28/20 Unknown Rx [Triple Antibiotic Ointment] Sulfamethoxazole/Trimethoprim 1 each PO BID 7 Days #14 tablet 03/28/20 Unknown Rx [Bactrim DS TAB] Docusate Sodium [Colace] 100 mg PO BID PRN #60 capsule 07/23/20 Unknown Rx Lactulose [Cephulac] 20 gm PO QDAY PRN #90 ml 07/23/20 Unknown Rx Acetaminophen/Codeine [Tylenol 1 tab PO Q6H PRN #8 tab 09/07/20 Unknown Rx /Codeine # 3 tab] Valacyclovir HCl [Valacyclovir] 1,000 mg PO BID #20 tablet 09/07/20 Unknown Rx Phenylephrine HCl/[place] Butter 1 each RC DAILY PRN #12 supp.rect 09/10/20 Unknown Rx [Preparation H Suppository] Allergies Allergy/AdvReac Type Severity Reaction Status Date / Time pegfilgrastim-bmez AdvReac Hives Verified 10/10/20 12:20 [From Ziextenzo] ED Review of Systems ROS: Stated complaint: LEG PAIN Other details as noted in HPI Constitutional: denies: chills, fever Eyes: denies: eye pain, eye discharge, vision change ENT: denies: ear pain, throat pain Respiratory: denies: cough, shortness of breath, wheezing Cardiovascular: denies: chest pain, palpitations Endocrine: no symptoms reported Gastrointestinal: denies: abdominal pain, nausea, diarrhea Genitourinary: denies: urgency, dysuria Musculoskeletal: arthralgia. denies: back pain, joint swelling Skin: denies: rash, lesions Neurological: denies: headache, weakness, paresthesias Psychiatric: denies: anxiety, depression Hematological/Lymphatic: denies: easy bleeding, easy bruising ED Past Medical Hx - Past Medical History Previous Medical History?: Yes Hx Psychiatric Treatment: No Hx HIV: Yes (anti-virals last CD4 count 100s winter 2019) Additional medical history: myopathy, avascular necrosis left hip, peripheral neuropathy. Hep C-? HIV+ - Surgical History Past Surgical History?: Yes Additional Surgical History: right hip replacement - Social History Smoking Status: Current Every Day Smoker Substance Use Type: None - Medications Home Medications: Home Medications Medication Instructions Recorded Confirmed Last Taken Type OLANZapine [Zyprexa] 10 mg PO QHS 06/26/18 03/18/20 1 Day Ago History ~03/17/20 traZODone [Desyrel] 200 mg PO QHS 06/26/18 03/18/20 1 Day Ago History ~03/17/20 Abacavir/Dolutegravir/Lamivudi 1 each PO QAM 02/18/19 03/18/20 1 Day Ago History [Triumeq 600-50-300 mg Tablet] ~03/17/20 Pregabalin [Lyrica] 200 mg PO DAILY 02/18/19 03/18/20 Unknown History diphenhydrAMINE [Benadryl CAP] 50 mg PO Q6HR PRN 02/18/19 03/18/[address] [Viviane DR] 250 mg PO BID #60 tablet 03/21/20 Unknown Rx OLANZapine [Zyprexa] 15 mg PO DAILY #30 tablet 03/21/20 Unknown Rx traZODone [Desyrel] 200 mg PO QHS #30 tablet 03/21/20 Unknown Rx Hydrocortisone 0.5% (Nf) 1 applicatio TP TID #1 tube 03/28/20 Unknown Rx [Hydrocortisone 0.5% OINT] Lidocaine [Lidocaine GEL] 1 applicatio TP BID PRN #1 03/28/20 Unknown Rx gel..gram. Neomycin/Bacitracin/Polymyxinb 1 applicatio TP BID #1 oint...g. 03/28/20 Unknown Rx [Triple Antibiotic Ointment] Sulfamethoxazole/Trimethoprim 1 each PO BID 7 Days #14 tablet 03/28/20 Unknown Rx [Bactrim DS TAB] Docusate Sodium [Colace] 100 mg PO BID PRN #60 capsule 07/23/20 Unknown Rx Lactulose [Cephulac] 20 gm PO QDAY PRN #90 ml 07/23/20 Unknown Rx Acetaminophen/Codeine [Tylenol 1 tab PO Q6H PRN #8 tab 09/07/20 Unknown Rx /Codeine # 3 tab] Valacyclovir HCl [Valacyclovir] 1,000 mg PO BID #20 tablet 09/07/20 Unknown Rx Phenylephrine HCl/[place] Butter 1 each RC DAILY PRN #12 supp.rect 09/10/20 Unknown Rx [Preparation H Suppository] ED Physical Exam - General Limitations: No Limitations General appearance: alert, in no apparent distress - Head Head exam: Present: atraumatic, normocephalic - Eye Eye exam: Present: normal appearance, PERRL, EOMI Pupils: Present: normal accommodation - ENT ENT exam: Present: mucous membranes moist - Neck Neck exam: Present: normal inspection, full ROM. Absent: tenderness - Respiratory Respiratory exam: Present: normal lung sounds bilaterally. Absent: respiratory distress, wheezes - Cardiovascular Cardiovascular Exam: Present: regular rate, normal rhythm, normal heart sounds. Absent: systolic murmur, diastolic murmur, rubs, gallop - GI/Abdominal GI/Abdominal exam: Present: soft, normal bowel sounds. Absent: distended, tenderness - Rectal Rectal exam: Present: deferred - Extremities Exam Extremities exam: Present: normal inspection, full ROM, normal capillary refill. Absent: tenderness, pedal edema, joint swelling, calf tenderness - Back Exam Back exam: Present: normal inspection, full ROM. Absent: vertebral tenderness - Neurological Exam Neurological exam: Present: alert, oriented X3, CN II-XII intact, normal gait, reflexes normal. Absent: motor sensory deficit - Expanded Neurological Exam Expanded Patient oriented to: Present: person, place, time Speech: Present: fluid speech Motor strength exam: RUE: 5, LUE: 5, RLE: 5, LLE: 5 Best Eye Response ([place]): (4) open spontaneously Best Motor Response ([place]): (6) obeys commands Best Verbal Response ([place]): (5) oriented [place] Total: 15 - Psychiatric Psychiatric exam: Present: normal affect, normal mood - Skin Skin exam: Present: warm, dry, intact, normal color. Absent: rash ED Course Vital Signs 11/07/20 00:53 Temperature 98.2 F Pulse Rate 99 H Respiratory 18 Rate Blood Pressure 125/78 O2 Sat by Pulse 97 Oximetry ED Medical Decision Making - Medical Decision Making Is acute on chronic pain, patient will follow-up with his PCP Dr. Rome today as scheduled. Patient DC'd home in stable condition at this time. Critical care attestation.: If time is entered above; I have spent that time in minutes in the direct care of this critically ill patient, excluding procedure time. ED Disposition Clinical Impression: Musculoskeletal pain Disposition: DC-01 TO HOME OR SELFCARE Is pt being admited?: No Does the pt Need Aspirin: No Condition: Stable Instructions: Musculoskeletal Pain Additional Instructions: follow up with Dr Rome today as scheduled, take all medications as prescribed, return to emergency if symptoms worsen Referrals: PRIMARY CARE, [Primary Care Provider] - [facility] Time of Disposition: 06:08
== END 2020-11-07 06:18 | disposition home or self-care (01) ==
LOC: ED 00:50
DX: M79.662 Pain in left lower leg (principal); M79.661 Pain in right lower leg; F17.200 Nicotine dependence, unspecified, uncomplicated; Z21 Asymptomatic human immunodeficiency virus [HIV] infection status; Z98.890 Other specified postprocedural states; Z79.899 Other long term (current) drug therapy; Z88.8 Allergy status to other drugs, medicaments and biological substances
CPT/HCPCS: 99282

== ENCOUNTER 2020-11-24 13:32 | Emergency (ER) | payer MEDICARE ==
[2020-11-24 15:09] VITALS: BP 134/85
[2020-11-24] MEDS ORDERED: ACETAMINOPHEN W/CODEINE 300-30 MG TAB PO ONE (15:12)
--- NOTE | 2020-11-24 15:24 | Emergency Department Report ---
ED Fall HPI - General Chief Complaint: Fall Stated Complaint: FALL, LEFT HIP PAIN Time Seen by Provider: 11/24/20 15:09 Source: patient Mode of arrival: Ambulatory - History of Present Illness Initial Comments: Patient is a 40-year-old male presents emergency room with complaints of a fall that occurred this morning. He states that he walks with a cane. He states that he accidentally slipped and fell onto his left hip. He states that he has been having left hip pain since then. He is currently ambulatory with a cane. Patient states that he has a history of avascular necrosis and is post to have a hip replacement of his left hip. He states that he is already had a hip replacement of the right hip. Patient has a history of chronic pain and takes Lortab at home. - Related Data Home Medications Medication Instructions Recorded Confirmed Last Taken OLANZapine [Zyprexa] 10 mg PO QHS 06/26/18 03/18/20 1 Day Ago ~03/17/20 traZODone [Desyrel] 200 mg PO QHS 06/26/18 03/18/20 1 Day Ago ~03/17/20 Abacavir/Dolutegravir/Lamivudi 1 each PO QAM 02/18/19 03/18/20 1 Day Ago [Triumeq 600-50-300 mg Tablet] ~03/17/20 Pregabalin [Lyrica] 200 mg PO DAILY 02/18/19 03/18/20 Unknown diphenhydrAMINE [Benadryl CAP] 50 mg PO Q6HR PRN 02/18/19 03/18/20 Unknown Previous Rx's Medication Instructions Recorded Last Taken Type Divalproex [Viviane WHITLEY] 250 mg PO BID #60 tablet 03/21/20 Unknown Rx OLANZapine [Zyprexa] 15 mg PO DAILY #30 tablet 03/21/20 Unknown Rx traZODone [Desyrel] 200 mg PO QHS #30 tablet 03/21/20 Unknown Rx Hydrocortisone 0.5% (Nf) 1 applicatio TP TID #1 tube 03/28/20 Unknown Rx [Hydrocortisone 0.5% OINT] Lidocaine [Lidocaine GEL] 1 applicatio TP BID PRN #1 03/28/20 Unknown Rx gel..gram. Neomycin/Bacitracin/Polymyxinb 1 applicatio TP BID #1 oint...g. 03/28/20 Unknown Rx [Triple Antibiotic Ointment] Sulfamethoxazole/Trimethoprim 1 each PO BID 7 Days #14 tablet 03/28/20 Unknown Rx [Bactrim DS TAB] Docusate Sodium [Colace] 100 mg PO BID PRN #60 capsule 07/23/20 Unknown Rx Lactulose [Cephulac] 20 gm PO QDAY PRN #90 ml 07/23/20 Unknown Rx Acetaminophen/Codeine [Tylenol 1 tab PO Q6H PRN #8 tab 09/07/20 Unknown Rx /Codeine # 3 tab] Valacyclovir HCl [Valacyclovir] 1,000 mg PO BID #20 tablet 09/07/20 Unknown Rx Phenylephrine HCl/[place] Butter 1 each RC DAILY PRN #12 supp.rect 09/10/20 Unknown Rx [Preparation H Suppository] Allergies Allergy/AdvReac Type Severity Reaction Status Date / Time pegfilgrastim-bmez AdvReac Hives Verified 10/10/20 12:20 [From Ziextenzo] ED Review of Systems ROS: Stated complaint: FALL, LEFT HIP PAIN Other details as noted in HPI Comment: All other systems reviewed and negative ED Past Medical Hx - Past Medical History Previous Medical History?: Yes Hx Psychiatric Treatment: No Hx HIV: Yes (anti-virals last CD4 count 100s winter 2019) Additional medical history: myopathy, avascular necrosis left hip, peripheral neuropathy. Hep C-? HIV+ - Surgical History Past Surgical History?: Yes Additional Surgical History: right hip replacement - Social History Smoking Status: Current Every Day Smoker Substance Use Type: None - Medications Home Medications: Home Medications Medication Instructions Recorded Confirmed Last Taken Type OLANZapine [Zyprexa] 10 mg PO QHS 06/26/18 03/18/20 1 Day Ago History ~03/17/20 traZODone [Desyrel] 200 mg PO QHS 06/26/18 03/18/20 1 Day Ago History ~03/17/20 Abacavir/Dolutegravir/Lamivudi 1 each PO QAM 02/18/19 03/18/20 1 Day Ago History [Triumeq 600-50-300 mg Tablet] ~03/17/20 Pregabalin [Lyrica] 200 mg PO DAILY 02/18/19 03/18/20 Unknown History diphenhydrAMINE [Benadryl CAP] 50 mg PO Q6HR PRN 02/18/19 03/18/[address] [DepaKOTE DR] 250 mg PO BID #60 tablet 03/21/20 Unknown Rx OLANZapine [Zyprexa] 15 mg PO DAILY #30 tablet 03/21/20 Unknown Rx traZODone [Desyrel] 200 mg PO QHS #30 tablet 03/21/20 Unknown Rx Hydrocortisone 0.5% (Nf) 1 applicatio TP TID #1 tube 03/28/20 Unknown Rx [Hydrocortisone 0.5% OINT] Lidocaine [Lidocaine GEL] 1 applicatio TP BID PRN #1 03/28/20 Unknown Rx gel..gram. Neomycin/Bacitracin/Polymyxinb 1 applicatio TP BID #1 oint...g. 03/28/20 Unknown Rx [Triple Antibiotic Ointment] Sulfamethoxazole/Trimethoprim 1 each PO BID 7 Days #14 tablet 03/28/20 Unknown Rx [Bactrim DS TAB] Docusate Sodium [Colace] 100 mg PO BID PRN #60 capsule 07/23/20 Unknown Rx Lactulose [Cephulac] 20 gm PO QDAY PRN #90 ml 07/23/20 Unknown Rx Acetaminophen/Codeine [Tylenol 1 tab PO Q6H PRN #8 tab 09/07/20 Unknown Rx /Codeine # 3 tab] Valacyclovir HCl [Valacyclovir] 1,000 mg PO BID #20 tablet 09/07/20 Unknown Rx Phenylephrine HCl/[place] Butter 1 each RC DAILY PRN #12 supp.rect 09/10/20 Unknown Rx [Preparation H Suppository] ED Physical Exam - General Limitations: No Limitations General appearance: alert, in no apparent distress - Head Head exam: Present: atraumatic, normocephalic - Eye Eye exam: Present: normal appearance - ENT ENT exam: Present: mucous membranes moist - Respiratory Respiratory exam: Absent: respiratory distress, accessory muscle use - Extremities Exam Extremities exam: Present: other (ttp to the left lateral hip, no deformity, FROM of the LLE, neurovascularly intact) - Neurological Exam Neurological exam: Present: alert, oriented X3 - Psychiatric Psychiatric exam: Present: normal affect, normal mood - Skin Skin exam: Present: warm, dry, intact ED Course Vital Signs 11/24/20 15:03 Temperature 98.6 F Pulse Rate 67 Respiratory 20 Rate Blood Pressure 134/85 O2 Sat by Pulse 100 Oximetry ED Medical Decision Making - Radiology Data Radiology results: report reviewed Ordering Physician: JEVON LYNN Date of Service: 11/24/20 Procedure(s): XR hip 2-3V LT Accession Number(s): [id number] cc: JEVON LYNN Fluoro Time In Minutes: LEFT HIP CLINICAL DATA: left hip pain after fall TECHNICAL DATA: Two views were obtained, AP and lateral FINDINGS: There is no acute fracture or dislocation. The visualized joint spaces are normal. IMPRESSION: No acute radiographic abnormality. Signer Name: Victoriano Snyder MD Signed: 11/24/2020 3:43 PM Workstation Name: [id number] Transcribed By: EVELYN Dictated By: Victoriano Snyder MD Electronically Authenticated By: Victoriano Snyder MD Signed Date/Time: 11/24/20 154 DD/ 41 TD/TT: Print - Medical Decision Making Patient is a 40-year-old male presents emergency room with complaints of a fall that occurred this morning. He states that he walks with a cane. He states that he accidentally slipped and fell onto his left hip. He states that he has been having left hip pain since then. He is currently ambulatory with a cane. Patient states that he has a history of avascular necrosis and is post to have a hip replacement of his left hip. He states that he is already had a hip replacement of the right hip. Patient has a history of chronic pain and takes Lortab at home. Vitals are stable. On exam:ttp to the left lateral hip, no deformity, FROM of the LLE, neurovascularly intact. X-ray left hip: No acute radiographic abnormality. Patient given 1 Tylenol with codeine while in the emergency department as he did not drive. Advised patient May take Tylenol as needed for pain. May use ice 15 minutes at a time. Follow-up with the primary care doctor. Follow-up with orthopedic doctor. Return to emergency room for new or symptoms. Critical care attestation.: If time is entered above; I have spent that time in minutes in the direct care of this critically ill patient, excluding procedure time. ED Disposition Clinical Impression: Left hip pain Fall Qualifiers: Encounter type: initial encounter Qualified Code(s): W19.XXXA - Unspecified fall, initial encounter Disposition: TO HOME OR SELFCARE Is pt being admited?: No Does the pt Need Aspirin: No Condition: Stable Instructions: Contusion Additional Instructions: May take Tylenol as needed for pain. May use ice 15 minutes at a time. Follow- up with the primary care doctor. Follow-up with orthopedic doctor. Return to emergency room for new or symptoms. Referrals: SHANTA SANTIAGO [Other] - 2-3 Days Time of Disposition: 16:13 Print Language: [place]IZ[place]
--- NOTE | 2020-11-24 15:47 | XRay Report ---
LEFT HIP CLINICAL DATA: left hip pain after fall TECHNICAL DATA: Two views were obtained, AP and lateral FINDINGS: There is no acute fracture or dislocation. The visualized joint spaces are normal. IMPRESSION: No acute radiographic abnormality. Signer Name: Victoriano Snyder MD Signed: 11/24/2020 3:43 PM Workstation Name: [id number]
== END 2020-11-24 16:27 | disposition home or self-care (01) ==
LOC: ED 13:32
DX: M25.552 Pain in left hip (principal); F17.200 Nicotine dependence, unspecified, uncomplicated; Z21 Asymptomatic human immunodeficiency virus [HIV] infection status; Z98.890 Other specified postprocedural states; Z79.899 Other long term (current) drug therapy; Z88.8 Allergy status to other drugs, medicaments and biological substances; W01.0XXA Fall on same level from slipping, tripping and stumbling without subsequent striking against object, initial encounter; Y93.89 Activity, other specified; Y92.89 Other specified places as the place of occurrence of the external cause; Y99.8 Other external cause status

== ENCOUNTER 2021-03-14 21:11 | Emergency (ER) | payer MEDICARE ==
[2021-03-14 21:42] VITALS: BP 132/93
--- NOTE | 2021-03-14 22:49 | Emergency Department Report ---
Chief Complaint: Extremity Injury, Lower Stated Complaint: PAIN IN LEG Time Seen by Provider: 03/14/21 22:19 - HPI History of Present Illness: 40-year-old male patient with history of neuropathy presents to the emergency department complaints of acute exacerbation of chronic leg pain. Patient states he ran out of his Percocet a few days ago. Patient has not been taking anything [id number] for pain since running out of his Percocet. Patient is scheduled to see his neurologist in May. He is "hoping" to see his primary care provider next week but he has not yet scheduled an appointment. There has been no new fall, trauma, or injury. No new complaints. - ROS Review of Systems: GENERAL: Negative for fever. CARDIOVASCULAR: Negative for chest pain. PULMONARY: Negative for shortness of breath. GASTROINTESTINAL: Negative for abdominal pain. MUSCULOSKELETAL: Positive for joint pain. NEUROLOGICAL: Negative for headache. INTEGUMENTARY: Negative for rash. - Exam Vital Signs: Vital Signs 03/14/21 21:37 Temperature 97.9 F Pulse Rate 90 Respiratory 16 Rate Blood Pressure 132/93 [Right] O2 Sat by Pulse 98 Oximetry Physical Exam: General: Awake, appropriately interactive, no acute distress. Neck: Supple. Full range of motion intact. Cardiovascular: Normal peripheral perfusion. Pulmonary: No respiratory distress. Patient is speaking normally without use of accessory muscles. Skin: No apparent rashes or lesions. Neurological: No facial asymmetry. Speech is clear. Follows commands. Patient is alert and oriented. Musculoskeletal: Moves all four extremities spontaneously with normal range of motion. Psych: Cooperative. Appropriate mood and affect. MSE screening note: Focused history and physical exam performed. Due to findings the following was ordered: ED Medical Decision Making - Medical Decision Making The patients presentation is consistent with an acute exacerbation of chronic neuropathic pain. There is no clinical evidence of emergent pathology to warrant further testing, continued ED treatment, admission, or surgical evaluation at this point. It has been explained to the patient that diagnostic testing on an emergent basis is not indicated and the most appropriate course of action is outpatient follow-up. The patient has been informed of the risks associated with chronic opiate use and advised to seek consultation from a paint grinder for definitive care. Patient is aware of specific signs/symptoms that should prompt immediate return to the ED. Instructions were explained in detail to the patient in addition to giving written discharge information and appropriate referrals. Patient expressed understanding and was given the opportunity to ask questions, all of which were satisfactorily answered prior to discharge home. BILLING/CODING: This patient encounter does not represent a certified medical emergency. ED Disposition for MSE Clinical Impression: Encounter for medical screening examination Disposition: HOME / SELF CARE / HOMELESS Is pt being admited?: No Does the pt Need Aspirin: No Condition: Stable Instructions: Medical Screening Exam Additional Instructions: The emergency department does not treat chronic pain. You must follow-up with your primary care provider for definitive management of ongoing symptoms and medication refills. Please see referral information below in case you are not able to see your primary care provider this week. In the meantime, you may take Tylenol 1000 mg every 4 hours and Motrin 800 mg every 8 hours as needed for pain. Both of these medications are available [id number]. Return to the emergency department immediately for new or worsening symptoms. Referrals: MEREDITH DUNCAN MD [Staff Physician] - 3-5 Days [facility] [Provider Group] - 3-5 Days [facility] [Outside] - 3-5 Days [facility] [Outside] - 3-5 Days [facility] [Outside] - 3-5 Days Time of Disposition: 22:52
== END 2021-03-14 23:40 | disposition home or self-care (01) ==
LOC: ED 21:11
DX: M79.606 Pain in leg, unspecified (principal); G89.29 Other chronic pain; Z00.00 Encounter for general adult medical examination without abnormal findings
CPT/HCPCS: 99282

== ENCOUNTER 2021-04-13 16:33 | Emergency (ER) | payer MEDICARE ==
--- NOTE | 2021-04-13 18:28 | Emergency Department Report ---
HPI - General Chief Complaint: Psych Time Seen by Provider: 04/13/21 17:45 - HPI HPI: MSE 5 The patient is a 40-year-old male present with a chief complaint of depression. Patient reports having a "sad day" stating he has been depressed for 1 day. Sera ashby admits to suicidal thoughts with a plan to overdose. Patient denies any attempts at harm himself. Patient also admits to auditory hallucinations stating that they were saying "stupid stuff" and that he cannot completely "make out what they are saying." Patient denies visual hallucinations ED Past Medical Hx - Past Medical History Previous Medical History?: Yes Hx HIV: Yes (anti-virals last CD4 count 200s May 2020) Additional medical history: myopathy, avascular necrosis left hip, peripheral neuropathy. Hep C-? HIV+ - Surgical History Past Surgical History?: Yes Additional Surgical History: right hip replacement - Family History Family history: no significant - Social History Smoking Status: Current Some Day Smoker Substance Use Type: None (Denies illicit drug use), Alcohol (Rarely) - Medications Home Medications: Home Medications Medication Instructions Recorded Confirmed Last Taken Type OLANZapine [Zyprexa] 10 mg PO QHS 06/26/18 03/18/20 1 Day Ago History ~03/17/20 traZODone [Desyrel] 200 mg PO QHS 06/26/18 03/18/20 1 Day Ago History ~03/17/20 Abacavir/Dolutegravir/Lamivudi 1 each PO QAM 02/18/19 03/18/20 1 Day Ago History [Triumeq 600-50-300 mg Tablet] ~03/17/20 Pregabalin [Lyrica] 200 mg PO DAILY 02/18/19 03/18/20 Unknown History diphenhydrAMINE [Benadryl CAP] 50 mg PO Q6HR PRN 02/18/19 03/18/20 Unknown History Divalproex [Viviane WHITLEY] 250 mg PO BID #60 tablet 03/21/20 Unknown Rx OLANZapine [Zyprexa] 15 mg PO DAILY #30 tablet 03/21/20 Unknown Rx traZODone [Desyrel] 200 mg PO QHS #30 tablet 03/21/20 Unknown Rx Hydrocortisone 0.5% (Nf) 1 applicatio TP TID #1 tube 03/28/20 Unknown Rx [Hydrocortisone 0.5% OINT] Lidocaine [Lidocaine GEL] 1 applicatio TP BID PRN #1 03/28/20 Unknown Rx gel..gram. Neomycin/Bacitracin/Polymyxinb 1 applicatio TP BID #1 oint...g. 03/28/20 Unknown Rx [Triple Antibiotic Ointment] Sulfamethoxazole/Trimethoprim 1 each PO BID 7 Days #14 tablet 03/28/20 Unknown Rx [Bactrim DS TAB] Docusate Sodium [Colace] 100 mg PO BID PRN #60 capsule 07/23/20 Unknown Rx Lactulose [Cephulac] 20 gm PO QDAY PRN #90 ml 07/23/20 Unknown Rx Acetaminophen/Codeine [Tylenol 1 tab PO Q6H PRN #8 tab 09/07/20 Unknown Rx /Codeine # 3 tab] Valacyclovir HCl [Valacyclovir] 1,000 mg PO BID #20 tablet 09/07/20 Unknown Rx Phenylephrine HCl/[place] Butter 1 each RC DAILY PRN #12 supp.rect 09/10/20 Unknown Rx [Preparation H Suppository] ED Review of Systems ROS: Stated complaint: SI/HF Other details as noted in HPI Constitutional: no symptoms reported Eyes: denies: eye pain ENT: denies: throat pain Respiratory: no symptoms reported Cardiovascular: denies: chest pain Endocrine: no symptoms reported Gastrointestinal: denies: abdominal pain Genitourinary: denies: dysuria Musculoskeletal: denies: back pain Neurological: denies: headache Psychiatric: auditory hallucinations, suicidal thoughts. denies: visual hallucinations Physical Exam - Physical Exam Physical Exam: GENERAL: The patient is well-developed thin male sitting in chair not appearing to be in acute distress HEENT: Normocephalic. Atraumatic. Extraocular motions are intact. Patient has moist mucous membranes. NECK: Supple. Trachea midline CHEST/LUNGS: Clear to auscultation. There is no respiratory distress noted. HEART/CARDIOVASCULAR: Regular. There is no tachycardia. There is no gallop rub or murmur. ABDOMEN: Abdomen is soft, nontender. Patient has normal bowel sounds. There is no abdominal distention. SKIN: There is no rash. There is no edema. There is no diaphoresis. NEURO: The patient is awake, alert, and oriented. The patient is cooperative. The patient has no focal neurologic deficits. The patient has normal speech. GCS 15 MUSCULOSKELETAL: There is no evidence of acute injury. ED Medical Decision Making - Lab Data Result diagrams: 04/13/21 19:13 04/13/21 19:13 Laboratory Tests 04/13/21 04/13/21 04/13/21 19:13 19:13 19:13 WBC 7.5 RBC 5.26 H Hgb 14.4 Hct 44.8 MCV 85 MCH 27 L MCHC 32 RDW 15.2 Plt Count 370 Lymph % (Auto) 20.5 [place] % (Auto) 9.2 H Eos % (Auto) 0.8 Baso % (Auto) 0.7 Lymph # (Auto) 1.5 [place] # (Auto) 0.7 Eos # (Auto) 0.1 Baso # (Auto) 0.1 Seg Neutrophils % 68.8 Seg Neutrophils # 5.2 Sodium 136 L Potassium 4.3 Chloride 97.6 L Carbon Dioxide 22 Anion Gap 21 BUN 24 H Creatinine 1.1 Estimated GFR > 60 BUN/Creatinine Ratio 22 Glucose 82 Calcium 9.5 Total Bilirubin 1.80 H AST 30 ALT 48 Alkaline Phosphatase 80 Total Protein 8.4 H Albumin 4.7 Albumin/Globulin Ratio 1.3 Salicylates < 0.3 L Acetaminophen Plasma/Serum Alcohol 04/13/21 04/13/21 19:13 19:13 WBC RBC Hgb Hct MCV MCH MCHC RDW Plt Count Lymph % (Auto) [place] % (Auto) Eos % (Auto) Baso % (Auto) Lymph # (Auto) [place] # (Auto) Eos # (Auto) Baso # (Auto) Seg Neutrophils % Seg Neutrophils # Sodium Potassium Chloride Carbon Dioxide Anion Gap BUN Creatinine Estimated GFR BUN/Creatinine Ratio Glucose Calcium Total Bilirubin AST ALT Alkaline Phosphatase Total Protein Albumin Albumin/Globulin Ratio Salicylates Acetaminophen 5.0 L Plasma/Serum Alcohol < 0.01 - Radiology Data Radiology results: report reviewed (Chest x-ray), image reviewed (Chest x-ray) interpreted by me: Chest x-ray-no definite focal infiltrates, no pneumothorax [facility] [address] [place] [address] XRay Report Signed Patient: GURVINDER BENSON MR# : [id number] : 1980 Acct:[id number] Age/Sex: 40 / M ADM Date: 04/13/21 Loc: ED Attending Dr: Ordering Physician: SEPIDEH RANDLE MD Date of Service: 04/13/21 Procedure(s): XR chest routine 2V Accession Number(s): [id number] cc: SEPIDEH RANDLE MD Fluoro Time In Minutes: CHEST 2 VIEWS INDICATION / CLINICAL INFORMATION: Cough. COMPARISON: 06/27/20 FINDINGS: SUPPORT DEVICES: None. HEART / MEDIASTINUM: No significant abnormality. LUNGS / PLEURA: No significant pulmonary or pleural abnormality. No pneumothorax. ADDITIONAL FINDINGS: Scl erosis in the right humeral head could represent osteonecrosis/AVN which can be seen in the setting of sickle cell disease. IMPRESSION: 1. No acute pulmonary or pleural findings. Signer Name: Emmanuel Beckham MD Signed: 04/14/2021 12:14 AM Workstation Name: [id number] Transcribed By: DT Dictated By: Dylan Beckham MD Electronically Authenticated By: Dylan Beckham MD Signed Date/Time: 04/14/2113 DD/ TD/TT: Print Cancel - Differential Diagnosis Suicidal ideation, depression Critical care attestation.: If time is entered above; I have spent that time in minutes in the direct care of this critically ill patient, excluding procedure time. ED Disposition Clinical Impression: Suicidal ideation, Depression, Total bilirubin, elevated Disposition: 01 HOME / SELF CARE / HOMELESS Is pt being admited?: No Does the pt Need Aspirin: No Condition: Stable Instructions: Jaundice, Adult, [id number], Living With Depression, Suicidal Feelings: How to Help Yourself Additional Instructions: OUTPATIENT MENTAL HEALTH RESOURCES [facility], [facility] Jere Salas MD: [address], [address] [place] [address] [place], [place] [id number] [facility]: [facility] [address] [place] [address] [place] [address] [phone] [facility]: [facility] Healthcare: [address] [place] [address] [address] [place] [address] [address] [place], [place] [id number] [place] [id number] [facility]: Tyler Mario MD: [address] [facility] [address] [place], [place] [id number] [facility]: [facility] [place] [address] [phone] OR CRISIS AND ACCESS LINE: Referrals: PRIMARY MD STEPHANE [Primary Care Provider] - 3-5 Days YOGESH VALDEZ MD [Staff Physician] - 3-5 Days (Dr. Valdez is a group contract analyst. Please follow-up with him for further evaluation of your elevated total bilirubin)
[2021-04-13 19:38] LABS: Basophils # (Auto) 0.1 K/mm3 (0.0-0.1); Basophils % (Auto) 0.7 % (0.0-1.8); Eosinophils # (Auto) 0.1 K/mm3 (0.0-0.4); Eosinophils % (Auto) 0.8 % (0.0-4.3); Hematocrit 44.8 % (35.5-45.6); Hemoglobin 14.4 gm/dl (11.8-15.2); Lymphocytes # (Auto) 1.5 K/mm3 (1.2-5.4); Lymphocytes % (Auto) 20.5 % (13.4-35.0); Mean Corpuscular HGB Conc 32 % (32-34); Mean Corpuscular Volume 85 fl (84-94); Monocytes # (Auto) 0.7 K/mm3 (0.0-0.8); Monocytes % (Auto) 9.2 % (0.0-7.3); Platelet Count 370 K/mm3 (140-440); Red Blood Count 5.26 M/mm3 (3.65-5.03); Red Cell Distribution Width 15.2 % (13.2-15.2)
[2021-04-13 20:00] LABS: Alanine Aminotransferase 48 units/L (7-56); Albumin 4.7 g/dL (3.9-5); BUN/Creatinine Ratio 22; Blood Urea Nitrogen 24 mg/dL (9-20); Calcium 9.5 mg/dL (8.4-10.2); Hemolysis Index 4
[2021-04-13] MEDS ORDERED: BENZONATATE 100 MG CAP PO PRN (23:26)
--- NOTE | 2021-04-14 00:18 | XRay Report ---
CHEST 2 VIEWS INDICATION / CLINICAL INFORMATION: Cough. COMPARISON: 06/27/20 FINDINGS: SUPPORT DEVICES: None. HEART / MEDIASTINUM: No significant abnormality. LUNGS / PLEURA: No significant pulmonary or pleural abnormality. No pneumothorax. ADDITIONAL FINDINGS: Sclerosis in the right humeral head could represent osteonecrosis/AVN which can be seen in the setting of sickle cell disease. IMPRESSION: 1. No acute pulmonary or pleural findings. Signer Name: Emmanuel Beckham MD Signed: 04/14/2021 12:14 AM Workstation Name: [id number]
[2021-04-14] MEDS ORDERED: ACETAMINOPHEN 500 MG TAB PO PRN (01:08)
[2021-04-14] MEDS ORDERED: IBUPROFEN 800 MG TAB PO ONE (06:03)
--- NOTE | 2021-04-14 09:00 | Consultation ---
History of Present Illness - Reason for Consult Consult date: 04/14/21 Reason for consult: SI - History of Present Psychiatric Illness The patient was seen today. He is known to me from previous visits and recognizes me when I walk up. He smiles and throws his hand up to wave. The patient has a history of drug use. He says "I want to know why am I still here." He then says "yesterday I was at the [facility] and was having a bad day. I was crying. I had a down moment." He then says "I have therapist I can see but instead I'm forced here." He is asking for pain medication for his leg. He denies SI/HI. He says "I told the doctor I had thoughts. But am I going to act on those thoughts. No." He denies hallucinations of any kind. PAST PSYCHIATRIC HISTORY Diagnoses: schizophrenia and bipolar Suicide attempts or Self-harm behavior: about 7 times Prior psychiatric hospitalizations: yes Substance Abuse history: meth Previous psychiatric medications tried: seroquel, trazodone, latuda Outpatient treatment: yes PAST MEDICAL HISTORY: HIV Family Psychiatric History: None reported or documented SOCIAL HISTORY Marital Status: Single Living Arrangements: homeless Employment Status: Disabled Access to guns/weapons: Denies Education: high school grad History of Abuse: Denies Legal History: Denies EVIEW OF SYSTEMS Constitutional: Negative for weight loss ENT: Negative for stridor Respiratory: Negative for cough or hemoptysis All other systems reviewed and are negative MENTAL STATUS EXAMINATION General Appearance and Behavior: Age appropriate, wearing appropriate clothes, sleeping, reluctant to cooperate Mood: "absolutely fine" Affect and affective range: congruent with mood Thought Process: logical Thought Content: None Speech: Normal volume, Regular rate and rhythm Suicidal Ideation: None Homicidal Ideation: Denies Hallucinations: Denies Delusions: None elicited Impulse Control: Unimpaired Insight and Judgment: Limited Memory/Cognition: Normal Attention: Normal Orientation: Alert, oriented Assessment (1) Mood Disorder, Unspecified Plan d/c 1013 Continue previously prescribed meds Sitter: Defer to primary Medical: Per primary Disposition: Do not recommend acute psychiatric inpatient treatment. The patient understands that if SI/HI arise he is to seek immediate assistance. The patient should comply with all medical regimens, including outpatient psychiatry, CBT, medication adherence, drug rehab, and continued cessation from all illicit drug use and alcohol. The inspectors and regulatory officers to give the patient outpatient resources to help the patient comply with above mentioned. The inspectors and regulatory officers is to further discuss with the patient the safety plan. Will sign off. Thank you for this consult. Case staffed with Dr. Godfrey Medications and Allergies Allergies Allergy/AdvReac Type Severity Reaction Status Date / Time [id number]-[id number] AdvReac Hives Verified 03/14/21 21:58 [From Ziextenzo] Home Medications Medication Instructions Recorded Confirmed Last Taken Type OLANZapine [Zyprexa] 10 mg PO QHS 06/26/18 03/18/20 1 Day Ago History ~03/17/20 traZODone [Desyrel] 200 mg PO QHS 06/26/18 03/18/20 1 Day Ago History ~03/17/20 Abacavir/Dolutegravir/Lamivudi 1 each PO QAM 02/18/19 03/18/20 1 Day Ago History [Triumeq 600-50-300 mg Tablet] ~03/17/20 Pregabalin [Lyrica] 200 mg PO DAILY 02/18/19 03/18/20 Unknown History diphenhydrAMINE [Benadryl CAP] 50 mg PO Q6HR PRN 02/18/19 03/18/20 Unknown History Divalproex [Viviane WHITLEY] 250 mg PO BID #60 tablet 03/21/20 Unknown Rx OLANZapine [Zyprexa] 15 mg PO DAILY #30 tablet 03/21/20 Unknown Rx traZODone [Desyrel] 200 mg PO QHS #30 tablet 03/21/20 Unknown Rx Hydrocortisone 0.5% (Nf) 1 applicatio TP TID #1 tube 03/28/20 Unknown Rx [Hydrocortisone 0.5% OINT] Lidocaine [Lidocaine GEL] 1 applicatio TP BID PRN #1 03/28/20 Unknown Rx gel..gram. Neomycin/Bacitracin/Polymyxinb 1 applicatio TP BID #1 oint...g. 03/28/20 Unknown Rx [Triple Antibiotic Ointment] Sulfamethoxazole/Trimethoprim 1 each PO BID 7 Days #14 tablet 03/28/20 Unknown Rx [Bactrim DS TAB] Docusate Sodium [Colace] 100 mg PO BID PRN #60 capsule 07/23/20 Unknown Rx Lactulose [Cephulac] 20 gm PO QDAY PRN #90 ml 07/23/20 Unknown Rx Acetaminophen/Codeine [Tylenol 1 tab PO Q6H PRN #8 tab 09/07/20 Unknown Rx /Codeine # 3 tab] Valacyclovir HCl [Valacyclovir] 1,000 mg PO BID #20 tablet 09/07/20 Unknown Rx Phenylephrine HCl/[place] Butter 1 each RC DAILY PRN #12 supp.rect 09/10/20 Unknown Rx [Preparation H Suppository] Active Meds: Active Medications Acetaminophen (Acetaminophen 500 Mg Tab) 1,000 mg PO Q6H PRN PRN Reason: Pain, Moderate (4-6) Benzonatate (Benzonatate 100 Mg Cap) 100 mg PO Q8H PRN PRN Reason: Cough Last Admin: 04/14/21 01:00 EDT Dose: 100 mg Documented by: Mental Status Exam - Vital signs Last Vital Signs Temp 98.2 F 04/14/21 03:02 Pulse 80 04/14/21 03:02 Resp 18 04/14/21 03:02 BP 130/72 04/14/21 03:02 Pulse Ox 99 04/14/21 03:02 Results Result Diagrams: 04/13/21 19:13 04/13/21 19:13 Abnormal lab results 04/13/21 04/13/21 04/13/21 Range/Units 19:13 19:13 19:13 RBC 5.26 H (3.65-5.03) M/mm3 MCH 27 L (28-32) pg [place] % (Auto) 9.2 H (0.0-7.3) % Sodium 136 L (137-145) mmol/L Chloride 97.6 L (98-107) mmol/L BUN 24 H (9-20) mg/dL Total Bilirubin 1.80 H (0.1-1.2) mg/dL Total Protein 8.4 H (6.3-8.2) g/dL Salicylates < 0.3 L (2.8-20.0) mg/dL Acetaminophen (10.0-30.0) ug/mL 04/13/21 Range/Units 19:13 RBC (3.65-5.03) M/mm3 MCH (28-32) pg [place] % (Auto) (0.0-7.3) % Sodium (137-145) mmol/L Chloride (98-107) mmol/L BUN (9-20) mg/dL Total Bilirubin (0.1-1.2) mg/dL Total Protein (6.3-8.2) g/dL Salicylates (2.8-20.0) mg/dL Acetaminophen 5.0 L (10.0-30.0) ug/mL All other labs normal.
[2021-04-14 10:01] VITALS: BP 130/95
--- NOTE | 2021-04-14 10:29 | Emergency Department Report ---
Blank Doc - Documentation Documentation: Mental health notes, nurses notes, vitals, and labs reviewed 40-year-old male presents to the hospital reporting suicidal thoughts. Patient has been cleared by mental health from discharge and denies feeling like he would act on these thoughts and expresses having a bad day. He has been recommended patient be discharged to continue his current meds. No events reported overnight
== END 2021-04-14 10:30 | disposition home or self-care (01) ==
LOC: ED 16:33
DX: R45.851 Suicidal ideations (principal); F32.A Depression, unspecified; E80.7 Disorder of bilirubin metabolism, unspecified; F17.200 Nicotine dependence, unspecified, uncomplicated; F10.20 Alcohol dependence, uncomplicated
CPT/HCPCS: 36415; 71046; 80053; 80320; 85025; 99284; G0480

== ENCOUNTER 2021-05-20 23:04 | Emergency (ER) | payer MEDICARE ==
[2021-05-21 00:11] VITALS: BP 124/75
[2021-05-21 01:29] LABS: Hematocrit 40.8 % (35.5-45.6); Hemoglobin 12.8 gm/dl (11.8-15.2); Mean Corpuscular HGB Conc 31 % (32-34); Mean Corpuscular Volume 85 fl (84-94); Platelet Count 440 K/mm3 (140-440); Red Blood Count 4.78 M/mm3 (3.65-5.03); Red Cell Distribution Width 14.8 % (13.2-15.2)
[2021-05-21 01:42] LABS: Alanine Aminotransferase 37 units/L (7-56); Albumin 4.3 g/dL (3.9-5); Blood Urea Nitrogen 24 mg/dL (9-20); Calcium 9.5 mg/dL (8.4-10.2); Hemolysis Index 28
[2021-05-21 01:58] LABS: BUN/Creatinine Ratio 34
[2021-05-21 02:26] LABS: Total Cells Counted 100
[2021-05-21 02:31] LABS: Amphetamine Screen,Urine PRESUMPTIVE POSITIVE; Benzodiazepines Screen,Urine PRESUMPTIVE NEGATIVE; Cannabinoid Screen,Urine PRESUMPTIVE NEGATIVE; Cocaine Screen,Urine PRESUMPTIVE NEGATIVE; Methadone Screen,Urine PRESUMPTIVE NEGATIVE; Opiate Screen,Urine PRESUMPTIVE NEGATIVE
[2021-05-21 02:33] LABS: Bilirubin,Urine NEG (Negative); Blood,Urine NEG (Negative); Calcium Oxalate Crystals,Urine 3+; Color,Urine Yellow (Yellow); Mucus,Urine 1+ /HPF; Protein,Urine <15 mg/dL mg/dL (Negative)
[2021-05-21 02:35] LABS: Platelet Estimate Consistent w Auto; RBC Morphology Normal
--- NOTE | 2021-05-21 02:57 | Emergency Department Report ---
ED Medical Clearance HPI - General Chief complaint: Medical Clearance Stated complaint: DRUG TREATMENT/DIARRHEA Time Seen by Provider: 05/21/21 00:15 Source: patient Mode of arrival: Ambulatory Limitations: No Limitations - History of Present Illness Initial comments: This is a 41-year-old male nontoxic, well nourished in appearance, no acute signs of distress presents to the ED for medical clearance for a drug rehab program. Patient otherwise denies any symptoms or complaints at this time. Denies any suicidal ideation, homicidal ideation, depression, or any psychiatric complaints. Patient stated that he has a long history of drug abuse such as methamphetamine. Last dose he stated was today. Patient denies any fever, chills, nausea, vomiting, chest pain, shortness of breath, headache or stiff neck. Patient is requesting for a drug rehab placement. MD Complaint: medical clearance request Reason for Medical Clearance: other (drug rehab ) Alledged Intoxication: No Traumatic Symptoms: denies traumatic injury Associated Symptoms: denies other symptoms. denies: chest pain, shortness of breath, palpitations, diaphoresis, confusion, cough, fever/chills, headaches, anorexia, malaise, nausea/vomiting, rash, seizure, syncope, weakness Treatments Prior to Arrival: none Home medications: Home Medications Medication Instructions Recorded Confirmed Last Taken OLANZapine [Zyprexa] 10 mg PO QHS 06/26/18 03/18/20 1 Day Ago ~03/17/20 traZODone [Desyrel] 200 mg PO QHS 06/26/18 03/18/20 1 Day Ago ~03/17/20 Abacavir/Dolutegravir/Lamivudi 1 each PO QAM 02/18/19 03/18/20 1 Day Ago [Triumeq 600-50-300 mg Tablet] ~03/17/20 Pregabalin [Lyrica] 200 mg PO DAILY 02/18/19 03/18/20 Unknown diphenhydrAMINE [Benadryl CAP] 50 mg PO Q6HR PRN 02/18/19 03/18/20 Unknown Previous Rx's Medication Instructions Recorded Last Taken Type Divalproex Dr [DepaKOTE DR] 250 mg PO BID #60 tablet 03/21/20 Unknown Rx OLANZapine [Zyprexa] 15 mg PO DAILY #30 tablet 03/21/20 Unknown Rx traZODone [Desyrel] 200 mg PO QHS #30 tablet 03/21/20 Unknown Rx Hydrocortisone 0.5% (Nf) 1 applicatio TP TID #1 tube 03/28/20 Unknown Rx [Hydrocortisone 0.5% OINT] Lidocaine [Lidocaine GEL] 1 applicatio TP BID PRN #1 03/28/20 Unknown Rx gel..gram. Neomycin/Bacitracin/Polymyxinb 1 applicatio TP BID #1 oint...g. 03/28/20 Unknown Rx [Triple Antibiotic Ointment] Sulfamethoxazole/Trimethoprim 1 each PO BID 7 Days #14 tablet 03/28/20 Unknown Rx [Bactrim DS TAB] Docusate Sodium [Colace] 100 mg PO BID PRN #60 capsule 07/23/20 Unknown Rx Lactulose [Cephulac] 20 gm PO QDAY PRN #90 ml 07/23/20 Unknown Rx Acetaminophen/Codeine [Tylenol 1 tab PO Q6H PRN #8 tab 09/07/20 Unknown Rx /Codeine # 3 tab] Valacyclovir HCl [Valacyclovir] 1,000 mg PO BID #20 tablet 09/07/20 Unknown Rx Phenylephrine HCl/[place] Butter 1 each RC DAILY PRN #12 supp.rect 09/10/20 Unknown Rx [Preparation H Suppository] Allergies/Adverse reactions: Allergies Allergy/AdvReac Type Severity Reaction Status Date / Time [id number]-bmez AdvReac Hives Verified 05/21/21 00:11 [From [facility]en[facility]] ED Review of Systems ROS: Stated complaint: DRUG TREATMENT/DIARRHEA Other details as noted in HPI Comment: All other systems reviewed and negative Constitutional: denies: chills, fever Eyes: denies: eye pain, eye discharge, vision change ENT: denies: ear pain, throat pain Respiratory: denies: cough, shortness of breath, wheezing Cardiovascular: denies: chest pain, palpitations Endocrine: no symptoms reported Gastrointestinal: denies: abdominal pain, nausea, diarrhea Genitourinary: denies: urgency, dysuria Musculoskeletal: denies: back pain, joint swelling, arthralgia Skin: denies: rash, lesions Neurological: denies: headache, weakness, paresthesias Psychiatric: denies: anxiety, depression, auditory hallucinations, visual hallucinations, homicidal thoughts, suicidal thoughts Hematological/Lymphatic: denies: easy bleeding, easy bruising ED Past Medical Hx - Past Medical History Hx Psychiatric Treatment: No Hx HIV: Yes (anti-virals last CD4 count 200s May 2020) Additional medical history: myopathy, avascular necrosis left hip, peripheral neuropathy. Hep C-? HIV+ - Surgical History Past Surgical History?: Yes Additional Surgical History: right hip replacement - Social History Smoking Status: Current Some Day Smoker Substance Use Type: None (Denies illicit drug use), Alcohol (Rarely) - Medications Home Medications: Home Medications Medication Instructions Recorded Confirmed Last Taken Type OLANZapine [Zyprexa] 10 mg PO QHS 06/26/18 03/18/20 1 Day Ago History ~03/17/20 traZODone [Desyrel] 200 mg PO QHS 06/26/18 03/18/20 1 Day Ago History ~03/17/20 Abacavir/Dolutegravir/Lamivudi 1 each PO QAM 02/18/19 03/18/20 1 Day Ago History [Triumeq 600-50-300 mg Tablet] ~03/17/20 Pregabalin [Lyrica] 200 mg PO DAILY 02/18/19 03/18/20 Unknown History diphenhydrAMINE [Benadryl CAP] 50 mg PO Q6HR PRN 02/18/19 03/18/20 Unknown History Divalproex [Viviane WHITLEY] 250 mg PO BID #60 tablet 03/21/20 Unknown Rx OLANZapine [Zyprexa] 15 mg PO DAILY #30 tablet 03/21/20 Unknown Rx traZODone [Desyrel] 200 mg PO QHS #30 tablet 03/21/20 Unknown Rx Hydrocortisone 0.5% (Nf) 1 applicatio TP TID #1 tube 03/28/20 Unknown Rx [Hydrocortisone 0.5% OINT] Lidocaine [Lidocaine GEL] 1 applicatio TP BID PRN #1 03/28/20 Unknown Rx gel..gram. Neomycin/Bacitracin/Polymyxinb 1 applicatio TP BID #1 oint...g. 03/28/20 Unknown Rx [Triple Antibiotic Ointment] Sulfamethoxazole/Trimethoprim 1 each PO BID 7 Days #14 tablet 03/28/20 Unknown Rx [Bactrim DS TAB] Docusate Sodium [Colace] 100 mg PO BID PRN #60 capsule 07/23/20 Unknown Rx Lactulose [Cephulac] 20 gm PO QDAY PRN #90 ml 07/23/20 Unknown Rx Acetaminophen/Codeine [Tylenol 1 tab PO Q6H PRN #8 tab 09/07/20 Unknown Rx /Codeine # 3 tab] Valacyclovir HCl [Valacyclovir] 1,000 mg PO BID #20 tablet 09/07/20 Unknown Rx Phenylephrine HCl/[place] Butter 1 each RC DAILY PRN #12 supp.rect 09/10/20 Unknown Rx [Preparation H Suppository] ED Physical Exam - General Limitations: No Limitations General appearance: alert, in no apparent distress - Head Head exam: Present: atraumatic, normocephalic - Eye Eye exam: Present: normal appearance, PERRL, EOMI Pupils: Present: normal accommodation - Neck Neck exam: Present: normal inspection, full ROM. Absent: lymphadenopathy - Respiratory Respiratory exam: Present: normal lung sounds bilaterally. Absent: respiratory distress, wheezes, rales, rhonchi, stridor, chest wall tenderness, accessory muscle use, decreased breath sounds, prolonged expiratory - Cardiovascular Cardiovascular Exam: Present: regular rate, normal rhythm, normal heart sounds. Absent: bradycardia, tachycardia, irregular rhythm, systolic murmur, diastolic murmur, rubs, gallop - GI/Abdominal GI/Abdominal exam: Present: soft, normal bowel sounds. Absent: distended, tenderness, guarding, rebound, rigid - Extremities Exam Extremities exam: Present: normal inspection, full ROM, normal capillary refill. Absent: tenderness - Back Exam Back exam: Present: normal inspection, full ROM. Absent: tenderness, CVA tenderness (R), CVA tenderness (L), muscle spasm, paraspinal tenderness, vertebral tenderness, rash noted - Neurological Exam Neurological exam: Present: alert, oriented X3, normal gait - Psychiatric Psychiatric exam: Present: normal affect, normal mood. Absent: depressed, agitated, anxious, flat affect, manic, homicidal ideation, suicidal ideation - Skin Skin exam: Present: warm, dry, intact, normal color. Absent: rash ED Course Vital Signs 05/21/21 00:06 Temperature 98.3 F Pulse Rate 89 Respiratory 18 Rate Blood Pressure 124/75 [Right] O2 Sat by Pulse 99 Oximetry - Reevaluation(s) Reevaluation #1: 05/21/21 02:55 Patient is speaking in full sentences with no signs of distress noted. Reevaluation #2: 05/21/21 05:23 As per RN, patient eloped without waiting for outreach and education social worker referrals/placement for drug rehab. RN stated is unable to get in touch with patient at this time. ED Medical Decision Making - Lab Data Result diagrams: 05/21/21 01:07 05/21/21 01:07 Lab Results 05/21/21 05/21/21 05/21/21 Range/Units 01:07 01:07 01:07 WBC 5.0 (4.5-11.0) K/mm3 RBC 4.78 (3.65-5.03) M/mm3 Hgb 12.8 (11.8-15.2) gm/dl Hct 40.8 (35.5-45.6) % MCV 85 (84-94) fl MCH 27 L (28-32) pg MCHC 31 L (32-34) % RDW 14.8 (13.2-15.2) % Plt Count 440 (140-440) K/mm3 [place] % (Auto) [employer] House Supervisor Add Manual Diff Complete Total Counted 100 Seg Neuts % (Manual) 44.0 (40.0-70.0) % Lymphocytes % (Manual) 43.0 H (13.4-35.0) % Monocytes % (Manual) 9.0 H (0.0-7.3) % Eosinophils % (Manual) 4.0 (0.0-4.3) % Nucleated RBC % Not Reportable Seg Neutrophils # Man 2.2 (1.8-7.7) K/mm3 Band Neutrophils # 0.0 K/mm3 Lymphocytes # (Manual) 2.2 (1.2-5.4) K/mm3 Abs React Lymphs (Man) 0.0 K/mm3 Monocytes # (Manual) 0.5 (0.0-0.8) K/mm3 Eosinophils # (Manual) 0.2 (0.0-0.4) K/mm3 Basophils # (Manual) 0.0 (0.0-0.1) K/mm3 Metamyelocytes # 0.0 K/mm3 Myelocytes # 0.0 K/mm3 Promyelocytes # 0.0 K/mm3 Blast Cells # 0.0 K/mm3 WBC Morphology Not Reportable Hypersegmented Neuts Not Reportable Hyposegmented Neuts Not Reportable Hypogranular Neuts Not Reportable Smudge Cells Not Reportable Toxic Granulation Not Reportable Toxic Vacuolation Not Reportable Dohle Bodies Not Reportable Pelger-Huet Anomaly Not Reportable Siva Rods Not Reportable Platelet Estimate Consistent w auto Clumped Platelets Not Reportable Plt Clumps, EDTA Not Reportable Large Platelets Not Reportable Giant Platelets Not Reportable Platelet Satelliting Not Reportable Plt Morphology Comment Not Reportable RBC Morphology Normal Dimorphic RBCs Not Reportable Polychromasia Not Reportable Hypochromasia Not Reportable Poikilocytosis Not Reportable Anisocytosis Not Reportable Microcytosis Not Reportable Macrocytosis Not Reportable Spherocytes Not Reportable Pappenheimer Bodies Not Reportable Sickle Cells Not Reportable Target Cells Not Reportable Tear Drop Cells Not Reportable Ovalocytes Not Reportable Helmet Cells Not Reportable Dorman-[place]hee Bodies Not Reportable [place] Rings Not Reportable [place] Cells Not Reportable Bite Cells Not Reportable Crenated Cell Not Reportable Elliptocytes Not Reportable Acanthocytes (Spur) Not Reportable Rouleaux Not Reportable Hemoglobin C Crystals Not Reportable Schistocytes Not Reportable Malaria parasites Not Reportable Oscar Bodies Not Reportable Hem Pathologist Commnt No Sodium 139 (137-145) mmol/L Potassium 4.1 (3.6-5.0) mmol/L Chloride 100.0 (98-107) mmol/L Carbon Dioxide 29 (22-30) mmol/L Anion Gap 14 mmol/L BUN 24 H (9-20) mg/dL Creatinine 0.7 L (0.8-1.3) mg/dL Estimated GFR > 60 ml/min BUN/Creatinine Ratio 34 % Glucose 94 (75-100) mg/dL Calcium 9.5 (8.4-10.2) mg/dL Total Bilirubin 1.20 (0.1-1.2) mg/dL AST 33 (5-40) units/L ALT 37 (7-56) units/L Alkaline Phosphatase 88 (35-129) units/L Total Protein 7.1 (6.3-8.2) g/dL Albumin 4.3 (3.9-5) g/dL Albumin/Globulin Ratio 1.5 % Urine Color (Yellow) Urine Turbidity (Clear) Urine pH (5.0-7.0) Ur Specific [place] (1.003-1.030) Urine Protein (Negative) mg/dL Urine Glucose (UA) (Negative) mg/dL Urine Ketones (Negative) mg/dL Urine Blood (Negative) Urine Nitrite (Negative) Urine Bilirubin (Negative) Urine Urobilinogen (<2.0) mg/dL Ur Leukocyte Esterase (Negative) Urine WBC (Auto) (0.0-6.0) /HPF Urine RBC (Auto) (0.0-6.0) /HPF U Epithel Cells (Auto) (0-13.0) /HPF Calcium Oxalate Crystal Urine Mucus /HPF Salicylates < 0.3 L (2.8-20.0) mg/dL Urine Opiates Screen Urine Methadone Screen Acetaminophen (10.0-30.0) ug/mL Ur Barbiturates Screen Ur Phencyclidine Scrn Ur Amphetamines Screen U Benzodiazepines Scrn Urine Cocaine Screen U Marijuana (THC) Screen Plasma/Serum Alcohol (0-0.07) % 05/21/21 05/21/21 05/21/21 Range/Units 01:07 01:07 02:07 WBC (4.5-11.0) K/mm3 RBC (3.65-5.03) M/mm3 Hgb (11.8-15.2) gm/dl Hct (35.5-45.6) % MCV (84-94) fl MCH (28-32) pg MCHC (32-34) % RDW (13.2-15.2) % Plt Count (140-440) K/mm3 [place] % (Auto) Add Manual Diff Total Counted Seg Neuts % (Manual) (40.0-70.0) % Lymphocytes % (Manual) (13.4-35.0) % Monocytes % (Manual) (0.0-7.3) % Eosinophils % (Manual) (0.0-4.3) % Nucleated RBC % Seg Neutrophils # Man (1.8-7.7) K/mm3 Band Neutrophils # K/mm3 Lymphocytes # (Manual) (1.2-5.4) K/mm3 Abs React Lymphs (Man) K/mm3 Monocytes # (Manual) (0.0-0.8) K/mm3 Eosinophils # (Manual) (0.0-0.4) K/mm3 Basophils # (Manual) (0.0-0.1) K/mm3 Metamyelocytes # K/mm3 Myelocytes # K/mm3 Promyelocytes # K/mm3 Blast Cells # K/mm3 WBC Morphology Hypersegmented Neuts Hyposegmented Neuts Hypogranular Neuts Smudge Cells Toxic Granulation Toxic Vacuolation Dohle Bodies Pelger-Huet Anomaly Siva Rods Platelet Estimate Clumped Platelets Plt Clumps, EDTA Large Platelets Giant Platelets Platelet Satelliting Plt Morphology Comment RBC Morphology Dimorphic RBCs Polychromasia Hypochromasia Poikilocytosis Anisocytosis Microcytosis Macrocytosis Spherocytes Pappenheimer Bodies Sickle Cells Target Cells Tear Drop Cells Ovalocytes Helmet Cells Dorman-Tyhee Bodies [place] Rings [place] Cells Bite Cells Crenated Cell Elliptocytes Acanthocytes (Spur) Rouleaux Hemoglobin C Crystals Schistocytes Malaria parasites Oscar Bodies Hem Pathologist Commnt Sodium (137-145) mmol/L Potassium (3.6-5.0) mmol/L Chloride (98-107) mmol/L Carbon Dioxide (22-30) mmol/L Anion Gap mmol/L BUN (9-20) mg/dL Creatinine (0.8-1.3) mg/dL Estimated GFR ml/min BUN/Creatinine Ratio % Glucose (75-100) mg/dL Calcium (8.4-10.2) mg/dL Total Bilirubin (0.1-1.2) mg/dL AST (5-40) units/L ALT (7-56) units/L Alkaline Phosphatase (35-129) units/L Total Protein (6.3-8.2) g/dL Albumin (3.9-5) g/dL Albumin/Globulin Ratio % Urine Color Yellow (Yellow) Urine Turbidity Slightly-cloudy (Clear) Urine pH 5.0 (5.0-7.0) Ur Specific [place] 1.028 (1.003-1.030) Urine Protein <15 mg/dl (Negative) mg/dL Urine Glucose (UA) Neg (Negative) mg/dL Urine Ketones Tr (Negative) mg/dL Urine Blood Neg (Negative) Urine Nitrite Neg (Negative) Urine Bilirubin Neg (Negative) Urine Urobilinogen 4.0 (<2.0) mg/dL Ur Leukocyte Esterase Neg (Negative) Urine WBC (Auto) 3.0 (0.0-6.0) /HPF Urine RBC (Auto) 4.0 (0.0-6.0) /HPF U Epithel Cells (Auto) 1.0 (0-13.0) /HPF Calcium Oxalate Crystal 3+ Urine Mucus 1+ /HPF Salicylates (2.8-20.0) mg/dL Urine Opiates Screen Urine Methadone Screen Acetaminophen 5.0 L (10.0-30.0) ug/mL Ur Barbiturates Screen Ur Phencyclidine Scrn Ur Amphetamines Screen U Benzodiazepines Scrn Urine Cocaine Screen U Marijuana (THC) Screen Plasma/Serum Alcohol < 0.01 (0-0.07) % 05/21/21 Range/Units 02:07 WBC (4.5-11.0) K/mm3 RBC (3.65-5.03) M/mm3 Hgb (11.8-15.2) gm/dl Hct (35.5-45.6) % MCV (84-94) fl MCH (28-32) pg MCHC (32-34) % RDW (13.2-15.2) % Plt Count (140-440) K/mm3 [place] % (Auto) Add Manual Diff Total Counted Seg Neuts % (Manual) (40.0-70.0) % Lymphocytes % (Manual) (13.4-35.0) % Monocytes % (Manual) (0.0-7.3) % Eosinophils % (Manual) (0.0-4.3) % Nucleated RBC % Seg Neutrophils # Man (1.8-7.7) K/mm3 Band Neutrophils # K/mm3 Lymphocytes # (Manual) (1.2-5.4) K/mm3 Abs React Lymphs (Man) K/mm3 Monocytes # (Manual) (0.0-0.8) K/mm3 Eosinophils # (Manual) (0.0-0.4) K/mm3 Basophils # (Manual) (0.0-0.1) K/mm3 Metamyelocytes # K/mm3 Myelocytes # K/mm3 Promyelocytes # K/mm3 Blast Cells # K/mm3 WBC Morphology Hypersegmented Neuts Hyposegmented Neuts Hypogranular Neuts Smudge Cells Toxic Granulation Toxic Vacuolation Dohle Bodies Pelger-Huet Anomaly Siva Rods Platelet Estimate Clumped Platelets Plt Clumps, EDTA Large Platelets Giant Platelets Platelet Satelliting Plt Morphology Comment RBC Morphology Dimorphic RBCs Polychromasia Hypochromasia Poikilocytosis Anisocytosis Microcytosis Macrocytosis Spherocytes Pappenheimer Bodies Sickle Cells Target Cells Tear Drop Cells Ovalocytes Helmet Cells Dorman-Tyhee Bodies [place] Rings [place] Cells Bite Cells Crenated Cell Elliptocytes Acanthocytes (Spur) Rouleaux Hemoglobin C Crystals Schistocytes Malaria parasites Oscar Bodies Hem Pathologist Commnt Sodium (137-145) mmol/L Potassium (3.6-5.0) mmol/L Chloride (98-107) mmol/L Carbon Dioxide (22-30) mmol/L Anion Gap mmol/L BUN (9-20) mg/dL Creatinine (0.8-1.3) mg/dL Estimated GFR ml/min BUN/Creatinine Ratio % Glucose (75-100) mg/dL Calcium (8.4-10.2) mg/dL Total Bilirubin (0.1-1.2) mg/dL AST (5-40) units/L ALT (7-56) units/L Alkaline Phosphatase (35-129) units/L Total Protein (6.3-8.2) g/dL Albumin (3.9-5) g/dL Albumin/Globulin Ratio % Urine Color (Yellow) Urine Turbidity (Clear) Urine pH (5.0-7.0) Ur Specific [place] (1.003-1.030) Urine Protein (Negative) mg/dL Urine Glucose (UA) (Negative) mg/dL Urine Ketones (Negative) mg/dL Urine Blood (Negative) Urine Nitrite (Negative) Urine Bilirubin (Negative) Urine Urobilinogen (<2.0) mg/dL Ur Leukocyte Esterase (Negative) Urine WBC (Auto) (0.0-6.0) /HPF Urine RBC (Auto) (0.0-6.0) /HPF U Epithel Cells (Auto) (0-13.0) /HPF Calcium Oxalate Crystal Urine Mucus /HPF Salicylates (2.8-20.0) mg/dL Urine Opiates Screen Presumptive negative Urine Methadone Screen Presumptive negative Acetaminophen (10.0-30.0) ug/mL Ur Barbiturates Screen Presumptive negative Ur Phencyclidine Scrn Presumptive negative Ur Amphetamines Screen Presumptive positive U Benzodiazepines Scrn Presumptive negative Urine Cocaine Screen Presumptive negative U Marijuana (THC) Screen Presumptive negative Plasma/Serum Alcohol (0-0.07) % - Medical Decision Making 41-year-old male that presents with medical clearance for drug rehab program. Patient is stable and was examined by me. At this time patient is medically cleared for a rehab program. Patient is to stay in the ED until outreach and education social worker provides rehabilitation program prior to discharge. social services analyst is currently not present but will come in in the morning. A consult has been ordered for them. Labs has been obtained. Patient was instructed to follow-up with a primary care doctor in 3-5 days or if symptoms worsen and continue return to emergency room as soon as possible. At time of discharge, the patient does not seem toxic or ill in appearance. No acute signs of distress noted. Patient agrees to discharge treatment plan of care. No further questions noted by the patient. ED Disposition Clinical Impression: Medical clearance for psychiatric admission, Drug abuse and dependence Disposition: 07 LEFT AWOL/ELOPED Is pt being admited?: No Does the pt Need Aspirin: No Condition: Undetermined Forms: AMA Form Time of Disposition: 05:24
== END 2021-05-21 05:12 | disposition left against medical advice (07) ==
LOC: ED 23:04
DX: Z13.30 Encounter for screening examination for mental health and behavioral disorders, unspecified (principal); F19.20 Other psychoactive substance dependence, uncomplicated; M87.88 Other osteonecrosis, other site; G62.9 Polyneuropathy, unspecified; F17.200 Nicotine dependence, unspecified, uncomplicated; Z88.8 Allergy status to other drugs, medicaments and biological substances; Z21 Asymptomatic human immunodeficiency virus [HIV] infection status; Z96.641 Presence of right artificial hip joint
CPT/HCPCS: 36415; 80053; 80307; 80320; 81001; 85007; 85025; 99283; G0480

== ENCOUNTER 2021-12-23 13:43 | Emergency (ER) | payer MEDICARE ==
[2021-12-23 16:00] LABS: Basophils # (Auto) 0.1 K/mm3 (0.0-0.1); Basophils % (Auto) 2.3 % (0.0-1.8); Eosinophils # (Auto) 0.2 K/mm3 (0.0-0.4); Hematocrit 37.4 % (35.5-45.6); Hemoglobin 12.2 gm/dl (11.8-15.2); Lymphocytes # (Auto) 1.7 K/mm3 (1.2-5.4); Lymphocytes % (Auto) 41.4 % (13.4-35.0); Mean Corpuscular HGB Conc 33 % (32-34); Mean Corpuscular Volume 84 fl (84-94); Monocytes # (Auto) 0.5 K/mm3 (0.0-0.8); Monocytes % (Auto) 11.7 % (0.0-7.3); Platelet Count 452 K/mm3 (140-440); Red Blood Count 4.48 M/mm3 (3.65-5.03)
[2021-12-23 16:06] LABS: Alanine Aminotransferase 20 units/L (7-56); Albumin 4.2 g/dL (3.9-5); BUN/Creatinine Ratio 23; Blood Urea Nitrogen 25 mg/dL (9-20); Calcium 9.9 mg/dL (8.4-10.2); Hemolysis Index 18
--- NOTE | 2021-12-23 18:42 | Emergency Department Report ---
ED General Adult HPI - General Chief complaint: Psych Stated complaint: PSYCH EVL PUI?: No Time Seen by Provider: 12/23/21 18:38 Source: patient Mode of arrival: Ambulatory Limitations: No Limitations - History of Present Illness Initial comments: pt reports he has been experiencing SI for 2 wks. pt reports he does not have a plan but has been feeling depressed lately. pt reports a prior suicide attempt via OD. Pt denies hx of depression or being placed on depression medication. pt is calm and cooperative in triage. pt denies hallucinations. -: week(s) Consistency: constant Improves with: none Treatments Prior to Arrival: none - Related Data Home Medications Medication Instructions Recorded Confirmed Last Taken OLANZapine [Zyprexa] 10 mg PO QHS 06/26/18 03/18/20 1 Day Ago ~03/17/20 traZODone [Desyrel] 200 mg PO QHS 06/26/18 03/18/20 1 Day Ago ~03/17/20 Abacavir/Dolutegravir/Lamivudi 1 each PO QAM 02/18/19 03/18/20 1 Day Ago [Triumeq 600-50-300 mg Tablet] ~03/17/20 Pregabalin [Lyrica] 200 mg PO DAILY 02/18/19 03/18/20 Unknown diphenhydrAMINE [Benadryl CAP] 50 mg PO Q6HR PRN 02/18/19 03/18/20 Unknown Previous Rx's Medication Instructions Recorded Last Taken Type Divalproex Dr [DepaKOTE DR] 250 mg PO BID #60 tablet 03/21/20 Unknown Rx OLANZapine [Zyprexa] 15 mg PO DAILY #30 tablet 03/21/20 Unknown Rx traZODone [Desyrel] 200 mg PO QHS #30 tablet 03/21/20 Unknown Rx Hydrocortisone 0.5% (Nf) 1 applicatio TP TID #1 tube 03/28/20 Unknown Rx [Hydrocortisone 0.5% OINT] Lidocaine [Lidocaine GEL] 1 applicatio TP BID PRN #1 03/28/20 Unknown Rx gel..gram. Neomycin/Bacitracin/Polymyxinb 1 applicatio TP BID #1 oint...g. 03/28/20 Unknown Rx [Triple Antibiotic Ointment] Sulfamethoxazole/Trimethoprim 1 each PO BID 7 Days #14 tablet 03/28/20 Unknown Rx [Bactrim DS TAB] Docusate Sodium [Colace] 100 mg PO BID PRN #60 capsule 07/23/20 Unknown Rx Lactulose [Cephulac] 20 gm PO QDAY PRN #90 ml 07/23/20 Unknown Rx Acetaminophen/Codeine [Tylenol 1 tab PO Q6H PRN #8 tab 09/07/20 Unknown Rx /Codeine # 3 tab] Valacyclovir HCl [Valacyclovir] 1,000 mg PO BID #20 tablet 09/07/20 Unknown Rx Phenylephrine HCl/[place] Butter 1 each RC DAILY PRN #12 supp.rect 09/10/20 Unknown Rx [Preparation H Suppository] Allergies Allergy/AdvReac Type Severity Reaction Status Date / Time pegfilgrastim-bmez AdvReac Hives Verified 05/21/21 00:11 [From Ziextenzo] ED Review of Systems ROS: Stated complaint: PSYCH EVL Other details as noted in HPI Constitutional: denies: chills, fever Eyes: denies: eye pain, eye discharge, vision change ENT: denies: ear pain, throat pain Respiratory: denies: cough, shortness of breath, wheezing Cardiovascular: denies: chest pain, palpitations Endocrine: no symptoms reported Gastrointestinal: denies: abdominal pain, nausea, diarrhea Genitourinary: denies: urgency, dysuria Musculoskeletal: denies: back pain, joint swelling, arthralgia Skin: denies: rash, lesions Neurological: denies: headache, weakness, paresthesias Psychiatric: denies: anxiety, depression Hematological/Lymphatic: denies: easy bleeding, easy bruising ED Past Medical Hx - Past Medical History Previous Medical History?: No Hx Hypertension: No Hx Psychiatric Treatment: No (anxiety) Hx HIV: Yes (anti-virals last CD4 count 200s May 2020) Additional medical history: myopathy, avascular necrosis left hip, peripheral neuropathy. Hep C-? HIV+ - Surgical History Additional Surgical History: right hip replacement - Social History Smoking Status: Never Smoker - Medications Home Medications: Home Medications Medication Instructions Recorded Confirmed Last Taken Type OLANZapine [Zyprexa] 10 mg PO QHS 06/26/18 03/18/20 1 Day Ago History ~03/17/20 traZODone [Desyrel] 200 mg PO QHS 06/26/18 03/18/20 1 Day Ago History ~03/17/20 Abacavir/Dolutegravir/Lamivudi 1 each PO QAM 02/18/19 03/18/20 1 Day Ago History [Triumeq 600-50-300 mg Tablet] ~03/17/20 Pregabalin [Lyrica] 200 mg PO DAILY 02/18/19 03/18/20 Unknown History diphenhydrAMINE [Benadryl CAP] 50 mg PO Q6HR PRN 02/18/19 03/18/[address] [DepAnam DR] 250 mg PO BID #60 tablet 03/21/20 Unknown Rx OLANZapine [Zyprexa] 15 mg PO DAILY #30 tablet 03/21/20 Unknown Rx traZODone [Desyrel] 200 mg PO QHS #30 tablet 03/21/20 Unknown Rx Hydrocortisone 0.5% (Nf) 1 applicatio TP TID #1 tube 03/28/20 Unknown Rx [Hydrocortisone 0.5% OINT] Lidocaine [Lidocaine GEL] 1 applicatio TP BID PRN #1 03/28/20 Unknown Rx gel..gram. Neomycin/Bacitracin/Polymyxinb 1 applicatio TP BID #1 oint...g. 03/28/20 Unknown Rx [Triple Antibiotic Ointment] Sulfamethoxazole/Trimethoprim 1 each PO BID 7 Days #14 tablet 03/28/20 Unknown Rx [Bactrim DS TAB] Docusate Sodium [Colace] 100 mg PO BID PRN #60 capsule 07/23/20 Unknown Rx Lactulose [Cephulac] 20 gm PO QDAY PRN #90 ml 07/23/20 Unknown Rx Acetaminophen/Codeine [Tylenol 1 tab PO Q6H PRN #8 tab 09/07/20 Unknown Rx /Codeine # 3 tab] Valacyclovir HCl [Valacyclovir] 1,000 mg PO BID #20 tablet 09/07/20 Unknown Rx Phenylephrine HCl/[place] Butter 1 each RC DAILY PRN #12 supp.rect 09/10/20 Unknown Rx [Preparation H Suppository] ED Physical Exam - General Limitations: No Limitations General appearance: anxious, other (thin) - Head Head exam: Present: atraumatic, normocephalic - Eye Eye exam: Present: normal appearance - ENT ENT exam: Present: mucous membranes moist - Neck Neck exam: Present: normal inspection - Respiratory Respiratory exam: Present: normal lung sounds bilaterally. Absent: respiratory distress - Cardiovascular Cardiovascular Exam: Present: regular rate, normal rhythm. Absent: systolic murmur, diastolic murmur, rubs, gallop - GI/Abdominal GI/Abdominal exam: Present: soft, normal bowel sounds - Rectal Rectal exam: Present: deferred - Extremities Exam Extremities exam: Present: normal inspection - Back Exam Back exam: Present: normal inspection - Neurological Exam Neurological exam: Present: alert, oriented X3 - Psychiatric Psychiatric exam: Present: depressed, anxious, suicidal ideation - Skin Skin exam: Present: warm, dry, intact, normal color. Absent: rash ED Course Vital Signs 12/23/21 12/23/21 12/23/21 13:54 18:44 20:04 Temperature 98.9 F 98.5 F Pulse Rate 100 H 71 Respiratory 18 18 Rate Blood Pressure 127/78 Blood Pressure 121/51 [Left] O2 Sat by Pulse 96 99 96 Oximetry 12/24/21 12/24/21 02:53 09:24 Temperature 98.4 F 97.6 F Pulse Rate 69 74 Respiratory 18 18 Rate Blood Pressure Blood Pressure 120/51 124/78 [Left] O2 Sat by Pulse 97 100 Oximetry ED Medical Decision Making - Lab Data Result diagrams: 12/23/21 15:16 12/23/21 15:16 Critical care attestation.: If time is entered above; I have spent that time in minutes in the direct care of this critically ill patient, excluding procedure time. ED Disposition Clinical Impression: Suicidal ideation, Substance abuse Disposition: 30 STILL A PATIENT Is pt being admited?: No Does the pt Need Aspirin: No Condition: Stable
[2021-12-24 08:37] LABS: Bacteria,Urine 1+ /HPF (Negative); Calcium Oxalate Crystals,Urine 1+; Hyaline Casts,Urine 1 /LPF; Mucus,Urine FEW /HPF; Sperm,Urine FEW /HPF (NP)
[2021-12-24 08:38] LABS: Bilirubin,Urine Negative (Negative); Blood,Urine Negative (Negative); Color,Urine Yellow (Yellow)
[2021-12-24 08:44] LABS: Benzodiazepines Screen,Urine Negative; Cannabinoid Screen,Urine Negative; Cocaine Screen,Urine Negative; Methadone Screen,Urine Negative; Opiate Screen,Urine Negative
--- NOTE | 2021-12-24 09:59 | Consultation ---
History of Present Illness - Reason for Consult Consult date: 12/24/21 Reason for consult: SI, depression - History of Present Psychiatric Illness The patient was seen today. He is known to me from previous visits. He has a history of schizophrenia and bipolar. He also has a history of drug use. The patient presents with suicidal thoughts and depression. The patient says he's been crying a lot. He says he's been off his meds for about two months. He says he tried to get in to see his outpatient provider but he couldn't get an appointment until next week. He denies hallucinations at present, but says "sometimes." He denies any recent drug use, and says he's been clean. PAST PSYCHIATRIC HISTORY Diagnoses: schizophrenia and bipolar Suicide attempts or Self-harm behavior: about 7 times Prior psychiatric hospitalizations: yes Substance Abuse history: meth Previous psychiatric medications tried: seroquel, trazodone, latuda Outpatient treatment: yes PAST MEDICAL HISTORY: HIV Family Psychiatric History: None reported or documented SOCIAL HISTORY Marital Status: Single Living Arrangements: homeless Employment Status: Disabled Access to guns/weapons: Denies Education: high school grad History of Abuse: Denies Legal History: Denies EVIEW OF SYSTEMS Constitutional: Negative for weight loss ENT: Negative for stridor Respiratory: Negative for cough or hemoptysis All other systems reviewed and are negative MENTAL STATUS EXAMINATION General Appearance and Behavior: Age appropriate, wearing appropriate clothes, sleeping, reluctant to cooperate Mood: depressed Affect and affective range: congruent with mood Thought Process: goal directed Thought Content: None Speech: Normal volume, Regular rate and rhythm Suicidal Ideation: Yes Homicidal Ideation: Denies Hallucinations: Denies Delusions: None elicited Impulse Control: Unimpaired Insight and Judgment: Limited Memory/Cognition: Normal Attention: Normal Orientation: Alert, oriented Assessment (1) Bipolar Disorder Plan [address] 250mg po BID Abilify 5mg po daily Trazodone 50mg po qhs Sitter: Defer to primary Medical: Per primary Disposition: Recommend acute psychiatric inpatient treatment Will follow. Thank you for this consult. Case staffed with Dr. Godfrey Medications and Allergies Allergies Allergy/AdvReac Type Severity Reaction Status Date / Time pegfilgrastim-bmez AdvReac Hives Verified 05/21/21 00:11 [From Ziextenzo] Home Medications Medication Instructions Recorded Confirmed Last Taken Type OLANZapine [Zyprexa] 10 mg PO QHS 06/26/18 03/18/20 1 Day Ago History ~03/17/20 traZODone [Desyrel] 200 mg PO QHS 06/26/18 03/18/20 1 Day Ago History ~03/17/20 Abacavir/Dolutegravir/Lamivudi 1 each PO QAM 02/18/19 03/18/20 1 Day Ago History [Triumeq 600-50-300 mg Tablet] ~03/17/20 Pregabalin [Lyrica] 200 mg PO DAILY 02/18/19 03/18/20 Unknown History diphenhydrAMINE [Benadryl CAP] 50 mg PO Q6HR PRN 02/18/19 03/18/[address] [DepaKOKONG DR] 250 mg PO BID #60 tablet 03/21/20 Unknown Rx OLANZapine [Zyprexa] 15 mg PO DAILY #30 tablet 03/21/20 Unknown Rx traZODone [Desyrel] 200 mg PO QHS #30 tablet 03/21/20 Unknown Rx Hydrocortisone 0.5% (Nf) 1 applicatio TP TID #1 tube 03/28/20 Unknown Rx [Hydrocortisone 0.5% OINT] Lidocaine [Lidocaine GEL] 1 applicatio TP BID PRN #1 03/28/20 Unknown Rx gel..gram. Neomycin/Bacitracin/Polymyxinb 1 applicatio TP BID #1 oint...g. 03/28/20 Unknown Rx [Triple Antibiotic Ointment] Sulfamethoxazole/Trimethoprim 1 each PO BID 7 Days #14 tablet 03/28/20 Unknown Rx [Bactrim DS TAB] Docusate Sodium [Colace] 100 mg PO BID PRN #60 capsule 07/23/20 Unknown Rx Lactulose [Cephulac] 20 gm PO QDAY PRN #90 ml 07/23/20 Unknown Rx Acetaminophen/Codeine [Tylenol 1 tab PO Q6H PRN #8 tab 09/07/20 Unknown Rx /Codeine # 3 tab] Valacyclovir HCl [Valacyclovir] 1,000 mg PO BID #20 tablet 09/07/20 Unknown Rx Phenylephrine HCl/[place] Butter 1 each RC DAILY PRN #12 supp.rect 09/10/20 Unknown Rx [Preparation H Suppository] Mental Status Exam - Vital signs Last Vital Signs Temp 97.6 F 12/24/21 09:24 Pulse 74 12/24/21 09:24 Resp 18 12/24/21 09:24 BP 124/78 12/24/21 09:24 Pulse Ox 100 12/24/21 09:24 Results Result Diagrams: 12/23/21 15:16 12/23/21 15:16 Abnormal lab results 12/23/21 12/23/21 12/23/21 Range/Units 15:16 15:16 15:16 WBC 4.2 L (4.5-11.0) K/mm3 MCH 27 L (28-32) pg RDW 16.0 H (13.2-15.2) % Plt Count 452 H (140-440) K/mm3 Lymph % (Auto) 41.4 H (13.4-35.0) % Caroline % (Auto) 11.7 H (0.0-7.3) % Eos % (Auto) 5.0 H (0.0-4.3) % Baso % (Auto) 2.3 H (0.0-1.8) % Seg Neutrophils % 39.6 L (40.0-70.0) % Seg Neutrophils # 1.7 L (1.8-7.7) K/mm3 BUN 25 H (9-20) mg/dL Glucose 106 H (75-100) mg/dL Salicylates < 0.3 L (2.8-20.0) mg/dL Acetaminophen (10.0-30.0) ug/mL 12/23/21 Range/Units 15:16 WBC (4.5-11.0) K/mm3 MCH (28-32) pg RDW (13.2-15.2) % Plt Count (140-440) K/mm3 Lymph % (Auto) (13.4-35.0) % Caroline % (Auto) (0.0-7.3) % Eos % (Auto) (0.0-4.3) % Baso % (Auto) (0.0-1.8) % Seg Neutrophils % (40.0-70.0) % Seg Neutrophils # (1.8-7.7) K/mm3 BUN (9-20) mg/dL Glucose (75-100) mg/dL Salicylates (2.8-20.0) mg/dL Acetaminophen 5.0 L (10.0-30.0) ug/mL All other labs normal.
[2021-12-24 10:11] LABS: Amphetamine Screen,Urine Positive
[2021-12-24] MEDS: DIVALPROEX DR 250 MG TAB PO SCH ×2 (10:16→21:51)
[2021-12-24] MEDS: ARIPiprazole 5 MG TAB PO SCH (10:16)
--- NOTE | 2021-12-24 11:12 | Event Note ---
Date: 12/24/21 vss , no events overnight awaiting placement , no distrss medically cleared
[2021-12-24] MEDS ORDERED: traZODone 50 MG TAB PO SCH (22:00)
--- NOTE | 2021-12-25 08:41 | Progress Note ---
Subjective - Reason for Consult Consult date: 12/25/21 Reason for consult: SI - Chief Complaint Chief complaint: The patient was seen today. He is asleep. He says he feels "so-so." He then says "I'm still depressed." The patient still endorses suicidal thoughts with a plan to overdose on pills. He denies hallucinations. REVIEW OF SYSTEMS Constitutional: Negative for weight loss ENT: Negative for stridor Respiratory: Negative for cough or hemoptysis All other systems reviewed and are negative MENTAL STATUS EXAMINATION General Appearance and Behavior: Age appropriate, wearing appropriate clothes, sleeping, reluctant to cooperate Mood: depressed Affect and affective range: congruent with mood Thought Process: goal directed Thought Content: None Speech: Normal volume, Regular rate and rhythm Suicidal Ideation: Yes Homicidal Ideation: Denies Hallucinations: Denies Delusions: None elicited Impulse Control: Unimpaired Insight and Judgment: Limited Memory/Cognition: Normal Attention: Normal Orientation: Alert, oriented Assessment (1) Bipolar Disorder Plan [address] 250mg po BID Abilify 5mg po daily Trazodone 50mg po qhs Sitter: Defer to primary Medical: Per primary Disposition: Recommend acute psychiatric inpatient treatment Will follow. Thank you for this consult. Case staffed with Dr. Godfrey Mental Status Exam - Vital signs Last Vital Signs Temp 97.7 F 12/24/21 21:51 Pulse 87 12/24/21 21:51 Resp 18 12/24/21 21:51 BP 160/76 12/24/21 21:51 Pulse Ox 100 12/24/21 21:51
[2021-12-25] MEDS: ARIPiprazole 5 MG TAB PO SCH (10:54)
[2021-12-25] MEDS: DIVALPROEX DR 250 MG TAB PO SCH (10:54)
--- NOTE | 2021-12-25 14:01 | Event Note ---
Date: 12/25/21 Patient reevaluated today. He has currently in no acute distress however still endorses suicidal thoughts and depression. [address]
[2021-12-25] MEDS ORDERED: ONDANSETRON 4 MG/2 ML INJ IM ONE (19:52)
[2021-12-25 21:06] VITALS: BP 145/96
== END 2021-12-25 21:05 | disposition still patient (30) ==
LOC: ED 13:43
DX: F19.10 Other psychoactive substance abuse, uncomplicated (principal); R45.851 Suicidal ideations; Z20.822 Contact with and (suspected) exposure to COVID-19; Z21 Asymptomatic human immunodeficiency virus [HIV] infection status; G62.9 Polyneuropathy, unspecified; I96 Gangrene, not elsewhere classified; Z98.890 Other specified postprocedural states; Z88.8 Allergy status to other drugs, medicaments and biological substances
CPT/HCPCS: 36415; 80053; 80307; 81001; 84443; 85025; 96372; 99285; J2405; U0003; 80320; 99284; G0480

== ENCOUNTER 2022-01-14 15:04 | Emergency (ER) | payer MEDICARE ==
[2022-01-14 16:31] VITALS: BP 131/71
== END 2022-01-15 14:03 | disposition left against medical advice (07) ==
LOC: ED 15:04
DX: R51.9 Headache, unspecified (principal); Z53.21 Procedure and treatment not carried out due to patient leaving prior to being seen by health care provider

== ENCOUNTER 2022-02-21 10:15 | Emergency (ER) | payer MEDICARE ==
[2022-02-21 11:01] VITALS: BP 135/74
== END 2022-02-21 22:45 | disposition left against medical advice (07) ==
LOC: ED 10:15
DX: M79.89 Other specified soft tissue disorders (principal); Z53.21 Procedure and treatment not carried out due to patient leaving prior to being seen by health care provider

== ENCOUNTER 2022-02-23 14:23 | Emergency (ER) | payer MEDICARE ==
[2022-02-23] MEDS ORDERED: KETOROLAC 10 MG TAB PO ONE (22:40)
[2022-02-23] MEDS ORDERED: oxyCODONE /ACETAMINOPHEN 5-325MG TAB PO ONE (22:40)
--- NOTE | 2022-02-23 23:51 | XRay Report ---
LEFT FOREARM, 2 VIEWS INDICATION / CLINICAL INFORMATION: pain and swelling. COMPARISON: None available. FINDINGS: There is nondisplaced radial neck fracture. Hemarthrosis is noted. The remainder of the radius and ul na appear intact. IMPRESSION: There does appear to be a nondisplaced radial neck fracture with associated hemarthrosis. Is there history of trauma Please correlate clinically. Signer Name: Marie Kruse MD Signed: 02/23/2022 11:47 PM Workstation Name: [id number]
--- NOTE | 2022-02-23 23:52 | XRay Report ---
LEFT HAND, 3 VIEWS INDICATION / CLINICAL INFORMATION: pain and swelling. COMPARISON: None available. FINDINGS: No fracture or dislocation. No acute significant osseous or soft tissue abnormality. IMPRESSION: No acute abnormality. Signer Name: Marie rKuse MD Signed: 02/23/2022 11:48 PM Workstation Name: [id number]
--- NOTE | 2022-02-24 00:56 | Emergency Department Report ---
ED Upper Extremity Inj HPI - General Chief Complaint: Extremity Injury, Upper Stated Complaint: HAND SWELLING Time Seen by Provider: 02/23/22 22:14 Source: patient Mode of arrival: Ambulatory Limitations: No Limitations - History of Present Illness Initial Comments: 41-year-old black male with a past medical history of HIV presents to the emergency department for evaluation of left hand and arm pain and swelling. He states that several days ago he fell and hit his arm but did not have any pain initially but over the last 3 to 4 days he has had increasing pain and swelling to the arm and hand. MD Complaint: Injury to:: left, forearm, hand -: Gradual, days(s) (3-4) Other Extremity Injury: Hand: Left, Forearm: Left Other Injuries: none Severity scale (0 -10): 10 Worsens With: movement of extremity, other Context: fall (Palpation) Associated Symptoms: denies other symptoms - Related Data Home Medications Medication Instructions Recorded Confirmed Last Taken OLANZapine [Zyprexa] 10 mg PO QHS 06/26/18 03/18/20 1 Day Ago ~03/17/20 traZODone [Desyrel] 200 mg PO QHS 06/26/18 03/18/20 1 Day Ago ~03/17/20 Abacavir/Dolutegravir/Lamivudi 1 each PO QAM 02/18/19 03/18/20 1 Day Ago [Triumeq 600-50-300 mg Tablet] ~03/17/20 Pregabalin [Lyrica] 200 mg PO DAILY 02/18/19 03/18/20 Unknown diphenhydrAMINE [Benadryl CAP] 50 mg PO Q6HR PRN 02/18/19 03/18/20 Unknown Previous Rx's Medication Instructions Recorded Last Taken Type Divalproex Dr [DepNuTE DR] 250 mg PO BID #60 tablet 03/21/20 Unknown Rx OLANZapine [Zyprexa] 15 mg PO DAILY #30 tablet 03/21/20 Unknown Rx traZODone [Desyrel] 200 mg PO QHS #30 tablet 03/21/20 Unknown Rx Hydrocortisone 0.5% (Nf) 1 applicatio TP TID #1 tube 03/28/20 Unknown Rx [Hydrocortisone 0.5% OINT] Lidocaine [Lidocaine GEL] 1 applicatio TP BID PRN #1 03/28/20 Unknown Rx gel..gram. Neomycin/Bacitracin/Polymyxinb 1 applicatio TP BID #1 oint...g. 03/28/20 Unknown Rx [Triple Antibiotic Ointment] Sulfamethoxazole/Trimethoprim 1 each PO BID 7 Days #14 tablet 03/28/20 Unknown Rx [Bactrim DS TAB] Docusate Sodium [Colace] 100 mg PO BID PRN #60 capsule 07/23/20 Unknown Rx Lactulose [Cephulac] 20 gm PO QDAY PRN #90 ml 07/23/20 Unknown Rx Acetaminophen/Codeine [Tylenol 1 tab PO Q6H PRN #8 tab 09/07/20 Unknown Rx /Codeine # 3 tab] Valacyclovir HCl [Valacyclovir] 1,000 mg PO BID #20 tablet 09/07/20 Unknown Rx Phenylephrine HCl/[place] Butter 1 each RC DAILY PRN #12 supp.rect 09/10/20 Unknown Rx [Preparation H Suppository] Acetaminophen/Codeine [Tylenol 1 tab PO Q6H PRN #12 tab 02/24/22 Unknown Rx /Codeine # 3 tab] Allergies Allergy/AdvReac Type Severity Reaction Status Date / Time pegfilgrastim-bmez AdvReac Hives Verified 05/21/21 00:11 [From Ziextenzo] ED Review of Systems ROS: Stated complaint: HAND SWELLING Other details as noted in HPI Comment: All other systems reviewed and negative Constitutional: denies: chills, fever Respiratory: denies: shortness of breath Cardiovascular: denies: chest pain, palpitations Gastrointestinal: denies: abdominal pain, nausea, vomiting Neurological: denies: headache, weakness ED Past Medical Hx - Past Medical History Hx Hypertension: No Hx Psychiatric Treatment: No (anxiety) Hx HIV: Yes (anti-virals last CD4 count 200s May 2020) Additional medical history: myopathy, avascular necrosis left hip, peripheral neuropathy. Hep C-? HIV+ - Surgical History Additional Surgical History: right hip replacement - Social History Smoking Status: Never Smoker - Medications Home Medications: Home Medications Medication Instructions Recorded Confirmed Last Taken Type OLANZapine [Zyprexa] 10 mg PO QHS 06/26/18 03/18/20 1 Day Ago History ~03/17/20 traZODone [Desyrel] 200 mg PO QHS 06/26/18 03/18/20 1 Day Ago History ~03/17/20 Abacavir/Dolutegravir/Lamivudi 1 each PO QAM 02/18/19 03/18/20 1 Day Ago History [Triumeq 600-50-300 mg Tablet] ~03/17/20 Pregabalin [Lyrica] 200 mg PO DAILY 02/18/19 03/18/20 Unknown History diphenhydrAMINE [Benadryl CAP] 50 mg PO Q6HR PRN 02/18/19 03/18/[address] [DepaKOTE DR] 250 mg PO BID #60 tablet 03/21/20 Unknown Rx OLANZapine [Zyprexa] 15 mg PO DAILY #30 tablet 03/21/20 Unknown Rx traZODone [Desyrel] 200 mg PO QHS #30 tablet 03/21/20 Unknown Rx Hydrocortisone 0.5% (Nf) 1 applicatio TP TID #1 tube 03/28/20 Unknown Rx [Hydrocortisone 0.5% OINT] Lidocaine [Lidocaine GEL] 1 applicatio TP BID PRN #1 03/28/20 Unknown Rx gel..gram. Neomycin/Bacitracin/Polymyxinb 1 applicatio TP BID #1 oint...g. 03/28/20 Unknown Rx [Triple Antibiotic Ointment] Sulfamethoxazole/Trimethoprim 1 each PO BID 7 Days #14 tablet 03/28/20 Unknown Rx [Bactrim DS TAB] Docusate Sodium [Colace] 100 mg PO BID PRN #60 capsule 07/23/20 Unknown Rx Lactulose [Cephulac] 20 gm PO QDAY PRN #90 ml 07/23/20 Unknown Rx Acetaminophen/Codeine [Tylenol 1 tab PO Q6H PRN #8 tab 09/07/20 Unknown Rx /Codeine # 3 tab] Valacyclovir HCl [Valacyclovir] 1,000 mg PO BID #20 tablet 09/07/20 Unknown Rx Phenylephrine HCl/[place] Butter 1 each RC DAILY PRN #12 supp.rect 09/10/20 Unknown Rx [Preparation H Suppository] Acetaminophen/Codeine [Tylenol 1 tab PO Q6H PRN #12 tab 02/24/22 Unknown Rx /Codeine # 3 tab] ED Physical Exam - General Limitations: No Limitations General appearance: alert, in no apparent distress - Head Head exam: Present: atraumatic, normocephalic - Eye Eye exam: Present: normal appearance. Absent: conjunctival injection - Neck Neck exam: Present: normal inspection - Respiratory Respiratory exam: Absent: respiratory distress - Cardiovascular Cardiovascular Exam: Present: regular rate - GI/Abdominal GI/Abdominal exam: Absent: distended, tenderness - Expanded Upper Extremity Exam Left Upper Arm exam: Present: normal inspection Elbow exam: Present: normal inspection Forearm Wrist exam: Present: tenderness, swelling. Absent: deformity, erythema, tenderness over anatomical snuff box Hand Wrist exam: Present: tenderness, swelling. Absent: normal inspection, full ROM, abrasion, laceration, ecchymosis, dislocation, erythema, nail avulsion, subungual hematoma Vascular: Present: normal capillary refill, radial pulse. Absent: vascular compromise, Pallo - Back Exam Back exam: Present: normal inspection - Neurological Exam Neurological exam: Present: alert, oriented X3 - Psychiatric Psychiatric exam: Present: normal affect, normal mood - Skin Skin exam: Present: warm, dry, intact, normal color ED Course Vital Signs 02/23/22 02/23/22 02/24/22 14:45 23:18 01:33 Temperature 98.4 F Pulse Rate 68 Respiratory 16 Rate Blood Pressure 139/66 [Left] O2 Sat by Pulse 100 98 96 Oximetry - Orthopedic Splinting/Casting Injury #1 Side: left Upper Extremity Injury Location: forearm Upper Extremity Immobilizer: posterior splint (With elbow 90 degrees) Additional Comments: CMS intact after placement, patient tolerated well. ED Medical Decision Making - Radiology Data Radiology results: report reviewed, image reviewed Left forearm x-ray: FINDINGS: There is nondisplaced radial neck fracture. Hemarthrosis is noted. The remainder of the radius and ulna appear intact. IMPRESSION: There does appear to be a nondisplaced radial neck fracture with associated hemarthrosis. Is there history of trauma Please correlate clinically. Left hand x-ray: FINDINGS: No fracture or dislocation. No acute significant osseous or soft tissue abnormality. IMPRESSION: No acute abnormality. - Medical Decision Making 41-year-old black male with a past medical history of HIV presents to the emergency department for evaluation of left hand and arm pain and swelling. He states that several days ago he fell and hit his arm but did not have any pain initially but over the last 3 to 4 days he has had increasing pain and swelling to the arm and hand. Left forearm x-ray positive for nondisplaced radial neck fracture. Patient placed in posterior splint with elbow at 90 degrees, discharged home with Tylenol 3, and advised to follow-up with orthopedics for further evaluation and management. He is advised to return to the emergency department as needed. He verbalizes understanding of and agreement with plan of care. Critical care attestation.: If time is entered above; I have spent that time in minutes in the direct care of this critically ill patient, excluding procedure time. ED Disposition Clinical Impression: Fracture of radial neck, left, closed Qualifiers: Encounter type: initial encounter Fracture alignment: nondisplaced Qualified Code(s): S52.135A - Nondisplaced fracture of neck of left radius, initial encounter for closed fracture Disposition: 01 HOME / SELF CARE / HOMELESS Is pt being admited?: No Does the pt Need Aspirin: No Condition: Stable Instructions: Radial Fracture, Cast or Splint Care, Adult, [id number], Radial Fracture Rehab-SportsMed Additional Instructions: Take medications as prescribed. Follow-up with orthopedics for further evaluation and management. Return to the emergency department as needed. Prescriptions: Acetaminophen/Codeine [Tylenol /Codeine # 3 tab] 1 tab PO Q6H PRN #12 tab PRN Reason: Pain, Moderate (4-6) Referrals: RAJAN YUN MD [Staff Physician] - 3-5 Days Time of Disposition: 00:57
[2022-02-24 02:13] VITALS: BP 126/86
== END 2022-02-24 02:13 | disposition home or self-care (01) ==
LOC: ED 14:23
DX: S52.135A Nondisplaced fracture of neck of left radius, initial encounter for closed fracture (principal); X58.XXXA Exposure to other specified factors, initial encounter; Y93.89 Activity, other specified; Y92.89 Other specified places as the place of occurrence of the external cause; Y99.8 Other external cause status
CPT/HCPCS: 99283